=== PATIENT | female | born 1985 | race Caucasian/White ===

== ENCOUNTER 2017-02-18 16:17 | Inpatient (IN) | payer OTHER ==
[~2017-02-18] VITALS: Ht 162.6 cm; Wt 98.2 kg
[~2017-02-18 16:17] MED LIST: /CLON1TA OR; /CLON1TA PO; /LAMO10TA PO; /METO5TA PO; /MOXI40TA OR; /OL10DISTA OR; /OLAN5ZYD OR; /PANT40TA PO; /QUET25TA OR; ABIL2TAB; ABIL5TAB OR; ALBU17IN INH; ALBUTEROL INH; ALLE25CA OR; AMBI10TA OR; AMBI10TA PO; ARIP5TA PO; ASTE137S; ATIV0.5T; BACI50OI EXT; BACIPOW8 TOP; BACL10TA2 OR; BACT800T OR; BENA25TA4 PO; CARB1TAB20 PO; CLIN300C PO; CLON0.5T PO; DOCU10ELUD PO; EPIP0.3I10 IM; ESTR625TA PO; FLON0.05; FLUTISP; HYDR-3363 PO; HYDR-4274 PO; HYDR25T PO; IMIT100T PO; IMIT50TA PO; KLON0.5T PO; KLON1TAB PO; LAMO10TA PO; LAMO200T PO; LAXA5TAB PO; LOTR15CR EXT; LOTRCRE TOP; MINI2CAP PO; MOBI15TA PO; MONI1OIN VA; NEUR100C OR; NORC5TAB PO; NORCOBULK PO; OLAN20TA PO; OMEP20CA3 PO; OMEP40CA2 PO; PAXI10TA2 PO; PAXI20TA3 PO; PERC5TAB6 PO; PERC5TAB8; PERC5TAB8 OR; PRAZ2CAP PO; PRED20TA PO; PRIL20CA9 PO; PROZ20CA; PROZ20CA11 PO; QUET20XRTB OR; SERO200T PO; SERO200T2 PO; SEROQUEL XR PO; SUMA100T2 PO; TRAM50TA2; TRAZ100T2 PO; TRAZ150T OR; TRAZ150T14 PO; TRAZ50TA2 PO; TRIL600T PO; TYLE1TAB5 PO; VENTAER IN; ZANA4CAP OR; ZANT1TAB PO; ZANTTAB9 PO; ZIPR80CAP OR; ZITH250T PO; ZOFR4SOL PO; ZYPR10TA PO; ZYPR20TA PO; haldol PO
[2017-02-18] MEDS ORDERED: clonazePAM 0.5 MG TAB PO ONE (16:45)
[2017-02-18] MEDS ORDERED: IMIP10TA2 PO ×2 (16:48→19:21)
[2017-02-18] MEDS ORDERED: FLUT1LOT EX (16:48)
[2017-02-18] MEDS ORDERED: ZONI25CA2 PO (16:48)
[2017-02-18] MEDS ORDERED: ALBU17IN INH (16:49)
--- NOTE | 2017-02-18 17:14 | REP ---
PA, LATERAL RIGHT HAND: 02/18/2017. Clinical history: Blunt trauma. Findings: There is soft tissue swelling of the dorsal aspect of the MCP joints on the lateral view. There is no visible fracture or focal lesion in the metacarpals or MCP joints. The phalanges, IP joints, carpal bones and their joint spaces were all intact. Distal radius and ulna intact. Impression: 1. Soft tissue swelling of the dorsal aspect of the hand at the MCP joints without visible or displaced fracture, avulsion, subluxation or other acute finding. Signed by Travis Mejia MD 02/19/2017 03:24 P
[2017-02-18 17:42] LABS: MEAN CORPUSCULAR HEMOGLOBIN 29.9 pg (27.0-33.0); MEAN CORPUSCULAR HGB CONC 33.1 g/dl (32.0-36.5); MEAN CORPUSCULAR VOLUME 90.3 fl (80.0-96.0); RED CELL DISTRIBUTION WIDTH 12.8 % (11.5-14.5); WHITE BLOOD COUNT 8.4 K/mm3 (4.0-10.0)
[2017-02-18 17:56] LABS: METHADONE URINE NEGATIVE (NEGATIVE)
[2017-02-18 18:07] LABS: ALBUMIN 3.8 GM/DL (3.2-5.2); ALBUMIN/GLOBULIN RATIO 1.09 (1.00-1.93); ALKALINE PHOSPHATASE 125 U/L (45-117); ALT/SGPT 21 U/L (12-78); ANION GAP 9 MEQ/L (8-16); AST/SGOT 12 U/L (15-37); BILIRUBIN,DIRECT < 0.1 MG/DL (0.0-0.2); BILIRUBIN,TOTAL 0.2 MG/DL (0.2-1.0); BLOOD UREA NITROGEN 11 MG/DL (7-18); CALCIUM LEVEL 9.2 MG/DL (8.5-10.1); CARBON DIOXIDE LEVEL 21 MEQ/L (21-32); CHLORIDE LEVEL 110 MEQ/L (98-107); CREATININE FOR GFR 0.57 MG/DL (0.55-1.02); GLOMERULAR FILTRATION RATE > 60.0 (>60); GLUCOSE, FASTING 95 MG/DL (70-105); POTASSIUM SERUM 3.9 MEQ/L (3.5-5.1); SODIUM LEVEL 140 MEQ/L (136-145); TOTAL PROTEIN 7.3 GM/DL (6.4-8.2)
[2017-02-18] MEDS ORDERED: diphenhydrAMINE 50 MG CAP PO ONE (19:00)
[2017-02-18] MEDS ORDERED: ACETAMINOPHEN TAB 650MG DOSE (2X325MG) PO ONE (19:00)
[2017-02-18] MEDS ORDERED: LORazepam 1 MG TAB PO STA (19:00)
[2017-02-18] MEDS ORDERED: diphenhydrAMINE 25 MG CAP PO PRN (19:15)
[2017-02-18] MEDS ORDERED: ACETAMINOPHEN TAB 650MG DOSE (2X325MG) PO PRN (19:15)
[2017-02-18] MEDS ORDERED: MOM 30ML SUSPENSION UDC PO PRN (19:15)
[2017-02-18] MEDS ORDERED: MAALOX 30 ML SUSP *UDC PO PRN (19:15)
[2017-02-18] MEDS ORDERED: LORazepam 1 MG TAB PO PRN (19:15)
[2017-02-18] MEDS ORDERED: ZONI50CA3 PO (19:21)
[2017-02-18] MEDS ORDERED: IMIT50TA PO (19:21)
[2017-02-18] MEDS ORDERED: EPIP0.3I2 INJ (19:21)
[2017-02-18] MEDS ORDERED: PATIENT COMMENT (19:21)
[2017-02-18] MEDS ORDERED: HALOPERIDOL 5 MG/ML VIAL (J1630) IM STA (19:33)
[2017-02-18] MEDS ORDERED: HALOPERIDOL 1 MG TAB PO ONE (20:00)
[2017-02-18] MEDS: ZONISAMIDE 100 MG CAP (ZONEGRAN) PO SCH (21:00)
[2017-02-18] MEDS: IMIPRAMINE 25 MG TAB PO SCH (21:00)
[2017-02-18] MEDS: traZODone 50 MG TAB PO PRN (21:49)
[2017-02-19 00:43] VITALS: BP 101/63
[2017-02-19 06:35] VITALS: BP 113/57
[2017-02-19] MEDS ORDERED: HALOPERIDOL 5 MG TAB PO PRN (09:15)
[2017-02-19] MEDS ORDERED: diphenhydrAMINE 50 MG CAP PO PRN (09:15)
[2017-02-19] MEDS: clonazePAM 1 MG TAB PO PRN ×2 (09:31→20:28)
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
[2017-02-19] MEDS ORDERED: ALBUTEROL 90 MCG/ACT 8GM HFA INHALER INH PRN (10:15)
[2017-02-19 10:34] LABS: CONTROL LINE HCG INT CTR LINE PRESENT
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
--- NOTE | 2017-02-19 13:03 | REP ---
RIGHT HAND COMPLETE: 02/19/2017. Clinical history: trauma, pain. States pain in fifth metacarpal. Comparison two-view hand 02/18/2017, complete hand 08/06/2016. The four view show some soft tissue swelling over the dorsal aspect of the MCP joints. There is no visible or displaced fracture, avulsion or subluxation. The MCP, IP and carpal joint spaces were unremarkable. Carpal bones and phalanges intact without fracture or avulsion. Distal radius and ulna intact. Impression: 1. Soft tissue swelling dorsal aspect of the MCP joints on the lateral view. No visible or displaced fracture, avulsion, erosion, subluxation or other acute finding. Signed by Travis Mejia MD 02/19/2017 01:48 P
--- NOTE | 2017-02-19 13:17 | REP ---
LUMBAR SPINE COMPLETE: 02/19/2017. Comparison: 08/22/2014. Clinical history: Back pain. Findings: Five views are provided. Pedicles, spinous and transverse prostheses are intact. Elongated transverse processes or short twelfth ribs noted. The other four lumbarized vertebral bodies are without abnormalities. The pedicles, spinous, transverse processes, SI joints, sacral ala and foramina symmetric and normal. There is no spondylolysis or spondylolisthesis. There are right upper quadrant surgical clips from prior cholecystectomy. The disc space and vertebral body heights were intact. Normal lordosis maintained. Impression: 1. There is no compression deformity, disc space narrowing, spondylolysis, facet arthritis or destructive lesion. Negative lumbar spine. Signed by Travis Mejia MD 02/19/2017 03:30 P
[2017-02-19] MEDS: IMIPRAMINE 25 MG TAB PO SCH (20:28)
[2017-02-19] MEDS: ZONISAMIDE 100 MG CAP (ZONEGRAN) PO SCH (20:28)
[2017-02-19] MEDS: traZODone 50 MG TAB PO PRN (20:28)
[2017-02-20 06:29] VITALS: BP 107/56
--- NOTE | 2017-02-20 12:44 | ECGEPIP ---
Stationary ECG Study [facility] Test Date: 2017-02-19 Pat Name: CHERISE DENNIS Department: Room: [place] [address] Gender: F Block Inspector: SHIRA : 1985 Requested By: Sushila Pablo Order Number: [id number] Reading MD: David Myrick Measurements Intervals Grethel Rate: 71 P: 24 NC: 222 QRS: 67 QRSD: 104 T: 41 QT: 371 QTc: 405 Interpretive Statements SINUS RHYTHM WITH FIRST DEGREE AV BLOCK Likely normal for age Not changed from 08/06/16 Electronically Signed On 02-20-2017 12:44:20 EDT by David Myrick
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
== END 2017-02-20 10:45 | disposition home or self-care (01) | DRG 753 ==
LOC: M ED 17:29 → M ED INP 20:25 → M PSY 21:05
PROVIDERS: ADMIT Psychiatry & Neurology Child & Adolescent Psychiatry; ATTEND Psychiatry & Neurology Child & Adolescent Psychiatry
DX: F31.9 Bipolar disorder, unspecified (principal); Z91.19 Patient's noncompliance with other medical treatment and regimen; R45.851 Suicidal ideations; F41.9 Anxiety disorder, unspecified; F60.9 Personality disorder, unspecified; M54.5 Low back pain; F17.210 Nicotine dependence, cigarettes, uncomplicated; M79.641 Pain in right hand; J45.909 Unspecified asthma, uncomplicated; G43.909 Migraine, unspecified, not intractable, without status migrainosus; Z90.710 Acquired absence of both cervix and uterus; Z90.49 Acquired absence of other specified parts of digestive tract; Z90.722 Acquired absence of ovaries, bilateral; Z85.41 Personal history of malignant neoplasm of cervix uteri; Z79.899 Other long term (current) drug therapy; Z88.0 Allergy status to penicillin; Z88.1 Allergy status to other antibiotic agents; Z88.5 Allergy status to narcotic agent; Z88.8 Allergy status to other drugs, medicaments and biological substances; Z91.040 Latex allergy status; Z91.030 Bee allergy status; Z91.048 Other nonmedicinal substance allergy status

== ENCOUNTER 2017-03-01 17:35 | Emergency (ER) | payer OTHER ==
[~2017-03-01] VITALS: Ht 160 cm; Wt 88.5 kg
[2017-03-01 17:35] VITALS: BP 121/77
[~2017-03-01 17:35] MED LIST changes: +EPIP0.3I2 INJ; +FLUT1LOT EX; +IMIP10TA2 PO; +PATIENT COMMENT; +ZONI25CA2 PO; +ZONI50CA3 PO
[2017-03-01] MEDS ORDERED: ACETAMINOPHEN TAB 650MG DOSE (2X325MG) PO ONE (18:15)
[2017-03-01] MEDS ORDERED: BACT800T5 PO (18:36)
== END 2017-03-01 18:46 | disposition home or self-care (01) ==
LOC: M ED 18:05
DX: N30.00 Acute cystitis without hematuria (principal); R10.2 Pelvic and perineal pain; Z88.8 Allergy status to other drugs, medicaments and biological substances; Z91.030 Bee allergy status; Z91.040 Latex allergy status; Z88.0 Allergy status to penicillin; R56.9 Unspecified convulsions; J45.909 Unspecified asthma, uncomplicated; F17.210 Nicotine dependence, cigarettes, uncomplicated; F41.9 Anxiety disorder, unspecified; F32.9 Major depressive disorder, single episode, unspecified; F43.10 Post-traumatic stress disorder, unspecified; Z85.41 Personal history of malignant neoplasm of cervix uteri

== ENCOUNTER 2017-04-14 12:13 | Emergency (ER) | payer OTHER ==
[~2017-04-14] VITALS: Ht 162.6 cm; Wt 84.8 kg
[~2017-04-14 12:13] MED LIST changes: +BACT800T5 PO
[2017-04-14] MEDS ORDERED: EFFE37.527 PO (12:35)
[2017-04-14] MEDS ORDERED: REXU1TAB4 PO (12:35)
[2017-04-14] MEDS ORDERED: BENA25CA4 PO (12:35)
[2017-04-14] MEDS ORDERED: [UNRECOGNIZED DRUG - CODE] PO (12:35)
[2017-04-14] MEDS ORDERED: LORazepam 1 MG TAB PO STA (12:50)
[2017-04-14] MEDS ORDERED: LORazepam 2 MG/ML VIAL (J2060) IM STA (13:13)
[2017-04-14] MEDS ORDERED: HALOPERIDOL 5 MG/ML VIAL (J1630) IM ONE (13:15)
[2017-04-14] MEDS ORDERED: ONDANSETRON 4 MG ORAL DISINTEGRATING TAB (S0181) PO ONE (13:30)
[2017-04-14] MEDS ORDERED: HALOPERIDOL 5 MG/ML VIAL (J1630) IV STA (13:39)
[2017-04-14 14:30] LABS: MEAN CORPUSCULAR HEMOGLOBIN 31.4 pg (27.0-33.0); MEAN CORPUSCULAR HGB CONC 34.6 g/dl (32.0-36.5); MEAN CORPUSCULAR VOLUME 90.8 fl (80.0-96.0); RED CELL DISTRIBUTION WIDTH 12.3 % (11.5-14.5); WHITE BLOOD COUNT 9.8 K/mm3 (4.0-10.0)
[2017-04-14 14:51] LABS: ALBUMIN 4.1 GM/DL (3.2-5.2); ALBUMIN/GLOBULIN RATIO 1.11 (1.00-1.93); ALKALINE PHOSPHATASE 129 U/L (45-117); ALT/SGPT 27 U/L (12-78); ANION GAP 7 MEQ/L (8-16); AST/SGOT 21 U/L (15-37); BILIRUBIN,DIRECT < 0.1 MG/DL (0.0-0.2); BILIRUBIN,TOTAL 0.3 MG/DL (0.2-1.0); BLOOD UREA NITROGEN 12 MG/DL (7-18); CALCIUM LEVEL 9.8 MG/DL (8.5-10.1); CARBON DIOXIDE LEVEL 23 MEQ/L (21-32); CHLORIDE LEVEL 109 MEQ/L (98-107); CREATININE FOR GFR 0.97 MG/DL (0.55-1.02); GLOMERULAR FILTRATION RATE > 60.0 (>60); GLUCOSE, FASTING 104 MG/DL (70-105); POTASSIUM SERUM 4.3 MEQ/L (3.5-5.1); SODIUM LEVEL 139 MEQ/L (136-145); TOTAL PROTEIN 7.8 GM/DL (6.4-8.2)
--- NOTE | 2017-04-14 15:16 | REP ---
Right hand series: Two views. History: Pain in the right fifth digit. Findings: AP and lateral views of the right hand demonstrate some soft tissue swelling dorsally over the metacarpals on the lateral radiograph. Bones, joints and soft tissues are otherwise unremarkable. No fracture or subluxation is seen. No change from comparison study February 19, 2017. Impression: Dorsal soft tissue swelling over the distal metacarpal. No bony abnormality. Signed by Alon March MD 04/14/2017 04:46 P
[2017-04-14 16:18] LABS: METHADONE URINE NEGATIVE (NEGATIVE)
[2017-04-14 17:50] VITALS: BP 112/62
== END 2017-04-14 18:08 | disposition home or self-care (01) ==
LOC: M ED 13:34
DX: F32.9 Major depressive disorder, single episode, unspecified (principal); F19.10 Other psychoactive substance abuse, uncomplicated; M79.89 Other specified soft tissue disorders; Z79.899 Other long term (current) drug therapy; Z88.1 Allergy status to other antibiotic agents; Z91.030 Bee allergy status; Z88.5 Allergy status to narcotic agent; Z91.040 Latex allergy status; Z88.8 Allergy status to other drugs, medicaments and biological substances; Z88.0 Allergy status to penicillin; Z91.89 Other specified personal risk factors, not elsewhere classified

== ENCOUNTER 2017-05-08 16:08 | Emergency (ER) | payer OTHER ==
[~2017-05-08] VITALS: Ht 160 cm; Wt 80.9 kg
[~2017-05-08 16:08] MED LIST changes: +BENA25CA4 PO; +EFFE37.527 PO; -HYDR-4274 PO; +HYDR50TA70 PO; +PERC5TAB12 PO; -PERC5TAB6 PO; +REXU1TAB4 PO; -TRAZ150T14 PO; +TRAZ1TAB14 PO; +[UNRECOGNIZED DRUG - CODE] PO
[2017-05-08 16:09] VITALS: BP 110/70
[2017-05-08] MEDS ORDERED: TOPA1TAB PO (16:18)
[2017-05-08] MEDS ORDERED: ZYPR10TA PO (16:18)
[2017-05-08] MEDS ORDERED: ACETAMINOPHEN 325 MG TAB PO ONE (16:45)
--- NOTE | 2017-05-08 17:24 | REP ---
Clinical: Trauma. Technique: AP, lateral, bilateral oblique views right hand . Findings: The osseous structures and joint spaces are intact and normal. There is no evidence for acute fracture or dislocation. Surrounding soft tissues are unremarkable. No subcutaneous emphysema or radiodense foreign body. Impression: Normal examination. No acute fracture or dislocation. Signed by Mahin Morales MD 05/08/2017 05:16 P
--- NOTE | 2017-05-08 17:25 | REP ---
Clinical: Trauma. Technique: AP, lateral, bilateral oblique views right wrist . Findings: The carpal bones, surrounding osseous structures, soft tissues, and joint spaces are normal. There is no evidence for acute fracture or dislocation. No subcutaneous emphysema or radiodense foreign body. Impression: Normal wrist series. No acute fracture or dislocation Signed by Mahin Morales MD 05/08/2017 05:17 P
== END 2017-05-08 17:51 | disposition home or self-care (01) ==
LOC: M ED 16:08
DX: S60.221A Contusion of right hand, initial encounter (principal); S63.521A Sprain of radiocarpal joint of right wrist, initial encounter; W22.09XA Striking against other stationary object, initial encounter; Y92.019 Unspecified place in single-family (private) house as the place of occurrence of the external cause; Y93.89 Activity, other specified; Y99.8 Other external cause status; R56.9 Unspecified convulsions; J45.909 Unspecified asthma, uncomplicated; K58.9 Irritable bowel syndrome, unspecified; E03.9 Hypothyroidism, unspecified; M51.86 Other intervertebral disc disorders, lumbar region; F31.9 Bipolar disorder, unspecified; F41.9 Anxiety disorder, unspecified; F43.10 Post-traumatic stress disorder, unspecified; F60.3 Borderline personality disorder; Z85.41 Personal history of malignant neoplasm of cervix uteri; Z90.79 Acquired absence of other genital organ(s); Z90.49 Acquired absence of other specified parts of digestive tract; Z79.899 Other long term (current) drug therapy; Z91.040 Latex allergy status; Z91.09 Other allergy status, other than to drugs and biological substances; Z88.5 Allergy status to narcotic agent; Z88.0 Allergy status to penicillin; Z88.8 Allergy status to other drugs, medicaments and biological substances; Z91.030 Bee allergy status

== ENCOUNTER 2017-05-12 11:53 | Inpatient (IN) | payer OTHER ==
[~2017-05-12] VITALS: Ht 162.6 cm; Wt 93.9 kg
[~2017-05-12 11:53] MED LIST changes: +TOPA1TAB PO
[2017-05-12] MEDS ORDERED: TETANUS/DIPHTHERIA TOX ADSORB ADULT 0.5ML SYR/VIAL (90714) IM ONE (13:30)
[2017-05-12 13:44] LABS: MEAN CORPUSCULAR HEMOGLOBIN 31.2 pg (27.0-33.0); MEAN CORPUSCULAR VOLUME 91.6 fl (80.0-96.0); RED CELL DISTRIBUTION WIDTH 12.3 % (11.5-14.5); WHITE BLOOD COUNT 8.9 K/mm3 (4.0-10.0)
[2017-05-12] MEDS ORDERED: LORazepam 2 MG/ML VIAL (J2060) IV STA ×2 (14:03→18:30)
[2017-05-12 14:04] LABS: METHADONE URINE NEGATIVE (NEGATIVE)
[2017-05-12 14:16] LABS: ALBUMIN 3.8 GM/DL (3.2-5.2); ALKALINE PHOSPHATASE 101 U/L (45-117); ALT/SGPT 22 U/L (12-78); ANION GAP 6 MEQ/L (8-16); AST/SGOT 19 U/L (15-37); BILIRUBIN,DIRECT < 0.1 MG/DL (0.0-0.2); BILIRUBIN,TOTAL 0.2 MG/DL (0.2-1.0); BLOOD UREA NITROGEN 7 MG/DL (7-18); CALCIUM LEVEL 9.2 MG/DL (8.5-10.1); CARBON DIOXIDE LEVEL 25 MEQ/L (21-32); CHLORIDE LEVEL 111 MEQ/L (98-107); CREATININE FOR GFR 0.69 MG/DL (0.55-1.02); GLOMERULAR FILTRATION RATE > 60.0 (>60); GLUCOSE, FASTING 98 MG/DL (70-105); POTASSIUM SERUM 4.1 MEQ/L (3.5-5.1); SODIUM LEVEL 142 MEQ/L (136-145); TOTAL PROTEIN 7.6 GM/DL (6.4-8.2)
[2017-05-12] MEDS ORDERED: LORazepam 1 MG TAB PO STA ×3 (14:20→18:30)
[2017-05-12] MEDS ORDERED: LORazepam 1 MG TAB As Ordered ONE (14:25)
--- NOTE | 2017-05-12 14:31 | REP ---
Clinical: Chest pain . Comparison: 08/05/2016 . Findings: The mediastinum and cardiac silhouette are stable and within normal limits for portable technique. The lung sawant are clear without acute consolidation, effusion, or pneumothorax. Skeletal structures are intact. Impression: No acute cardiopulmonary process appreciated. Signed by Mahin Morales MD 05/12/2017 02:23 P
[2017-05-12] MEDS ORDERED: ALBU17IN2 INH (15:56)
[2017-05-12 17:14] VITALS: BP 93/56
[2017-05-12] MEDS ORDERED: diphenhydrAMINE 50 MG CAP PO STA (18:30)
[2017-05-12] MEDS ORDERED: diphenhydrAMINE INJ 50MG/ML VIAL (J1200) IM STA (18:30)
[2017-05-12] MEDS ORDERED: HALOPERIDOL 5 MG TAB PO STA (18:30)
[2017-05-12] MEDS ORDERED: LORazepam 2 MG/ML VIAL (J2060) IM STA (18:44)
[2017-05-12] MEDS ORDERED: HALOPERIDOL 5 MG/ML VIAL (J1630) As Ordered ONE ×2 (18:44→18:46)
[2017-05-12] MEDS ORDERED: HALOPERIDOL DECANOATE 100 MG/ML VIAL (J1631) IM ONE (18:45)
[2017-05-12] MEDS ORDERED: HALOPERIDOL 5 MG/ML VIAL (J1630) IM STA (18:49)
[2017-05-12] MEDS ORDERED: HALOPERIDOL 5 MG/ML VIAL (J1630) IM ONE (19:00)
[2017-05-12] MEDS ORDERED: HALOPERIDOL 5 MG TAB PO PRN (19:30)
[2017-05-12] MEDS ORDERED: MOM 30ML SUSPENSION UDC PO PRN (19:30)
[2017-05-13 06:24] VITALS: BP 106/60
--- NOTE | 2017-05-13 08:06 | HPE ---
DATE OF ADMISSION: 05/12/2017 HISTORY OF THE PRESENT ILLNESS: Please refer to psychiatric history and evaluation for further details on this admission. This examination and history is intended for medical issues history, which may need treatment, followup or consultation of this 31-year-old female. ALLERGIES: 1. BACLOFEN. 2. CODEINE. 3. KETOROLAC. 4. LITHIUM. 5. OLANZAPINE. 6. PENICILLIN. 7. PREGABALIN. 8. SERTRALINE. 9. TRAMADOL. 10. Tape. 11. Bee venom. PRIMARY CARE PROVIDER: Dr. Boyer. PAST MEDICAL HISTORY: Chronic low back pain. Asthma, controlled. Gastroesophageal reflux disease (GERD). Migraines headaches. MRI of the brain 01/24 at [facility]. History of cervical cancer 2010. Status post hysterectomy and oophorectomy. History of bulimia. PAST SURGICAL HISTORY: Tubal ligation. Hysterectomy. Oophorectomy. Cholecystectomy. SOCIAL HISTORY: She is single. She states she has been using heroin, last used Friday. She was screaming that in the lopez. LABORATORY STUDIES: CBC was normal. Sodium 142, potassium 4.1, chloride 111, CO2 25, BUN 7, creatinine 0.69, TSH 0.42. Urine was positive for cannabinoids. Chest x-ray was done and showed no acute cardiopulmonary process. The patient had been complaining about a cough. HOME MEDICATIONS: - albuterol two puffs by mouth every 4 hours as needed for shortness of breath - imipramine 20 mg by mouth at bedtime - Zyprexa 10 mg by mouth daily - Topamax 25 mg by mouth daily - Effexor 37.5 mg by mouth at bedtime - zonisamide 100 mg by mouth at bedtime - EpiPen Unable to complete review of systems or physical exam. The patient was agitated and screaming, punching the marin. The patient's psychiatrist was noted. The patient was medicated. Patient refusing any further at this time.
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
[2017-05-13] MEDS: LORazepam 1 MG TAB PO PRN (17:45)
[2017-05-13 18:00] VITALS: BP 111/65
[2017-05-13] MEDS: IBUPROFEN 400 MG TAB PO PRN (21:30)
[2017-05-13] MEDS ORDERED: HALOPERIDOL 5 MG/ML VIAL (J1630) IM STA (22:23)
[2017-05-13] MEDS ORDERED: LORazepam 2 MG/ML VIAL (J2060) IM STA (22:23)
[2017-05-13] MEDS ORDERED: diphenhydrAMINE INJ 50MG/ML VIAL (J1200) IM STA (22:23)
--- NOTE | 2017-05-14 09:55 | ECGEPIP ---
Stationary ECG Study [facility] Test Date: 2017-05-14 Pat Name: CHERISE DENNIS Department: Room: [place] [address] Gender: F Manager Pricing: RHONDA : 1985 Requested By: Meredith Lancaster Order Number: [id number] Reading MD: Jacinda Temple Measurements Intervals [place] Rate: 91 P: 58 W[place]: 154 QRS: 80 QRSD: 98 T: 67 QT: 357 QTc: 441 Interpretive Statements SINUS RHYTHM eARLY rEPOLAR CHANGES FIRST DEGREE BLOCK RESOLVED C/W 02/19/17 Electronically Signed On 05-14-2017 9:55:27 EDT by Jacinda Temple
[2017-05-14] MEDS: ACETAMINOPHEN TAB 650MG DOSE (2X325MG) PO PRN (12:20)
[2017-05-14] MEDS: diphenhydrAMINE 50 MG CAP PO PRN (14:17)
[2017-05-14] MEDS: HALOPERIDOL 10 MG TAB PO PRN (16:04)
--- NOTE | 2017-05-14 17:05 | MHIPNPDOC ---
[facility] Progress Note Progress Note DATE OF SERVICE: 05/14/17 HISTORY: Patient is a 31-year-old female who was brought into the emergency room by police after she called the crisis line indicating that she was suicidal and had cut her wrist with razor blade. HISTORY: VITAL SIGNS: See below. NEW TEST RESULTS: None CURRENT MEDICATIONS: See below. MENTAL STATUS EXAMINATION: Patient is a 31-year old female, who is alert, dressed in hospital clothes, laying in bed, cooperative, tired looking. Speech: Is coherent. Language skills are fair. Thought processes including: Intact Thought content: About being anxious about not being able to sleep. Abstract reasoning, and computation: Unable to assess, patient is very tired at this time. Description of associations: Good, not loose. Description of abnormal or psychotic thoughts: Denies auditory or visual hallucinations, denies thought delusions and denies homicidal ideation but reports passive suicidal ideation and urges to cut herself. Judgment: Poor. Insight: Poor. Orientation: Oriented X 3. Recent and remote memory: Intact Attention span and concentration: Limited due to patient's sleepiness. Language: Normal. Fund of knowledge: Fair. Mood: "I feel like I want to hurt myself". Affect: Constricted and, congruent to mood DIAGNOSES: 1. Unspecified mood disorder 2. Borderline personality disorder 3. Rule out substance-induced mood disorder ASSESSMENT: Patient reports she has been out of medications for almost 3 months and she says she was on venlafaxine 37.5 mg, she once took Risperdal 1 mg by mouth 3 times a day and felt it helped her at that time. Patient was restarted on venlafaxine 37.5 mg by mouth daily, Risperdal 1 mg by mouth 3 times a day and was left on Haldol when necessary or anxiety and agitation. Patient has a long-standing history of inpatient admissions, for substance abuse, for impulsive behavior and for cutting herself in the past. She'll want to elaborate about her personal problems, but she is willing to comply with medications. MANAGEMENT PLAN: Will encourage her to attend groups, provide her with individual psychotherapy, manage and adjust medications accordingly. TIME SPENT: 15 minutes. Vital Signs Vital Signs Date Time Temp Pulse Resp B/P (MAP) Pulse Ox O2 Delivery O2 Flow Rate FiO2 05/13/17 18:00 97.5 99 16 111/65 (80) 7/3/17 17:14 95 Room Air Current Medications Current Medications Acetaminophen (Tylenol Tab) 650 mg Q6HP PRN PO HEADACHE or DISCOMFORT Last administered on 05/14/17 12:20; Start 05/12/17 at 19:30; Stop 06/11/17 at 19:29 Al Hydrox/Mg Hydrox/Simethicone (Mylanta) 30 ml Q4HP PRN PO HEARTBURN/ INDIGESTION; Start 05/12/17 at 19:30; Stop 06/11/17 at 19:29 Diphenhydramine HCl (Benadryl) 50 mg Q6HP PRN PO INSOMNIA Last administered on 05/14/17 14:17; Start 05/13/17 at 22:30; Stop 06/12/17 at 22:29 Diphenhydramine HCl (Benadryl) 50 mg STAT STAT IM Last administered on 19:03; Start 05/12/17 at 18:30; Stop 05/12/17 at 18:36; Status DC Diphenhydramine HCl (Benadryl) 50 mg STAT STAT IM Last administered on 22:34; Start 05/13/17 at 22:23; Stop 05/13/17 at 22:26; Status DC Diphenhydramine HCl (Benadryl) 50 mg STAT STAT PO ; Start 05/12/17 at 18:30; Stop 05/12/17 at 18:36; Status DC Haloperidol (Haldol) 5 mg Q4HP PRN PO ANXIETY/AGITATION Last administered on 21:30; Start 05/12/17 at 19:30; Stop 05/14/17 at 16:17; Status DC Haloperidol (Haldol) 10 mg Q6HP PRN PO ANXIETY/AGITATION Last administered on 16:04; Start 05/13/17 at 22:30; Stop 06/12/17 at 22:29 Haloperidol (Haldol) 10 mg STAT STAT IM Last administered on 05/12/17 19:04; Start 05/12/17 at 18:49; Stop 05/12/17 at 18:52; Status DC Haloperidol (Haldol) 10 mg STAT STAT IM Last administered on 05/13/17 22:34; Start 05/13/17 at 22:23; Stop 05/13/17 at 22:26; Status DC Haloperidol (Haldol) 10 mg STAT STAT PO ; Start 05/12/17 at 18:30; Stop 05/12/17 at 18:35; Status DC Home Med (Med Rec Complete!) ASDIRECTED XX ; Start 05/12/17 at 16:00; Stop at 16:02; Status DC Ibuprofen (Advil) 400 mg Q6HP PRN PO PAIN Last administered on 05/13/17 21:30; Start 05/12/17 at 19:30; Stop 06/11/17 at 19:29 Lorazepam (Ativan) 1 mg Q4HP PRN PO ANXIETY/AGITATION Last administered on 17:45; Start 05/12/17 at 19:30; Stop 05/19/17 at 19:29 Lorazepam (Ativan) 1 mg STAT STAT IV ; Start 05/12/17 at 14:03; Stop 05/12/17 at 14:25; Status DC Lorazepam (Ativan) 1 mg STAT STAT PO ; Start 05/12/17 at 14:20; Stop 05/12/17 at 14:38; Status DC Lorazepam (Ativan) 1 mg STAT STAT PO Last administered on 05/12/17 14:25; Start 05/12/17 at 14:25; Stop 05/12/17 at 14:29; Status DC Lorazepam (Ativan) 2 mg Q6HP PRN PO ANXIETY/AGITATION; Start 05/13/17 at 22:30; Stop 05/20/17 at 22:29 Lorazepam (Ativan) 2 mg STAT STAT IM Last administered on 05/12/17 19:03; Start 05/12/17 at 18:44; Stop 05/12/17 at 18:45; Status DC Lorazepam (Ativan) 2 mg STAT STAT IM Last administered on 05/13/17 22:34; Start 05/13/17 at 22:23; Stop 05/13/17 at 22:26; Status DC Lorazepam (Ativan) 2 mg STAT STAT IV ; Start 05/12/17 at 18:30; Stop 05/12/17 at 18:31; Status Cancel Lorazepam (Ativan) 2 mg STAT STAT PO ; Start 05/12/17 at 18:30; Stop 05/12/17 at 18:35; Status DC Magnesium Hydroxide (Milk Of Magnesia) 30 ml DAILYPRN PRN PO CONSTIPATION; Start 05/12/17 at 19:30; Stop 06/11/17 at 19:29 Quetiapine Fumarate (SEROquel) 200 mg BID PO ; Start 05/14/17 at 21:00; Stop 06/13 at 20:59 Risperidone (RisperDAL) 1 mg TID PO ; Start 05/14/17 at 21:00; Stop 06/13/17 at 20 :59 Venlafaxine HCl (Effexor) 37.5 mg DAILY PO ; Start 05/15/17 at 09:00; Stop at 08:59 Allergies Coded Allergies: Penicillins (Verified Allergy, Intermediate, HIVES, 02/10/13) Baclofen (Verified Allergy, Unknown, 02/10/13) ADDED per SECURITY CONTROL ASSESSOR's ORDER Bee Venom (Verified Allergy, Unknown, 02/10/13) Codeine (Verified Allergy, Unknown, 02/10/13) Latex (Verified Allergy, Unknown, 02/10/13) Olanzapine (Verified Allergy, Unknown, 02/18/17) Pregabalin (Verified Allergy, Unknown, 02/10/13) Sertraline (Verified Allergy, Unknown, 02/10/13) TAPE (Verified Allergy, Unknown, 03/14/13) Tramadol (Verified Allergy, Unknown, 02/10/13) [place] (Verified Adverse Reaction, Intermediate, THYROID PROBLEM, 02/10/13) Ketorolac (Verified Adverse Reaction, Mild, STOMACH UPSET ; PATIENT TAKES MOTRIN AT HOME, 02/10/13) BELÉN DEE MD May 14, 2017 17:05
[2017-05-14 18:00] VITALS: BP 109/64
[2017-05-14] MEDS: IBUPROFEN 400 MG TAB PO PRN (18:22)
[2017-05-14] MEDS: LORazepam 1 MG TAB PO PRN (20:34)
[2017-05-14] MEDS: QUEtiapine FUMARATE 200 MG TAB PO SCH (20:34)
[2017-05-14] MEDS: risperiDONE 1 MG TAB PO SCH (20:34)
[2017-05-15 06:22] VITALS: BP 109/58
[2017-05-15] MEDS: risperiDONE 1 MG TAB PO SCH ×2 (08:36→20:01)
[2017-05-15] MEDS: VENLAFAXINE 37.5 MG TAB PO SCH (08:36)
[2017-05-15] MEDS: QUEtiapine FUMARATE 200 MG TAB PO SCH (08:36)
[2017-05-15] MEDS: HALOPERIDOL 10 MG TAB PO PRN (15:14)
[2017-05-15] MEDS: MAALOX 30 ML SUSP *UDC PO PRN (17:00)
[2017-05-15 18:09] VITALS: BP 105/64
[2017-05-15] MEDS: QUEtiapine FUMARATE 100 MG TAB PO SCH (20:01)
[2017-05-15] MEDS: LORazepam 2 MG TAB PO PRN (20:01)
[2017-05-15] MEDS: IBUPROFEN 400 MG TAB PO PRN (20:02)
--- NOTE | 2017-05-15 20:12 | MHIPNPDOC ---
[facility] Progress Note Progress Note DATE OF SERVICE: 05/15/17 HISTORY: Patient is a 31-year-old female who was brought into the emergency room by police after she called the crisis line indicating that she was suicidal and had cut her wrist with razor blade. VITAL SIGNS: See below. NEW TEST RESULTS: None CURRENT MEDICATIONS: See below. MENTAL STATUS EXAMINATION: Patient is a 31-year old female, alert, looking older than stated, tired, sleepy , dressed in hospital clothes Speech: normal but sparse, not that fluid. Patient is very sleepy and is hard for her to maintain a conversation. Language skills are fair. Thought processes including: Intact Thought content: Sleep problems ( sleeping too much) Abstract reasoning, and computation: Unable to assess Description of associations: Not loose. Description of abnormal or psychotic thoughts: Denies auditory or visual hallucinations, denies thought delusions and denies homicidal ideation but reports passive suicidal ideation and urges to cut herself. Judgment: Poor. Insight: Poor. Orientation: Oriented X 3. Recent and remote memory: Limited Attention span and concentration: Limited Language: Normal. Fund of knowledge: Fair. Mood: "I feel very tired". Affect: Constricted and, congruent to mood DIAGNOSES: 1. Unspecified mood disorder 2. Borderline personality disorder 3. Rule out substance-induced mood disorder ASSESSMENT: Patient was extremely sleepy, therefore, this chief underwriter reduced Risperdal to 1 mg. PO BID and also reduced Seroquel. Patient has presented agressive at the [facility] but she gets edgy and irritable when she becomes anxious. MANAGEMENT PLAN: Will continue with the same medications. Dosages were adjusted , hoping to reduce her daytime sleepiness and improve her group attendance. TIME SPENT: 15 minutes. Vital Signs Vital Signs Date Time Temp Pulse Resp B/P (MAP) Pulse Ox O2 Delivery O2 Flow Rate FiO2 05/15/17 18:09 97.2 94 16 105/64 (78) 05/12/17 17:14 95 Room Air Current Medications Current Medications Acetaminophen (Tylenol Tab) 650 mg Q6HP PRN PO HEADACHE or DISCOMFORT Last administered on 05/14/17t 12:20; Start 05/12/17 at 19:30; Stop 06/11/17 at 19:29 Al Hydrox/Mg Hydrox/Simethicone (Mylanta) 30 ml Q4HP PRN PO HEARTBURN/ INDIGESTION Last administered on 05/15/17 17:00; Start 05/12/17 at 19:30; Stop at 19:29 Diphenhydramine HCl (Benadryl) 50 mg Q6HP PRN PO INSOMNIA Last administered on 05/14/17 14:17; Start 05/13/17 at 22:30; Stop 06/12/17 at 22:29 Diphenhydramine HCl (Benadryl) 50 mg STAT STAT IM Last administered on 19:03; Start 05/12/17 at 18:30; Stop 05/12/17 at 18:36; Status DC Diphenhydramine HCl (Benadryl) 50 mg STAT STAT IM Last administered on 22:34; Start 05/13/17 at 22:23; Stop 05/13/17 at 22:26; Status DC Diphenhydramine HCl (Benadryl) 50 mg STAT STAT PO ; Start 05/12/17 at 18:30; Stop 05/12/17 at 18:36; Status DC Haloperidol (Haldol) 5 mg Q4HP PRN PO ANXIETY/AGITATION Last administered on 21:30; Start 05/12/17 at 19:30; Stop 05/14/17 at 16:17; Status DC Haloperidol (Haldol) 10 mg Q6HP PRN PO ANXIETY/AGITATION Last administered on 15:14; Start 05/13/17 at 22:30; Stop 06/12/17 at 22:29 Haloperidol (Haldol) 10 mg STAT STAT IM Last administered on 05/12/17 19:04; Start 05/12/17 at 18:49; Stop 05/12/17 at 18:52; Status DC Haloperidol (Haldol) 10 mg STAT STAT IM Last administered on 05/13/17 22:34; Start 05/13/17 at 22:23; Stop 05/13/17 at 22:26; Status DC Haloperidol (Haldol) 10 mg STAT STAT PO ; Start 05/12/17 at 18:30; Stop 05/12/17 at 18:35; Status DC Home Med (Med Rec Complete!) ASDIRECTED XX ; Start 05/12/17 at 16:00; Stop at 16:02; Status DC Ibuprofen (Advil) 400 mg Q6HP PRN PO PAIN Last administered on 05/15/17 20:02; Start 05/12/17 at 19:30; Stop 06/11/17 at 19:29 Lorazepam (Ativan) 1 mg Q4HP PRN PO ANXIETY/AGITATION Last administered on 20:34; Start 05/12/17 at 19:30; Stop 05/14/17 at 20:40; Status DC Lorazepam (Ativan) 1 mg STAT STAT IV ; Start 05/12/17 at 14:03; Stop 05/12/17 at 14:25; Status DC Lorazepam (Ativan) 1 mg STAT STAT PO ; Start 05/12/17 at 14:20; Stop 05/12/17 at 14:38; Status DC Lorazepam (Ativan) 1 mg STAT STAT PO Last administered on 05/12/17 14:25; Start 05/12/17 at 14:25; Stop 05/12/17 at 14:29; Status DC Lorazepam (Ativan) 2 mg Q6HP PRN PO ANXIETY/AGITATION Last administered on 20:01; Start 05/13/17 at 22:30; Stop 05/20/17 at 22:29 Lorazepam (Ativan) 2 mg STAT STAT IM Last administered on 05/12/17 19:03; Start 05/12/17 at 18:44; Stop 05/12/17 at 18:45; Status DC Lorazepam (Ativan) 2 mg STAT STAT IM Last administered on 05/13/17 22:34; Start 05/13/17 at 22:23; Stop 05/13/17 at 22:26; Status DC Lorazepam (Ativan) 2 mg STAT STAT IV ; Start 05/12/17 at 18:30; Stop 05/12/17 at 18:31; Status Cancel Lorazepam (Ativan) 2 mg STAT STAT PO ; Start 05/12/17 at 18:30; Stop 05/12/17 at 18:35; Status DC Magnesium Hydroxide (Milk Of Magnesia) 30 ml DAILYPRN PRN PO CONSTIPATION; Start 05/12/17 at 19:30; Stop 06/11/17 at 19:29 Quetiapine Fumarate (SEROquel) 100 mg BID PO Last administered on 05/15/17 20: 01; Start 05/15/17 at 21:00; Stop 06/14/17 at 20:59 Quetiapine Fumarate (SEROquel) 200 mg BID PO Last administered on 05/15/17 08: 36; Start 05/14/17 at 21:00; Stop 05/15/17 at 11:12; Status DC Risperidone (RisperDAL) 1 mg BID PO Last administered on 05/15/17 20:01; Start 05/15/17 at 21:00; Stop 06/13/17 at 20:59 Risperidone (RisperDAL) 1 mg TID PO Last administered on 05/15/17 08:36; Start 05/14/17 at 21:00; Stop 05/15/17 at 11:17; Status DC Venlafaxine HCl (Effexor) 37.5 mg DAILY PO Last administered on 05/15/17 08:36 ; Start 05/15/17 at 09:00; Stop 06/14/17 at 08:59 Allergies Coded Allergies: Penicillins (Verified Allergy, Intermediate, HIVES, 02/10/13) Baclofen (Verified Allergy, Unknown, 02/10/13) ADDED per [employer]'s ORDER Bee Venom (Verified Allergy, Unknown, 02/10/13) Codeine (Verified Allergy, Unknown, 02/10/13) Latex (Verified Allergy, Unknown, 02/10/13) Olanzapine (Verified Allergy, Unknown, 02/18/17) Pregabalin (Verified Allergy, Unknown, 02/10/13) Sertraline (Verified Allergy, Unknown, 02/10/13) TAPE (Verified Allergy, Unknown, 03/14/13) Tramadol (Verified Allergy, Unknown, 02/10/13) [place] (Verified Adverse Reaction, Intermediate, THYROID PROBLEM, 02/10/13) Ketorolac (Verified Adverse Reaction, Mild, STOMACH UPSET ; PATIENT TAKES MOTRIN AT HOME, 02/10/13) BELÉN DEE MD May 15, 2017 20:12
[2017-05-16 06:19] VITALS: BP 91/54
[2017-05-16] MEDS: IBUPROFEN 400 MG TAB PO PRN ×2 (08:04→17:09)
[2017-05-16] MEDS: VENLAFAXINE 37.5 MG TAB PO SCH (08:04)
[2017-05-16] MEDS: HALOPERIDOL 10 MG TAB PO PRN ×2 (08:04→20:03)
[2017-05-16] MEDS: QUEtiapine FUMARATE 100 MG TAB PO SCH ×2 (08:04→20:03)
[2017-05-16] MEDS: risperiDONE 1 MG TAB PO SCH ×2 (08:04→20:03)
[2017-05-16 18:00] VITALS: BP 103/56
[2017-05-16] MEDS: LORazepam 2 MG TAB PO PRN (19:26)
[2017-05-16] MEDS: ACETAMINOPHEN TAB 650MG DOSE (2X325MG) PO PRN (20:03)
[2017-05-17 06:43] VITALS: BP 92/54
[2017-05-17] MEDS: VENLAFAXINE 37.5 MG TAB PO SCH (08:09)
[2017-05-17] MEDS: QUEtiapine FUMARATE 100 MG TAB PO SCH ×2 (08:09→20:00)
[2017-05-17] MEDS: risperiDONE 1 MG TAB PO SCH ×2 (08:09→20:00)
[2017-05-17] MEDS: HALOPERIDOL 10 MG TAB PO PRN ×2 (08:09→20:00)
--- NOTE | 2017-05-17 08:59 | IPN ---
DATE OF SERVICE: 05/16/2017 Evaluated female patient known for: 1. Bipolar disorder. 2. Borderline personality disorder. SUBJECTIVE: The patient reports feeling much better, feeling rested, less depressed. She reports that her anxiety levels have decreased, and she feels less irritable and angry. She also reports feeling less sleepy than she was. She also reports feeling less sleepy compared to yesterday since her medications were adjusted. At this time, she denies auditory and visual hallucinations, denies thought delusions, and denies homicidal ideation, but admits to fleeting suicidal thoughts. OBJECTIVE: The patient is alert, oriented to place and person, although not completely to date and time. She is cooperative, calm, with fair eye contact, good rapport, and good attitude. Her mood and affect are less irritable, less anxious. She is also less guarded. Her speech is normal, soft-spoken, coherent. Her thought process is intact, and her thought content is coherent. Her memory, recent and remote, are intact; and her attention and concentration span are fair. She is oriented times three. Her judgment and insight are still poor. Her impulse control is fair. The patient denies abnormal of psychotic thoughts, denies homicidal ideation, and denies auditory and visual hallucinations, but admits to fleeting suicidal thoughts. ASSESSMENT: The patient at this time is controlled, she is improving, has had brighter mood and affect, smiles, has her reactive affect, and has not been having explosive outbursts as in previous hospitalizations. Hopefully, with this medication adjustment, the patient will be able to overcome her depression and mood problems. PLAN: Will continue on the same medications and will reevaluate over the weekend and during next week to evaluate possible discharged during next week if she continues to improve. Will followup.
[2017-05-17] MEDS: LORazepam 2 MG TAB PO PRN (16:14)
[2017-05-17 18:00] VITALS: BP 125/72
[2017-05-17] MEDS: AZITHROMYCIN 250 MG TAB PO SCH (19:00)
[2017-05-17] MEDS: guaiFENesin ER 600 MG TAB PO SCH (20:01)
[2017-05-18] MEDS: ACETAMINOPHEN TAB 650MG DOSE (2X325MG) PO PRN (07:09)
[2017-05-18] MEDS: AZITHROMYCIN 250 MG TAB PO SCH (08:14)
[2017-05-18] MEDS: risperiDONE 1 MG TAB PO SCH ×2 (08:14→22:17)
[2017-05-18] MEDS: VENLAFAXINE 37.5 MG TAB PO SCH (08:14)
[2017-05-18] MEDS: QUEtiapine FUMARATE 100 MG TAB PO SCH ×2 (08:14→22:17)
[2017-05-18] MEDS: guaiFENesin ER 600 MG TAB PO SCH ×2 (08:14→22:17)
--- NOTE | 2017-05-18 14:07 | REP ---
Clinical: Constipation. Technique: Single supine view of the abdomen and pelvis. Findings: Bowel gas pattern is nonspecific. Mild fecal stasis cannot be excluded. No evidence for obstruction. Prior cholecystectomy. Skeletal structures intact. No abnormal calcification or foreign body. Impression: Nonspecific examination. Cannot exclude mild fecal stasis. Signed by Mahin Morales MD 05/18/2017 01:59 P
[2017-05-18] MEDS: HALOPERIDOL 10 MG TAB PO PRN (14:10)
[2017-05-18] MEDS ORDERED: LORazepam 2 MG/ML VIAL (J2060) As Ordered ONE (15:37)
[2017-05-18] MEDS ORDERED: diphenhydrAMINE INJ 50MG/ML VIAL (J1200) As Ordered ONE (15:37)
[2017-05-18] MEDS ORDERED: HALOPERIDOL 5 MG/ML VIAL (J1630) As Ordered ONE (15:37)
[2017-05-18] MEDS ORDERED: diphenhydrAMINE INJ 50MG/ML VIAL (J1200) IM STA (15:47)
[2017-05-18] MEDS ORDERED: HALOPERIDOL 5 MG/ML VIAL (J1630) IM STA (15:47)
[2017-05-18 15:55] VITALS: BP 135/90
[2017-05-18] MEDS ORDERED: LORazepam 2 MG/ML VIAL (J2060) IM PRN (16:00)
[2017-05-18 16:05] VITALS: BP 105/57
[2017-05-18] MEDS ORDERED: LORazepam 2 MG/ML VIAL (J2060) IM STA (16:23)
[2017-05-18 16:28] VITALS: BP 97/53
[2017-05-18 17:54] VITALS: BP 112/69
[2017-05-18 18:00] VITALS: BP 119/76
[2017-05-19] MEDS: IBUPROFEN 400 MG TAB PO PRN ×2 (03:21→11:52)
[2017-05-19 06:41] VITALS: BP 100/57
--- NOTE | 2017-05-19 06:45 | IPN ---
DATE OF SERVICE: 05/18/2017 She had been complaining of cough, loose production, slight sore throat. I was asked to see her. She is a 31-year-old female patient on the inpatient mental health unit. Patient complained of cough. She had a raspy, loose cough with scattered rhonchi. Physical exam was done. Patient was alert and oriented times three. Pharynx was slightly reddened. Tongue and gums pink and moist. Tongue is midline. Neck is supple, without lymphadenopathy. No thyromegaly. No goiter. Chest had course breath sounds, few scattered rhonchi. No wheeze or retraction. Heart is regular. Abdomen benign. Bowel sounds positive. Skin warm and dry. Turgor good. IMPRESSION: Upper respiratory infection (URI). Bronchitis. Azithromycin 500 mg one by mouth daily for 5 days. Mucinex 600 mg one by mouth twice daily. Encouraged to drink. Increase clear liquids by mouth. Temperature was 98, pulse 88, blood pressure was 130/70, oxygen saturation was 95% on room air.
[2017-05-19] MEDS: guaiFENesin ER 600 MG TAB PO SCH ×2 (08:11→20:11)
[2017-05-19] MEDS: risperiDONE 1 MG TAB PO SCH ×2 (08:11→20:11)
[2017-05-19] MEDS: VENLAFAXINE 37.5 MG TAB PO SCH (08:11)
[2017-05-19] MEDS: AZITHROMYCIN 250 MG TAB PO SCH (08:11)
[2017-05-19] MEDS: QUEtiapine FUMARATE 100 MG TAB PO SCH ×2 (08:11→20:11)
[2017-05-19] MEDS: ACETAMINOPHEN TAB 650MG DOSE (2X325MG) PO PRN (10:14)
--- NOTE | 2017-05-19 13:27 | REP ---
Right wrist series: Four views. History: Pain after trauma. Findings: Four views of the right wrist demonstrate normal bones, joints, and soft tissues. No fracture or subluxation is seen. Impression: Negative right wrist series. Signed by Alon March MD 05/19/2017 03:50 P
--- NOTE | 2017-05-19 13:30 | REP ---
Right hand series: Four views. History: Pain after trauma. Findings: Four views of the right hand demonstrate overall normal mineralization. No fracture is seen. There is some soft tissue swelling over the distal metacarpals on the lateral radiograph. Impression: Mild soft tissue swelling. No fracture seen. Signed by Alon March MD 05/19/2017 03:50 P
[2017-05-19] MEDS: diphenhydrAMINE 50 MG CAP PO PRN (15:33)
[2017-05-19 18:00] VITALS: BP 121/67
[2017-05-19] MEDS: diphenhydrAMINE CREAM 30GM TOP PRN (20:12)
[2017-05-19] MEDS: HALOPERIDOL 10 MG TAB PO PRN (20:12)
--- NOTE | 2017-05-19 23:02 | IPN ---
DATE: 05/19/2017 Evaluated 31-year-old female patient known for: 1. Bipolar disorder. 2. Borderline personality disorder. SUBJECTIVE: Staff members report patient had a difficult day yesterday, when she became increasingly agitated because she requested her hand x-ray results and nursing staff told her she needed to speak to Attending in order to get those results. This contributed to her frustration and agitation and she started punching the marin. She says that she feels calmer today, she denies anxiety, anger, or rage. She denies the urge to hurt herself or hurt other people. She denies suicidal or homicidal ideation, denies auditory or visual hallucinations and denies thought delusions. OBJECTIVE: The patient is alert, oriented times three, cooperative, pleasant. Her eye contact is good and she has a good demeanor. Her mood and affect are normal, euthymic, she is less anxious than last week. Her speech is normal, spontaneous and fluid. Her thought process is intact and her thought content is coherent. She is goal directed. She is willing to go camping with her family this week. Her memory, recent and remote are intact, orientation and concentration are good. Computation and abstract thinking are fair. She is oriented times three. Her judgment and insight are slowly improving. Her impulse control has been good today. The patient denies abnormal or psychotic thoughts, denies homicidal ideation, denies thought delusions, denies suicidal thoughts. ASSESSMENT: The patient has been able to control herself pretty well for an entire week. She only had an outburst yesterday. At this time, the patient is not a danger to herself or others, she is motivated to get out of the hospital to go camping with her family on Friday. She is goal-directed. She smiles spontaneously when she thinks about having fun with her family in that setting. PLAN: Will continue the same medications and if the patient continues to be stable, will be discharged home so that can enjoy her family gathering and reunite with them. body shop worker will connect her with outpatient psychiatric followup. KESHA
[2017-05-20 06:27] VITALS: BP 112/63
[2017-05-20] MEDS: guaiFENesin ER 600 MG TAB PO SCH ×2 (08:03→21:01)
[2017-05-20] MEDS: QUEtiapine FUMARATE 100 MG TAB PO SCH ×2 (08:03→21:01)
[2017-05-20] MEDS: VENLAFAXINE 37.5 MG TAB PO SCH (08:03)
[2017-05-20] MEDS: AZITHROMYCIN 250 MG TAB PO SCH (08:03)
[2017-05-20] MEDS: risperiDONE 1 MG TAB PO SCH ×2 (08:03→21:02)
[2017-05-20] MEDS: diphenhydrAMINE CREAM 30GM TOP PRN ×2 (16:19→21:02)
[2017-05-20] MEDS: HALOPERIDOL 10 MG TAB PO PRN (17:59)
[2017-05-20 18:00] VITALS: BP 100/58
[2017-05-20] MEDS: IBUPROFEN 400 MG TAB PO PRN (19:26)
[2017-05-20] MEDS: diphenhydrAMINE 50 MG CAP PO PRN (21:03)
[2017-05-21] MEDS: ACETAMINOPHEN TAB 650MG DOSE (2X325MG) PO PRN (06:01)
[2017-05-21 06:20] VITALS: BP 112/66
[2017-05-21] MEDS: VENLAFAXINE 37.5 MG TAB PO SCH (09:04)
[2017-05-21] MEDS: AZITHROMYCIN 250 MG TAB PO SCH (09:04)
[2017-05-21] MEDS: QUEtiapine FUMARATE 100 MG TAB PO SCH (09:04)
[2017-05-21] MEDS: guaiFENesin ER 600 MG TAB PO SCH (09:04)
[2017-05-21] MEDS: risperiDONE 1 MG TAB PO SCH (09:04)
[2017-05-21] MEDS: MAALOX 30 ML SUSP *UDC PO PRN (09:28)
[2017-05-21] MEDS: HALOPERIDOL 10 MG TAB PO PRN (09:51)
--- NOTE | 2017-05-21 09:54 | IPN ---
DATE OF SERVICE: 05/20/2017 Evaluated 31-year-old female patient known for: 1. Bipolar disorder. 2. Borderline personality disorder. SUBJECTIVE: Staff members report that she had an angry outburst yesterday when she requested her clothes. The nurse explained to her that she could not have her clothes because she had had an outburst on Friday. However, she did not punch any marin, and she did not hurt herself. This morning, she reported feeling happy, less anxious, motivated for change and for continued treatment. She says she was excited about going camping with her family. Denies suicidal or homicidal ideation, denies auditory or visual hallucinations, and denies thought delusions. OBJECTIVE: The patient is alert, oriented times three, with good hygiene, good eye contact, and good rapport. Her mood and affect are normal, brighter. Her affect is reactive, appropriate, full range, and mood congruent. Her speech is spontaneous and fluid. Her thought process is intact, and her thought content is coherent. She is goal directed. She continues to look forward to Friday because she wants to go camping with her family. Her attention and concentration are fair. Her memory, recent and remote, are intact. Computation and abstract thinking are fair. She is oriented times three. Her judgment and insight are improving. Her impulse control has been better, despite the last two outbursts that she has had compared to previous hospitalizations. Regarding abnormal or psychotic thoughts, the patient has denied suicidal or homicidal ideation. Denies auditory or visual hallucinations, and denies thought delusions. ASSESSMENT: The patient continues to improve. She is being discharged tomorrow, 05/21/2017, if she continues to control her impulses and has good behavior. She will be discharged on the same medications that she has been using at the inpatient mental health unit. Will monitor closely and will followup.
[2017-05-21] MEDS ORDERED: HALO10TA2 PO (10:19)
[2017-05-21] MEDS ORDERED: LORA2TA PO (10:19)
[2017-05-21] MEDS ORDERED: EFFE37.527 PO (10:19)
[2017-05-21] MEDS ORDERED: QUET1TAB8 PO (10:19)
[2017-05-21] MEDS ORDERED: RISP1TAB42 PO (10:20)
[2017-05-21] MEDS ORDERED: AZIT250T8 PO (10:26)
[2017-05-21] MEDS ORDERED: MUCI600T31 PO (10:26)
[2017-05-21] MEDS ORDERED: diphenhydrAMINE 50 MG CAP PO PRN (21:00)
--- NOTE | 2017-05-22 22:20 | MHDS ---
DATE OF ADMISSION: 05/12/2017 DATE OF DISCHARGE: 05/21/2017 DISCHARGE DIAGNOSES: 1. Borderline personality disorder 2. Bipolar disorder. REASON FOR ADMISSION: The patient reported at the emergency room that she had called an emergency hotline because she was feeling extremely depressed and has suicidal thoughts. She has been out of medications for three weeks and has been using drugs, amphetamines and opioids. Although, initially she stated that she was out of them. She reported that she had become increasingly depressed and that is due to several deaths and stressors in her family and she did not to share what those problems were about. She reported that she has been cutting her wrists with a razor and that this was a serious suicide attempt, not a cry for help. CONSULTANTS INVOLVED: None. TREATMENT AND PROGRESS ON THE UNIT: The patient evolved, however, progression. She responded well to treatment and she did not have angry outbursts except for May 18 when she became frustrated and she had an explosive outburst because the nurses refused to tell her what the results of her hand x-rays were. This is a policy of the inpatient mental health unit and she has to speak to an attending in order to get the results. For that reason she punched the marin, became loud, but she was able to calm down. On she became frustrated again because she could not have her personal clothes due to the fact that she had that explosive outburst Friday so she had a very good response to one of the nurses, and she was able to calm down. According to previous records she did really well this time, she was able to contain herself and to control her impulses. She was seen in the last three days in brighter mood and spirits, the symptoms of depression decreased, her anxiety decreased, and her impulsivity was really low compared to previous hospitalizations. DISCHARGE ASSESSMENT: The patient was stable upon discharge, she was goal-directed, happy because she was going camping with her family, which was very positive for her and for her family too. She was not suicidal, not homicidal and not a danger to self or others. MENTAL STATUS EXAMINATION ON DISCHARGE: The patient is a 31-year-old white female, who is alert, oriented times three. Cooperative with interview with good eye contact and good rapport. Speech is soft spoken, coherent, not circumstantial and not tangential. Language skills are fair. Thought process is intact. Thought contact is coherent. Abstract reasoning and computation are fair. Description of associations. There is no loosening of her associations. Description of abnormal or psychotic thoughts. She denies homicidal or suicidal ideation. Denies thought delusions and denies auditory or visual hallucinations. Judgment and insight have improved and she is beginning to understand that her substance abuse also has played a very negative role in her mental illness. She reports that she will seek help for her eviction problem. She is oriented times three. Her recent and remote memory are intact. Her attention span and concentration are fair. Language is good. Fund of knowledge is adequate. Mood is "I am really happy. I am excited, but I am also anxious because I want to get out of here soon". Affect congruent to mood, full range, reactive, appropriate. MEDICATIONS ON DISCHARGE: - albuterol sulfate 2 puffs by inhaler every 4 hours as needed - azithromycin 500 mg by mouth daily. She has to finish treatment that was started for bronchitis. - guaifenesin or Mucinex 600 mg by mouth twice a day for cough - Haloperidol 10 mg by mouth every 6 hours as needed for agitation - lorazepam 2 mg by mouth every 6 hours as needed for anxiety - quetiapine or Seroquel 100 mg by mouth twice a day for mood stabilization - Risperdal 1 mg by mouth twice a day for impulse [id number] stabilization. - venlafaxine - hydrochloride or Effexor XR 37.5 mg by mouth at bedtime The patient has to [facility]up with [facility] Her appointment has been already arranged. She was discharged to her family, to her mother specifically and at the time of her discharge she was stable, looking for work to have fun with her family and she says that she will comply with her outpatient treatment. She is going to followup at [facility] in [place], [place] at [facility]. The patient was stable upon discharge.
== END 2017-05-21 13:00 | disposition home or self-care (01) | DRG 752 ==
LOC: M ED 11:53 → M ED INP 15:04 → M PSY 17:00
PROVIDERS: ADMIT Psychiatry & Neurology Psychiatry; ATTEND Psychiatry & Neurology Psychiatry
DX: F60.3 Borderline personality disorder (principal); F31.9 Bipolar disorder, unspecified; Z79.899 Other long term (current) drug therapy; Z88.0 Allergy status to penicillin; Z88.8 Allergy status to other drugs, medicaments and biological substances; Z91.038 Other insect allergy status; Z88.5 Allergy status to narcotic agent; M54.5 Low back pain; K21.9 Gastro-esophageal reflux disease without esophagitis; J45.909 Unspecified asthma, uncomplicated; Z85.41 Personal history of malignant neoplasm of cervix uteri; G43.909 Migraine, unspecified, not intractable, without status migrainosus; J20.9 Acute bronchitis, unspecified

== ENCOUNTER 2017-05-27 16:50 | Emergency (ER) | payer OTHER ==
[~2017-05-27] VITALS: Ht 162.6 cm; Wt 75.9 kg
[~2017-05-27 16:50] MED LIST changes: +ALBU17IN2 INH; +AZIT250T8 PO; +HALO10TA2 PO; +LORA2TA PO; +MUCI600T31 PO; +QUET1TAB8 PO; +RISP1TAB42 PO
[2017-05-27 16:52] VITALS: BP 118/76
[2017-05-27] MEDS ORDERED: TYLE325T5 PO (17:19)
== END 2017-05-27 17:30 | disposition home or self-care (01) ==
LOC: M ED 16:50
DX: M79.661 Pain in right lower leg (principal); T63.441A Toxic effect of venom of bees, accidental (unintentional), initial encounter; W19.XXXA Unspecified fall, initial encounter; Y92.9 Unspecified place or not applicable; Y93.9 Activity, unspecified; Y99.9 Unspecified external cause status; F43.10 Post-traumatic stress disorder, unspecified; F31.9 Bipolar disorder, unspecified; F60.3 Borderline personality disorder; N80.9 Endometriosis, unspecified; Z79.899 Other long term (current) drug therapy; Z88.1 Allergy status to other antibiotic agents; Z88.5 Allergy status to narcotic agent; Z91.030 Bee allergy status; Z91.040 Latex allergy status; Z88.8 Allergy status to other drugs, medicaments and biological substances; Z88.0 Allergy status to penicillin; Z91.89 Other specified personal risk factors, not elsewhere classified

== ENCOUNTER → 2017-06-17 | Outpatient (REF) | payer OTHER ==
[~2017-06-17] MED LIST changes: +GABA-279; +PRAZ2CAP; +SUBO8MIS; +TYLE325T5 PO; +VENL37.52; +VENTAER; +ZONI100C2 PO
[2017-06-17 13:26] LABS: BASO % 0.3 % (0.0-1.0); EOS # 0.2 K/mm3 (0.0-0.50); EOS % 1.6 % (0.0-3.0); LARGE UNSTAINED CELL # 0.1 K/mm3 (0.0-0.4); LYMPH # 2.6 K/mm3 (1.5-4.5); LYMPH % 19.4 % (24.0-44.0); MEAN CORPUSCULAR HGB CONC 33.4 g/dl (32.0-36.5); MONO # 0.6 K/mm3 (0.0-0.8); MONO % 4.8 % (0.0-5.0); NEUTROPHILS # 9.4 K/mm3 (1.8-7.7); NEUTROPHILS % 72.9 % (36.0-66.0); PLATELET COUNT, AUTOMATED 369 k/mm3 (150-450); RED CELL DISTRIBUTION WIDTH 13.5 % (11.5-14.5); WHITE BLOOD COUNT 12.8 K/mm3 (4.0-10.0)
[2017-06-17 14:53] LABS: ALBUMIN 3.5 GM/DL (3.2-5.2); ALBUMIN/GLOBULIN RATIO 0.92 (1.00-1.93); ALKALINE PHOSPHATASE 124 U/L (45-117); ALT/SGPT 32 U/L (12-78); ANION GAP 8 MEQ/L (8-16); AST/SGOT 21 U/L (15-37); BILIRUBIN,TOTAL 0.3 MG/DL (0.2-1.0); BLOOD UREA NITROGEN 11 MG/DL (7-18); CALCIUM LEVEL 9.2 MG/DL (8.5-10.1); CARBON DIOXIDE LEVEL 26 MEQ/L (21-32); CHLORIDE LEVEL 108 MEQ/L (98-107); CREATININE FOR GFR 0.77 MG/DL (0.55-1.02); GLOMERULAR FILTRATION RATE > 60.0 (>60); GLUCOSE, FASTING 90 MG/DL (70-105); POTASSIUM SERUM 4.1 MEQ/L (3.5-5.1); SODIUM LEVEL 142 MEQ/L (136-145); TOTAL PROTEIN 7.3 GM/DL (6.4-8.2)
== END ==
LOC: M LAB REF 12:54
PROVIDERS: ATTEND Family Medicine Addiction Medicine
DX: M79.89 Other specified soft tissue disorders (principal)

== ENCOUNTER → 2017-08-12 | Outpatient (REF) | payer OTHER ==
[2017-08-23 14:43] LABS: BENZODIAZEPINES, URINE SCREEN Negative ng/mL (Cutoff=200); METHADONE, URINE SCREEN Negative ng/mL (Cutoff=300); NALOXONE RESULT Positive (.); URINE NORBUPRENORPHINE Positive (.); URINE NORBUPRENORPHINE CONFIRM 646 ng/mL (Cutoff=10); pH, URINE 5.7 (4.5-8.9)
== END ==
LOC: M LAB REF 16:42
PROVIDERS: ATTEND Family Medicine Addiction Medicine
DX: F11.10 Opioid abuse, uncomplicated (principal)

== ENCOUNTER → 2017-08-16 | Outpatient (REF) | payer OTHER ==
[2017-08-25 00:06] LABS: BENZODIAZEPINES, URINE SCREEN Negative ng/mL (Cutoff=200); METHADONE, URINE SCREEN Negative ng/mL (Cutoff=300); NALOXONE RESULT Positive (.); UR BUPRENORPHINE CONFIRM 162 ng/mL (Cutoff=10); UR NORBUPRENORPHINE Positive (.); UR NORBUPRENORPHINE CONFIRM 498 ng/mL (Cutoff=10); URINE BUPRENORPHINE(MS) Positive (.); pH, URINE 5.6 (4.5-8.9)
== END ==
LOC: M LAB REF 15:00
PROVIDERS: ATTEND Family Medicine Addiction Medicine
DX: F11.10 Opioid abuse, uncomplicated (principal)

== ENCOUNTER → 2017-08-22 | Outpatient (REF) | payer OTHER ==
[2017-08-31 00:06] LABS: BENZODIAZEPINES, URINE SCREEN Negative ng/mL (Cutoff=200); METHADONE, URINE SCREEN Negative ng/mL (Cutoff=300); pH, URINE 6.2 (4.5-8.9)
== END ==
LOC: M LAB REF 13:05
PROVIDERS: ATTEND Family Medicine Addiction Medicine
DX: F11.10 Opioid abuse, uncomplicated (principal)

== ENCOUNTER 2017-08-28 12:15 | Emergency (ER) | payer OTHER ==
[~2017-08-28] VITALS: Ht 160 cm; Wt 106.8 kg
[~2017-08-28 12:15] MED LIST changes: -GABA-279; -PRAZ2CAP; -SUBO8MIS; -VENL37.52; -VENTAER; -ZONI100C2 PO
[2017-08-28] MEDS ORDERED: SUBO8MIS (12:32)
[2017-08-28] MEDS ORDERED: PRAZ2CAP (12:32)
[2017-08-28] MEDS ORDERED: VENTAER (12:32)
[2017-08-28] MEDS ORDERED: GABA-279 (12:32)
[2017-08-28] MEDS ORDERED: VENL37.52 (12:32)
[2017-08-28] MEDS ORDERED: ZONI100C2 PO (12:32)
--- NOTE | 2017-08-28 15:11 | REP ---
Chest two views HISTORY: Chest pain Comparison: 05/12/2017 The lungs are clear. The heart is normal in size. The pulmonary vasculature is normal in appearance. The bony structure is intact. IMPRESSION: No acute disease. Signed by Dionisio Trinidad MD 08/28/2017 03:02 P
[2017-08-28 15:27] LABS: BASO % 0.2 % (0.0-1.0); EOS # 0.7 10^3/uL (0.0-0.50); EOS % 7.3 % (0.0-3.0); IMMATURE GRANULOCYTE % 0.2 % (0-0); LYMPH # 3.4 10^3/uL (1.5-4.5); LYMPH % 37.7 % (24.0-44.0); MEAN CORPUSCULAR HEMOGLOBIN 30.1 pg (27.0-33.0); MEAN CORPUSCULAR VOLUME 91.3 fl (80.0-96.0); MONO # 0.7 10^3/uL (0.0-0.8); NEUTROPHILS # 4.2 10^3/uL (1.8-7.7); NEUTROPHILS % 46.6 % (36.0-66.0); PLATELET COUNT, AUTOMATED 316 10^3/uL (150-450); RED CELL DISTRIBUTION WIDTH 13.2 % (11.5-14.5); WHITE BLOOD COUNT 9.1 10^3/uL (4.0-10.0)
[2017-08-28 15:42] LABS: INR 0.97
[2017-08-28 15:58] LABS: ALBUMIN 3.2 GM/DL (3.2-5.2); ALBUMIN/GLOBULIN RATIO 0.84 (1.00-1.93); ALKALINE PHOSPHATASE 103 U/L (45-117); ALT/SGPT 28 U/L (12-78); ANION GAP 5 MEQ/L (8-16); AST/SGOT 23 U/L (15-37); BILIRUBIN,DIRECT < 0.1 MG/DL (0.0-0.2); BILIRUBIN,TOTAL 0.2 MG/DL (0.2-1.0); BLOOD UREA NITROGEN 6 MG/DL (7-18); CALCIUM LEVEL 8.7 MG/DL (8.5-10.1); CARBON DIOXIDE LEVEL 28 MEQ/L (21-32); CHLORIDE LEVEL 104 MEQ/L (98-107); CREATININE FOR GFR 0.65 MG/DL (0.55-1.02); GLOMERULAR FILTRATION RATE > 60.0 (>60); GLUCOSE, FASTING 87 MG/DL (70-105); POTASSIUM SERUM 3.8 MEQ/L (3.5-5.1); SODIUM LEVEL 137 MEQ/L (136-145)
--- NOTE | 2017-08-28 17:34 | REP ---
BILATERAL LOWER EXTREMITY DOPPLER VENOUS ULTRASOUND: Comparison: None. Technique: The deep venous system of the bilateral lower extremities is evaluated with jung scale imaging, compression ultrasound, color imaging and duplex Doppler interrogation. Examination from the groin through the popliteal fossa into the proximal calf. Findings: There is full compressibility from the common femoral vein in the inguinal region through the popliteal vein on both sides. Color imaging confirms patency throughout the course of the deep venous system. There is respiratory variation and augmented flow at all levels. Impression: 1. No Doppler venous ultrasound evidence of DVT in the bilateral lower extremities. Signed by Travis Mejia MD 08/28/2017 05:25 P
[2017-08-28 18:09] VITALS: BP 90/59
--- NOTE | 2017-08-29 06:05 | ECGEPIP ---
Stationary ECG Study [facility] - ED Test Date: 2017-08-28 Pat Name: CHERISE DENNIS Department: Room: - Gender: F Pet Ambassador: alex : 1985 Requested By: ELHAM Robertson PA-C Order Number: [id number] Reading MD: Amado Ludwig Measurements Intervals [place] Rate: 66 P: 15 MA: 196 QRS: 58 QRSD: 89 T: 42 QT: 415 QTc: 438 Interpretive Statements SINUS RHYTHM Electronically Signed On 08-29-2017 6:05:09 EDT by Amado Ludwig
== END 2017-08-28 18:10 | disposition home or self-care (01) ==
LOC: M ED 12:15
DX: R60.0 Localized edema (principal); F17.200 Nicotine dependence, unspecified, uncomplicated; Z79.899 Other long term (current) drug therapy; Z91.030 Bee allergy status; Z91.89 Other specified personal risk factors, not elsewhere classified; Z88.5 Allergy status to narcotic agent; Z88.8 Allergy status to other drugs, medicaments and biological substances; Z88.0 Allergy status to penicillin; Z88.6 Allergy status to analgesic agent

== ENCOUNTER → 2017-08-29 | Outpatient (REF) | payer OTHER ==
[~2017-08-29] MED LIST changes: +GABA-279; +PRAZ2CAP; +SUBO8MIS; +VENL37.52; +VENTAER; +ZONI100C2 PO
[2017-09-17 00:07] LABS: BENZODIAZEPINES, URINE SCREEN Negative ng/mL (Cutoff=200); METHADONE, URINE SCREEN Negative ng/mL (Cutoff=300); NALOXONE RESULT Positive (.); URINE NORBUPRENORPHINE Positive (.); URINE NORBUPRENORPHINE CONFIRM 838 ng/mL (Cutoff=10); pH, URINE 6.2 (4.5-8.9)
== END ==
LOC: M LAB REF 16:08
PROVIDERS: ATTEND Family Medicine Addiction Medicine
DX: F11.10 Opioid abuse, uncomplicated (principal)

== ENCOUNTER → 2017-09-04 | Outpatient (REF) | payer OTHER ==
[2017-09-18 00:06] LABS: BENZODIAZEPINES, URINE SCREEN Negative ng/mL (Cutoff=200); METHADONE, URINE SCREEN Negative ng/mL (Cutoff=300); NALOXONE RESULT Positive (.); URINE NORBUPRENORPHINE Positive (.); URINE NORBUPRENORPHINE CONFIRM 774 ng/mL (Cutoff=10); pH, URINE 5.4 (4.5-8.9)
== END ==
LOC: M LAB REF 17:11
PROVIDERS: ATTEND Family Medicine Addiction Medicine
DX: F11.10 Opioid abuse, uncomplicated (principal)

== ENCOUNTER → 2017-09-19 | Outpatient (REF) | payer OTHER | LOC: M LAB REF 15:55 | PROVIDERS: ATTEND Family Medicine Addiction Medicine | DX: F11.10 Opioid abuse, uncomplicated (principal) ==

== ENCOUNTER → 2017-09-25 | Outpatient (REF) | payer OTHER | LOC: M LAB REF 12:35 | PROVIDERS: ATTEND Family Medicine Addiction Medicine | DX: F11.10 Opioid abuse, uncomplicated (principal) ==

== ENCOUNTER → 2017-10-01 | Outpatient (REF) | payer OTHER, MEDICAID ==
[2017-10-10 00:08] LABS: BENZODIAZEPINES, URINE SCREEN See Final Results ng/mL (Cutoff=200); METHADONE, URINE SCREEN Negative ng/mL (Cutoff=300); NALOXONE RESULT Positive (.); URINE NORBUPRENORPHINE Positive (.); URINE NORBUPRENORPHINE CONFIRM 296 ng/mL (Cutoff=10); pH, URINE 6.1 (4.5-8.9)
== END ==
LOC: M LAB REF 09:24
PROVIDERS: ATTEND Family Medicine Addiction Medicine
DX: F19.14 Other psychoactive substance abuse with psychoactive substance-induced mood disorder (principal)

== ENCOUNTER 2018-01-30 13:29 | Emergency (ER) | payer OTHER, MEDICAID ==
[2018-01-30] MEDS: NS 1,000 ML IV (13:10)
[2018-01-30 13:18] LABS: BASO % 0.4 % (0.0-1.0); EOS # 0.3 10^3/uL (0.0-0.50); EOS % 3.6 % (0.0-3.0); HEMATOCRIT 40.1 % (36.0-47.0); HEMOGLOBIN 13.5 g/dl (12.0-16.0); IMMATURE GRANULOCYTE % 0.3 % (0-3.0); LYMPH # 3.2 10^3/uL (1.5-4.5); LYMPH % 35.6 % (24.0-44.0); MEAN CORPUSCULAR HEMOGLOBIN 30.1 pg (27.0-33.0); MEAN CORPUSCULAR HGB CONC 33.7 g/dl (32.0-36.5); MEAN CORPUSCULAR VOLUME 89.3 fl (80.0-96.0); MONO # 0.6 10^3/uL (0.0-0.8); MONO % 6.9 % (0.0-5.0); NEUTROPHILS # 4.8 10^3/uL (1.8-7.7); NEUTROPHILS % 53.2 % (36.0-66.0); PLATELET COUNT, AUTOMATED 341 10^3/uL (150-450); RED BLOOD COUNT 4.49 10^6/uL (4.00-5.40); RED CELL DISTRIBUTION WIDTH 12.6 % (11.5-14.5); WHITE BLOOD COUNT 8.9 10^3/uL (4.0-10.0)
[2018-01-30 13:29] LABS: INR 0.98; PROTHROMBIN TIME 13.1 SECONDS (12.4-14.5)
[2018-01-30 13:30] LABS: PARTIAL THROMBOPLASTIN TIME 30.4 SECONDS (26.8-37.9)
[2018-01-30] MEDS: MORPHINE 4 MG/ML 1ML VIAL (J2270) IV ×2 (13:31→14:32)
[2018-01-30] MEDS ORDERED: ISOVUE-370 76% 100ML VIAL (Q9967) As Ordered (13:44)
[2018-01-30 13:46] LABS: ALBUMIN 3.5 GM/DL (3.2-5.2); ALBUMIN/GLOBULIN RATIO 0.92 (1.00-1.93); ALKALINE PHOSPHATASE 124 U/L (45-117); ALT/SGPT 25 U/L (12-78); ANION GAP 6 MEQ/L (8-16); AST/SGOT 16 U/L (7-37); BILIRUBIN,DIRECT < 0.1 MG/DL (0.0-0.2); BILIRUBIN,TOTAL 0.2 MG/DL (0.2-1.0); BLOOD UREA NITROGEN 12 MG/DL (7-18); CALCIUM LEVEL 8.8 MG/DL (8.5-10.1); CARBON DIOXIDE LEVEL 27 MEQ/L (21-32); CHLORIDE LEVEL 106 MEQ/L (98-107); CPK CREATINE PHOSPHOKINASE 104 U/L (26-192); CREATININE FOR GFR 0.78 MG/DL (0.55-1.30); GLOMERULAR FILTRATION RATE > 60.0 (>60); GLUCOSE, FASTING 91 MG/DL (70-100); LIPASE 125 U/L (73-393); POTASSIUM SERUM 4.4 MEQ/L (3.5-5.1); SODIUM LEVEL 139 MEQ/L (136-145); TOTAL PROTEIN 7.3 GM/DL (6.4-8.2); TROPONIN I < 0.02 NG/ML (< 0.10)
[2018-01-30 13:52] LABS: CK-MB VALUE MASS < 1.0 NG/ML (<3.6); MB/CK RELATIVE INDEX 0.96 (< OR =4)
== END 2018-01-30 14:49 | disposition home or self-care (01) ==
LOC: M ED 13:29
DX: R07.89 Other chest pain (principal); J45.909 Unspecified asthma, uncomplicated; K21.9 Gastro-esophageal reflux disease without esophagitis; F17.210 Nicotine dependence, cigarettes, uncomplicated; Z79.899 Other long term (current) drug therapy; Z88.5 Allergy status to narcotic agent; Z88.8 Allergy status to other drugs, medicaments and biological substances; Z88.0 Allergy status to penicillin; Z91.048 Other nonmedicinal substance allergy status; Z85.41 Personal history of malignant neoplasm of cervix uteri; Z83.2 Family history of diseases of the blood and blood-forming organs and certain disorders involving the immune mechanism
CPT/HCPCS: J2270

== ENCOUNTER 2018-02-05 10:58 | Inpatient (IN) | payer MEDICAID, OTHER ==
[2018-02-05 12:27] LABS: HEMATOCRIT 40.4 % (36.0-47.0); HEMOGLOBIN 13.6 g/dl (12.0-15.5); MEAN CORPUSCULAR HEMOGLOBIN 30.6 pg (27.0-33.0); MEAN CORPUSCULAR HGB CONC 33.7 g/dl (32.0-36.5); PLATELET COUNT, AUTOMATED 331 10^3/uL (150-450); RED BLOOD COUNT 4.44 10^6/uL (4.00-5.40); RED CELL DISTRIBUTION WIDTH 12.7 % (11.5-14.5); WHITE BLOOD COUNT 9.5 10^3/uL (4.0-10.0)
[2018-02-05] MEDS: ALPRAZolam 0.25 MG TAB PO (12:29)
[2018-02-05 12:31] LABS: CONTROL LINE HCG INT CTR LINE PRESENT; HCG, SERUM QUALITATIVE NEGATIVE (NEGATIVE)
[2018-02-05 12:47] LABS: ALBUMIN 3.7 GM/DL (3.2-5.2); ALKALINE PHOSPHATASE 116 U/L (45-117); ALT/SGPT 29 U/L (12-78); ANION GAP 5 MEQ/L (8-16); AST/SGOT 15 U/L (7-37); BILIRUBIN,DIRECT < 0.1 MG/DL (0.0-0.2); BILIRUBIN,TOTAL 0.2 MG/DL (0.2-1.0); BLOOD UREA NITROGEN 6 MG/DL (7-18); CALCIUM LEVEL 8.6 MG/DL (8.5-10.1); CARBON DIOXIDE LEVEL 29 MEQ/L (21-32); CHLORIDE LEVEL 107 MEQ/L (98-107); CREATININE FOR GFR 0.69 MG/DL (0.55-1.30); GLOMERULAR FILTRATION RATE > 60.0 (>60); GLUCOSE, FASTING 99 MG/DL (70-100); POTASSIUM SERUM 3.7 MEQ/L (3.5-5.1); SALICYLATE LEVEL 4.4 MG/DL (5.0-30.0); SODIUM LEVEL 141 MEQ/L (136-145); TOTAL PROTEIN 7.4 GM/DL (6.4-8.2)
[2018-02-05 12:48] LABS: ACETAMINOPHEN LEVEL < 2.0 UG/ML (10.0-30.0); AMPHETAMINES LEVEL URINE NEGATIVE (NEGATIVE); BARBITURATES URINE NEGATIVE (NEGATIVE); BENZODIAZEPINES URINE NEGATIVE (NEGATIVE); CANNABINOIDS URINE POSITIVE (NEGATIVE); COCAINE METABOLITE URINE NEGATIVE (NEGATIVE); ETHYL ALCOHOL (ETHANOL) < 0.003 % (0.000-0.010); METHADONE URINE NEGATIVE (NEGATIVE); OPIATES URINE NEGATIVE (NEGATIVE); PHENCYCLIDINE URINE NEGATIVE (NEGATIVE)
[2018-02-05] MEDS ORDERED: ALBUTEROL 90 MCG/ACT 8GM HFA INHALER INH (16:45)
[2018-02-05] MEDS: clonazePAM 0.5 MG TAB PO ×2 (17:01→19:37)
[2018-02-05] MEDS ORDERED: MAALOX 30 ML SUSP *UDC PO (19:15)
[2018-02-05] MEDS ORDERED: MOM 30ML SUSPENSION UDC PO (19:15)
[2018-02-05] MEDS: traZODone 50 MG TAB PO (19:36)
[2018-02-05] MEDS: ACETAMINOPHEN TAB 650MG DOSE (2X325MG) PO (19:36)
[2018-02-05] MEDS: LORazepam 2 MG TAB PO (19:37)
[2018-02-05] MEDS: HALOPERIDOL 5 MG TAB PO (19:37)
[2018-02-05] MEDS: PRAZOSIN 1 MG CAP PO (19:37)
[2018-02-05] MEDS: risperiDONE 1 MG TAB PO (19:37)
[2018-02-05] MEDS: QUEtiapine FUMARATE 50 MG TAB PO (19:37)
[2018-02-05] MEDS: diphenhydrAMINE 50 MG CAP PO (19:37)
[2018-02-06] MEDS: diphenhydrAMINE 50 MG CAP PO (07:40)
[2018-02-06] MEDS: HALOPERIDOL 5 MG TAB PO (07:40)
[2018-02-06] MEDS: clonazePAM 0.5 MG TAB PO (08:02)
[2018-02-06] MEDS: risperiDONE 1 MG TAB PO ×2 (08:02→20:09)
[2018-02-06] MEDS: VENLAFAXINE **XR** 75MG CAPSULE PO (08:02)
[2018-02-06] MEDS: NICOTINE 14 MG/24 HR TRANSDERMAL TD (08:03)
[2018-02-06] MEDS: LORazepam 2 MG TAB PO ×2 (15:48→20:09)
[2018-02-06] MEDS: QUEtiapine FUMARATE 50 MG TAB PO (20:09)
[2018-02-06] MEDS: traZODone 50 MG TAB PO (20:09)
[2018-02-06] MEDS: PRAZOSIN 1 MG CAP PO (20:11)
[2018-02-07] MEDS: risperiDONE 1 MG TAB PO ×2 (08:03→19:59)
[2018-02-07] MEDS: VENLAFAXINE **XR** 75MG CAPSULE PO (08:03)
[2018-02-07] MEDS: LORazepam 2 MG TAB PO (08:03)
[2018-02-07] MEDS: NICOTINE 14 MG/24 HR TRANSDERMAL TD (08:14)
[2018-02-07] MEDS: clonazePAM 0.5 MG TAB PO ×2 (10:17→18:08)
[2018-02-07] MEDS: ACETAMINOPHEN TAB 650MG DOSE (2X325MG) PO (10:17)
[2018-02-07] MEDS ORDERED: PILL CUTTER/CRUSHER XX (11:00)
[2018-02-07 12:56] LABS: FREE THYROXINE INDEX 3.3 % (1.3-4.8); T UPTAKE 29 % (30-39); THYROXINE (T4) 11.5 UG/DL (4.5-12.0)
[2018-02-07] MEDS: IBUPROFEN 600 MG TAB PO (13:18)
[2018-02-07] MEDS: PRAZOSIN 1 MG CAP PO (19:59)
[2018-02-07] MEDS: traZODone 50 MG TAB PO (19:59)
[2018-02-07] MEDS: QUEtiapine FUMARATE 50 MG TAB PO (19:59)
[2018-02-08] MEDS: VENLAFAXINE **XR** 75MG CAPSULE PO (08:16)
[2018-02-08] MEDS: ACETAMINOPHEN TAB 650MG DOSE (2X325MG) PO (08:16)
[2018-02-08] MEDS: risperiDONE 1 MG TAB PO ×2 (08:16→20:04)
[2018-02-08] MEDS: NICOTINE 14 MG/24 HR TRANSDERMAL TD (08:18)
[2018-02-08] MEDS: clonazePAM 0.5 MG TAB PO (11:41)
[2018-02-08] MEDS: traZODone 50 MG TAB PO (20:04)
[2018-02-08] MEDS: PRAZOSIN 1 MG CAP PO (20:04)
[2018-02-08] MEDS: QUEtiapine FUMARATE 50 MG TAB PO (20:05)
[2018-02-09] MEDS: VENLAFAXINE **XR** 75MG CAPSULE PO (08:11)
[2018-02-09] MEDS: risperiDONE 1 MG TAB PO (08:11)
[2018-02-09] MEDS: NICOTINE 14 MG/24 HR TRANSDERMAL TD (08:11)
== END 2018-02-09 11:30 | disposition home or self-care (01) | DRG 885 ==
LOC: M ED 10:58 → M ED INP 13:40 → M PSY 14:30
DX: F31.9 Bipolar disorder, unspecified (principal); F60.3 Borderline personality disorder; Z85.41 Personal history of malignant neoplasm of cervix uteri; Z79.899 Other long term (current) drug therapy; Z88.0 Allergy status to penicillin; Z88.5 Allergy status to narcotic agent; Z91.040 Latex allergy status; Z88.8 Allergy status to other drugs, medicaments and biological substances; Z91.038 Other insect allergy status

== ENCOUNTER 2018-02-22 18:34 | Emergency (ER) | payer OTHER, MEDICAID ==
[2018-02-22 19:20] LABS: KETONE, URINE AUTO RFX NEGATIVE (NEGATIVE); LEUKOCYTE ESTERASE UR AUTO RFX NEGATIVE (NEGATIVE); MUCUS, URINE RFX SMALL (NEGATIVE); NITRITE, URINE AUTO RFX NEGATIVE (NEGATIVE); RBC, URINE AUTO RFX 1 /HPF (0-3); SPECIFIC GRAVITY UR AUTO RFX 1.018 (1.002-1.035); SQUAM EPITHELIAL CELL UR AURFX 1 /HPF (0-6); WBC, URINE AUTO RFX 2 /HPF (0-3)
[2018-02-22] MEDS: PERCOCET 5MG/325MG TAB PO (20:00)
[2018-02-22 20:04] LABS: BASO # 0.1 10^3/uL (0.0-0.2); BASO % 0.5 % (0.0-1.0); EOS # 0.3 10^3/uL (0.0-0.50); EOS % 2.6 % (0.0-3.0); HEMATOCRIT 41.5 % (36.0-47.0); HEMOGLOBIN 13.7 g/dl (12.0-15.5); IMMATURE GRANULOCYTE % 0.2 % (0-3.0); LYMPH # 3.6 10^3/uL (1.5-4.5); LYMPH % 32.4 % (24.0-44.0); MEAN CORPUSCULAR HEMOGLOBIN 30.1 pg (27.0-33.0); MEAN CORPUSCULAR VOLUME 91.2 fl (80.0-96.0); MONO # 0.6 10^3/uL (0.0-0.8); MONO % 5.6 % (0.0-5.0); NEUTROPHILS # 6.4 10^3/uL (1.8-7.7); NEUTROPHILS % 58.7 % (36.0-66.0); PLATELET COUNT, AUTOMATED 386 10^3/uL (150-450); RED BLOOD COUNT 4.55 10^6/uL (4.00-5.40); RED CELL DISTRIBUTION WIDTH 13.4 % (11.5-14.5)
[2018-02-22 20:31] LABS: ALBUMIN 3.8 GM/DL (3.2-5.2); ALBUMIN/GLOBULIN RATIO 0.83 (1.00-1.93); ALKALINE PHOSPHATASE 122 U/L (45-117); ALT/SGPT 25 U/L (12-78); ANION GAP 3 MEQ/L (8-16); AST/SGOT 23 U/L (7-37); BILIRUBIN,DIRECT < 0.1 MG/DL (0.0-0.2); BILIRUBIN,TOTAL 0.2 MG/DL (0.2-1.0); BLOOD UREA NITROGEN 8 MG/DL (7-18); CALCIUM LEVEL 8.9 MG/DL (8.5-10.1); CARBON DIOXIDE LEVEL 29 MEQ/L (21-32); CHLORIDE LEVEL 109 MEQ/L (98-107); CREATININE FOR GFR 0.72 MG/DL (0.55-1.30); GLOMERULAR FILTRATION RATE > 60.0 (>60); GLUCOSE, FASTING 93 MG/DL (70-100); POTASSIUM SERUM 3.9 MEQ/L (3.5-5.1); SODIUM LEVEL 141 MEQ/L (136-145); TOTAL PROTEIN 8.4 GM/DL (6.4-8.2)
[2018-02-22] MEDS: OXYCODONE/APAP 5MG/325MG(BULK FOR ED) 1 TABLET PO (21:30)
== END 2018-02-22 21:58 | disposition home or self-care (01) ==
LOC: M ED 18:34
DX: R10.9 Unspecified abdominal pain (principal); R19.7 Diarrhea, unspecified; F17.200 Nicotine dependence, unspecified, uncomplicated; Z88.1 Allergy status to other antibiotic agents; Z88.5 Allergy status to narcotic agent; Z88.8 Allergy status to other drugs, medicaments and biological substances; Z88.0 Allergy status to penicillin; Z91.040 Latex allergy status; Z91.89 Other specified personal risk factors, not elsewhere classified; Z91.030 Bee allergy status
CPT/HCPCS: 76775

== ENCOUNTER 2018-02-25 11:09 | Emergency (ER) | payer OTHER ==
[2018-02-25 12:05] LABS: KETONE, URINE AUTO RFX NEGATIVE (NEGATIVE); LEUKOCYTE ESTERASE UR AUTO RFX NEGATIVE (NEGATIVE); NITRITE, URINE AUTO RFX NEGATIVE (NEGATIVE); RBC, URINE AUTO RFX 1 /HPF (0-3); SPECIFIC GRAVITY UR AUTO RFX 1.008 (1.002-1.035); SQUAM EPITHELIAL CELL UR AURFX 0 /HPF (0-6); WBC, URINE AUTO RFX 0 /HPF (0-3)
[2018-02-25] MEDS: DICYCLOMINE INJ 20MG/2ML (J0500) IM (13:18)
[2018-02-25 13:36] LABS: BASO % 0.3 % (0.0-1.0); EOS # 0.2 10^3/uL (0.0-0.50); EOS % 1.3 % (0.0-3.0); HEMATOCRIT 42.7 % (36.0-47.0); HEMOGLOBIN 14.5 g/dl (12.0-15.5); IMMATURE GRANULOCYTE % 0.3 % (0-3.0); LYMPH # 2.9 10^3/uL (1.5-4.5); MEAN CORPUSCULAR HEMOGLOBIN 30.5 pg (27.0-33.0); MEAN CORPUSCULAR VOLUME 89.7 fl (80.0-96.0); MONO # 0.7 10^3/uL (0.0-0.8); MONO % 5.9 % (0.0-5.0); NEUTROPHILS # 7.9 10^3/uL (1.8-7.7); NEUTROPHILS % 67.2 % (36.0-66.0); PLATELET COUNT, AUTOMATED 373 10^3/uL (150-450); RED BLOOD COUNT 4.76 10^6/uL (4.00-5.40); WHITE BLOOD COUNT 11.8 10^3/uL (4.0-10.0)
[2018-02-25 13:43] LABS: INR 0.95; PARTIAL THROMBOPLASTIN TIME 31.2 SECONDS (26.8-37.9); PROTHROMBIN TIME 12.8 SECONDS (12.4-14.5)
[2018-02-25 14:08] LABS: ALBUMIN/GLOBULIN RATIO 0.98 (1.00-1.93); ALKALINE PHOSPHATASE 112 U/L (45-117); ALT/SGPT 22 U/L (12-78); ANION GAP 8 MEQ/L (8-16); AST/SGOT 17 U/L (7-37); BILIRUBIN,DIRECT < 0.1 MG/DL (0.0-0.2); BILIRUBIN,TOTAL 0.2 MG/DL (0.2-1.0); BLOOD UREA NITROGEN 9 MG/DL (7-18); CARBON DIOXIDE LEVEL 24 MEQ/L (21-32); CHLORIDE LEVEL 107 MEQ/L (98-107); CREATININE FOR GFR 0.76 MG/DL (0.55-1.30); GLOMERULAR FILTRATION RATE > 60.0 (>60); GLUCOSE, FASTING 112 MG/DL (70-100); POTASSIUM SERUM 4.3 MEQ/L (3.5-5.1); SODIUM LEVEL 139 MEQ/L (136-145); TOTAL PROTEIN 8.1 GM/DL (6.4-8.2)
== END 2018-02-25 14:50 | disposition home or self-care (01) ==
LOC: M ED 11:09
DX: R10.9 Unspecified abdominal pain (principal); F17.200 Nicotine dependence, unspecified, uncomplicated; Z79.899 Other long term (current) drug therapy; Z88.8 Allergy status to other drugs, medicaments and biological substances; Z88.5 Allergy status to narcotic agent; Z91.030 Bee allergy status; Z91.040 Latex allergy status; Z88.0 Allergy status to penicillin; Z91.048 Other nonmedicinal substance allergy status
CPT/HCPCS: J0500

== ENCOUNTER 2018-03-29 17:22 | Emergency (ER) | payer OTHER | END 2018-03-29 18:58 | disposition home or self-care (01) | LOC: M ED 17:22 | DX: S69.91XA Unspecified injury of right wrist, hand and finger(s), initial encounter (principal); W22.09XA Striking against other stationary object, initial encounter; Y92.009 Unspecified place in unspecified non-institutional (private) residence as the place of occurrence of the external cause; F17.210 Nicotine dependence, cigarettes, uncomplicated; Z79.899 Other long term (current) drug therapy; Z88.8 Allergy status to other drugs, medicaments and biological substances; Z88.5 Allergy status to narcotic agent; Z91.030 Bee allergy status; Z91.040 Latex allergy status; Z88.0 Allergy status to penicillin; Z91.048 Other nonmedicinal substance allergy status | CPT/HCPCS: 73130 ==

== ENCOUNTER 2018-04-16 17:03 | Emergency (ER) | payer OTHER | END 2018-04-16 19:03 | disposition left against medical advice (07) | LOC: M ED 17:03 | DX: Z53.21 Procedure and treatment not carried out due to patient leaving prior to being seen by health care provider (principal) ==

== ENCOUNTER 2018-04-26 21:49 | Emergency (ER) | payer OTHER ==
[2018-04-26 22:25] LABS: KETONE, URINE AUTO RFX NEGATIVE (NEGATIVE); LEUKOCYTE ESTERASE UR AUTO RFX NEGATIVE (NEGATIVE); MUCUS, URINE RFX SMALL (NEGATIVE); NITRITE, URINE AUTO RFX NEGATIVE (NEGATIVE); RBC, URINE AUTO RFX 1 /HPF (0-3); SQUAM EPITHELIAL CELL UR AURFX 1 /HPF (0-6); WBC, URINE AUTO RFX 2 /HPF (0-3)
[2018-04-26] MEDS: METOCLOPRAMIDE 10 MG TAB PO (23:35)
[2018-04-26] MEDS: NORCO, ANEXSIA 5/325MG TABLET (HYDROcodone/ACETAMINOPHEN) PO (23:36)
[2018-04-27 00:14] LABS: HEMATOCRIT 37.4 % (36.0-47.0); HEMOGLOBIN 12.9 g/dl (12.0-15.5); MEAN CORPUSCULAR HEMOGLOBIN 30.6 pg (27.0-33.0); MEAN CORPUSCULAR HGB CONC 34.5 g/dl (32.0-36.5); MEAN CORPUSCULAR VOLUME 88.6 fl (80.0-96.0); PLATELET COUNT, AUTOMATED 354 10^3/uL (150-450); RED BLOOD COUNT 4.22 10^6/uL (4.00-5.40); RED CELL DISTRIBUTION WIDTH 13.4 % (11.5-14.5); WHITE BLOOD COUNT 10.5 10^3/uL (4.0-10.0)
[2018-04-27 00:21] LABS: ADD MANUAL DIFFER YES; DIFF SLIDE NUMBER 179; POSITIVE MORPH POS FLAG
[2018-04-27 00:34] LABS: ALBUMIN 3.2 GM/DL (3.2-5.2); ALBUMIN/GLOBULIN RATIO 0.76 (1.00-1.93); ALKALINE PHOSPHATASE 124 U/L (45-117); ALT/SGPT 25 U/L (12-78); ANION GAP 5 MEQ/L (8-16); AST/SGOT 13 U/L (7-37); BILIRUBIN,TOTAL 0.1 MG/DL (0.2-1.0); BLOOD UREA NITROGEN 10 MG/DL (7-18); CALCIUM LEVEL 8.5 MG/DL (8.5-10.1); CARBON DIOXIDE LEVEL 27 MEQ/L (21-32); CHLORIDE LEVEL 107 MEQ/L (98-107); CREATININE FOR GFR 0.78 MG/DL (0.55-1.30); GLOMERULAR FILTRATION RATE > 60.0 (>60); GLUCOSE, FASTING 93 MG/DL (70-100); LIPASE 226 U/L (73-393); POTASSIUM SERUM 3.7 MEQ/L (3.5-5.1); SODIUM LEVEL 139 MEQ/L (136-145); TOTAL PROTEIN 7.4 GM/DL (6.4-8.2)
[2018-04-27 00:58] LABS: ATYPICAL LYMPH 2 % (0-5); EOSINOPHILS 2 % (0-5); LYMPHOCYTES 46 % (16-52); MONOCYTES 7 % (0-8); NEUTROPHILS 43 % (35-75)
[2018-04-27 00:59] LABS: PLATELET ESTIMATE NORMAL (NORMAL)
[2018-04-27] MEDS: PROMETHAZINE 25 MG TAB PO (01:12)
== END 2018-04-27 01:30 | disposition home or self-care (01) ==
LOC: M ED 04-27 01:30
DX: R10.9 Unspecified abdominal pain (principal); J45.909 Unspecified asthma, uncomplicated; K50.90 Crohn's disease, unspecified, without complications; F99 Mental disorder, not otherwise specified; F17.210 Nicotine dependence, cigarettes, uncomplicated; Z87.442 Personal history of urinary calculi; Z87.440 Personal history of urinary (tract) infections; Z85.41 Personal history of malignant neoplasm of cervix uteri; Z98.890 Other specified postprocedural states; Z88.8 Allergy status to other drugs, medicaments and biological substances; Z88.5 Allergy status to narcotic agent; Z91.030 Bee allergy status; Z88.0 Allergy status to penicillin; Z91.048 Other nonmedicinal substance allergy status; Z79.899 Other long term (current) drug therapy
CPT/HCPCS: 83690

== ENCOUNTER 2018-06-02 19:16 | Emergency (ER) | payer OTHER ==
[2018-06-02] MEDS: ONDANSETRON 4MG/2ML VIAL (J2405) IV (20:25)
[2018-06-02] MEDS: NS 1,000 ML IV (20:25)
[2018-06-02] MEDS: MORPHINE 4 MG/ML 1ML VIAL/SYRINGE (J2270) IV ×2 (20:26→21:34)
[2018-06-02 20:32] LABS: BASO # 0.1 10^3/uL (0.0-0.2); BASO % 0.4 % (0.0-1.0); EOS # 0.2 10^3/uL (0.0-0.50); HEMATOCRIT 42.9 % (36.0-47.0); HEMOGLOBIN 14.3 g/dl (12.0-15.5); IMMATURE GRANULOCYTE % 0.3 % (0-3.0); LYMPH # 3.5 10^3/uL (1.5-4.5); MEAN CORPUSCULAR HEMOGLOBIN 30.5 pg (27.0-33.0); MEAN CORPUSCULAR HGB CONC 33.3 g/dl (32.0-36.5); MEAN CORPUSCULAR VOLUME 91.5 fl (80.0-96.0); MONO # 0.8 10^3/uL (0.0-0.8); MONO % 6.6 % (0.0-5.0); NEUTROPHILS # 7.5 10^3/uL (1.8-7.7); NEUTROPHILS % 61.7 % (36.0-66.0); PLATELET COUNT, AUTOMATED 356 10^3/uL (150-450); RED BLOOD COUNT 4.69 10^6/uL (4.00-5.40); RED CELL DISTRIBUTION WIDTH 13.4 % (11.5-14.5); WHITE BLOOD COUNT 12.2 10^3/uL (4.0-10.0)
[2018-06-02] MEDS: GASTROGRAFIN SOLUTION 30ML (Q9963) PO ×5 (20:32→23:17)
[2018-06-02 20:49] LABS: ALBUMIN 3.5 GM/DL (3.2-5.2); ALBUMIN/GLOBULIN RATIO 0.74 (1.00-1.93); ALKALINE PHOSPHATASE 94 U/L (45-117); ALT/SGPT 26 U/L (12-78); AMYLASE 43 U/L (25-115); ANION GAP 7 MEQ/L (8-16); AST/SGOT 19 U/L (7-37); BILIRUBIN,DIRECT < 0.1 MG/DL (0.0-0.2); BILIRUBIN,TOTAL 0.2 MG/DL (0.2-1.0); BLOOD UREA NITROGEN 9 MG/DL (7-18); CALCIUM LEVEL 8.7 MG/DL (8.5-10.1); CARBON DIOXIDE LEVEL 28 MEQ/L (21-32); CHLORIDE LEVEL 105 MEQ/L (98-107); CREATININE FOR GFR 0.99 MG/DL (0.55-1.30); GLOMERULAR FILTRATION RATE > 60.0 (>60); GLUCOSE, FASTING 84 MG/DL (70-100); LIPASE 131 U/L (73-393); POTASSIUM SERUM 3.8 MEQ/L (3.5-5.1); SODIUM LEVEL 140 MEQ/L (136-145); TOTAL PROTEIN 8.2 GM/DL (6.4-8.2)
[2018-06-02 21:27] LABS: KETONE, URINE AUTO RFX NEGATIVE (NEGATIVE); LEUKOCYTE ESTERASE UR AUTO RFX NEGATIVE (NEGATIVE); MUCUS, URINE RFX SMALL (NEGATIVE); NITRITE, URINE AUTO RFX NEGATIVE (NEGATIVE); RBC, URINE AUTO RFX 0 /HPF (0-3); SPECIFIC GRAVITY UR AUTO RFX 1.008 (1.002-1.035); SQUAM EPITHELIAL CELL UR AURFX 0 /HPF (0-6); WBC, URINE AUTO RFX 3 /HPF (0-3)
[2018-06-02] MEDS ORDERED: ISOVUE-370 76% 100ML VIAL (Q9967) As Ordered (21:47)
[2018-06-02] MEDS: NORCO 5/325MG TABLET (BULK FOR ED) PO (23:16)
== END 2018-06-02 23:19 | disposition home or self-care (01) ==
LOC: M ED 19:16
DX: K52.9 Noninfective gastroenteritis and colitis, unspecified (principal); K21.9 Gastro-esophageal reflux disease without esophagitis; K50.90 Crohn's disease, unspecified, without complications; J45.909 Unspecified asthma, uncomplicated; F43.10 Post-traumatic stress disorder, unspecified; M54.9 Dorsalgia, unspecified; G43.909 Migraine, unspecified, not intractable, without status migrainosus; F41.9 Anxiety disorder, unspecified; F60.3 Borderline personality disorder; F32.9 Major depressive disorder, single episode, unspecified; Z85.41 Personal history of malignant neoplasm of cervix uteri; F17.200 Nicotine dependence, unspecified, uncomplicated; Z88.8 Allergy status to other drugs, medicaments and biological substances; Z88.5 Allergy status to narcotic agent; Z91.030 Bee allergy status; Z91.040 Latex allergy status; Z88.0 Allergy status to penicillin; Z91.048 Other nonmedicinal substance allergy status; Z79.899 Other long term (current) drug therapy
CPT/HCPCS: J2270

== ENCOUNTER 2018-07-28 10:27 | Day surgery (SDC) | payer OTHER ==
[~2018-07-28 10:27] MED LIST changes: -/CLON1TA OR; -/CLON1TA PO; -/LAMO10TA PO; -/METO5TA PO; -/MOXI40TA OR; -/OL10DISTA OR; -/OLAN5ZYD OR; -/PANT40TA PO; -/QUET25TA OR; -ABIL2TAB; -ABIL5TAB OR; -ALBU17IN INH; -ALBU17IN2 INH; -ALBUTEROL INH; -ALLE25CA OR; -AMBI10TA OR; -AMBI10TA PO; -ARIP5TA PO; -ASTE137S; -ATIV0.5T; -AZIT250T8 PO; -BACI50OI EXT; -BACIPOW8 TOP; -BACL10TA2 OR; -BACT800T OR; -BACT800T5 PO; -BENA25CA4 PO; -BENA25TA4 PO; -CARB1TAB20 PO; -CLIN300C PO; -CLON0.5T PO; -DOCU10ELUD PO; -EFFE37.527 PO; -EPIP0.3I10 IM; -EPIP0.3I2 INJ; -ESTR625TA PO; -FLON0.05; -FLUT1LOT EX; -FLUTISP; -GABA-279; -HALO10TA2 PO; -HYDR-3363 PO; -HYDR25T PO; -HYDR50TA70 PO; -IMIP10TA2 PO; -IMIT100T PO; -IMIT50TA PO; -KLON0.5T PO; -KLON1TAB PO; -LAMO10TA PO; -LAMO200T PO; -LAXA5TAB PO; +LIDOCAINE 2% INJ 100 MG/5 ML SDV (FOR ANES.) As Ordered; -LORA2TA PO; -LOTR15CR EXT; -LOTRCRE TOP; -MINI2CAP PO; -MOBI15TA PO; -MONI1OIN VA; -MUCI600T31 PO; -NEUR100C OR; -NORC5TAB PO; -NORCOBULK PO; -OLAN20TA PO; -OMEP20CA3 PO; -OMEP40CA2 PO; -PATIENT COMMENT; -PAXI10TA2 PO; -PAXI20TA3 PO; -PERC5TAB12 PO; -PERC5TAB8; -PERC5TAB8 OR; -PRAZ2CAP; -PRAZ2CAP PO; -PRED20TA PO; -PRIL20CA9 PO; +PROPOFOL 200 MG/20 ML VIAL As Ordered; -PROZ20CA; -PROZ20CA11 PO; -QUET1TAB8 PO; -QUET20XRTB OR; -REXU1TAB4 PO; -RISP1TAB42 PO; -SERO200T PO; -SERO200T2 PO; -SEROQUEL XR PO; -SUBO8MIS; -SUMA100T2 PO; -TOPA1TAB PO; -TRAM50TA2; -TRAZ100T2 PO; -TRAZ150T OR; -TRAZ1TAB14 PO; -TRAZ50TA2 PO; -TRIL600T PO; -TYLE1TAB5 PO; -TYLE325T5 PO; -VENL37.52; -VENTAER; -VENTAER IN; -ZANA4CAP OR; -ZANT1TAB PO; -ZANTTAB9 PO; -ZIPR80CAP OR; -ZITH250T PO; -ZOFR4SOL PO; -ZONI100C2 PO; -ZONI25CA2 PO; -ZONI50CA3 PO; -ZYPR10TA PO; -ZYPR20TA PO; -[UNRECOGNIZED DRUG - CODE] PO; +fentaNYL 100 MCG/2 ML INJECTION (J3010) As Ordered; -haldol PO
[2018-07-28] MEDS: NS 1,000 ML IV (10:30)
[2018-07-28] MEDS ORDERED: PROPOFOL 200 MG/20 ML VIAL As Ordered (11:37)
== END 2018-07-28 12:30 | disposition home or self-care (01) ==
LOC: M OPP 10:27
DX: R93.3 Abnormal findings on diagnostic imaging of other parts of digestive tract (principal); K92.1 Melena; K64.8 Other hemorrhoids; K22.8 Other specified diseases of esophagus; K21.0 Gastro-esophageal reflux disease with esophagitis; K29.70 Gastritis, unspecified, without bleeding; K52.9 Noninfective gastroenteritis and colitis, unspecified; Z87.19 Personal history of other diseases of the digestive system; K44.9 Diaphragmatic hernia without obstruction or gangrene; K58.9 Irritable bowel syndrome, unspecified; R12 Heartburn; D64.9 Anemia, unspecified; M54.89 Other dorsalgia; F31.9 Bipolar disorder, unspecified; Z85.41 Personal history of malignant neoplasm of cervix uteri; F41.9 Anxiety disorder, unspecified; G43.909 Migraine, unspecified, not intractable, without status migrainosus; R56.9 Unspecified convulsions; J45.909 Unspecified asthma, uncomplicated; F17.210 Nicotine dependence, cigarettes, uncomplicated; Z88.8 Allergy status to other drugs, medicaments and biological substances; Z91.030 Bee allergy status; Z88.5 Allergy status to narcotic agent; Z91.040 Latex allergy status; Z91.048 Other nonmedicinal substance allergy status; Z88.0 Allergy status to penicillin; Z79.899 Other long term (current) drug therapy; Z80.0 Family history of malignant neoplasm of digestive organs
CPT/HCPCS: 45380

== ENCOUNTER 2018-08-04 19:33 | Emergency (ER) | payer OTHER ==
[2018-08-04 20:00] LABS: BASO # 0.1 10^3/uL (0.0-0.2); BASO % 0.5 % (0.0-1.0); EOS # 0.1 10^3/uL (0.0-0.50); HEMATOCRIT 42.4 % (36.0-47.0); HEMOGLOBIN 14.5 g/dl (12.0-15.5); IMMATURE GRANULOCYTE % 0.2 % (0-3.0); LYMPH # 3.7 10^3/uL (1.5-4.5); LYMPH % 30.3 % (24.0-44.0); MEAN CORPUSCULAR HEMOGLOBIN 30.5 pg (27.0-33.0); MEAN CORPUSCULAR HGB CONC 34.2 g/dl (32.0-36.5); MEAN CORPUSCULAR VOLUME 89.3 fl (80.0-96.0); MONO # 0.8 10^3/uL (0.0-0.8); MONO % 6.2 % (0.0-5.0); NEUTROPHILS # 7.5 10^3/uL (1.8-7.7); NEUTROPHILS % 61.8 % (36.0-66.0); PLATELET COUNT, AUTOMATED 368 10^3/uL (150-450); RED BLOOD COUNT 4.75 10^6/uL (4.00-5.40); RED CELL DISTRIBUTION WIDTH 13.1 % (11.5-14.5); WHITE BLOOD COUNT 12.2 10^3/uL (4.0-10.0)
[2018-08-04] MEDS: NS 1,000 ML IV (20:23)
[2018-08-04] MEDS: HALOPERIDOL 5 MG/ML VIAL (J1630) IV (20:23)
[2018-08-04] MEDS: diphenhydrAMINE INJ 50MG/ML VIAL (J1200) IV (20:23)
[2018-08-04 20:35] LABS: ALBUMIN/GLOBULIN RATIO 1.05 (1.00-1.93); ALKALINE PHOSPHATASE 102 U/L (45-117); ALT/SGPT 26 U/L (12-78); ANION GAP 11 MEQ/L (8-16); AST/SGOT 16 U/L (7-37); BILIRUBIN,DIRECT 0.1 MG/DL (0.0-0.2); BILIRUBIN,TOTAL 0.3 MG/DL (0.2-1.0); BLOOD UREA NITROGEN 11 MG/DL (7-18); CALCIUM LEVEL 9.4 MG/DL (8.5-10.1); CARBON DIOXIDE LEVEL 23 MEQ/L (21-32); CHLORIDE LEVEL 108 MEQ/L (98-107); CREATININE FOR GFR 0.95 MG/DL (0.55-1.30); GLOMERULAR FILTRATION RATE > 60.0 (>60); GLUCOSE, FASTING 130 MG/DL (70-100); LIPASE 142 U/L (73-393); POTASSIUM SERUM 3.8 MEQ/L (3.5-5.1); SODIUM LEVEL 142 MEQ/L (136-145); TOTAL PROTEIN 7.8 GM/DL (6.4-8.2)
[2018-08-04] MEDS: GASTROGRAFIN SOLUTION 30ML PO ×2 (20:45→21:11)
[2018-08-04 21:07] LABS: APPEARANCE, URINE CLOUDY (CLEAR); BACTERIA, URINE AUTO NEGATIVE (NEGATIVE); BILIRUBIN, URINE AUTO NEGATIVE (NEGATIVE); BLOOD, URINE BLOOD NEGATIVE (NEGATIVE); CALCIUM OXALATE CRYSTALS MODERATE; COLOR, URINE AMBER (YELLOW); GLUCOSE, URINE (UA) AUTO NEGATIVE (NEGATIVE); KETONE, URINE AUTO TRACE mg/dL (NEGATIVE); LEUKOCYTE ESTERASE, URINE AUTO TRACE (NEGATIVE); MUCUS, URINE LARGE (NEGATIVE); NITRITE, URINE AUTO NEGATIVE (NEGATIVE); PROTEIN, URINE AUTO 1+ mg/dL (NEGATIVE); RBC, URINE AUTO 6 /HPF (0-3); SPECIFIC GRAVITY URINE AUTO 1.027 (1.002-1.035); SQUAMOUS EPITHELIAL CELL UR AU 9 /HPF (0-6); WBC, URINE AUTO 5 /HPF (0-3)
[2018-08-04] MEDS ORDERED: ISOVUE-370 76% 100ML VIAL (Q9967) As Ordered (22:40)
== END 2018-08-04 23:53 | disposition home or self-care (01) ==
LOC: M ED 19:33
DX: K52.9 Noninfective gastroenteritis and colitis, unspecified (principal); G89.29 Other chronic pain; F31.9 Bipolar disorder, unspecified; N80.9 Endometriosis, unspecified; M54.9 Dorsalgia, unspecified; G43.909 Migraine, unspecified, not intractable, without status migrainosus; Z79.899 Other long term (current) drug therapy; Z88.1 Allergy status to other antibiotic agents; Z88.0 Allergy status to penicillin; Z88.8 Allergy status to other drugs, medicaments and biological substances; Z88.5 Allergy status to narcotic agent; Z91.89 Other specified personal risk factors, not elsewhere classified; Z91.030 Bee allergy status; Z91.040 Latex allergy status
CPT/HCPCS: Q9963

== ENCOUNTER → 2018-08-04 | Outpatient (CLI) | payer OTHER ==
[2018-08-04 14:27] LABS: BASO % 0.2 % (0.0-1.0); EOS # 0.2 10^3/uL (0.0-0.50); EOS % 1.8 % (0.0-3.0); HEMATOCRIT 42.6 % (36.0-47.0); HEMOGLOBIN 14.6 g/dl (12.0-15.5); IMMATURE GRANULOCYTE % 0.1 % (0-3.0); LYMPH # 2.8 10^3/uL (1.5-4.5); LYMPH % 32.2 % (24.0-44.0); MEAN CORPUSCULAR HEMOGLOBIN 30.7 pg (27.0-33.0); MEAN CORPUSCULAR HGB CONC 34.3 g/dl (32.0-36.5); MEAN CORPUSCULAR VOLUME 89.7 fl (80.0-96.0); MONO # 0.5 10^3/uL (0.0-0.8); MONO % 5.3 % (0.0-5.0); NEUTROPHILS # 5.3 10^3/uL (1.8-7.7); NEUTROPHILS % 60.4 % (36.0-66.0); PLATELET COUNT, AUTOMATED 340 10^3/uL (150-450); RED BLOOD COUNT 4.75 10^6/uL (4.00-5.40); RED CELL DISTRIBUTION WIDTH 13.2 % (11.5-14.5); WHITE BLOOD COUNT 8.8 10^3/uL (4.0-10.0)
[2018-08-04 15:02] LABS: ANION GAP 10 MEQ/L (8-16); BLOOD UREA NITROGEN 10 MG/DL (7-18); CALCIUM LEVEL 9.4 MG/DL (8.5-10.1); CARBON DIOXIDE LEVEL 21 MEQ/L (21-32); CHLORIDE LEVEL 109 MEQ/L (98-107); CREATININE FOR GFR 0.83 MG/DL (0.55-1.30); GLOMERULAR FILTRATION RATE > 60.0 (>60); GLUCOSE, FASTING 124 MG/DL (70-100); POTASSIUM SERUM 3.9 MEQ/L (3.5-5.1); SODIUM LEVEL 140 MEQ/L (136-145)
[2018-08-06 10:15] LABS: O+P EXAM Final report (.)
== END ==
LOC: M LAB 13:48
DX: R10.84 Generalized abdominal pain (principal); R11.2 Nausea with vomiting, unspecified; R19.7 Diarrhea, unspecified; Z90.49 Acquired absence of other specified parts of digestive tract
CPT/HCPCS: 74018

== ENCOUNTER → 2018-09-01 | Outpatient (CLI) | payer OTHER | LOC: M PAIN 10:00 | DX: M51.26 Other intervertebral disc displacement, lumbar region (principal); G89.29 Other chronic pain; J45.909 Unspecified asthma, uncomplicated; F31.9 Bipolar disorder, unspecified; E03.9 Hypothyroidism, unspecified; Z72.0 Tobacco use; E66.01 Morbid (severe) obesity due to excess calories; Z68.43 Body mass index [BMI] 50.0-59.9, adult; Z79.899 Other long term (current) drug therapy; Z88.0 Allergy status to penicillin; Z88.5 Allergy status to narcotic agent; Z88.8 Allergy status to other drugs, medicaments and biological substances; Z91.040 Latex allergy status; Z91.030 Bee allergy status; Z91.5 Personal history of self-harm; Z91.81 History of falling; Z87.820 Personal history of traumatic brain injury | CPT/HCPCS: G0463 ==

== ENCOUNTER 2018-11-01 19:45 | Emergency (ER) | payer OTHER ==
[~2018-11-01] VITALS: Ht 162.6 cm; Wt 104.5 kg
[~2018-11-01 19:45] MED LIST changes: +/CLON1TA OR; +/CLON1TA PO; +/LAMO10TA PO; +/METO5TA PO; +/MOXI40TA OR; +/OL10DISTA OR; +/OLAN5ZYD OR; +/PANT40TA PO; +/QUET25TA OR; +ABIL2TAB; +ABIL5TAB OR; +ALBU17IN INH; +ALBU17IN2 INH; +ALBUTEROL INH; +ALLE25CA OR; +AMBI10TA OR; +AMBI10TA PO; +ARIP5TA PO; +ASTE137S; +ATIV0.5T; +AZIT-10 PO; +BACI50OI EXT; +BACIPOW8 TOP; +BACL10TA2 OR; +BACT800T OR; +BACT800T5 PO; +BENA25CA4 PO; +BENA25TA4 PO; +BENT10CA PO; +CARB1TAB20 PO; +CLIN300C PO; +CLON0.5T PO; +CLON0.5T8 PO; +DOCU10ELUD PO; +EFFE37.5 PO; +EPIP0.3I10 IM; +EPIP0.3I2 INJ; +ESTR625TA PO; +FLON0.05; +FLUT1LOT EX; +FLUTISP; +GABA-1171 PO; +HALO10TA2 PO; +HYDR-3363 PO; +HYDR25T PO; +HYDR50TA70 PO; +IMIP10TA2 PO; +IMIT100T PO; +IMIT50TA PO; +KLON0.5T; +KLON0.5T PO; +KLON1TAB PO; +LAMO10TA PO; +LAMO200T2 PO; +LAXA5TAB PO; -LIDOCAINE 2% INJ 100 MG/5 ML SDV (FOR ANES.) As Ordered; +LORA2TA PO; +LOTR15CR EXT; +LOTRCRE TOP; +MINI2CAP PO; +MOBI15TA PO; +MONI1OIN VA; +MUCI600T31 PO; +NEUR100C OR; +NORC5TAB PO; +NORCOBULK PO; +OLAN20TA PO; +OMEP20CA3 PO; +OMEP40CA2 PO; +PATIENT COMMENT; +PAXI10TA2 PO; +PAXI20TA3 PO; +PEPT262T2 PO; +PERC5TAB12 PO; +PERC5TAB8; +PERC5TAB8 OR; +PRAZ2CAP PO; +PRED20TA PO; +PRIL20CA9 PO; -PROPOFOL 200 MG/20 ML VIAL As Ordered; +PROZ20CA; +PROZ20CA11 PO; +QUET1TAB8 PO; +QUET20XRTB OR; +QUET5TAB PO; +REGL10TA6 PO; +REXU1TAB4 PO; +RISP1SOL PO; +RISP1TAB3 PO; +RISP1TAB42 PO; +RISP2TAB3; +SERO200T PO; +SERO200T2 PO; +SERO50TA PO; +SEROQUEL XR PO; +SUBO8MIS; +SUMA100T2 PO; +TOPA1TAB PO; +TRAM50TA2; +TRAZ100T2 PO; +TRAZ150T OR; +TRAZ1TAB14 PO; +TRAZ50TA2 PO; +TRAZO50TA PO; +TRIL600T PO; +TYLE1TAB5 PO; +TYLE325T5 PO; +VENL37.52; +VENL75CA47 PO; +VENTAER IN; +VENTAER INH; +ZANA4CAP OR; +ZANT150T15 PO; +ZANTTAB9 PO; +ZIPR80CAP OR; +ZITH250T PO; +ZOFR4SOL PO; +ZONI100C2 PO; +ZONI25CA2 PO; +ZONI50CA3 PO; +ZYPR10TA PO; +ZYPR20TA PO; +[UNRECOGNIZED DRUG - CODE] PO; -fentaNYL 100 MCG/2 ML INJECTION (J3010) As Ordered; +haldol PO
[2018-11-01 19:46] VITALS: BP 135/79
--- NOTE | 2018-11-01 20:23 | REP ---
Clinical: Trauma. Technique: AP, lateral, bilateral oblique views of the right second through fifth toes. Findings: There is an oblique nondisplaced fracture of the midshaft as well as nondisplaced corner fracture at the base of the fourth toe proximal phalanx. Remainder examination appears normal. Impression: Oblique nondisplaced fracture through the midshaft and subtle nondisplaced fracture at the base of the fourth toe proximal phalanx. Electronically Signed by Mahin Morales MD 11/01/2018 08:15 P
[2018-11-01] MEDS ORDERED: NORCOTAB PO (20:43)
[2018-11-01] MEDS ORDERED: NORCO 5/325MG TABLET (BULK FOR ED) PO ONE (20:45)
== END 2018-11-01 21:00 | disposition home or self-care (01) ==
LOC: M ED 19:45
DX: S92.514A Nondisplaced fracture of proximal phalanx of right lesser toe(s), initial encounter for closed fracture (principal); W22.8XXA Striking against or struck by other objects, initial encounter; Y92.89 Other specified places as the place of occurrence of the external cause; K21.9 Gastro-esophageal reflux disease without esophagitis; R56.9 Unspecified convulsions; Z79.899 Other long term (current) drug therapy; Z88.0 Allergy status to penicillin; Z88.5 Allergy status to narcotic agent; Z88.8 Allergy status to other drugs, medicaments and biological substances; Z91.030 Bee allergy status; Z91.048 Other nonmedicinal substance allergy status; F17.210 Nicotine dependence, cigarettes, uncomplicated

== ENCOUNTER 2018-11-24 18:30 | Emergency (ER) | payer OTHER ==
[~2018-11-24] VITALS: Ht 160 cm; Wt 104.5 kg
[~2018-11-24 18:30] MED LIST changes: +NORCOTAB PO
--- NOTE | 2018-11-24 19:19 | REPVR ---
EXAM: CT Head Without Contrast EXAM DATE/TIME: 11/24/2018 7:02 PM CLINICAL HISTORY: 33 years old, female; Injury or trauma; Fall; Initial encounter; Concussion / head injury; Consciousness not specified; Additional info: Tr TECHNIQUE: Axial computed tomography images of the head/brain without contrast. All CT scans at this facility use at least one of these dose optimization techniques: automated exposure control; mA and/or kV adjustment per patient size (includes targeted exams where dose is matched to clinical indication); or iterative reconstruction. COMPARISON: CT Head without contrast 07/19/2013 2:11 PM FINDINGS: Brain: There is no evidence of intracranial bleed. The jung-white differentiation appears preserved. The cerebral sulci appear symmetric. Ventricles: Normal appearing ventricles. Bones/joints: There is no evidence of fracture. Sinuses: Clear paranasal sinuses. Mastoid air cells: Clear mastoid air cells. Soft tissues: Normal. IMPRESSION: 1. No evidence of fracture. 2. No evidence of bleed. Electronically signed by: Sunday Cortez On 11/24/2018 19:19:38 PM
--- NOTE | 2018-11-24 19:27 | REPVR ---
EXAM: CT Cervical Spine Without Contrast EXAM DATE/TIME: 11/24/2018 7:02 PM CLINICAL HISTORY: 33 years old, female; Injury or trauma; Fall; Initial encounter; Concussion /head injury; Additional info: Tr TECHNIQUE: Axial computed tomography images of the cervical spine without intravenous contrast. All CT scans at this facility use at least one of these dose optimization techniques: automated exposure control; mA and/or kV adjustment per patient size (includes targeted exams where dose is matched to clinical indication); or iterative reconstruction. Coronal and sagittal reformatted images were created and reviewed. COMPARISON: No relevant prior studies available. FINDINGS: Vertebrae: There is no evidence of fracture. The cervical vertebra appear in alignment. The dens appears intact and the lateral masses of C1 appear symmetric. There are small lymph nodes right and left side of the neck. Discs/Spinal canal/Neural foramina: No spinal stenosis. No neural foraminal narrowing. Soft tissues: There is no evidence of soft tissue swelling. Lungs: Lung apices are normal. IMPRESSION: No evidence of fracture. Electronically signed by: Sunday Cortez On 11/24/2018 19:27:51 PM
[2018-11-24] MEDS ORDERED: ACETAMINOPHEN 325 MG TAB PO ONE (19:30)
[2018-11-24] MEDS ORDERED: ONDANSETRON 4 MG TAB (S0181) As Ordered ONE (19:46)
[2018-11-24 20:10] VITALS: BP 112/76
== END 2018-11-24 20:10 | disposition home or self-care (01) ==
LOC: M ED 18:30
DX: S00.93XA Contusion of unspecified part of head, initial encounter (principal); W01.0XXA Fall on same level from slipping, tripping and stumbling without subsequent striking against object, initial encounter; Y92.091 Bathroom in other non-institutional residence as the place of occurrence of the external cause; R11.10 Vomiting, unspecified; R19.7 Diarrhea, unspecified; F32.9 Major depressive disorder, single episode, unspecified; F19.10 Other psychoactive substance abuse, uncomplicated; Z88.8 Allergy status to other drugs, medicaments and biological substances; Z88.5 Allergy status to narcotic agent; Z88.0 Allergy status to penicillin; Z91.030 Bee allergy status; Z91.048 Other nonmedicinal substance allergy status; Z91.040 Latex allergy status; Z79.899 Other long term (current) drug therapy

== ENCOUNTER 2018-11-25 18:18 | Emergency (ER) | payer OTHER ==
[~2018-11-25] VITALS: Ht 160 cm; Wt 104.5 kg
[2018-11-25 18:19] VITALS: BP 119/73
[2018-11-25] MEDS ORDERED: diphenhydrAMINE INJ 50MG/ML VIAL (J1200) IM STA (18:46)
[2018-11-25] MEDS ORDERED: METOCLOPRAMIDE INJ 10MG/2ML VIAL (J2765) IM ONE (19:00)
[2018-11-25] MEDS ORDERED: KETOROLAC 60 MG/2 ML VIAL (J1885) IM ONE (19:00)
[2018-11-25 19:52] LABS: BLOOD UREA NITROGEN 10 MG/DL (7-18); CALCIUM LEVEL 8.8 MG/DL (8.5-10.1); CARBON DIOXIDE LEVEL 23 MEQ/L (21-32); CHLORIDE LEVEL 109 MEQ/L (98-107); CREATININE FOR GFR 0.68 MG/DL (0.55-1.30); GLOMERULAR FILTRATION RATE > 60.0 (>60); GLUCOSE, FASTING 96 MG/DL (70-100); POTASSIUM SERUM 3.9 MEQ/L (3.5-5.1); SODIUM LEVEL 139 MEQ/L (136-145)
== END 2018-11-25 19:57 | disposition left against medical advice (07) ==
LOC: M ED 18:18
DX: F07.81 Postconcussional syndrome (principal); F17.210 Nicotine dependence, cigarettes, uncomplicated
CPT/HCPCS: 80048; 83735; 96372; 99282; J1200; J1885; J2765

== ENCOUNTER 2018-12-20 20:20 | Emergency (ER) | payer OTHER ==
[~2018-12-20] VITALS: Ht 162.6 cm; Wt 100.0 kg
[2018-12-20 22:08] VITALS: BP 102/58
--- NOTE | 2018-12-21 08:12 | REP ---
Right wrist four views : There is no fracture or dislocation. Mineralization and joint spaces are normal. There are no calcifications or foreign bodies. Impression: Negative right wrist . Electronically Signed by Maicol Hernandez MD 12/21/2018 08:03 A
--- NOTE | 2018-12-21 17:04 | REP ---
Right hand four views : There is no fracture or dislocation. Mineralization and joint spaces are normal. There are no calcifications or foreign bodies. Impression: Negative right hand . Electronically Signed by Maicol Hernandez MD 12/21/2018 04:56 P
== END 2018-12-20 22:14 | disposition home or self-care (01) ==
LOC: M ED 20:20
DX: S63.91XA Sprain of unspecified part of right wrist and hand, initial encounter (principal); W23.0XXA Caught, crushed, jammed, or pinched between moving objects, initial encounter; Y92.89 Other specified places as the place of occurrence of the external cause; F33.9 Major depressive disorder, recurrent, unspecified; F41.9 Anxiety disorder, unspecified; F17.200 Nicotine dependence, unspecified, uncomplicated; Z88.1 Allergy status to other antibiotic agents; Z91.030 Bee allergy status; Z88.5 Allergy status to narcotic agent; Z91.040 Latex allergy status; Z88.0 Allergy status to penicillin; Z91.048 Other nonmedicinal substance allergy status; Z79.899 Other long term (current) drug therapy

== ENCOUNTER 2019-01-20 13:17 | Emergency (ER) | payer OTHER ==
[~2019-01-20] VITALS: Ht 160 cm; Wt 98.2 kg
[2019-01-20 14:47] LABS: INFLUENZA A AMPLIFICATION POSITIVE (NEGATIVE); INFLUENZA B AMPLIFICATION NEGATIVE (NEGATIVE)
[2019-01-20] MEDS ORDERED: KETOROLAC 60 MG/2 ML VIAL (J1885) IM ONE (15:45)
[2019-01-20] MEDS ORDERED: ONDANSETRON 4 MG ORAL DISINTEGRATING TAB (Q0162 PER 1MG) PO ONE (15:45)
[2019-01-20] MEDS ORDERED: BENZ200C70 PO (16:26)
[2019-01-20] MEDS ORDERED: ONDA4TAB6 PO (16:26)
[2019-01-20] MEDS ORDERED: ACET-683 PO (16:26)
[2019-01-20 16:30] VITALS: BP 115/58
== END 2019-01-20 16:36 | disposition home or self-care (01) ==
LOC: M ED 13:17
DX: J09.X2 Influenza due to identified novel influenza A virus with other respiratory manifestations (principal); F17.210 Nicotine dependence, cigarettes, uncomplicated; Z88.0 Allergy status to penicillin; Z88.8 Allergy status to other drugs, medicaments and biological substances; Z91.040 Latex allergy status; Z91.030 Bee allergy status
CPT/HCPCS: 87502; 96374; 99283; J1885; Q0162

== ENCOUNTER 2019-01-22 17:12 | Emergency (ER) | payer OTHER ==
[~2019-01-22] VITALS: Ht 160 cm; Wt 123.8 kg
[~2019-01-22 17:12] MED LIST changes: +ACET-683 PO; +BENZ200C70 PO; +ONDA4TAB6 PO
[2019-01-22] MEDS ORDERED: NS 1,000 ML IV ONE (18:30)
[2019-01-22] MEDS ORDERED: ALBUTEROL SULFATE 2.5 MG/0.5 ML INH NEB SOLN NEB ONE (18:30)
[2019-01-22] MEDS ORDERED: ONDANSETRON 4MG/2ML VIAL (J2405) IV ONE (18:30)
[2019-01-22] MEDS: ACETAMINOPHEN 325 MG TAB PO ONE ×2 (18:36→18:40)
--- NOTE | 2019-01-22 18:45 | REP ---
Chest two views HISTORY: Cough Comparison: 08/28/2017 The lungs are clear. The heart is normal in size. The pulmonary vasculature is normal in appearance. The bony structure is intact. IMPRESSION: No acute disease. Electronically Signed by Dionisio Trinidad MD 01/22/2019 06:37 P
[2019-01-22 18:50] LABS: BASO % 0.2 % (0.0-1.0); EOS # 0.1 10^3/uL (0.0-0.50); EOS % 1.6 % (0.0-3.0); HEMATOCRIT 44.6 % (36.0-47.0); HEMOGLOBIN 14.7 g/dl (12.0-15.5); LYMPH # 3.4 10^3/uL (1.5-4.5); LYMPH % 40.3 % (24.0-44.0); MEAN CORPUSCULAR HEMOGLOBIN 29.8 pg (27.0-33.0); MEAN CORPUSCULAR VOLUME 90.5 fl (80.0-96.0); MONO # 0.6 10^3/uL (0.0-0.8); MONO % 7.3 % (0.0-5.0); NEUTROPHILS # 4.2 10^3/uL (1.8-7.7); NEUTROPHILS % 50.4 % (36.0-66.0); PLATELET COUNT, AUTOMATED 376 10^3/uL (150-450); RED BLOOD COUNT 4.93 10^6/uL (4.00-5.40); WHITE BLOOD COUNT 8.4 10^3/uL (4.0-10.0)
[2019-01-22 19:30] LABS: ALBUMIN 3.9 GM/DL (3.2-5.2); ALT/SGPT 31 U/L (12-78); BILIRUBIN,DIRECT < 0.1 MG/DL (0.0-0.2); BILIRUBIN,TOTAL 0.2 MG/DL (0.2-1.0); BLOOD UREA NITROGEN 13 MG/DL (7-18); CALCIUM LEVEL 8.6 MG/DL (8.5-10.1); CARBON DIOXIDE LEVEL 24 MEQ/L (21-32); CHLORIDE LEVEL 111 MEQ/L (98-107); CREATININE FOR GFR 0.78 MG/DL (0.55-1.30); GLOMERULAR FILTRATION RATE > 60.0 (>60); GLUCOSE, FASTING 97 MG/DL (70-100); LIPASE 126 U/L (73-393); POTASSIUM SERUM 4.4 MEQ/L (3.5-5.1); SODIUM LEVEL 142 MEQ/L (136-145); TOTAL PROTEIN 7.9 GM/DL (6.4-8.2)
[2019-01-22] MEDS ORDERED: DICY20TA11 PO (19:40)
[2019-01-22] MEDS ORDERED: VENTAER INH (19:40)
[2019-01-22] MEDS ORDERED: ZOFR4TAB16 PO (19:41)
[2019-01-22 20:12] VITALS: BP 120/69
== END 2019-01-22 19:50 | disposition home or self-care (01) ==
LOC: M ED 17:12
DX: J11.1 Influenza due to unidentified influenza virus with other respiratory manifestations (principal); J45.909 Unspecified asthma, uncomplicated; E86.0 Dehydration
CPT/HCPCS: 71046; 80048; 80076; 81001; 83690; 85025; 94640; 96361; 96374; 99284; J2405

== ENCOUNTER 2019-02-07 23:03 | Emergency (ER) | payer OTHER ==
[~2019-02-07] VITALS: Ht 160 cm; Wt 104.5 kg
[~2019-02-07 23:03] MED LIST changes: -/CLON1TA OR; -/CLON1TA PO; -/LAMO10TA PO; -/METO5TA PO; -/MOXI40TA OR; -/OL10DISTA OR; -/OLAN5ZYD OR; -/PANT40TA PO; -/QUET25TA OR; +ARIP1TAB6 PO; -ARIP5TA PO; +AVEL1TAB2 OR; +BACI500O74 EXT; -BACI50OI EXT; +CLON-412 OR; +CLON-412 PO; +CLOT1CRE71 EXT; +DICY20TA11 PO; -DOCU10ELUD PO; +DOCU5LIQ PO; +FLUT1SPR2; -FLUTISP; +HYDR-3715 PO; +LAMI1TAB7 PO; +LAMO100T80 PO; -LAMO10TA PO; -LOTR15CR EXT; +METO1TAB88 PO; -NORCOTAB PO; +PROT1TAB2 PO; -QUET20XRTB OR; +SERO1TAB3 OR; +SERO200T43 OR; +ZOFR4TAB16 PO; +ZYPR1TAB3 OR; +ZYPR1TAB4 OR
[2019-02-08] MEDS ORDERED: IBUPROFEN 800 MG TAB PO ONE (00:15)
[2019-02-08] MEDS ORDERED: CYCLOBENZAPRINE 10 MG TAB PO ONE (00:15)
--- NOTE | 2019-02-08 01:26 | REPVR ---
EXAM: US Duplex Left Lower Extremity Veins, Limited EXAM DATE/TIME: 02/08/2019 1:01 AM CLINICAL HISTORY: 33 years old, female; Pain; Leg, upper; Left TECHNIQUE: Imaging protocol: Real-time Duplex ultrasound of the Left Lower Extremity with 2-D jung scale, color Doppler flow and spectral waveform analysis. Limited exam focused on the left lower extremity veins. COMPARISON: US Duplex, Ext LOWER veins, bilat 08/28/2017 5:03 PM FINDINGS: Left deep veins: Unremarkable. The common femoral, femoral and popliteal veins are patent without thrombus. Normal compressibility, augmentation response and Doppler waveforms. Left superficial veins: Unremarkable. Saphenofemoral junction is patent without thrombus. Soft tissues: Unremarkable. IMPRESSION: No sonographic evidence of deep vein thrombosis. Electronically signed by: Sharif Valentin On 02/08/2019 01:25:45 AM
[2019-02-08 02:39] VITALS: BP 101/55
[2019-02-08] MEDS ORDERED: ACETAMINOPHEN 500 MG TAB PO ONE (03:00)
== END 2019-02-08 03:08 | disposition home or self-care (01) ==
LOC: M ED 23:03
DX: M79.605 Pain in left leg (principal); K50.90 Crohn's disease, unspecified, without complications; F43.10 Post-traumatic stress disorder, unspecified; F31.9 Bipolar disorder, unspecified; F60.3 Borderline personality disorder; F17.210 Nicotine dependence, cigarettes, uncomplicated; Z79.899 Other long term (current) drug therapy; Z88.0 Allergy status to penicillin; Z91.030 Bee allergy status; Z88.5 Allergy status to narcotic agent; Z88.8 Allergy status to other drugs, medicaments and biological substances; Z91.040 Latex allergy status; Z91.048 Other nonmedicinal substance allergy status

== ENCOUNTER 2019-05-02 15:46 | Emergency (ER) | payer OTHER ==
[~2019-05-02] VITALS: Ht 160 cm; Wt 90.9 kg
[~2019-05-02 15:46] MED LIST changes: +TRAZ1TAB10 PO; -TRAZO50TA PO
[2019-05-02] MEDS ORDERED: MELO7.5T35 (15:55)
[2019-05-02] MEDS ORDERED: TIZA2TA (15:55)
[2019-05-02] MEDS ORDERED: PANT40TA3 (15:55)
[2019-05-02] MEDS ORDERED: TRAZ-252 (15:55)
[2019-05-02 17:45] VITALS: BP 123/59
[2019-05-02] MEDS ORDERED: methylPREDNISolone INJ 125 MG/2 ML VIAL (J2930) IM ONE (17:45)
[2019-05-02] MEDS ORDERED: PRED10TA2 PO (17:56)
== END 2019-05-02 18:19 | disposition home or self-care (01) ==
LOC: M ED 15:46
DX: M54.5 Low back pain (principal); F17.210 Nicotine dependence, cigarettes, uncomplicated; Z79.51 Long term (current) use of inhaled steroids; Z79.899 Other long term (current) drug therapy; Z88.0 Allergy status to penicillin; Z88.8 Allergy status to other drugs, medicaments and biological substances; Z90.710 Acquired absence of both cervix and uterus; Z91.030 Bee allergy status; Z91.040 Latex allergy status; Z91.048 Other nonmedicinal substance allergy status
CPT/HCPCS: 96372; 99283; J2930

== ENCOUNTER 2019-05-24 09:24 | Observation (INO) | payer OTHER ==
[~2019-05-24] VITALS: Ht 160 cm; Wt 116.4 kg
[~2019-05-24 09:24] MED LIST changes: +MELO7.5T35; -OMEP20CA3 PO; +OMEP20CA4 PO; +PANT40TA3; +PRED10TA2 PO; +TIZA2TA; +TRAZ-252
[2019-05-24] MEDS ORDERED: CHARCOAL ACTIVATED LIQUID 25 GM/120 ML BTL PO ONE (09:45)
[2019-05-24] MEDS ORDERED: NS 1,000 ML IV ONE (09:45)
[2019-05-24] MEDS ORDERED: VENL75CA47 PO (09:50)
[2019-05-24] MEDS ORDERED: PANT40TA3 PO (09:50)
[2019-05-24] MEDS ORDERED: ZONI100C2 PO (09:50)
[2019-05-24] MEDS ORDERED: SERO1TAB PO (09:50)
[2019-05-24 10:09] LABS: BASO % 0.3 % (0.0-1.0); EOS # 0.1 10^3/uL (0.0-0.50); EOS % 1.6 % (0.0-3.0); HEMATOCRIT 41.5 % (36.0-47.0); HEMOGLOBIN 13.9 g/dl (12.0-15.5); LYMPH # 2.9 10^3/uL (1.5-4.5); LYMPH % 33.6 % (24.0-44.0); MEAN CORPUSCULAR HEMOGLOBIN 30.5 pg (27.0-33.0); MEAN CORPUSCULAR HGB CONC 33.5 g/dl (32.0-36.5); MONO # 0.4 10^3/uL (0.0-0.8); MONO % 4.9 % (0.0-5.0); NEUTROPHILS # 5.1 10^3/uL (1.8-7.7); NEUTROPHILS % 59.5 % (36.0-66.0); PLATELET COUNT, AUTOMATED 364 10^3/uL (150-450); RED BLOOD COUNT 4.56 10^6/uL (4.00-5.40); WHITE BLOOD COUNT 8.6 10^3/uL (4.0-10.0)
[2019-05-24 10:35] VITALS: BP 113/71
[2019-05-24 10:39] LABS: HCG, SERUM QUALITATIVE NEGATIVE (NEGATIVE)
[2019-05-24 10:46] LABS: AMPHETAMINES LEVEL URINE NEGATIVE (NEGATIVE); BARBITURATES URINE NEGATIVE (NEGATIVE); BENZODIAZEPINES URINE NEGATIVE (NEGATIVE); CANNABINOIDS URINE POSITIVE (NEGATIVE); COCAINE METABOLITE URINE NEGATIVE (NEGATIVE); METHADONE URINE NEGATIVE (NEGATIVE); OPIATES URINE NEGATIVE (NEGATIVE); PHENCYCLIDINE URINE NEGATIVE (NEGATIVE)
[2019-05-24 10:47] LABS: ALBUMIN 3.8 GM/DL (3.2-5.2); ALT/SGPT 18 U/L (12-78); BILIRUBIN,DIRECT < 0.1 MG/DL (0.0-0.2); BILIRUBIN,TOTAL 0.3 MG/DL (0.2-1.0); BLOOD UREA NITROGEN 9 MG/DL (7-18); CALCIUM LEVEL 8.8 MG/DL (8.5-10.1); CARBON DIOXIDE LEVEL 24 MEQ/L (21-32); CHLORIDE LEVEL 111 MEQ/L (98-107); CPK CREATINE PHOSPHOKINASE 111 U/L (26-192); ETHYL ALCOHOL (ETHANOL) < 0.003 % (0.000-0.010); GLOMERULAR FILTRATION RATE > 60.0 (>60); GLUCOSE, FASTING 117 MG/DL (70-100); POTASSIUM SERUM 3.9 MEQ/L (3.5-5.1); SALICYLATE LEVEL 4.7 MG/DL (5.0-30.0); SODIUM LEVEL 141 MEQ/L (136-145); TOTAL PROTEIN 7.6 GM/DL (6.4-8.2)
[2019-05-24 10:48] LABS: ACETAMINOPHEN LEVEL < 2.0 UG/ML (10.0-30.0)
[2019-05-24] MEDS ORDERED: LORazepam 2 MG/ML VIAL (J2060) IV STA ×2 (11:04→19:52)
[2019-05-24] MEDS ORDERED: ALBUTEROL 90 MCG/ACT 8GM HFA INHALER INH PRN (11:30)
[2019-05-24] MEDS ORDERED: VENTAER INH (11:44)
[2019-05-24] MEDS ORDERED: DICY20TA PO (11:44)
[2019-05-24] MEDS ORDERED: ZIPR20CA13 PO (11:44)
[2019-05-24] MEDS ORDERED: PRAZ2CAP PO (11:44)
[2019-05-24] MEDS ORDERED: TIZA4TAB4 PO (11:44)
--- NOTE | 2019-05-24 11:50 | HPE ---
DATE OF ADMISSION: 05/24/2019 CHIEF COMPLAINT: Intentional overdose with psychiatric medications. HISTORY: Stephenie Collado is a 33-year-old patient of Lavinia Kilgore at the [facility] who took an intentional overdose of some of her psychiatric medicines including trazodone. She says her psychiatric medicines have recently been changed by her psychiatric provider who is at the [facility] and she has been more depressed since then. PAST MEDICAL HISTORY: Shows: Bipolar disorder. Degenerative disc disease in back. Asthma. SURGICAL HISTORY: Cholecystectomy. Colonoscopy 2008. Hysterectomy with BSO, lysis of adhesions in 2009. Normal colonoscopy 2012. FAMILY HISTORY: Father has chronic obstructive pulmonary disease (COPD), depression, attention deficit hyperactivity disorder (ADHD). Mother with brain aneurysm, breast cancer and stroke. Daughter required tracheostomy for what sounds like tracheomalacia. MEDICATIONS: Have apparently recently been changed and I do not think that our current list reflects that. They have not been reconciled yet, but what I have listed is: - Tylenol - albuterol inhaler - Klonopin 0.5 mg twice a day - Protonix 40 mg twice a day - prazosin 6 mg at bedtime - prednisone 10 mg daily - Seroquel 50 mg three tablets before bedtime - trazodone 50 mg dosing frequency unknown - zonisamide 100 mg twice a day - venlafaxine 150 mg daily - meloxicam 7.5 mg twice a day - tizanidine 2 mg three times a day ALLERGIES: 1. LATEX causes hives. 2. LYRICA causes seizures. 3. PENICILLIN causes hives. 4. ACETAMINOPHEN WITH CODEINE led to seizure. 5. BACLOFEN caused seizure. 6. LITHIUM, TRAMADOL and ZOLOFT are also listed without reactions. REVIEW OF SYSTEMS: No nausea, vomiting, chest pain, shortness of breath. PHYSICAL EXAMINATION: Vital signs stable. General appearance: She is crying in the exam room, but alert and conversant. Pupils equal, round, reactive to light. Tympanic membranes and oropharynx benign. Neck no masses. Lungs clear. Heart regular rhythm without murmur. Abdomen soft, nontender, no masses. Neuro exam nonfocal. LABS: CBC, BNP unremarkable. IMPRESSION: Intentional overdose of trazodone. PLAN: Telemetry for 24 hours. IV fluids orders. I have held the trazodone. I have restarted her Protonix, prazosin, zonisamide and apparently she is on daily prednisone (again med list has not yet been clarified). I refilled her inhaler. If she remains stable on telemetry over 24 hours she can be transferred to the mental health unit tomorrow.
[2019-05-24] MEDS: KCL 20MEQ IN 0.45NS 1000ML 1,000 ML IV SCH ×2 (12:05→23:15)
[2019-05-24] MEDS ORDERED: NORT10CA2 PO (12:36)
[2019-05-24] MEDS: predniSONE 10 MG TAB PO SCH (13:11)
[2019-05-24] MEDS: PANTOPRAZOLE 40MG TAB (PROTONIX) PO SCH (13:11)
--- NOTE | 2019-05-24 15:44 | MHCRPDOC ---
[facility] Consultation Consultation DATE OF CONSULTATION: 05/24/19 CONSULTATION REQUESTED BY: REASON FOR CONSULTATION: s/p OD RELEVANT HISTORY: Per Medical admit note: Stephenie Collado is a 33-year-old patient of Lavinia Kilgore at the [facility] who took an intentional overdose of some of her psychiatric medicines including trazodone. She says her psychiatric medicines have recently been changed by her psychiatric provider who is at the [facility] and she has been more depressed since then. Pt seen in ED and states that she took an OD of her trazodone that she now regrets b/c her [facility] outpatient provider decreased her effexor xr to 75mg daily and stopped her trazodone and restarted her on geodon but had been unable to fill her medications as her family weren't taking her to the pharmacy to fill them up. States that she was experiencing extreme anxiety and internal anxiety due to effexor withdrawal that is affecting her mood negatively. States she has an psychiatric advocate and reached out to her but continued with OD due to anxiety and depression. She is agreeable to restart effexor xr 75mg daily to ease effexor withdrawal. Currently denies SI/HI, hallucinations, delusions. Agreeable to sitter for safety. She is tearful and anxious in the ED. PAST PSYCHIATRIC HISTORY: Bipolar D/O, borderline personality D/O Admission to [facility] 02/09/19 ago for depression and OD as SA Per records, over 20 prior psychiatric hospitalizations, 15 prior SA by cutting or OD PAST MEDICAL HISTORY: Degenerative disc disease in back. Asthma. SURGICAL HISTORY: Cholecystectomy. Colonoscopy 2008. Hysterectomy with BSO, lysis of adhesions in 2009. Normal colonoscopy 2012. FAMILY HISTORY: Mom and dad have depression Father has chronic obstructive pulmonary disease (COPD), depression, attention deficit hyperactivity disorder (ADHD). Mother with brain aneurysm, breast cancer and stroke. Daughter required tracheostomy for tracheomalacia. PERSONAL AND SOCIAL HISTORY: The patient was born and raised in [place]. 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 MENTAL STATUS EXAMINATION: Patient is a 33-year old female, who is disheveled in hospital gown in hospital bed Speech is reg rate, rhythm, volume Language skills are fair, is upset Thought processes including: linear, logical Thought content: currently denies SI/HI, hallucinations, delusions Abstract reasoning, and computation: intct Description of associations: appropriate Description of abnormal or psychotic thoughts: denies hallucinations, delusions Judgment: poor Insight: poor Orientation to x3 Recent and remote memory: intact Attention span and concentration: fair Language: appropriate Fund of knowledge: average Mood: depressed, very anxious, distraught Affect: depressed, very anxious, congruent DIAGNOSIS: 1. Bipolar d/o MSE depressed w/o psychosis PLAN: 1. 1:1 sitter for safety 2. restart effexor xr 75mg daily to ease effexor withdrawal. 3. zyprexa zydis 5mg q6hr prn anxiety/agitation and ativan 1mg q6hr prn anxiety/agitation 4. transfer to [facility] when medically stable over 24hrs s/p OD Vital Signs Vital Signs Date Time Temp Pulse Resp B/P (MAP) Pulse Ox O2 Delivery O2 Flow Rate FiO2 05/24/19 14:45 77 123/67 (85) 05/24/19 14:15 94 Room Air 05/24/19 10:54 16 05/24/19 09:24 96.8 Laboratory Data 24H Labs Laboratory Tests 2 05/24/19 09:33: Immature Granulocyte % (Auto) 0.1, White Blood Count 8.6, Red Blood Count 4.56, Hemoglobin 13.9, Hematocrit 41.5, Mean Corpuscular Volume 91.0, Mean Corpuscular Hemoglobin 30.5, Mean Corpuscular Hemoglobin Concent 33.5, Red Cell Distribution Width 13.5, Platelet Count 364, Neutrophils (%) (Auto) 59.5, Lymphocytes (%) (Auto) 33.6, Monocytes (%) (Auto) 4.9, Eosinophils (%) (Auto) 1.6, Basophils (%) (Auto) 0.3, Neutrophils # (Auto) 5.1, Lymphocytes # (Auto) 2.9, Monocytes # (Auto) 0.4, Eosinophils # (Auto) 0.1, Basophils # (Auto) 0.0, Nucleated Red B lood Cells % (auto) 0.0, Anion Gap 6L, Glomerular Filtration Rate > 60.0, Calcium Level 8.8, Aspartate Amino Transf (AST/SGOT) 13, Alanine Aminotransferase (ALT/SGPT) 18, Alkaline Phosphatase 100, Total Bilirubin 0.3, Direct Bilirubin < 0.1, Total Creatine Kinase 111, Total Protein 7.6, Albumin 3.8, Albumin/Globulin Ratio 1.00, Thyroid Stimulating Hormone (TSH) 3.110, Human Chorionic Gonadotropin, Qual NEGATIVE, Salicylates Level 4.7L, Acetaminophen Level < 2.0L, Ethyl Alcohol Level < 0.003 05/24/19 10:03: Urine Amphetamines Screen NEGATIVE, Urine Benzodiazepines Screen NEGATIVE, Urine Opiates Screen NEGATIVE, Urine Methadone Screen NEGATIVE, Urine Barbiturates Screen NEGATIVE, Urine Phencyclidine Screen NEGATIVE, Urine Cocaine Metabolite Screen NEGATIVE, Urine Cannabinoids Screen POSITIVEH 05/24/19 10:16: Bedside Glucose (Misc Panel) 114H 05/24/19 10:23: POC Beta HCG, Quantitative < 5.0 Home Medications Current Medications Current Medications Albuterol Sulfate (Proventil, Ventolin Hfa) 2 puff Q4HP PRN INH SHORTNESS OF BREATH; Start 05/24/19 at 11:30 Home Med (Med Rec Complete!) ASDIRECTED XX ; Start 05/24/19 at 11:45; Stop 05/24/19 at 11:52; Status DC Lorazepam (Ativan) 1 mg Q4HP PRN IV ANXIETY/AGITATION; Start 05/24/19 at 13:00 Lorazepam (Ativan) 1 mg STAT STAT IV Last administered on 05/24/19at 11:13; Start 05/24/19 at 11:04; Stop 05/24/19 at 11:05; Status DC Pantoprazole Sodium (Protonix) 40 mg DAILY PO ; Start 05/24/19 at 09:00 Potassium Chloride/Sodium Chloride 1,000 ml @ 100 mls/hr Q10H IV Last administered on 05/24/19at 12:05; Start 05/24/19 at 11:30 Prazosin HCl (Minipress) 6 mg QHS PO ; Start 05/24/19 at 21:00 Prednisone (Deltasone) 10 mg DAILY PO ; Start 05/24/19 at 09:00 Zonisamide (Zonegran) 100 mg BID PO ; Start 05/24/19 at 21:00 Scheduled Clonazepam (Clonazepam) 0.5 Mg Tab, 0.5 MG PO BID, (Reported) Dicyclomine HCl (Dicyclomine HCl) 20 Mg Tablet, 20 MG PO TID, (Reported) Pantoprazole Sodium (Pantoprazole Sodium) 40 Mg Tablet.dr, 40 MG PO BID, (Reported) Prazosin Hcl (Prazosin HCl) 2 Mg Capsule, 6 MG PO QHS, (Reported) Quetiapine Fumarate (Seroquel) 100 Mg Tablet, 100 MG PO QHS, (Reported) Tizanidine HCl (Tizanidine HCl) 4 Mg Tablet, 4 MG PO TID, (Reported) Venlafaxine HCl (Venlafaxine HCl ER) 75 Mg Cap.er.24h, 75 MG PO DAILY, (Reported) Ziprasidone HCl (Ziprasidone HCl) 20 Mg Capsule, 20 MG PO BID, (Reported) Zonisamide (Zonisamide) 100 Mg Capsule, 100 MG PO BID, (Reported) Scheduled PRN Albuterol Sulfate (Ventolin Hfa) 18 Gm Hfa.aer.ad, 2 PUFF INH Q4H PRN for SHORTNESS OF BREATH, (Reported) Epinephrine (Epipen 2-Ayo) 0.3 Mg/0.3 Ml Inj, 0.3 MG INJ PRN PRN for ALLERGIC REACTION, (Reported) Nortriptyline HCl (Nortriptyline HCl) 10 Mg Capsule, 10 MG PO TID PRN for BACK PAIN, (Reported) Allergies Coded Allergies: Penicillins (Unverified Allergy, Intermediate, HIVES, 02/08/19) codeine (Unverified Allergy, Intermediate, HIVES, 02/08/19) latex (Unverified Allergy, Intermediate, HIVES, 02/08/19) sertraline (Unverified Allergy, Intermediate, HIVES, 05/24/19) TAPE (Verified Allergy, Unknown, 03/14/13) bee venom protein (honey bee) (Unverified Allergy, Unknown, 02/08/19) olanzapine (Unverified Allergy, Unknown, UNSURE, 02/08/19) pregabalin (Unverified Allergy, Unknown, 02/08/19) tramadol (Unverified Allergy, Unknown, 02/08/19) baclofen (Unverified Adverse Reaction, Intermediate, SEIZURE or tramadol toradol lyrica unsure which, 05/24/19) lithium (Unverified Adverse Reaction, Intermediate, THYROID PROBLEM, 02/08/19) ketorolac (Verified Adverse Reaction, Mild, UPSET STOMACHE CAN TAKE MOTRIN, 02/08/19) SONIA PORTILLO DO May 24, 2019 3:37 pm
[2019-05-24] MEDS ORDERED: VENLAFAXINE **XR** 75MG CAPSULE PO ONE (15:45)
--- NOTE | 2019-05-24 16:22 | REP ---
RIGHT WRIST, FOUR VIEWS: There is no evidence of an acute fracture, dislocation or intrinsic bone disease. IMPRESSION: No fracture or dislocation. Electronically Signed by Maicol Liang MD 05/24/2019 04:37 P
[2019-05-24] MEDS: LORazepam 2 MG/ML VIAL (J2060) IV PRN ×2 (17:47→23:08)
--- NOTE | 2019-05-24 20:48 | ECGEPIP ---
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
[2019-05-24] MEDS ORDERED: PRAZOSIN 1 MG CAP PO SCH (21:00)
[2019-05-24] MEDS: OLANZapine ORAL DISINTEGRATING TAB 5MG PO PRN (23:08)
[2019-05-24 23:18] VITALS: BP 113/72
[2019-05-24] MEDS: ZONISAMIDE 50 MG CAP (ZONEGRAN) PO SCH (23:22)
[2019-05-24 23:59] VITALS: BP 114/68
[2019-05-25] MEDS: LORazepam 2 MG/ML VIAL (J2060) IV PRN (03:55)
[2019-05-25 04:00] VITALS: BP 104/56
[2019-05-25 08:26] VITALS: BP 122/74
[2019-05-25] MEDS ORDERED: VENLAFAXINE **XR** 75MG CAPSULE PO SCH (09:00)
[2019-05-25] MEDS: predniSONE 10 MG TAB PO SCH (09:30)
[2019-05-25] MEDS: KCL 20MEQ IN 0.45NS 1000ML 1,000 ML IV SCH (09:30)
[2019-05-25] MEDS: PANTOPRAZOLE 40MG TAB (PROTONIX) PO SCH (09:30)
--- NOTE | 2019-05-25 09:31 | DSES ---
DATE OF ADMISSION: 05/24/2019 DATE OF DISCHARGE: PRINCIPAL DIAGNOSIS: Intentional overdose with trazodone. SECONDARY DIAGNOSES: Musculoskeletal chest pain. Violent behavior towards health care provider. Morbid obesity. History of personality disorder. HISTORY: Stephenie Collado was admitted with an intentional overdose of trazodone. She states she took this in retaliation towards her psychiatrist changing her medications. HOSPITAL COURSE: The patient was admitted to a monitored bed. She was violent in the emergency room, punching a wall and having required both chemical and physical restraint. She was seen by Dr. Bowden of psychiatry, who made recommendation concerning her medications. The patient had some musculoskeletal chest pain during her hospitalization. Responded to a heating pad. She had an x-ray of her right wrist, which showed no fracture. On day of discharge, I went to round on the patient, informed her she was medically stable for transfer to the mental health unit. She accused me of lying to her and that I told her that she would not have to go to mental health unit (she was told on admission that she would be on telemetry for 24 hours and then admitted to mental health). She then became violent. She threw objects at me and threatened me. Code 25 was called. She was informed and expressed understanding (with profanity) that she was immediately discharged from her [facility]. There will be no further appointments, no medical care provided. DISPOSITION: The patient is discharged to mental health unit under the care of the psychiatrist. Any future hospitalization should be through the hospitalist service. The patient is no longer allowed to be cared for through [facility].
[2019-05-25] MEDS: OLANZapine ORAL DISINTEGRATING TAB 5MG PO PRN (09:32)
[2019-05-25] MEDS: ZONISAMIDE 50 MG CAP (ZONEGRAN) PO SCH (09:32)
[2019-05-25] MEDS ORDERED: OLANZapine ORAL DISINTEGRATING TAB 5MG PO ONE (11:30)
[2019-05-25] MEDS ORDERED: LORazepam 2 MG TAB PO ONE (11:30)
== END 2019-05-25 11:53 ==
LOC: M ED 09:24 → M ED INP 11:16 → M PCU 22:28
PROVIDERS: ADMIT Family Medicine; ATTEND Family Medicine
DX: T43.212A Poisoning by selective serotonin and norepinephrine reuptake inhibitors, intentional self-harm, initial encounter (principal); X58.XXXA Exposure to other specified factors, initial encounter; Y92.89 Other specified places as the place of occurrence of the external cause; R07.89 Other chest pain; R45.6 Violent behavior; E66.01 Morbid (severe) obesity due to excess calories; Z68.42 Body mass index [BMI] 45.0-49.9, adult; F31.30 Bipolar disorder, current episode depressed, mild or moderate severity, unspecified; F60.3 Borderline personality disorder; M51.9 Unspecified thoracic, thoracolumbar and lumbosacral intervertebral disc disorder; J45.909 Unspecified asthma, uncomplicated; Z81.8 Family history of other mental and behavioral disorders; F17.210 Nicotine dependence, cigarettes, uncomplicated; F12.10 Cannabis abuse, uncomplicated; F11.11 Opioid abuse, in remission; F15.11 Other stimulant abuse, in remission; Z91.5 Personal history of self-harm; Z79.899 Other long term (current) drug therapy; Z79.52 Long term (current) use of systemic steroids; Z88.8 Allergy status to other drugs, medicaments and biological substances; Z88.0 Allergy status to penicillin; Z88.5 Allergy status to narcotic agent; Z91.040 Latex allergy status; Z91.048 Other nonmedicinal substance allergy status; Z91.030 Bee allergy status
CPT/HCPCS: 36415; 73110; 80048; 80076; 80307; 82550; 84443; 84702; 84703; 85025; 93005; 93041; 94760; 96374; 96376; 99285; G0480; J2060

== ENCOUNTER 2019-05-25 11:09 | Inpatient (IN) | payer MEDICAID, OTHER ==
[~2019-05-25] VITALS: Ht 160 cm; Wt 116.4 kg
[2019-05-25] MEDS: NICOTINE 21MG/24HR 1 EA TRANSDERMAL TD SCH (09:00)
[~2019-05-25 11:09] MED LIST changes: +DICY20TA PO; +NORT10CA2 PO; +PANT40TA3 PO; +SERO1TAB PO; +TIZA4TAB4 PO; +ZIPR20CA13 PO
[2019-05-25] MEDS ORDERED: MAALOX 30 ML SUSP *UDC PO PRN (11:45)
[2019-05-25] MEDS ORDERED: ACETAMINOPHEN TAB 650MG DOSE (2X325MG) PO PRN (11:45)
[2019-05-25] MEDS ORDERED: OLANZapine ORAL DISINTEGRATING TAB 5MG PO PRN (11:45)
[2019-05-25] MEDS ORDERED: MOM 30ML SUSPENSION UDC PO PRN (11:45)
[2019-05-25] MEDS ORDERED: LORazepam 2 MG TAB PO PRN (11:45)
[2019-05-25] MEDS ORDERED: ALBUTEROL 90 MCG/ACT 8GM HFA INHALER INH PRN (11:45)
[2019-05-25] MEDS ORDERED: diphenhydrAMINE INJ 50MG/ML VIAL (J1200) IM STA (12:23)
[2019-05-25] MEDS ORDERED: HALOPERIDOL 5 MG/ML VIAL (J1630) IM STA (12:23)
[2019-05-25] MEDS ORDERED: LORazepam 2 MG/ML VIAL (J2060) IM STA (12:23)
[2019-05-25 12:35] VITALS: BP 132/69
--- NOTE | 2019-05-25 12:41 | MHIR ---
General Date: May 25, 2019 Restraint Documentation Order/Evaluation FACE TO FACE: yes. PHYSICIAN ASSESSMENT: yelling, cursing, threatening to harm staff and fellow pt's, disrupting pt care, refusing redirection/staff support/prn medication, banging marin REASON FOR RESTRAINT: Patient poses imminent danger of harming self or others: harm to others as described about DE-ESCALATION INTERVENTIONS ATTEMPTED BEFORE USE OF RESTRAINTS: redirection/staff support/prn medication [MECHANICAL AND/OR CHEMICAL] RESTRAINTS USED: mechanical and chemical (haldol 10mg, ativan 2mg, benadryl 50mg IM) LENGTH OF TIME ORDERED IN RESTRAINTS: untill pt no longer a danger to self or others WHEN TO DISCONTINUE RESTRAINTS: When the patient is no longer a threat to themselves or others. Post evaluation of restraint due in 24 hours. SONIA PORTILLO DO May 25, 2019 12:41 pm
[2019-05-25 12:50] VITALS: BP 116/70
[2019-05-25 13:05] VITALS: BP 117/71
[2019-05-25 13:20] VITALS: BP 109/68
[2019-05-25 13:35] VITALS: BP 115/69
[2019-05-25 13:50] VITALS: BP 120/76
[2019-05-25] MEDS: ZONISAMIDE 100 MG CAP (ZONEGRAN) PO SCH (23:37)
[2019-05-25] MEDS: traZODone 50 MG TAB PO PRN (23:38)
[2019-05-25] MEDS: PRAZOSIN 1 MG CAP PO SCH (23:38)
[2019-05-26 06:24] VITALS: BP 124/59
[2019-05-26] MEDS: PANTOPRAZOLE 40MG TAB (PROTONIX) PO SCH (08:20)
[2019-05-26] MEDS: ZONISAMIDE 100 MG CAP (ZONEGRAN) PO SCH ×2 (08:20→20:02)
[2019-05-26] MEDS: VENLAFAXINE **XR** 75MG CAPSULE PO SCH (08:21)
[2019-05-26] MEDS: NICOTINE 21MG/24HR 1 EA TRANSDERMAL TD SCH (08:22)
[2019-05-26] MEDS: predniSONE 10 MG TAB PO SCH (08:23)
--- NOTE | 2019-05-26 09:35 | MHPR ---
General Date: May 26, 2019 Post-Restraint Evaluation THE OUTCOME OF THE RESTRAINT: good EFFECTIVENESS OF THE RESTRAINT: Mechanical and/or chemical: both Positive. ANY EVIDENCE THAT THE PATIENT WAS AFFECTED EMOTIONALLY: no ANY NEED FOR COUNSELING/ASSISTANCE: no CHANGES IN TREATMENT PLAN: no RECOMMENDATIONS FOR FUTURE INCIDENTS: continue current plan SONIA PORTILLO DO May 26, 2019 9:35 am
--- NOTE | 2019-05-26 10:05 | MHHPEPDOC ---
General Date Of Admission: May 25, 2019 Legal Status: 9.37 Chief Complaint "I wasn't able to get my meds" History of Present Illness HISTORY OF THE PRESENT ILLNESS: Patient is a 33 -year-old , female, with a history of bipolar d/o and borderline personality d/o who was seen on medical consult s/p OD by myself. Per consult note: "Per Medical admit note: Stephenie Collado is a 33-year-old patient of Lavinia Kilgore at the [facility] who took an intentional overdose of some of her psychiatric medicines including trazodone. She says her psychiatric medicines have recently been changed by her psychiatric provider who is at the [facility] and she has been more depressed since then. Pt seen in ED and states that she took an OD of her trazodone that she now regrets b/c her [facility] outpatient provider decreased her effexor xr to 75mg daily and stopped her trazodone and restarted her on geodon but had been unable to fill her medications as her family weren't taking her to the pharmacy to fill them up. States that she was experiencing extreme anxiety and internal anxiety due to effexor withdrawal that is affecting her mood negatively. States she has an psychiatric advocate and reached out to her but continued with OD due to anxiety and depression. She is agreeable to restart effexor xr 75mg daily to ease effexor withdrawal. Currently denies SI/HI, hallucinations, delusions. Agreeable to sitter for safety. She is tearful and anxious in the ED." Psychiatric Review of Systems Depression (2 or more weeks): depressed mood, feelings of excess/guilt (excess), difficulty concentrating, suicidal thoughts [place] (4 or more days of): denies Psychosis: denies PTSD: history of trauma, mood fluctuations Anxiety: situational anxiety, stressor related anxiety Anxiety/ 6 months or more of: restlessness, keyed up, difficulty concentrating, irritability, personality cluster A,BC (borderline) Past Psychiatric History Bipolar D/O, borderline personality D/O Admission to [facility] 02/09/19 ago for depression and OD as SA Per records, over 20 prior psychiatric hospitalizations, 15 prior SA by cutting or OD Past Medical History Medical Problems PAST MEDICAL HISTORY: Degenerative disc disease in back. Asthma. SURGICAL HISTORY: Cholecystectomy. Colonoscopy 2008. Hysterectomy with BSO, lysis of adhesions in 2009. Normal colonoscopy 2012. Head Injury: No Seizures: No Hospitalizations: Yes Surgeries: Yes Family Medical/Psychiatric HX Medical Problems Father has chronic obstructive pulmonary disease (COPD), depression, attention deficit hyperactivity disorder (ADHD). Mother with brain aneurysm, breast cancer and stroke. Daughter required tracheostomy for tracheomalacia. 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 Resides in: [place] with mother Marital Status: Single Children: has three biological children two of which were adopted and one is with it's grandparents Employment: unemployed, receives SSDI Childhood:Parents , two siblings Educations: high school grad Legal: denies. Mental Status Examination General Appearance: unkempt, appears stated age, hospital scubs/clothing Build: overweight Demeanor: average, other (very immature and child-like) Eye Contact: fair Activity: average Behavior: cooperative Speech: clear, spontaneous, reg/rate,rhythm,volume Mood: euthymic Mood good Affect: full, congruent, other (child-like, immature) Thought Process: logical/linear, concrete, other (reactive) Thought Content (Delusions): none reported, denies SI, HI, AVH Thought Content (Other): none reported Thought Content (Aggressive): none reported Perception (Hallucinations): none reported Perception (Other): none reported Cognition (Impairment of): none reported Cognition(Intelligence Est.): borderline Oriented: Awake, Alert, Oriented times three Insight: fair Judgment: Fair Psychosis: Denies Diagnoses 1. Bipolar d/o MSE depressed w/o psychosis 2. Cannabis Use D/O A-FIB/CHADSVASC A-FIB History Current/History of A-Fib/PAF?: No Current PO Anticoag Therapy: No Treatment Treatment ordered: NONE Reason Anticoagulant not given: Not indicated/[id number] Assessment Pt arrived to unit yesterday yelling and screaming in milieu, agitated, hitting marin, walking up and down unit in threatening manor, cursing, and not listening to redirection, staff support, refusing prn medication. Screamed at me when I tried to calm her down and yelled "eat a fucking alethea you bitch." Pt coded with chemical and physical restraints (fought staff aggressively while restraints applied) and ultimate agitation/aggression/yelling subsided quickly after meds given and pt feel asleep with 1:1 sitter present during restraint time. Pt seen today and much more cooperative stating she doing well, finding her medications beneficial, denies depression and SI/HI, and is hopeful to go home t omorrow as she has a nerve conduction test with her Neurologist tomorrow regarding back pain and doesn't want to miss it. She comes across as child-like and immature today, similar to how she was in the ED and is baseline for pt. States she's looking forward to following up with José Burciaga her [facility] provider outpatient after d/c. Denies hallucinations, delusions. Initial Treatment Plan 1. Patient was admitted on a 9.37 status. 2. Complete history was obtained. 3. With patients permission, family will be contacted and database will be expanded. 4. Patients medication regimen will be reviewed and changed accordingly. 5. Patient will be provided with protected environment. 6. Patient will be treated with individual, group, and milieu therapies. 7. Patient will receive supportive psych-education. 8. Discharge planning will commence immediately. 9. Outpatient follow-up treatment will be strongly recommended. 10. The initial treatment plan will focus initially on: * Depression. * Risk for suicide. * Substance abuse. 11. restart effexor xr 75mg daily. ESTIMATED LENGTH OF STAY: 3-5 DAYS. TIME SPENT COUNSELING AND COORDINATING INITIAL CARE: 60 minutes. Vital Signs Vital Signs Date Time Temp Pulse Resp B/P (MAP) Pulse Ox O2 Delivery O2 Flow Rate FiO2 05/26/19 06:24 99.3 101 18 124/59 (80) Medications Scheduled Pantoprazole Sodium (Pantoprazole Sodium) 40 Mg Tablet.dr, 40 MG PO BID, (Reported) Prazosin Hcl (Prazosin HCl) 2 Mg Capsule, 6 MG PO QHS, (Reported) Venlafaxine HCl (Venlafaxine HCl ER) 75 Mg Cap.er.24h, 75 MG PO DAILY, (Reported) Zonisamide (Zonisamide) 100 Mg Capsule, 100 MG PO BID, (Reported) Scheduled PRN Albuterol Sulfate (Ventolin Hfa) 18 Gm Hfa.aer.ad, 2 PUFF INH Q4H PRN for SHORTNESS OF BREATH, (Reported) Epinephrine (Epipen 2-Ayo) 0.3 Mg/0.3 Ml Inj, 0.3 MG INJ PRN PRN for ALLERGIC REACTION, (Reported) Allergies Coded Allergies: Penicillins (Unverified Allergy, Intermediate, HIVES, 02/08/19) codeine (Unverified Allergy, Intermediate, HIVES, 02/08/19) latex (Unverified Allergy, Intermediate, HIVES, 02/08/19) sertraline (Unverified Allergy, Intermediate, HIVES, 05/24/19) TAPE (Verified Allergy, Unknown, 03/14/13) bee venom protein (honey bee) (Unverified Allergy, Unknown, 02/08/19) olanzapine (Unverified Allergy, Unknown, UNSURE, 02/08/19) pregabalin (Unverified Allergy, Unknown, 02/08/19) tramadol (Unverified Allergy, Unknown, 02/08/19) baclofen (Unverified Adverse Reaction, Intermediate, SEIZURE or tramadol toradol lyrica unsure which, 05/24/19) lithium (Unverified Adverse Reaction, Intermediate, THYROID PROBLEM, 02/08/19) ketorolac (Verified Adverse Reaction, Mild, UPSET STOMACHE CAN TAKE MOTRIN, 02/08/19) SONIA PORTILLO DO May 26, 2019 10:04 am
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
[2019-05-26 18:26] VITALS: BP 121/71
[2019-05-26 20:02] VITALS: BP 110/66
[2019-05-26] MEDS: PRAZOSIN 1 MG CAP PO SCH (20:02)
[2019-05-26] MEDS: traZODone 50 MG TAB PO PRN (20:02)
[2019-05-27 06:27] VITALS: BP 127/84
[2019-05-27] MEDS: PANTOPRAZOLE 40MG TAB (PROTONIX) PO SCH (08:04)
[2019-05-27] MEDS: VENLAFAXINE **XR** 75MG CAPSULE PO SCH (08:04)
[2019-05-27] MEDS: ZONISAMIDE 100 MG CAP (ZONEGRAN) PO SCH (08:04)
[2019-05-27] MEDS: NICOTINE 21MG/24HR 1 EA TRANSDERMAL TD SCH (08:06)
[2019-05-27] MEDS: predniSONE 10 MG TAB PO SCH (08:06)
[2019-05-27] MEDS ORDERED: PRAZ2CAP PO (08:43)
[2019-05-27] MEDS ORDERED: VENL75CA47 PO (08:43)
[2019-05-27] MEDS ORDERED: TRAZ-252 PO (08:43)
--- NOTE | 2019-05-27 08:44 | MHDSPDOC ---
[facility] Discharge Summary Discharge Summary DATE OF ADMISSION: May 25, 2019 at 12:03 pm DATE OF DISCHARGE: May DISCHARGE DIAGNOSES: 1. Bipolar d/o MSE depressed w/o psychosis 2. Cannabis Use D/O REASON FOR ADMISSION: Patient is a 33 -year-old , female, with a history of bipolar d/o and borderline personality d/o who was seen on medical consult s/p OD by myself. Per consult note: "Per Medical admit note: Stephenie Collado is a 33-year-old patient of Lavinia Kilgore at the [facility] who took an intentional overdose of some of her psychiatric medicines including trazodone. She says her psychiatric medicines have recently been changed by her psychiatric [facility] and she has been more depressed since then. Pt seen in ED and states that she took an OD of her trazodone that she now regrets b/c her [facility] outpatient provider decreased her effexor xr to 75mg daily and stopped her trazodone and restarted her on geodon but had been unable to fill her medications as her family weren't taking her to the pharmacy to fill them up. States that she was experiencing extreme anxiety and internal anxiety due to effexor withdrawal that is affecting her mood negatively. States she has an psychiatric advocate and reached out to her but continued with OD due to anxiety and depression. She is agreeable to restart effexor xr 75mg daily to ease effexor withdrawal. Currently denies SI/HI, hallucinations, delusions. Ag reeable to sitter for safety. She is tearful and anxious in the ED." CONSULTANTS INVOLVED: none TREATMENT AND PROGRESS ON THE UNIT : Pt was admitted to [facility] from medical floor after medically stabilized s/p OD, seen for psychiatric assessment and had to be coded with mechanical and physical restraints due to agitation and aggression toward staff and fellow pt's on the unit which she tolerated well and fell asleep. Behavior improved after and pt did not need to be coded again during hospitalization. She was restarted on her outpatient effexor xr 75mg daily for mood and anxiety and prazosin 6mg qhs for nightmares. Her outpatient geodon was discontinued due to risk of prolonged Qt on ECG with use s/p OD on trazodone. She was provided zyprexa zydis 10mg q6hr prn anxiety/agitation and trazodone 50mg qhs prn insomnia. Pt found her medications beneficial and tolerated them well. She attended groups daily during her stay. Her symptoms improved with treatment. On day of discharge she denied depression, anxiety, insomnia, SI/HI, hallucinations, delusions. She was discharged home after family meeting with her mother with follow-up at [facility]. She felt safe for discharge. DISCHARGE ASSESSMENT: Pt seen today and is cooperative stating she doing well, finding her medications beneficial, denies depression and SI/HI, and is hopeful to go home today as she has a nerve conduction test with her Neurologist later this afternoon regarding back pain and doesn't want to miss it. She comes [facility] as child-like and immature today, similar to how she was in the ED and is baseline for pt. States she's looking forward to following up with José Burciaga her [facility] provider outpatient after d/c. Denies depression, anxiety, insomnia, SI/HI, hallucinations, delusions. MENTAL STATUS EXAMINATION ON DISCHARGE: General Appearance: unkempt, appears stated age, hospital scrubs/clothing Build: overweight Demeanor: average, other (very immature and child-like) Eye Contact: fair Activity: average Behavior: cooperative Speech: clear, spontaneous, reg/rate,rhythm,volume Mood: euthymic Mood good Affect: full, congruent, other (child-like, immature) Thought Process: logical/linear, concrete, other (reactive) Thought Content (Delusions): none reported, denies SI, HI, AVH Thought Content (Other): none reported Thought Content (Aggressive): none reported Perception (Hallucinations): none reported Perception (Other): none reported Cognition (Impairment of): none reported Cognition(Intelligence Est.): borderline Oriented: Awake, Alert, Oriented times three Insight: fair-good Judgment: Fair-good Psychosis: Denies MEDICATIONS ON DISCHARGE: effexor xr 75mg daily. prazosin 6mg qhs PLAN/FOLLOWUP ARRANGEMENTS: D/c home with F/U at [facility]. The amount of time spent in the coordination of care for this patient was approximately minutes. Vital Signs/I&Os Vital Signs Date Time Temp Pulse Resp B/P (MAP) Pulse Ox O2 Delivery O2 Flow Rate FiO2 05/27/19 06:27 97.3 100 20 127/84 (98) Medications Scheduled Pantoprazole Sodium (Pantoprazole Sodium) 40 Mg Tablet.dr, 40 MG PO BID, (Reported) Prazosin Hcl (Prazosin HCl) 2 Mg Capsule, 6 MG PO QHS, (Reported) Venlafaxine HCl (Venlafaxine HCl ER) 75 Mg Cap.er.24h, 75 MG PO DAILY, (Reported) Zonisamide (Zonisamide) 100 Mg Capsule, 100 MG PO BID, (Reported) Scheduled PRN Albuterol Sulfate (Ventolin Hfa) 18 Gm Hfa.aer.ad, 2 PUFF INH Q4H PRN for SHORTNESS OF BREATH, (Reported) Epinephrine (Epipen 2-Ayo) 0.3 Mg/0.3 Ml Inj, 0.3 MG INJ PRN PRN for ALLERGIC REACTION, (Reported) Allergies Coded Allergies: Penicillins (Unverified Allergy, Intermediate, HIVES, 02/08/19) codeine (Unverified Allergy, Intermediate, HIVES, 02/08/19) latex (Unverified Allergy, Intermediate, HIVES, 02/08/19) sertraline (Unverified Allergy, Intermediate, HIVES, 05/24/19) TAPE (Verified Allergy, Unknown, 03/14/13) bee venom protein (honey bee) (Unverified Allergy, Unknown, 02/08/19) olanzapine (Unverified Allergy, Unknown, UNSURE, 02/08/19) pregabalin (Unverified Allergy, Unknown, 02/08/19) tramadol (Unverified Allergy, Unknown, 02/08/19) baclofen (Unverified Adverse Reaction, Intermediate, SEIZURE or tramadol toradol lyrica unsure which, 05/24/19) lithium (Unverified Adverse Reaction, Intermediate, THYROID PROBLEM, 02/08/19) ketorolac (Verified Adverse Reaction, Mild, UPSET STOMACHE CAN TAKE MO BRIANNA, 02/08/19) SONIA PORTILLO DO May 27, 2019 8:44 am
== END 2019-05-27 11:04 | disposition home or self-care (01) | DRG 753 ==
LOC: M PSY 12:03
PROVIDERS: ADMIT Psychiatry & Neurology Psychiatry; ATTEND Psychiatry & Neurology Psychiatry
DX: F31.30 Bipolar disorder, current episode depressed, mild or moderate severity, unspecified (principal); F12.10 Cannabis abuse, uncomplicated; F17.200 Nicotine dependence, unspecified, uncomplicated; T43.216A Underdosing of selective serotonin and norepinephrine reuptake inhibitors, initial encounter; K21.9 Gastro-esophageal reflux disease without esophagitis; J45.909 Unspecified asthma, uncomplicated; Z81.8 Family history of other mental and behavioral disorders; Z91.138 Patient's unintentional underdosing of medication regimen for other reason; Z91.5 Personal history of self-harm; Z79.899 Other long term (current) drug therapy; Z88.0 Allergy status to penicillin; Z88.5 Allergy status to narcotic agent; Z88.8 Allergy status to other drugs, medicaments and biological substances; Z91.030 Bee allergy status; Z91.048 Other nonmedicinal substance allergy status

== ENCOUNTER 2019-06-05 18:25 | Emergency (ER) | payer MEDICAID, OTHER ==
[~2019-06-05] VITALS: Ht 162.6 cm; Wt 104.5 kg
[~2019-06-05 18:25] MED LIST changes: +CLON0.5T2 PO; -CLON0.5T8 PO; -LAMO200T2 PO; +LAMO200T3 PO; +OMEP1CAP73 PO; -OMEP20CA4 PO; -OMEP40CA2 PO; +OMEP40CA97 PO; +TRAZ-252 PO; +ZONI100C17 PO; -ZONI100C2 PO; +ZONI25CA13 PO; -ZONI25CA2 PO; +ZONI50CA11 PO; -ZONI50CA3 PO
[2019-06-05] MEDS ORDERED: CLON0.5T2 PO (18:35)
[2019-06-05 21:03] VITALS: BP 139/94
--- NOTE | 2019-06-07 07:51 | REP ---
Right hand four views : There is no fracture or dislocation. Mineralization and joint spaces are normal. There are no calcifications or foreign bodies. Impression: Negative right hand . Electronically Signed by Maicol Hernandez MD 06/06/2019 08:06 A
== END 2019-06-05 21:09 | disposition home or self-care (01) ==
LOC: M ED 18:25
DX: S60.221A Contusion of right hand, initial encounter (principal); W22.8XXA Striking against or struck by other objects, initial encounter; Y92.410 Unspecified street and highway as the place of occurrence of the external cause; Z88.0 Allergy status to penicillin; Z88.5 Allergy status to narcotic agent; Z88.8 Allergy status to other drugs, medicaments and biological substances; Z91.030 Bee allergy status

== ENCOUNTER 2019-08-04 11:16 | Emergency (ER) | payer OTHER ==
[~2019-08-04] VITALS: Ht 160 cm; Wt 107.7 kg
[2019-08-04 11:16] VITALS: BP 122/79
[2019-08-04] MEDS ORDERED: ACE65ERTAB PO (11:22)
--- NOTE | 2019-08-04 12:21 | REP ---
RIGHT HAND: Four views. There is no evidence of an acute fracture, dislocation or intrinsic bone disease. IMPRESSION: No fracture or dislocation. Electronically Signed by Maicol Liang MD 08/04/2019 03:20 P
== END 2019-08-04 12:32 | disposition home or self-care (01) ==
LOC: M ED 11:16
DX: S60.221A Contusion of right hand, initial encounter (principal); W23.0XXA Caught, crushed, jammed, or pinched between moving objects, initial encounter; Y92.018 Other place in single-family (private) house as the place of occurrence of the external cause; Z88.0 Allergy status to penicillin; J45.909 Unspecified asthma, uncomplicated; K21.9 Gastro-esophageal reflux disease without esophagitis; G43.909 Migraine, unspecified, not intractable, without status migrainosus; F33.9 Major depressive disorder, recurrent, unspecified; F41.9 Anxiety disorder, unspecified; F43.10 Post-traumatic stress disorder, unspecified; E05.90 Thyrotoxicosis, unspecified without thyrotoxic crisis or storm; K50.90 Crohn's disease, unspecified, without complications; Z88.1 Allergy status to other antibiotic agents; Z88.5 Allergy status to narcotic agent; Z88.8 Allergy status to other drugs, medicaments and biological substances; Z91.030 Bee allergy status; Z91.040 Latex allergy status; Z91.048 Other nonmedicinal substance allergy status; Z79.899 Other long term (current) drug therapy; F17.210 Nicotine dependence, cigarettes, uncomplicated

== ENCOUNTER 2019-08-20 15:59 | Emergency (ER) | payer OTHER ==
[~2019-08-20] VITALS: Ht 160 cm; Wt 108.3 kg
[~2019-08-20 15:59] MED LIST changes: +ACE65ERTAB PO; -CLON0.5T2 PO; +CLON0.5T8 PO; +LAMO200T2 PO; -LAMO200T3 PO; -OMEP1CAP73 PO; +OMEP20CA4 PO; -ZONI100C17 PO; +ZONI100C2 PO; -ZONI25CA13 PO; +ZONI25CA2 PO; -ZONI50CA11 PO; +ZONI50CA3 PO
[2019-08-20] MEDS ORDERED: [UNRECOGNIZED DRUG - CODE] PO (16:10)
[2019-08-20] MEDS ORDERED: methylPREDNISolone INJ 125 MG/2 ML VIAL (J2930) IV ONE (16:30)
[2019-08-20] MEDS ORDERED: FAMOTIDINE INJ 20MG/2ML VIAL (S0028) IVP ONE (16:30)
[2019-08-20] MEDS ORDERED: NS 1,000 ML IV ONE (16:30)
[2019-08-20] MEDS ORDERED: PRED20TA PO (18:27)
[2019-08-20] MEDS ORDERED: BENA25CA4 PO (18:27)
[2019-08-20 18:30] VITALS: BP 112/70
== END 2019-08-20 18:38 | disposition home or self-care (01) ==
LOC: EDBD 15:59 → M ED 15:59
DX: T63.411A Toxic effect of venom of centipedes and venomous millipedes, accidental (unintentional), initial encounter (principal); G43.909 Migraine, unspecified, not intractable, without status migrainosus; J45.909 Unspecified asthma, uncomplicated; F17.210 Nicotine dependence, cigarettes, uncomplicated; Z88.0 Allergy status to penicillin; Z91.030 Bee allergy status; Z91.040 Latex allergy status; Z88.8 Allergy status to other drugs, medicaments and biological substances; Z79.899 Other long term (current) drug therapy
CPT/HCPCS: 93041; 94760; 96361; 96374; 96375; 99285; J2930

== ENCOUNTER 2019-08-25 13:52 | Inpatient (IN) | payer MEDICAID, OTHER ==
[~2019-08-25] VITALS: Ht 162.6 cm; Wt 107.7 kg
[~2019-08-25 13:52] MED LIST changes: +[UNRECOGNIZED DRUG - CODE] PO
[2019-08-25 16:12] LABS: HEMATOCRIT 37.6 % (36.0-47.0); HEMOGLOBIN 12.8 g/dl (12.0-15.5); MEAN CORPUSCULAR VOLUME 88.3 fl (80.0-96.0); PLATELET COUNT, AUTOMATED 374 10^3/uL (150-450); RED BLOOD COUNT 4.26 10^6/uL (4.00-5.40); WHITE BLOOD COUNT 11.7 10^3/uL (4.0-10.0)
[2019-08-25 16:30] LABS: AMPHETAMINES LEVEL URINE NEGATIVE (NEGATIVE); BARBITURATES URINE NEGATIVE (NEGATIVE); BENZODIAZEPINES URINE NEGATIVE (NEGATIVE); CANNABINOIDS URINE POSITIVE (NEGATIVE); COCAINE METABOLITE URINE NEGATIVE (NEGATIVE); HCG, SERUM QUALITATIVE NEGATIVE (NEGATIVE); METHADONE URINE NEGATIVE (NEGATIVE); OPIATES URINE NEGATIVE (NEGATIVE); PHENCYCLIDINE URINE NEGATIVE (NEGATIVE)
[2019-08-25 16:38] LABS: ACETAMINOPHEN LEVEL < 2.0 UG/ML (10.0-30.0); ALBUMIN 3.6 GM/DL (3.2-5.2); ALT/SGPT 19 U/L (12-78); BILIRUBIN,DIRECT < 0.1 MG/DL (0.0-0.2); BILIRUBIN,TOTAL 0.3 MG/DL (0.2-1.0); BLOOD UREA NITROGEN 12 MG/DL (7-18); CALCIUM LEVEL 8.6 MG/DL (8.5-10.1); CARBON DIOXIDE LEVEL 24 MEQ/L (21-32); CHLORIDE LEVEL 108 MEQ/L (98-107); CREATININE FOR GFR 0.64 MG/DL (0.55-1.30); ETHYL ALCOHOL (ETHANOL) < 0.003 % (0.000-0.010); GLOMERULAR FILTRATION RATE > 60.0 (>60); GLUCOSE, FASTING 104 MG/DL (70-100); SALICYLATE LEVEL 6.3 MG/DL (5.0-30.0); SODIUM LEVEL 138 MEQ/L (136-145)
[2019-08-25] MEDS ORDERED: LORazepam 2 MG TAB PO ONE (17:15)
[2019-08-25] MEDS ORDERED: PRAZ2CAP PO (17:54)
[2019-08-25] MEDS ORDERED: BENA25CA4 PO (17:54)
[2019-08-25] MEDS ORDERED: ACET1TAB55 PO (17:54)
[2019-08-25] MEDS ORDERED: GEOD80CA PO (17:54)
[2019-08-25] MEDS ORDERED: PRED20TA PO (17:58)
[2019-08-25] MEDS ORDERED: VENL37TA PO (17:59)
[2019-08-25] MEDS ORDERED: MOM 30ML SUSPENSION UDC PO PRN (19:15)
[2019-08-25] MEDS ORDERED: MAALOX 30 ML SUSP *UDC PO PRN (19:15)
[2019-08-25 21:00] VITALS: BP 132/69
[2019-08-25] MEDS: traZODone 50 MG TAB PO PRN (21:15)
[2019-08-25] MEDS: LORazepam 2 MG TAB PO PRN (21:15)
[2019-08-25] MEDS: diphenhydrAMINE 25 MG CAP PO PRN (21:15)
[2019-08-25] MEDS: PRAZOSIN 1 MG CAP PO SCH (21:15)
[2019-08-25] MEDS: ZIPRASIDONE 80 MG CAP (GEODON) PO SCH (21:15)
[2019-08-25] MEDS ORDERED: ALBUTEROL 90 MCG/ACT 8GM HFA INHALER INH PRN (21:15)
[2019-08-26 06:24] VITALS: BP 127/67
[2019-08-26] MEDS: LORazepam 2 MG TAB PO PRN ×2 (08:25→19:10)
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
[2019-08-26] MEDS: OLANZapine ORAL DISINTEGRATING TAB 5MG PO PRN ×2 (10:27→17:33)
[2019-08-26] MEDS ORDERED: LORazepam 2 MG TAB PO ONE ×2 (12:00→20:00)
[2019-08-26] MEDS ORDERED: chlorproMAZINE 25 MG TAB (Q0161) PO ONE (12:00)
[2019-08-26 17:41] VITALS: BP 113/53
[2019-08-26] MEDS: ACETAMINOPHEN TAB 650MG DOSE (2X325MG) PO PRN (19:11)
--- NOTE | 2019-08-26 19:55 | HPE ---
DATE OF ADMISSION: 08/25/2019 HISTORY OF PRESENT ILLNESS: This is a 33-year-old female admitted to inpatient mental health unit for bipolar disorder, personality disorder, post-traumatic stress disorder (PTSD), has a history of asthma, reflux and chronic back pain, improved with previous suicidal ideation. Hospitalist service was called for medical management. Patient complains of chronic headache which she sees Roseanna Shipman for. She also complains of her right forearm pain rating this at 7 out of 10, both the headache and the right arm pain. She denies any blurry vision, changes in vision, nausea, vomiting, neck rigidity, fever or chills, shortness of breath, nausea, vomiting, epigastric discomfort. No medications have been given for both the headache and the right arm pain today. Patient has had decrease in appetite without any weight loss, weight gain, unable to sleep well. No other issues. PAST MEDICAL HISTORY: Traumatic brain injury. Three slipped discs. Chronic headaches. Depression. Follows with [facility]. Hyperthyroidism. Bipolar disorder. Suicide ideation. Suicide attempts in the past. Cervical cancer. Status post hysterectomy, oophorectomy. PAST SURGICAL HISTORY: Hysterectomy, oophorectomy due to cervical cancer. Three slipped discs. Cholecystectomy. ALLERGIES: BACLOFEN, TRAMADOL, PREGABALIN, TORADOL, PENICILLIN causing hives. NICOTINE PATCH causing hives. HOME MEDICATIONS: - Tylenol 650 every 4 hours as needed for pain - clonazepam 0.5 twice a day - prednisone 40 as needed - venlafaxine 37.5 daily - EpiPen as needed - albuterol as needed - diphenhydramine 25 every 6 as needed - prazosin 2 mg capsule, 6 mg at bedtime - Geodon 80 mg at bedtime SOCIAL HISTORY: Lives in [place], had a boyfriend, never worked outside the home. Is on Disability. Has three children, two of which were adopted. One currently with a grandparent. History of daily marijuana use, heroin, meth in the past. Still smokes a half a pack a day. Refuses nicotine patch. FAMILY HISTORY: Mother with depression, father unknown. REVIEW OF SYSTEMS: Per HPI, 12 point system otherwise negative. PHYSICAL EXAMINATION: Temperature 98.5, pulse 81, respiratory rate 18, blood pressure 127/67, 97% on room air. General: Patient appears irritable. Refused to sit down initially and was standing during the interview. No respiratory distress. No tripod positioning. No pursed lips. Neck is supple. No cervical lymphadenopathy or thyromegaly. Tongue is midline. No tonsillar exudate. Lungs are diminished, but clear to auscultation without wheezing. Heart: S1, S2, sinus. Abdomen is obese, soft, nontender, nondistended. Extremities: No edema. Right forearm is in a cast. LABORATORY DATA: 08/25/2019, CBC, metabolic panel, liver function test, TSH and urine, and hCG serum negative. Urine drug screen positive for cannabinoids. X-ray 08/04/2019. No fracture or dislocation. Wrist x-ray. No evidence of acute fracture or dislocation. IMPRESSION: 1. Right hand injury. Follows with orthopedic surgery as outpatient. Continue with current recommendations. 2. Headache with history of traumatic brain injury (TBI). Follows with Roseanna Shipman at [facility]. As needed Tylenol for headache and pain. 3. Obesity. Body mass index (BMI) 40.4. Patient weight loss. 4. Depression with suicidal thoughts. Resume home psychiatric medications, managed by psychiatrist, primary team. 5. History of asthma. As needed albuterol. MTDD
[2019-08-26] MEDS ORDERED: HALOPERIDOL 10 MG TAB PO ONE (20:00)
[2019-08-26] MEDS ORDERED: diphenhydrAMINE 50 MG CAP PO ONE (20:00)
[2019-08-26] MEDS: ZIPRASIDONE 80 MG CAP (GEODON) PO SCH (20:10)
[2019-08-26] MEDS: traZODone 50 MG TAB PO PRN (20:11)
[2019-08-26] MEDS: PRAZOSIN 1 MG CAP PO SCH (20:11)
--- NOTE | 2019-08-27 03:11 | REP ---
Clinical: Trauma. Technique: AP, lateral, bilateral oblique views left hand . Findings: The osseous structures and joint spaces are intact and normal. There is no evidence for acute fracture or dislocation. Surrounding soft tissues are unremarkable. No subcutaneous emphysema or radiodense foreign body. Impression: No acute fracture or dislocation. Electronically Signed by Mahin Morales MD 08/27/2019 03:02 A
[2019-08-27 06:34] VITALS: BP 104/59
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
[2019-08-27] MEDS ORDERED: VENLAFAXINE **XR** 75MG CAPSULE PO ONE (10:30)
[2019-08-27] MEDS ORDERED: QUEtiapine FUMARATE 100 MG TAB PO ONE (10:30)
[2019-08-27] MEDS: OLANZapine ORAL DISINTEGRATING TAB 5MG PO PRN (10:32)
[2019-08-27] MEDS: LORazepam 2 MG TAB PO PRN (13:12)
[2019-08-27 16:40] VITALS: BP 134/74
[2019-08-27] MEDS: PRAZOSIN 1 MG CAP PO SCH (20:01)
[2019-08-27] MEDS: traZODone 50 MG TAB PO PRN (20:01)
[2019-08-27] MEDS: QUEtiapine FUMARATE 100 MG TAB PO SCH (20:01)
[2019-08-27] MEDS: chlorproMAZINE 25 MG TAB (Q0161) PO PRN (20:02)
[2019-08-28] VITALS (7 sets, daily range): BP systolic 102–140; BP diastolic 75–95
[2019-08-28] MEDS: chlorproMAZINE 25 MG TAB (Q0161) PO PRN ×2 (03:00→15:51)
[2019-08-28] MEDS: ACETAMINOPHEN TAB 650MG DOSE (2X325MG) PO PRN (06:34)
[2019-08-28] MEDS: LORazepam 2 MG TAB PO PRN ×3 (07:27→18:47)
[2019-08-28] MEDS: VENLAFAXINE **XR** 75MG CAPSULE PO SCH (08:09)
--- NOTE | 2019-08-28 16:47 | REP ---
Right hand series: Four views. History: Check position. X-rays in cast. Comparison right hand radiographs are from August 04, 2019. Findings: Four views of the right wrist taken through overlying cast material show normal bone joints and soft tissues. Impression: No abnormality noted. Electronically Signed by Alon March MD 08/28/2019 04:38 P
[2019-08-28] MEDS: OLANZapine ORAL DISINTEGRATING TAB 5MG PO PRN (16:50)
[2019-08-28] MEDS ORDERED: IBUPROFEN 400 MG TAB PO PRN (17:45)
[2019-08-28] MEDS ORDERED: chlorproMAZINE INJ 50MG/2ML AMP (J3230) IM STA (20:16)
[2019-08-28] MEDS ORDERED: LORazepam 2 MG/ML VIAL (J2060) IM STA (20:16)
[2019-08-28] MEDS: PRAZOSIN 1 MG CAP PO SCH (20:50)
[2019-08-28] MEDS: QUEtiapine FUMARATE 100 MG TAB PO SCH (20:50)
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
[2019-08-29] MEDS: OLANZapine ORAL DISINTEGRATING TAB 5MG PO PRN (06:45)
[2019-08-29 06:46] VITALS: BP 139/65
--- NOTE | 2019-08-29 06:48 | REP ---
Right forearm: Two views. History: X-ray in cast material. Increased pain. Tingling. Findings: Two views of the right forearm taken through cast material demonstrate no evidence of fracture or other bony abnormality. Impression: No bony abnormality noted. X-rays through cast material. Electronically Signed by Alon March MD 08/29/2019 08:34 A
[2019-08-29] MEDS: VENLAFAXINE **XR** 75MG CAPSULE PO SCH (08:16)
--- NOTE | 2019-08-29 09:15 | MHIPN ---
DATE: 08/28/2019 CHIEF COMPLAINT: Feels stressed. SUBJECTIVE: Is seen for followup, in the presence of staff. Says has not had a good night, and she did not sleep much, says has been anxious. MENTAL STATUS EXAMINATION: Neat, cooperative, somewhat irritable. No agitation, no psychomotor retardation. Is coherent. Vague on suicidal thoughts. No homicidal ideas or intents. No evidence of any psychosis at present. Judgment and insight remain compromised. ASSESSMENT: Major depressive disorder. Cannabis use disorder. Borderline personality disorder. PLAN: Continue current care and medications, including anti-agitation medications. I have offered her Motrin for pain regarding the right arm. Encouraged participation in activities in the unit. Upon leaving, was sarcastic, says felt had wasted her time. I was informed later that she was trying to remove her cast on the right arm, somewhat superficially so, but was attended to, and directed. Further recommendations will be made depending on the clinical picture.
--- NOTE | 2019-08-29 09:43 | CR ---
DATE OF CONSULTATION: 08/29/2019 CHIEF COMPLAINT: Right wrist pain. HISTORY OF PRESENT ILLNESS: This is a 33-year-old female who has been admitted to the inpatient mental health unit for bipolar disorder, personality disorder, post-traumatic stress disorder. I was called by Dr. Lira to assess this patient's right upper extremity, as there is a below elbow cast. According to the patient she has had many falls over the years all the way back to high school. She has been seeing Luis Armando Rose, one of the physician assistants at the [facility] here in [place]. She states that she had another fall a few weeks ago and has been in a cast ever since. She still complains about wrist pain going up towards the elbow. She feels like the fingers are a little bit swollen. She is right-hand dominant. PAST MEDICAL HISTORY: Includes traumatic brain injury, chronic headaches, depression, hyperthyroidism, bipolar, suicide ideation, cervical cancer, post hysterectomy and oophorectomy, PTSD, personality disorder. HOME MEDICATIONS: - Tylenol - clonazepam - prednisone - venlafaxine - EpiPen - albuterol - diphenhydramine - prazosin ALLERGIES: BACLOFEN, TRAMADOL, PREGABALIN, TORADOL, PENICILLIN, NICOTINE PATCH. PAST SURGICAL HISTORY: Hysterectomy and oophorectomy for cervical cancer. Cholecystectomy. SOCIAL HISTORY: Lives in [place]. Had a boyfriend. Never worked outside the home, on disability. PHYSICAL EXAMINATION: VITAL SIGNS: 97.0. 139/65. Pulse rate 87. Respiratory rate 14, room air. She has a circumferential below-elbow purple fiberglass cast with the wrist in slight extension and the fingers and slight flexion. Thumb is free. No skin breakdown. Appears to be able to flex and extend her elbow, as well as wiggle her fingers and flex all the digits, as well as the thumb. Normal sensation throughout the hand and the radial and ulnar nerves. Good motor function of the same. Fingers warm and well perfused. Capillary refill under 3 seconds. Radiographs were reviewed from 12/20/2018 of her wrist, complete series, no fracture or abnormalities. Radiographs reviewed from 12/20/2018, complete hand series, no fracture or abnormalities. Radiographs were reviewed from 06/05/2019 of her wrist, complete x-ray series were obtained. No fracture or abnormalities. Radiographs reviewed from 06/05/2019 of her hand. No acute fracture or abnormalities. Radiographs reviewed from 08/04/2019 of her hand, complete series obtained. No fracture or abnormalities. Radiographs were also obtained 08/26/2019, complete series of her left hand on the contralateral side, again no acute fracture or dislocation. Radiographs were taken on 08/28/2019 of the right forearm, no acute fracture or abnormalities. Radiographs taken on 08/28/2019 of the hand, AP and lateral and two obliques in the cast, again no fracture or abnormalities noted. ASSESSMENT/PLAN: This female with a cast to her right upper extremity. No obvious abnormalities on any of the x-rays yesterday or in the past. She already has followup with Luis Armando Rose, the PA at [facility]. Looking back on her x-rays I see no obvious fracture or other abnormalities so I would advise to keep the follow-up with her PA at [facility] as this patient became quite frustrated when I explained to her the radiographic findings. We advised rest, range of motion of the fingers, thumb and elbow, as well as elevation as needed. Activity as tolerated. No need to follow this patient while in hospital.
[2019-08-29] MEDS: chlorproMAZINE 25 MG TAB (Q0161) PO PRN ×2 (09:53→19:32)
--- NOTE | 2019-08-29 15:32 | MHIPN ---
DATE: 08/29/2019 VITAL SIGNS: Blood pressure 139/65, pulse 87, temperature 97. CHIEF COMPLAINT: She feels better. SUBJECTIVE: She is seen for followup in the presence of staff. She says feels better, was in restraints for a relatively short time and has done well after that, though has been placed on one-on-one watch. We spoke of her current improvement and the indications for the restraints, as well as her change in terms of affect, she appears calmer. Says wishes to work on coping skills. MENTAL STATUS EXAMINATION: She is neat. She is cooperative. There is no agitation. No psychomotor retardation. Affect is reactive, considerably less labile. At present, she denies any suicidal thoughts or intents. No homicidal ideas or intents. No evidence of psychosis at present. Cognition is grossly intact. Judgment is improved, though still questionable. Insight is fair, at best. ASSESSMENT: 1. Major depressive disorder. 2. Cannabis use disorder. 3. Borderline personality disorder. She is less agitated than yesterday, appears calmer, and emotionally in a more stable spot. We discussed the restraints, as well as her current state. PLAN: Continue with her current medication regimen, and I do not see a need at present for one-on-one observation and she is more comfortable with that as well. She has been seen by orthopedics, Dr. Zhang, whose input is appreciated. She is to followup with assigned psychiatrist, Dr. Bowden, tomorrow, and the rest of the treatment team and further recommendations will be made.
[2019-08-29] MEDS: LORazepam 2 MG TAB PO PRN (15:41)
[2019-08-29 16:37] VITALS: BP 124/75
[2019-08-29 21:01] VITALS: BP 110/74
[2019-08-29] MEDS: QUEtiapine FUMARATE 100 MG TAB PO SCH (21:01)
[2019-08-29] MEDS: diphenhydrAMINE 25 MG CAP PO PRN (21:01)
[2019-08-29] MEDS: PRAZOSIN 1 MG CAP PO SCH (21:01)
[2019-08-29] MEDS: traZODone 50 MG TAB PO PRN (21:01)
[2019-08-30] MEDS: OLANZapine ORAL DISINTEGRATING TAB 5MG PO PRN (01:09)
[2019-08-30] MEDS: LORazepam 2 MG TAB PO PRN (06:27)
[2019-08-30 06:59] VITALS: BP 122/74
[2019-08-30] MEDS: VENLAFAXINE **XR** 75MG CAPSULE PO SCH (08:30)
[2019-08-30] MEDS ORDERED: TRAZ-252 PO (09:27)
[2019-08-30] MEDS ORDERED: CHLOR25TA PO (09:27)
[2019-08-30] MEDS ORDERED: PRAZ2CAP PO (09:27)
[2019-08-30] MEDS ORDERED: VENL75CA47 PO (09:27)
[2019-08-30] MEDS ORDERED: QUET1TAB8 PO (09:27)
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
== END 2019-08-30 12:30 | disposition home or self-care (01) | DRG 754 ==
LOC: M ED 13:52 → M ED INP 19:02 → M PSY 20:14
PROVIDERS: ADMIT Psychiatry & Neurology Psychiatry; ATTEND Psychiatry & Neurology Psychiatry
DX: F32.9 Major depressive disorder, single episode, unspecified (principal); Z68.41 Body mass index [BMI] 40.0-44.9, adult; R45.851 Suicidal ideations; F12.90 Cannabis use, unspecified, uncomplicated; F60.3 Borderline personality disorder; Z79.899 Other long term (current) drug therapy; Z88.0 Allergy status to penicillin; Z88.5 Allergy status to narcotic agent; Z91.040 Latex allergy status; Z91.030 Bee allergy status; E03.9 Hypothyroidism, unspecified; R51 Headache; Z85.41 Personal history of malignant neoplasm of cervix uteri; F17.200 Nicotine dependence, unspecified, uncomplicated; E66.9 Obesity, unspecified; J45.909 Unspecified asthma, uncomplicated

== ENCOUNTER 2019-09-05 20:19 | Emergency (ER) | payer MEDICAID, OTHER ==
[~2019-09-05] VITALS: Ht 162.6 cm; Wt 104.5 kg
[~2019-09-05 20:19] MED LIST changes: +ACET1TAB55 PO; +CHLOR25TA PO; +GEOD80CA PO; +VENL37TA PO
[2019-09-05] MEDS ORDERED: KLON0.5T PO (20:25)
[2019-09-05 21:02] LABS: HEMATOCRIT 36.2 % (36.0-47.0); HEMOGLOBIN 12.1 g/dl (12.0-15.5); MEAN CORPUSCULAR HEMOGLOBIN 30.7 pg (27.0-33.0); MEAN CORPUSCULAR HGB CONC 33.4 g/dl (32.0-36.5); MEAN CORPUSCULAR VOLUME 91.9 fl (80.0-96.0); PLATELET COUNT, AUTOMATED 332 10^3/uL (150-450); RED BLOOD COUNT 3.94 10^6/uL (4.00-5.40); WHITE BLOOD COUNT 11.4 10^3/uL (4.0-10.0)
[2019-09-05 21:21] LABS: ATYPICAL LYMPH 1 % (0-5); EOSINOPHILS 3 % (0-3); LYMPHOCYTES 31 % (16-44); MONOCYTES 7 % (0-5); NEUTROPHILS 58 % (28-66); PLATELET CLUMPS SMALL AMT; PLATELET ESTIMATE NORMAL (NORMAL); SMUDGE CELLS 1+
[2019-09-05 21:34] LABS: ALBUMIN 3.1 GM/DL (3.2-5.2); ALT/SGPT 28 U/L (12-78); BILIRUBIN,DIRECT < 0.1 MG/DL (0.0-0.2); BILIRUBIN,TOTAL 0.2 MG/DL (0.2-1.0); LIPASE 156 U/L (73-393); TOTAL PROTEIN 6.2 GM/DL (6.4-8.2)
[2019-09-05] MEDS ORDERED: NS 1,000 ML IV ONE (22:00)
[2019-09-05] MEDS ORDERED: MORPHINE 2 MG/ML 1ML VIAL (J2270) IV ONE ×2 (22:00→23:15)
[2019-09-05] MEDS: GASTROGRAFIN SOLUTION 30ML PO SCH ×2 (22:24→23:00)
[2019-09-05] MEDS ORDERED: ISOVUE-370 76% 100ML VIAL (Q9967) As Ordered ONE (23:31)
--- NOTE | 2019-09-06 00:26 | REPVR ---
PROCEDURE INFORMATION: Exam: CT Abdomen And Pelvis With Contrast Exam date and time: 09/05/2019 11:37 PM Clinical history: 33 years old, female; Abdominal pain; Additional info: Abd and right flank pain, bloody stools. HX crohns' eval F TECHNIQUE: Imaging protocol: Computed tomography of the abdomen and pelvis with intravenous contrast. Axial, coronal and sagittal reformatted images were created and reviewed. Radiation optimization: All CT scans at this facility use at least one of these dose optimization techniques: automated exposure control; mA and/or kV adjustment per patient size (includes targeted exams where dose is matched to clinical indication); or iterative reconstruction. Contrast material: ISO 370; Contrast volume: 100 ml; Contrast route: IV; COMPARISON: CT ABD/PEL W/IV ORAL CONTRAS 08/04/2018 10:45 PM FINDINGS: Liver: Unremarkable. Gallbladder and bile ducts: Status post cholecystectomy. No biliary ductal dilatation. Pancreas: Unremarkable. Spleen: Unremarkable. Adrenals: Unremarkable. Kidneys and ureters: No mass. No radiodense calculi. No hydronephrosis. Stomach and bowel: Moderate amount of retained stool in the colon. No obstruction. No bowel wall thickening. No pneumatosis. Appendix: Normal. Intraperitoneal space: No free fluid. No organized fluid collection. No free air. Vasculature: Unremarkable. No aneurysm. Lymph nodes: No pathologically enlarged lymph nodes. Bladder: Unremarkable. Reproductive: Status post hysterectomy. Bones/joints: No acute osseous abnormality. Soft tissues: Unremarkable. IMPRESSION: 1. No CT evidence of acute intra-abdominal or pelvic pathology. 2. Additional findings, as above. Electronically signed by: Sharif Valentin On 09/06/2019 00:25:52 AM
[2019-09-06 00:53] VITALS: BP 108/71
[2019-09-06] MEDS ORDERED: LACT10SO29 PO (01:05)
[2019-09-06] MEDS ORDERED: DICYCLOMINE 10 MG CAP PO ONE (01:15)
[2019-09-06] MEDS ORDERED: LACTULOSE 20 GM/30 ML SYRUP UD PO ONE (01:15)
== END 2019-09-06 01:29 | disposition home or self-care (01) ==
LOC: M ED 20:19
DX: M54.5 Low back pain (principal); K59.00 Constipation, unspecified; F31.9 Bipolar disorder, unspecified; F43.10 Post-traumatic stress disorder, unspecified; F17.218 Nicotine dependence, cigarettes, with other nicotine-induced disorders; Z88.0 Allergy status to penicillin; Z88.5 Allergy status to narcotic agent; Z91.030 Bee allergy status; Z88.8 Allergy status to other drugs, medicaments and biological substances
CPT/HCPCS: 74177; 80047; 80076; 81001; 83605; 83690; 84702; 85025; 87086; 96374; 96375; 96376; 99284; J2270; Q9963; Q9967

== ENCOUNTER 2019-09-07 22:56 | Emergency (ER) | payer OTHER ==
[~2019-09-07] VITALS: Ht 160 cm; Wt 104.5 kg
[~2019-09-07 22:56] MED LIST changes: +LACT10SO29 PO
[2019-09-08 00:41] LABS: ALBUMIN 3.2 GM/DL (3.2-5.2); ALT/SGPT 32 U/L (12-78); BILIRUBIN,DIRECT < 0.1 MG/DL (0.0-0.2); BILIRUBIN,TOTAL 0.1 MG/DL (0.2-1.0); BLOOD UREA NITROGEN 8 MG/DL (7-18); CALCIUM LEVEL 8.4 MG/DL (8.5-10.1); CARBON DIOXIDE LEVEL 28 MEQ/L (21-32); CHLORIDE LEVEL 107 MEQ/L (98-107); CREATININE FOR GFR 0.79 MG/DL (0.55-1.30); GLOMERULAR FILTRATION RATE > 60.0 (>60); GLUCOSE, FASTING 99 MG/DL (70-100); LIPASE 136 U/L (73-393); POTASSIUM SERUM 4.1 MEQ/L (3.5-5.1); SODIUM LEVEL 140 MEQ/L (136-145); TOTAL PROTEIN 6.4 GM/DL (6.4-8.2)
[2019-09-08 00:48] LABS: BASO % 0.3 % (0.0-1.0); EOS # 0.3 10^3/uL (0.0-0.5); EOS % 2.5 % (0.0-3.0); HEMATOCRIT 36.8 % (36.0-47.0); HEMOGLOBIN 12.1 g/dl (12.0-15.5); LYMPH # 4.1 10^3/uL (1.5-5.0); LYMPH % 41.6 % (24.0-44.0); MEAN CORPUSCULAR HEMOGLOBIN 30.6 pg (27.0-33.0); MEAN CORPUSCULAR HGB CONC 32.9 g/dl (32.0-36.5); MEAN CORPUSCULAR VOLUME 92.9 fl (80.0-96.0); MONO # 0.6 10^3/uL (0.0-0.8); MONO % 5.7 % (0.0-5.0); NEUTROPHILS # 4.9 10^3/uL (1.5-8.5); NEUTROPHILS % 49.4 % (36.0-66.0); PLATELET COUNT, AUTOMATED 361 10^3/uL (150-450); RED BLOOD COUNT 3.96 10^6/uL (4.00-5.40); WHITE BLOOD COUNT 9.8 10^3/uL (4.0-10.0)
[2019-09-08 02:15] LABS: HCG, SERUM QUALITATIVE NEGATIVE (NEGATIVE)
[2019-09-08 02:32] VITALS: BP 105/59
[2019-09-08] MEDS ORDERED: FLEET ENEMA PR ONE (04:00)
[2019-09-08] MEDS ORDERED: ACETAMINOPHEN TAB 650MG DOSE (2X325MG) PO ONE (04:15)
[2019-09-08] MEDS ORDERED: MAGNESIUM CITRATE 300 ML BTL PO ONE (06:45)
--- NOTE | 2019-09-08 08:05 | REP ---
Clinical: Constipation and abdominal pain. Technique: Upright view of the chest with supine and upright views of the abdomen and pelvis. Findings: Frontal upright view of the chest demonstrates no acute cardiopulmonary process or free air below the diaphragm to suspect pneumoperitoneum. Supine and upright views of the abdomen and pelvis demonstrate nonspecific bowel gas pattern without obstruction or perforation. Oral contrast within the colon. No organomegaly. Prior cholecystectomy. No abnormal calcifications. Skeletal structures normal for age. Impression: Nonspecific bowel gas pattern. Electronically Signed by Mahin Morales MD 09/08/2019 07:58 A
== END 2019-09-08 07:01 | disposition home or self-care (01) ==
LOC: M ED 22:56
DX: K59.00 Constipation, unspecified (principal); F31.9 Bipolar disorder, unspecified; F60.3 Borderline personality disorder; Z79.899 Other long term (current) drug therapy; F17.210 Nicotine dependence, cigarettes, uncomplicated

== ENCOUNTER 2019-11-19 18:59 | Emergency (ER) | payer OTHER ==
[~2019-11-19 18:59] MED LIST changes: +CLON0.5T2 PO; -CLON0.5T8 PO; -LAMO200T2 PO; +LAMO200T3 PO; +OMEP1CAP73 PO; -OMEP20CA4 PO; +ZONI100C17 PO; -ZONI100C2 PO; +ZONI25CA13 PO; -ZONI25CA2 PO; +ZONI50CA11 PO; -ZONI50CA3 PO
--- NOTE | 2019-11-19 20:37 | REP ---
RIGHT ANKLE, FOUR VIEWS: There is no evidence of an acute fracture, dislocation or intrinsic bone disease. IMPRESSION: No fracture or dislocation. Electronically Signed by Maicol Liang MD 11/20/2019 03:37 P
[2019-11-19 20:43] VITALS: BP 115/67
== END 2019-11-19 20:52 | disposition home or self-care (01) ==
LOC: M ED 18:59
DX: S93.401A Sprain of unspecified ligament of right ankle, initial encounter (principal); W10.8XXA Fall (on) (from) other stairs and steps, initial encounter; Y92.019 Unspecified place in single-family (private) house as the place of occurrence of the external cause; K50.90 Crohn's disease, unspecified, without complications; F31.9 Bipolar disorder, unspecified; F43.10 Post-traumatic stress disorder, unspecified; Z85.41 Personal history of malignant neoplasm of cervix uteri; Z86.69 Personal history of other diseases of the nervous system and sense organs; Z88.0 Allergy status to penicillin; Z91.048 Other nonmedicinal substance allergy status; Z91.030 Bee allergy status; Z91.040 Latex allergy status; Z88.2 Allergy status to sulfonamides; Z88.5 Allergy status to narcotic agent; Z88.6 Allergy status to analgesic agent

== ENCOUNTER 2020-01-18 18:35 | Inpatient (IN) | payer MEDICAID, OTHER ==
[~2020-01-18] VITALS: Ht 160 cm; Wt 105.0 kg
[~2020-01-18 18:35] MED LIST changes: +QUET100T2 PO; -QUET1TAB8 PO
[2020-01-18] MEDS ORDERED: MINI2CAP PO (18:48)
[2020-01-18] MEDS ORDERED: TRAZ1TAB10 PO (18:48)
[2020-01-18] MEDS ORDERED: thorazine PO (18:48)
[2020-01-18] MEDS ORDERED: SERO1TAB PO ×2 (18:48→23:34)
[2020-01-18 19:26] LABS: HEMATOCRIT 42.5 % (36.0-47.0); HEMOGLOBIN 14.2 g/dl (12.0-15.5); MEAN CORPUSCULAR HEMOGLOBIN 29.8 pg (27.0-33.0); MEAN CORPUSCULAR HGB CONC 33.4 g/dl (32.0-36.5); MEAN CORPUSCULAR VOLUME 89.1 fl (80.0-96.0); PLATELET COUNT, AUTOMATED 403 10^3/uL (150-450); RED BLOOD COUNT 4.77 10^6/uL (4.00-5.40); WHITE BLOOD COUNT 11.8 10^3/uL (4.0-10.0)
[2020-01-18 19:55] LABS: AMPHETAMINES LEVEL URINE NEGATIVE (NEGATIVE); BARBITURATES URINE NEGATIVE (NEGATIVE); BENZODIAZEPINES URINE NEGATIVE (NEGATIVE); CANNABINOIDS URINE POSITIVE (NEGATIVE); COCAINE METABOLITE URINE NEGATIVE (NEGATIVE); METHADONE URINE NEGATIVE (NEGATIVE); OPIATES URINE NEGATIVE (NEGATIVE); PHENCYCLIDINE URINE NEGATIVE (NEGATIVE)
[2020-01-18 20:32] LABS: ACETAMINOPHEN LEVEL < 2.0 UG/ML (10.0-30.0); ALBUMIN 3.7 GM/DL (3.2-5.2); ALT/SGPT 49 U/L (12-78); BILIRUBIN,DIRECT < 0.1 MG/DL (0.0-0.2); BILIRUBIN,TOTAL 0.3 MG/DL (0.2-1.0); BLOOD UREA NITROGEN 6 MG/DL (7-18); CALCIUM LEVEL 9.4 MG/DL (8.5-10.1); CARBON DIOXIDE LEVEL 25 MEQ/L (21-32); CHLORIDE LEVEL 105 MEQ/L (98-107); CREATININE FOR GFR 0.83 MG/DL (0.55-1.30); ETHYL ALCOHOL (ETHANOL) < 0.003 % (0.000-0.010); GLOMERULAR FILTRATION RATE > 60.0 (>60); GLUCOSE, FASTING 112 MG/DL (70-100); SALICYLATE LEVEL 3.3 MG/DL (5.0-30.0); SODIUM LEVEL 139 MEQ/L (136-145); TOTAL PROTEIN 7.9 GM/DL (6.4-8.2)
[2020-01-18] MEDS ORDERED: traZODone 50 MG TAB PO ONE (20:45)
[2020-01-18] MEDS ORDERED: QUEtiapine FUMARATE 100 MG TAB PO ONE (20:45)
[2020-01-18] MEDS ORDERED: clonazePAM 0.5 MG TAB PO ONE (20:45)
[2020-01-18] MEDS ORDERED: PRAZOSIN 1 MG CAP PO SCH (20:45)
[2020-01-18] MEDS ORDERED: PRAZOSIN 1 MG CAP PO ONE (20:45)
[2020-01-18] MEDS ORDERED: HALOPERIDOL 5 MG/ML VIAL (J1630) IM ONE (21:00)
[2020-01-18] MEDS ORDERED: diphenhydrAMINE INJ 50MG/ML VIAL (J1200) IM ONE (21:00)
[2020-01-18] MEDS ORDERED: PRAZ2CAP PO (23:34)
[2020-01-18] MEDS ORDERED: TRAZ-252 PO (23:34)
[2020-01-18] MEDS ORDERED: CHLOR25TA PO (23:34)
[2020-01-18] MEDS ORDERED: EPIP0.3I2 IM (23:34)
[2020-01-19] MEDS ORDERED: traZODone 50 MG TAB PO PRN (01:30)
[2020-01-19] MEDS ORDERED: ACETAMINOPHEN TAB 650MG DOSE (2X325MG) PO PRN (01:30)
[2020-01-19] MEDS ORDERED: MAALOX 30 ML SUSP *UDC PO PRN (01:30)
[2020-01-19] MEDS ORDERED: OLANZapine ORAL DISINTEGRATING TAB 5MG PO PRN (01:30)
[2020-01-19] MEDS ORDERED: MOM 30ML SUSPENSION UDC PO PRN (01:30)
[2020-01-19 01:59] VITALS: BP 103/65
--- NOTE | 2020-01-19 03:27 | REP ---
Clinical: Trauma. Technique: AP, lateral views left hand . Findings: The osseous structures and joint spaces are intact and normal. There is no evidence for acute fracture or dislocation. Surrounding soft tissues are unremarkable. No subcutaneous emphysema or radiodense foreign body. Impression: Normal left hand series. No acute fracture or dislocation. Electronically Signed by Mahin Morales MD 01/19/2020 03:18 A
[2020-01-19] MEDS ORDERED: VENLAFAXINE **XR** 75MG CAPSULE PO SCH (09:00)
[2020-01-19] MEDS ORDERED: chlorproMAZINE 25 MG TAB (Q0161) PO SCH (09:00)
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
[2020-01-19] MEDS ORDERED: PRAZ2CAP PO (11:56)
[2020-01-19] MEDS ORDERED: CHLOR25TA PO (11:56)
[2020-01-19] MEDS ORDERED: TRAZ-252 PO (11:56)
[2020-01-19] MEDS ORDERED: SERO1TAB PO (11:56)
--- NOTE | 2020-01-19 11:57 | MHDSPDOC ---
[facility] Discharge Summary Discharge Summary DATE OF ADMISSION: Jan 19, 2020 at 01:19 DATE OF DISCHARGE: 01/19/20 please h/p for same day discharge Vital Signs/I&Os Vital Signs Date Time Temp Pulse Resp B/P (MAP) Pulse Ox O2 Delivery O2 Flow Rate FiO2 01/19/20 01:59 97.1 89 14 103/65 (78) 01/19/20 00:52 95 Room Air Laboratory Data Labs 24H Laboratory Tests 2 01/18/20 19:17: Nucleated Red Blood Cells % (auto) 0.0, Anion Gap 9, Glomerular Filtration Rate > 60.0, Calcium Level 9.4, Total Bilirubin 0.3, Direct Bilirubin < 0.1, Aspartate Amino Transf (AST/SGOT) 31, Alanine Aminotransferase (ALT/SGPT) 49, Alkaline Phosphatase 125H, Total Protein 7.9, Albumin 3.7, Albumin/Globulin Ratio 0.88L, Thyroid Stimulating Hormone (TSH) 6.010H, Salicylates Level 3.3L, Acetaminophen Level < 2.0L, Ethyl Alcohol Level < 0.003 01/18/20 19:19: Urine Opiates Screen NEGATIVE, Urine Methadone Screen NEGATIVE, Urine Barbiturates Screen NEGATIVE, Urine Phencyclidine Screen NEGATIVE, Urine Amphetamines Screen NEGATIVE, Urine Benzodiazepines Screen NEGATIVE, Urine Cocaine Metabolite Screen NEGATIVE, Urine Cannabinoids Screen POSITIVEH CBC/BMP Laboratory Tests 01/18/20 19:17 Medications Scheduled Chlorpromazine HCl (Chlorpromazine HCl) 25 Mg Tablet, 50 MG PO BID for thoughts for 7 Days, #14 Prazosin Hcl (Prazosin HCl) 2 Mg Capsule, 6 MG PO QHS for nightmares for 7 Days, #21 Quetiapine Fumarate (Seroquel) 100 Mg Tablet, 100 MG PO QHS for thoughts for 7 Days, #7 Trazodone HCl (Trazodone HCl) 50 Mg Tablet, 50 MG PO QHS for sleep for 7 Days, #7 Venlafaxine HCl (Effexor Xr) 75 Mg Cap.er.24h, 1 CAP PO DAILY for mood for 7 Days, #7 Scheduled PRN Epinephrine (Epipen 2-Ayo) 0.3 Mg/0.3 Ml Auto.injct, 0.3 MG IM ASDIRECTED PRN for ANAPHYLAXIS, (Reported) Allergies Coded Allergies: Penicillins (Unverified Allergy, Intermediate, HIVES, 4/1/19) codeine (Unverified Allergy, Intermediate, HIVES, 02/08/19) latex (Unverified Allergy, Intermediate, HIVES, 02/08/19) sertraline (Unverified Allergy, Intermediate, HIVES, 05/24/19) TAPE (Verified Allergy, Unknown, 03/14/13) bee venom protein (honey bee) (Unverified Allergy, Unknown, 02/08/19) pregabalin (Unverified Allergy, Unknown, 02/08/19) tramadol (Unverified Allergy, Unknown, 02/08/19) baclofen (Unverified Adverse Reaction, Intermediate, SEIZURE or tramadol toradol lyrica unsure which, 05/24/19) lithium (Unverified Adverse Reaction, Intermediate, THYROID PROBLEM, 02/08/19) ketorolac (Verified Adverse Reaction, Mild, UPSET STOMACHE CAN TAKE MOTRIN, 02/08/19) LEILA MANCIA DO Jan 19, 2020 11:57
[2020-01-19] MEDS ORDERED: EFFE75CA2 PO (12:34)
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
[2020-01-19] MEDS ORDERED: traZODone 50 MG TAB PO SCH (21:00)
[2020-01-19] MEDS ORDERED: PRAZOSIN 1 MG CAP PO SCH (21:00)
[2020-01-19] MEDS ORDERED: QUEtiapine FUMARATE 100 MG TAB PO SCH (21:00)
== END 2020-01-19 13:50 | disposition home or self-care (01) | DRG 752 ==
LOC: M ED 18:35 → M ED INP 01-19 01:19 → M PSY 01-19 01:54
PROVIDERS: ADMIT Psychiatry & Neurology Psychiatry; ATTEND Psychiatry & Neurology Addiction Medicine
DX: F60.3 Borderline personality disorder (principal); F12.90 Cannabis use, unspecified, uncomplicated; Z76.5 Malingerer [conscious simulation]; Z79.899 Other long term (current) drug therapy; Z88.0 Allergy status to penicillin; Z88.5 Allergy status to narcotic agent; Z91.040 Latex allergy status; Z91.030 Bee allergy status

== ENCOUNTER → 2020-05-08 | Outpatient (CLI) | payer MEDICAID ==
[~2020-05-08] MED LIST changes: +EFFE75CA2 PO; +EPIP0.3I2 IM; -LACT10SO29 PO; +LACT20EL PO; +thorazine PO
--- NOTE | 2020-05-08 14:43 | REP ---
Right ankle pain. Technique: AP, lateral, bilateral oblique views of the right ankle. Findings: Mild swelling suggested. No acute fracture or dislocation. Joint spaces and ankle mortise are intact. Impression: Mild swelling. No acute fracture. Electronically Signed by Mahin Morales MD 05/08/2020 02:35 P
--- NOTE | 2020-05-08 14:44 | REP ---
Clinical: Right foot and ankle pain Technique: AP, lateral, bilateral oblique views right foot . Findings: The osseous structures and joint spaces are intact and normal. There is no evidence for acute fracture or dislocation. Surrounding soft tissues are unremarkable. No subcutaneous emphysema or radiodense foreign body. Impression: Normal right foot series . No acute fracture or dislocation. Electronically Signed by Mahin Morales MD 05/08/2020 02:36 P
== END ==
LOC: M RAD 13:20
PROVIDERS: ATTEND Physician Assistant
DX: M25.571 Pain in right ankle and joints of right foot (principal)

== ENCOUNTER 2020-05-22 23:07 | Emergency (ER) | payer MEDICAID, OTHER ==
[~2020-05-22 23:07] MED LIST changes: +PANT40TA29; +PANT40TA29 PO; -PANT40TA3; -PANT40TA3 PO
[2020-05-23] MEDS ORDERED: NS 1,000 ML IV ONE
[2020-05-23] MEDS ORDERED: PROMETHAZINE INJ 25 MG/ML VIAL (J2550) IV ONE
[2020-05-23] MEDS: GASTROGRAFIN SOLUTION 30ML PO SCH ×2 (00:20→00:58)
[2020-05-23 00:22] LABS: ALBUMIN 3.9 GM/DL (3.2-5.2); ALT/SGPT 25 U/L (12-78); BILIRUBIN,DIRECT < 0.1 MG/DL (0.0-0.2); LIPASE 144 U/L (73-393); TOTAL PROTEIN 7.6 GM/DL (6.4-8.2)
[2020-05-23 00:46] LABS: HEMATOCRIT 41.5 % (36.0-47.0); HEMOGLOBIN 13.9 g/dl (12.0-15.5); MEAN CORPUSCULAR HEMOGLOBIN 29.8 pg (27.0-33.0); MEAN CORPUSCULAR HGB CONC 33.5 g/dl (32.0-36.5); MEAN CORPUSCULAR VOLUME 89.1 fl (80.0-96.0); PLATELET COUNT, AUTOMATED 433 10^3/uL (150-450); RED BLOOD COUNT 4.66 10^6/uL (4.00-5.40); WHITE BLOOD COUNT 12.2 10^3/uL (4.0-10.0)
[2020-05-23 01:17] LABS: EOSINOPHILS 4 % (0-3); LYMPHOCYTES 40 % (16-44); MONOCYTES 6 % (0-5); NEUTROPHILS 50 % (28-66)
[2020-05-23] MEDS ORDERED: ISOVUE-370 76% 100ML VIAL As Ordered ONE (01:17)
[2020-05-23 01:18] LABS: PLATELET ESTIMATE NORMAL (NORMAL)
[2020-05-23 01:30] VITALS: BP 110/65
[2020-05-23 03:57] LABS: BILIRUBIN,TOTAL 0.2 MG/DL (0.2-1.0)
== END 2020-05-23 01:53 | disposition home or self-care (01) ==
LOC: M ED 23:07
DX: R10.9 Unspecified abdominal pain (principal); F31.9 Bipolar disorder, unspecified; F11.11 Opioid abuse, in remission; F17.200 Nicotine dependence, unspecified, uncomplicated; Z79.899 Other long term (current) drug therapy; Z80.0 Family history of malignant neoplasm of digestive organs; Z91.048 Other nonmedicinal substance allergy status; Z88.8 Allergy status to other drugs, medicaments and biological substances; Z91.030 Bee allergy status; Z88.5 Allergy status to narcotic agent; Z91.040 Latex allergy status
CPT/HCPCS: 80047; 80076; 83690; 85025; 93041; 96374; 99284; Q9963

== ENCOUNTER → 2020-07-05 | Outpatient (CLI) | payer OTHER ==
[~2020-07-05] MED LIST changes: +ALBU83IN INH; +OMEP-218
--- NOTE | 2020-07-05 11:17 | REPVR ---
PROCEDURE INFORMATION: Exam: US Duplex Left Lower Extremity Veins, Limited Exam date and time: 07/05/2020 10:56 AM Age: 34 years old Clinical indication: Pain; Leg, lower; Left; Additional info: Pain in left leg TECHNIQUE: Imaging protocol: Real-time Duplex ultrasound of the Left Lower Extremity with 2-D jung scale, color Doppler flow and spectral waveform analysis with image documentation. Limited exam focused on the left lower extremity veins. COMPARISON: US Duplex, Ext,LOWER veins,unilat 02/08/2019 12:44 AM FINDINGS: Left deep veins: Unremarkable. The common femoral, femoral, proximal profunda femoral and popliteal veins are patent without thrombus. Normal Doppler waveforms. Normal compressibility and/or augmentation response. Left superficial veins: Not visualized. Soft tissues: Unremarkable. IMPRESSION: No sonographic evidence of deep vein thrombosis. Electronically signed by: Sigrid José On 07/05/2020 11:18:22 AM
== END ==
LOC: M RAD 10:38
PROVIDERS: ATTEND Physician Assistant
DX: M79.605 Pain in left leg (principal)

== ENCOUNTER 2020-09-13 23:50 | Emergency (ER) | payer OTHER ==
[~2020-09-13] VITALS: Ht 160 cm; Wt 111.9 kg
[~2020-09-13 23:50] MED LIST changes: -ALBU83IN INH; -OMEP-218
[2020-09-14] MEDS ORDERED: OMEP-218 (00:02)
[2020-09-14] MEDS ORDERED: ALBU83IN INH (00:02)
--- NOTE | 2020-09-14 00:52 | REPVR ---
PROCEDURE INFORMATION: Exam: XR Right Foot Complete Exam date and time: 09/14/2020 12:11 AM Age: 34 years old Clinical indication: Other: Pain; Additional info: Foot pain TECHNIQUE: Imaging protocol: XR Right foot. Views: 3 or more views. COMPARISON: CR Foot, complete RIGHT 05/08/2020 2:05 PM FINDINGS: Bones/joints: No fracture. No dislocation. Joint spaces are preserved. Soft tissues: Normal. IMPRESSION: No acute fracture. Electronically signed by: Mac Guerrero On 09/14/2020 00:51:59 AM
--- NOTE | 2020-09-14 00:53 | REPVR ---
PROCEDURE INFORMATION: Exam: XR Right Ankle Exam date and time: 09/14/2020 12:04 AM Age: 34 years old Clinical indication: Other: Trauma; Additional info: Pain/trauma TECHNIQUE: Imaging protocol: XR Right ankle. Views: 3 or more views. COMPARISON: CR Ankle, complete RIGHT 05/08/2020 2:05 PM FINDINGS: Bones/joints: No fracture. No dislocation. Joint spaces are preserved. Soft tissues: Normal. IMPRESSION: No acute fracture. Electronically signed by: Mac Guerrero On 09/14/2020 00:52:46 AM
[2020-09-14] MEDS ORDERED: ACETAMINOPHEN 500 MG TAB PO ONE (01:30)
[2020-09-14 01:35] VITALS: BP 115/73
== END 2020-09-14 01:41 | disposition home or self-care (01) ==
LOC: M ED 23:50
DX: M79.671 Pain in right foot (principal); F17.200 Nicotine dependence, unspecified, uncomplicated; F12.10 Cannabis abuse, uncomplicated; J45.909 Unspecified asthma, uncomplicated; K21.9 Gastro-esophageal reflux disease without esophagitis; F41.9 Anxiety disorder, unspecified; F32.9 Major depressive disorder, single episode, unspecified; Z88.0 Allergy status to penicillin; Z88.6 Allergy status to analgesic agent; Z88.8 Allergy status to other drugs, medicaments and biological substances; Z91.030 Bee allergy status; Z91.040 Latex allergy status

== ENCOUNTER → 2020-11-23 | Outpatient (REF) | payer OTHER ==
[~2020-11-23] MED LIST changes: +ALBU83IN INH; -DICY20TA PO; +DICY20TA3 PO; +OMEP-218; +RISP-8 PO; +RISP-9; -RISP1TAB3 PO; -RISP2TAB3
== END ==
LOC: M LAB REF 17:16
PROVIDERS: ATTEND Podiatrist Foot & Ankle Surgery
DX: M67.471 Ganglion, right ankle and foot (principal)

== ENCOUNTER 2021-01-23 23:30 | Emergency (ER) | payer OTHER ==
[~2021-01-23] VITALS: Ht 162.6 cm; Wt 118.3 kg
[~2021-01-23 23:30] MED LIST changes: +QUET50TA3 PO; -QUET5TAB PO
[2021-01-23 23:31] VITALS: BP 132/78
[2021-01-23] MEDS ORDERED: CLONI1TA PO (23:43)
[2021-01-23] MEDS ORDERED: ABIL1TAB11 PO (23:43)
[2021-01-23] MEDS ORDERED: DOXE25CA PO (23:43)
== END 2021-01-24 01:49 | disposition left against medical advice (07) ==
LOC: M ED 23:30
DX: Z76.5 Malingerer [conscious simulation] (principal); F12.10 Cannabis abuse, uncomplicated; F19.10 Other psychoactive substance abuse, uncomplicated; Z79.51 Long term (current) use of inhaled steroids; Z79.899 Other long term (current) drug therapy; Z88.0 Allergy status to penicillin; Z88.6 Allergy status to analgesic agent; Z88.8 Allergy status to other drugs, medicaments and biological substances; Z91.040 Latex allergy status; Z91.030 Bee allergy status; Z91.048 Other nonmedicinal substance allergy status

== ENCOUNTER → 2021-06-29 | Outpatient (CLI) | payer OTHER ==
[~2021-06-29] MED LIST changes: +ABIL1TAB11 PO; +CLONI1TA PO; +DOXE25CA PO; +OMEP40CA4 PO; -OMEP40CA97 PO; +PROHANCE 279.3MG/ML 15ML VIAL ONE; -QUET50TA3 PO; +QUET50TA4 PO
--- NOTE | 2021-07-01 16:33 | REPVR ---
PROCEDURE INFORMATION: Exam: MR Lumbar Spine Without and With Contrast Exam date and time: 06/29/2021 11:29 AM Age: 35 years old Clinical indication: Low back pain; Additional info: Lbp ? mets vs abcess. HX cervical CA TECHNIQUE: Imaging protocol: Multiplanar magnetic resonance images of the lumbar spine without and with intravenous contrast. Contrast material: PROHANCE; Contrast volume: 25 ml; Contrast route: INTRAVENOUS (IV); COMPARISON: CR Spine. Lumbosacral, complete 02/19/2017 10:43 AM FINDINGS: Vertebrae: There are small hemangiomata L2 and L4. There is a 1.2 cm region of enhancement involving posterior aspect of the L4 vertebral body (8/801) which does not demonstrate increased T1 signal and could be secondary to metastatic disease. Disc spaces: There is preservation of disc space height throughout. Spinal cord: Normal signal. No cord compression. No abnormal enhancement. Conus extends to L1-L2. L1-L2: No significant disc disease. No significant spinal canal stenosis. No neural foraminal stenosis. L2-L3: No significant disc disease. There are mild facet joint degenerative changes. No significant spinal canal stenosis. No neural foraminal stenosis. L3-L4: No significant disc disease. There are mild facet joint degenerative changes and ligament flavum hypertrophy. No significant spinal canal stenosis. No neural foraminal stenosis. L4-L5: No significant disc disease. There are mild facet joint degenerative changes and ligament flavum hypertrophy. No significant spinal canal stenosis. No neural foraminal stenosis. L5-S1: A small bulge without mass effect. There are mild facet joint degenerative changes. No significant spinal canal stenosis. No neural foraminal stenosis. Soft tissues: Unremarkable. IMPRESSION: 1. There is a 12 mm enhancing region the L4 vertebral body which could be secondary to metastatic disease. A follow-up bone scan with SPECT imaging may be diagnostic. The distal not demonstrate increased bony turnover continued follow-up or a PET-CT should be performed. 2. There is no evidence of leptomeningeal disease. 3. There is no disc herniation or central stenosis. Electronically signed by: Adebayo Brunson On 07/01/2021 16:32:44 PM
== END ==
LOC: M PLAIMG 10:06
PROVIDERS: ATTEND Physical Medicine & Rehabilitation
DX: M54.5 Low back pain (principal)

== ENCOUNTER → 2021-08-07 | Outpatient (CLI) | payer OTHER ==
[~2021-08-07] MED LIST changes: -PROHANCE 279.3MG/ML 15ML VIAL ONE
--- NOTE | 2021-08-07 13:31 | REP ---
INDICATION: DISC DEGENERATION. COMPARISON: None. TECHNIQUE/RADIOTRACER AND DOSE: After the intravenous administration of 21.5 mCi of technetium 99 M MDP a total body bone scan was obtained with SPECT imaging of the lumbar spine FINDINGS: There is no abnormal increased or decreased activity present. IMPRESSION: No abnormal osseous uptake. The L4 vertebral body lesions seen on the MRI examination of 06/29/2021 is not identified on today's exam. As per recommendation from that MRI report follow-up with PET-CT should be considered. <Electronically signed by Chris Root > 08/07/21 0815
== END ==
LOC: M RAD 10:12
PROVIDERS: ATTEND Physician Assistant Surgical
DX: M51.36 Other intervertebral disc degeneration, lumbar region (principal)
CPT/HCPCS: 78306; 78803; A9503

== ENCOUNTER 2021-08-30 18:54 | Emergency (ER) | payer OTHER ==
[~2021-08-30] VITALS: Ht 162.6 cm; Wt 131.5 kg
[2021-08-30 18:55] VITALS: BP 121/79
--- OUTSIDE RECORDS SUMMARY | 2021-08-30 19:04 | CCD ---
Author Author [facility] Organization [facility] Address Unknown Phone Unavailable Care Team Providers Care Occupational Therapy Department Chair Name Role Phone Oma Noland Unavailable PROBLEMS Type Condition ICD9-CM Code HLL66-NP Code Onset Dates Condition S tatus W/U Status Risk SNOMED Code Notes Problem Bipolar 1 disorder F31.9 Active confirmed 3 [id number] By history Problem Vitamin D deficiency E55.9 Active confirmed 61922663 Problem Chronic post-traumatic stress disorder (PTSD) F43. 12 Active confirmed 764339037 Problem Insomnia, unspecified type G47.00 Active confirmed 453344615 Problem Personality disorder F60.9 Active confirmed 81136062 Problem Personal history of other endocrine, nut ritional and metabolic disease Z86.39 Active confirmed 388882921 Problem Morbid (severe) obesity due to excess calories E66 .01 Active confirmed 08356589901058 Problem Urinary incontinence in female R32 Active confir med 264855700 Problem Body mass index [BMI] 50.0-59.9, adult Z68.43 A ctive confirmed 356671879 Problem Anxiety F41.9 Active confirmed 28818399 Problem Allergy to bee sting Z91.030 Active confirmed 749298352 Problem Status post hysterectomy Z90.710 Active confirmed 779611623 Problem Asthma, unspecified asthma s everity, unspecified whether complicated, unspecified whether persistent J45.909 Active confirmed 930837013 Problem GERD without esophagitis K21.9 Active confirmed 149414871 Problem Smoking F17.200 Active confirmed 39147230 Problem Body mass index [BMI] 45.0-49.9, adult Z68.42 A ctive confirmed 612112243 ALLERGIES Allergen (clinical drug ingredient) Drug/Non Drug Allergy do cumented on EMR Reaction Allergy Type Onset Date Status Baclofen Unknown Drug Allergy Active Clonazepam clonazepam OD Non Drug Allergy Active Bees Unknown Non Drug Allergy Active Penicillin G Benzathine Unknown Drug Allergy Active Latex latex Unknown Non Drug Allergy Active Trazodone trazodone ineffective with dose as high as 300mg Non Drug Allergy Active depakote sever weight gain Non Drug Allergy A ctive seroquel s/i Non Drug Allergy Active amitriptylin insomnia Non Drug Allergy Active ENCOUNTERS from 1986 to 2021-07-06 Encounter Location Date Provider [place] [address] Jun, Oma Noland IMMUNIZATIONS No Information SOCIAL HISTORY Tobacco Use: Social History Observation Description Date Details (start date - stop date) Current Smoker Sex Assigned At : Social History Observation Description Sex Assigned At Unknown Alcohol Screen Question Answer Notes Did you have a drink containing alcohol in the past year? No Points 0 Interpretation Negative Tobacco Use/Smoking Question Answer Notes Are you a current smoker Are you interested in quitting? Thinking about quitting How many cigarettes a day do you smoke? 11-20 How soon after you wake up do you smoke your first cigarette ? within 5 minutes How often do you smoke cigarettes? every day REASON FOR REFERRAL No Information VITAL SIGNS No information MEDICATIONS Medication SIG (Take, Route, Frequency, Duration) Notes Start Da te End Date Status Propranolol HCl 20 MG 1 tablet Orally q8h prn anxiety for 30 day s Jan, Active Bactrim DS 800-160 MG 1 tablet Orally Twice a day for 7 days Jun, Active EpiPen 0.3 MG/0.3ML as directed Injection once for 30 days Active Gabapentin 600 MG 1 capsule Orally tid for 30 days Feb, Active Albuterol Sulfate HFA 108 (90 Base) MCG/ACT 2 puffs as needed Inhalation every 4 hrs Active Omeprazole 20 MG 1 capsule 30 minutes before morning meal Orally Once a day for 30 day(s) Active Abilify 20 MG 1 tablet Orally Once a day for 30 days 2020 Active Nebulizer - as directed PRN Not-Taking tiZANidine HCl 4 MG 1 tablet as needed Orally Three times a day Active PROCEDURES No Information RESULTS No Results REASON FOR VISIT MRI-LS Spine MEDICAL (GENERAL) HISTORY Type Description Date Medical History PTSD Medical History Bipolar 1 Disorder Medical History Hypothyroidism Medical History Vitamin D deficiency Medical History Personality disorder Medical History Insomnia Medical History GERD Surgical History complete hysterectomy second yolanda to cervical cancer & endometriosis 2010 Surgical History cholecystectomy 2007 Hospitalization History Mental Health Inpatient [facility] No Information Health Concerns No Information MEDICAL EQUIPMENT No Information MENTAL STATUS No Information FUNCTIONAL STATUS No Information ASSESSMENTS No Information PLAN OF TREATMENT Medication Medication Name Sig Start Date Stop Date EpiPen 0.3 MG/0.3ML as directed Injection once for 30 days Gabapentin 600 MG 1 capsule Orally tid for 30 days Feb, Bactrim DS 800-160 MG 1 tablet Orally Twice a day for 7 days Jun, Next Appt Details Provider Name:Grace Mcghee, 2021-07-12 10:45:00 AM, [address] [place] [address], [phone], Provider Name:Grace Mcghee, 2021-07-19 11:00:00 AM, [address] [place] [address], [phone], Provider Name:Eileen Pozo, 07-20 11:00:00 AM, [address] [place] [address], [phone], Provider Name:Grace Mcghee, 2021-08-02 11:00:00 AM, [address] [place] [address], [phone], Provider Name:Oma Noland, 2021-07-12 8 10:00:00 AM, [address] [place] [address], [phone], Provider Name:Grace Mcghee, 2021-08-09 11:00:00 AM, [address] [place] [address], [phone], Provider Name:Grace Mcghee, 2021-08-16 11:00:00 AM, [address] [place] [address], [phone], Insurance Providers Payer Name Payer Address Payer Phone Insured Name Patient Relati onship to Insured Coverage Start Date Coverage End Date [employer] [facility] - [employer] MEDICAID [address] [address] Stephenie Collado
--- OUTSIDE RECORDS SUMMARY | 2021-08-30 19:04 | CCD | Continuity of Care Document ---
Author Author Stephenie VALENZUELA PA-C Organization Unknown Address [address] [place] [address] Phone [phone] Care Team Providers Care Shirt Sorter Name Role Phone Oma Noland PHARMACY INTAKE COORDINATOR [employer] [phone] Problems Active Problems Provider Date Sprain of ankle Onset: 08/01/2017 Opioid abuse Onset: 08/01/2017 Passive smoker Onset: 07/15/2017 Polysubstance abuse Onset: 07/09/2017 Tobacco user Onset: 07/09/2017 Swollen legs Onset: 06/17/2017 Acute cervical sprain Onset: 05/27/2017 Low back pain Onset: 03/28/2017 Adult health examination Onset: 03/05/20 17 Abdominal pain Onset: 08/02/2014 Irritable bowel syndrome Onset: 05/26/20 14 Family history of breast cancer Onset: 0 FH: Congenital anomaly Onset: Family history of asthma Onset: Mental disorder Onset: FH: Anemia Onset: Family history of alcoholism Onset: Malignant tumor of cervix Onset: 000 Abnormal cytology findings Onset: Depressive disorder Onset: Crohn's disease Onset: Anxiety disorder Onset: Asthma Onset: Family history of cancer of colon Onset: FH: Depression Onset: Family history of endocrine disorders On set: FH: Respiratory disease Onset: 0 Family history with explicit context Ons et: Family history of seizure disorder Onset : Family history of stroke Onset: Social History Type Date Description Comments Sex Unknown ETOH Use Rarely consumes alcohol Tobacco Use Start: Unknown Patient is a current smoker, smo kes every day Allergies, Adverse Reactions, Alerts Active Allergies Criticality Reaction | Severity Comments Date Acetaminophen Unable to assess criticality 11/23/2020 Lyrica Unable to assess criticality seizures | Severe 08/02/2014 Baclofen Unable to assess criticality 11/23/2020 Latex Unable to assess criticality Hives | Moderate 08/04/2017 Bee Sting Unable to assess criticality 11/23/2020 Ketorolac Tromethamine Unable to assess criticality 11/23/2020 Tramadol Unable to assess criticality 11/23/2020 Medications Active Medications SIG Qnty Indications Ordering Provide r Date Acetaminophen-Codeine #3 300-30mg Tablets take 1 tablet every 8 hours as needed for pain. May cause drowsiness. Do not drive or operate heavy [employer] while taking. 20tabs Ailyn Weller MD 07/09/2021 Tizanidine HCL 4mg Tablets 1 by mouth three times a day 90tabs Ailyn Weller MD 05/31 Omeprazole 20mg Capsules Oma Rosales, FIELD MACHINIST Propranolol HCL 20mg Tablets Unknown Gabapentin 400mg Capsules Unknown Abilify 20mg Tablets Unknown History Medications Lidoderm 5% Patches use as directed on 12 hours off 12 hours up to 3 patches a day 90units Felix Warner MD 05/31/2021 - 06/01/2021 Immunizations Description No Information Available Vital Signs Date Vital Result Comment 05/31/2021 10:50am Body Temperature 97.2 F Height 66 inches 5'6" Weight 281.00 lb BMI (Body Mass Index) 45.3 kg/m2 09/15/2020 2:11pm Body Temperature 96.9 F Height 64 inches 5'4" Weight 190.00 lb BMI (Body Mass Index) 32.6 kg/m2 Procedures Date Code Description Status 07/09/2021 13543 Office/Outpatient Established Lo w MDM 20-29 Min Completed 05/31/2021 15002 Office/Outpatient New Moderate M DM 45-59 Minutes Completed Medical Devices Description No Information Available Encounters Description No Information Available Assessments Date Code Description Provider 07/09/2021 M51.27 Other intervertebral disc displa cement, lumbosacral region Sol Valenzuela PA-C 07/09/2021 M51.37 Other intervertebral disc degene ration, lumbosacral region Sol Valenzuela PA-C 07/09/2021 M47.897 Other spondylosis, lumbosacral r egion Sol Valenzuela PA-C 05/31/2021 M51.36 Other intervertebral disc degene ration, lumbar region Felix Warner MD 05/31/2021 M47.896 Other spondylosis, lumbar region Felix Warner MD 05/31/2021 M51.27 Other intervertebral disc displa cement, lumbosacral region Felix Warner MD 05/31/2021 M51.37 Other intervertebral disc degene ration, lumbosacral region Felix Warner MD 05/31/2021 M47.897 Other spondylosis, lumbosacral r egion Felix Warner MD Plan of Treatment Future Appointment(s):* 08/13/2021 11:30 am - Sol Valenzuela PA-C at [place] 07/09/2021 - Sol Valenzuela PA-C* M51.27 Other intervertebral disc displacement, lumbosacral region* Follow up:* after Bone scan with ISABEL. * M51.37 Other intervertebral disc degeneration, lumbosacral region * M47.897 Other spondylosis, lumbosacral region * All * New Medication:* Acetaminophen-Codeine #3 300-30 mg - take 1 tablet every 8 hours as needed for pain. May cause drowsiness. Do not drive or operate heavy [email or web address] while taking. Functional Status Description No Information Available Mental Status Description No Information Available Referrals Refer to Dr Reason for Referral Status Appt Date Sol Valenzuela PA-C BONE SCAN (84827) APPROVED PER [facility] WEB T O TRIAGE. MITCH Created [facility] [facility] [address] [place] [address] [phone] Felix Warner MD MRI APPROVED PER [facility] [employer] FOR MRI OF LUMBAR SPINE W & W/O (29922) TO LIZY S. DG Created [address] [facility] [address], [address] [place] [address] [phone] Felix Warner MD M54.5 LOW BACK PAIN Created 000 [address] [facility], [facility] [address] [place] [address] [phone]
--- OUTSIDE RECORDS SUMMARY | 2021-08-30 19:04 | CCD ---
Author Author [facility] Organization [facility] Address Unknown Phone Unavailable Care Team Providers Care Suede Cleaner Name Role Phone Oma Noland Unavailable PROBLEMS Type Condition ICD9-CM Code VSU37-MG Code Onset Dates Condition S tatus W/U Status Risk SNOMED Code Notes Problem Bipolar 1 disorder F31.9 Active confirmed 3 83167452 By history Problem Vitamin D deficiency E55.9 Active confirmed 77817330 Problem Chronic post-traumatic stress disorder (PTSD) F43. 12 Active confirmed 206059367 Problem Insomnia, unspecified type G47.00 Active confirmed 533800993 Problem Personality disorder F60.9 Active confirmed 44480684 Problem Anxiety F41.9 Active confirmed 07870600 Problem Status post hysterectomy Z90.710 Active confirmed 981119791 Problem Morbid (severe) obesity due to excess calories E66 .01 Active confirmed 30959014939772 Problem Smoking F17.200 Active confirmed 55072113 Problem Urinary incontinence in female R32 Active confir med 070870032 Problem Mental health disorder F99 Active confirmed 75388074 Problem GERD without esophagitis K21.9 Active confirmed 259504702 Problem Adjustment disorder with mixed anxiety and depressed mood F43.23 Active confirmed 831716578 r/t new diagnosi s Problem Personal history of other endocrine, nut ritional and metabolic disease Z86.39 Active confirmed 527665660 Problem Asthma, unspecified asthma s everity, unspecified whether complicated, unspecified whether persistent J45.909 Active confirmed 004716449 Problem Body mass index [BMI] 45.0-49.9, adult Z68.42 A ctive confirmed 597333693 Problem Body mass index [BMI] 50.0-59.9, adult Z68.43 A ctive confirmed 598643970 Problem Allergy to bee sting Z91.030 Active confirmed 148087698 ALLERGIES Allergen (clinical drug ingredient) Drug/Non Drug [...] Drug Allergy Active ENCOUNTERS from 1986 to 2021-08-27 Encounter Location Date Provider Diagnosis [address] [address] 15 Aug, 2021 Oma Ludin IMMUNIZATIONS No Information SOCIAL HISTORY Tobacco Use: [...] Notes Start Da te End Date Status Albuterol Sulfate HFA 108 (90 Base) MCG/ACT 2 puffs as needed Inhalation every 4 hrs Active EpiPen 0.3 MG/0.3ML as directed Injection once for 30 days Active clonazePAM 1 MG 1 tablet Orally q12 h prn for 5 days 29 Se 2020 Active Gabapentin 600 MG 1 capsule Orally tid Feb, Active Acetaminophen-Codeine #3 300-30 MG Oral for 15 Active Abilify 20 MG 1 tablet Orally Once a day Jan, Active Cipro 500 MG 1 tablet Orally every 12 hrs for 7 days 05 Oc 2020 Active Omeprazole 20 MG 1 capsule 30 minutes before morning meal Orally Once a day for 30 day(s) Active Propranolol HCl 20 MG 1 tablet Orally q8h prn anxiety 23 M 2020 Active KlonoPIN 1 MG 1 tablet Orally q12h prn mdd 2 for 5 days 13 Aug, 2021 Active PROCEDURES No Information RESULTS No Results REASON FOR VISIT Referrals MEDICAL (GENERAL) HISTORY Type Description Date Medical History PTSD Medical History Bipolar 1 Disorder Medical History Hypothyroidism Medical History Vitamin D deficiency Medical History Personality disorder Medical History Insomnia Medical History GERD Medical History [place] Medical History Asthma Medical History TBI Surgical History complete hysterectomy second yolanda to cervical cancer & endometriosis 2010 Surgical History cholecystectomy 2007 Surgical History Colonoscopy 2017 Hospitalization History Mental Health Inpatient [facility] Goals Section No Information Health Concerns No Information MEDICAL EQUIPMENT No Information MENTAL STATUS No Information FUNCTIONAL STATUS No Information ASSESSMENTS No Information PLAN OF TREATMENT Medication Medication Name Sig Start Date Stop Date KlonoPIN 1 MG 1 tablet Orally q12h prn mdd 2 for 5 days Aug Next Appt Details Provider Name:Grace Mcghee, 2021-08-30 11:00:00 AM, [address] [place] [address], [phone], Provider Name:Eileen Pozo, 09-05 09:00:00 AM, [address] [place] [address], [phone], Provider Name:Grace Mcghee, 2021-09-06 11:00:00 AM, [address] [place] [address], [phone], Provider Name:Grace Mcghee, 2021-09-13 11:00:00 AM, [address] [place] [address], [phone], Provider Name:Oma Noland, 5 08:30:00 AM, [address] [place] [address], [phone], Provider Name:Grace Mcghee 2021-09-20 11:00:00 AM, [address] [place] [address], [phone], Provider Name:Grace Mcghee 2021-09-27 11:00:00 AM, [address] [place] [address], [phone], Insurance Providers Payer Name Payer Address Payer Phone Insured Name Patient Relati onship to Insured Coverage Start Date Coverage End Date [facility] [employer] MEDICAID [address] [facility] [id number] Stephenie Collado self
--- OUTSIDE RECORDS SUMMARY | 2021-08-30 19:04 | CCD ---
Author Author [facility] Organization [facility] Address Unknown Phone Unavailable Care Team Providers Care Metal Sprayer Name Role Phone Oma Noland Unavailable PROBLEMS Type Condition ICD9-CM Code [id number] Code Onset Dates Condition S tatus W/U Status Risk SNOMED Code Notes Problem Bipolar 1 disorder F31.9 Active confirmed 3 [id number] By history Problem Vitamin D deficiency E55.9 Active confirmed 81942522 Problem Chronic post-traumatic stress disorder (PTSD) F43. 12 Active confirmed 851022419 Problem Insomnia, unspecified type G47.00 Active confirmed 346930961 Problem Personality disorder F60.9 Active confirmed 87073698 Problem Anxiety F41.9 Active confirmed 52640572 Problem Status post hysterectomy Z90.710 Active confirmed 479662834 Problem Morbid (severe) obesity due to excess calories E66 .01 Active confirmed 50493921678408 Problem Smoking F17.200 Active confirmed 08037246 Problem Urinary incontinence in female R32 Active confir med 865213861 Problem Mental health disorder F99 Active confirmed 92496406 Problem GERD without esophagitis K21.9 Active confirmed 317674073 Problem Adjustment disorder with mixed anxiety and depressed mood F43.23 Active confirmed 681409139 r/t new diagnosi s Problem Personal history of other endocrine, nut ritional and metabolic disease Z86.39 Active confirmed 793822257 Problem Asthma, unspecified asthma s everity, unspecified whether complicated, unspecified whether persistent J45.909 Active confirmed 667931542 Problem Body mass index [BMI] 45.0-49.9, adult Z68.42 A ctive confirmed 735056668 Problem Body mass index [BMI] 50.0-59.9, adult Z68.43 A ctive confirmed 657328520 Problem Allergy to bee sting Z91.030 Active confirmed 682303570 ALLERGIES Allergen (clinical drug ingredient) Drug/Non Drug [...] Drug Allergy Active ENCOUNTERS from 1986 to 2021-08-19 Encounter Location Date Provider Diagnosis [address] [address] Aug, Oma Noland UTI symptoms R39.9 ; Cystiti s N30.90 ; Low back pain, unspecified back pain laterality, unspecified chronicity, unspecified whether sciatica present M54.50 ; Morbid (severe) obesity due to excess calories E66.01 ; Body mass index [BMI] 50.0-59.9, adult Z68.43 ; Screening for hyperlipidemia Z13.220 and Anxiety F41.9 IMMUNIZATIONS No Information SOCIAL HISTORY Tobacco Use: [...] REASON FOR REFERRAL No Information VITAL SIGNS Height 63 in Aug, Weight 290.8 lbs Aug, BMI 51.51 kg/m2 Aug, Temperature 97.8 degrees Fahrenheit Aug, Heart Rate 93 /min Aug, Respiratory Rate 18 /min Aug, Oximetry 97 % Aug, Blood pressure systolic 112 mmHg Aug, Blood pressure diastolic 70 mmHg Aug, MEDICATIONS Medication SIG (Take, Route, Frequency, Duration) Notes Start Da te End Date Status Gabapentin 600 MG 1 capsule Orally tid Feb, Active Albuterol Sulfate HFA 108 (90 Base) MCG/ACT 2 puffs as needed Inhalation every 4 hrs Active Acetaminophen-Codeine #3 300-30 MG Oral for 15 Active Omeprazole 20 MG 1 capsule 30 minutes before morning meal Orally Once a day for 30 day(s) Active clonazePAM 1 MG 1 tablet Orally q12 h prn for 5 days 29 Se p, 2020 Active KlonoPIN 1 MG 1 tablet Orally Once a day Active Abilify 20 MG 1 tablet Orally Once a day Jan, Active Propranolol HCl 20 MG 1 tablet Orally q8h prn anxiety 23 M ar, 2020 Active Cipro 500 MG 1 tablet Orally every 12 hrs for 7 days 05 Oc t, 2020 Active EpiPen 0.3 MG/0.3ML as directed Injection once for 30 days Active PROCEDURES No Information RESULTS Component Value Reference Range Urinalysis, Routine Reviewed date:08/14/2021 10:38:24 Interpretation: Performing Lab: Microscopic Examination Urine-Color stewart Appearance cloudy Specific [place] 1.025 pH 5 Glucose NEG Protein NEG Occult Blood TRACE Bilirubin NEG Urobilinogen,Semi-Qn NEG Nitrite, Urine POS Ketones NEG WBC Esterase TRACE Urinalysis Gross Exam REASON FOR VISIT FOLLOW UP MEDICAL (GENERAL) HISTORY Type Description Date Medical [...] No Information FUNCTIONAL STATUS No Information ASSESSMENTS Encounter Date Diagnosis Assessment Notes Treatment Notes Treatm ent Clinical Notes Aug, UTI symptoms (ICD-10 - R39.9) 1. Increase fluids. 2. Tylenol/Motrin as needed for pain/fevers. 3. Prevention of UTIs: Do not hold urine (go to bathroom when need to), urinate immediately after sex, wear cotton underwear, change out of wet/sweaty clothes CHLOÉ. 4. Finish entire course of ABX, even if well. 5. Take ABX with food and supplement diet with yogurt/probiotic to prevent diarrhea/yeast infections. 6. Follow up with CC or PCP if symptoms do not improve in 3-5 days or develop s/s yeast infection (itching, vaginal discharge).7. Follow up with ED for worsening symptoms, fevers that are uncontrolled with tylenol/motrin, development of back/flank pain The patient continues to have UTI symptoms. Ordered routine urinalysis to assess status. Will switch her from Bactrim to Cipro today. Advised to follow up if symptoms worsen or persist. Precautions given and patient verbalized understanding. Follow up as needed. Aug, Cystitis (ICD-10 - N30.90) As above If symptoms do not resolve after this course of antibiotics will refer to Urology Aug, Low back pain, unspecified b ack pain laterality, unspecified chronicity, unspecified whether sciatica present (ICD-10 - M54.50) Keep follow ups with ortho. Complete PET scan as ordered Aug, Morbid (severe) obesity due to excess calories ( ICD-10 - E66.01) Recommend increasing low impact activity (walking, swimming, yoga), weight loss and diet including portion control, avoidance of high glycemic index foods like white bread, white pasta, white rice, white sugar and avoidance of fatty foods like butter, fried foods, steak/ground beef, full fat dairy products. Avoid sugary beverages like fruit juice, soda and alcohol. Consume lean protein including fish, chicken and healthy fats like avocado, nuts and olive oil. Check food labels and avoid foods high in salt especially prepackaged meals. Try to eat structured meals throughout the day, ensuring obtaining macronutrients at each meal (proteins, fats, carbohydrates). [place] [employer] recommends at least 120 minutes of aerobic activity per week. This can include any heart raising activity and does not need to be done all at once Provided order for previous ordered labs and lipid panel, so that patient has these completed prior to next visit Aug, Body mass index [BMI] 50.0-59.9, adult (ICD-10 - Z68.43) As above Aug, Screening for hyperlipidemia (ICD-10 - Z13.220) Screening labs ordered Aug, Anxiety (ICD-10 - F41.9) Continue with current management. Keep appointments with [facility]. Aug, Other All questions an d concerns addressed, patient understanding and agreeable to plan. Patient encouraged to follow up at the clinic for any additional or new questions or concerns. Time spent includes face to face time with patient and review of any pertinent laboratory results, consult documentation/hospital notes and diagnostic imaging. Time spent: 20 mins Cristy Whyte, scribing the following service on behalf of Oma Noland NP on 08/14/2021. PLAN OF TREATMENT Medication Medication Name Sig Start Date Stop Date Cipro 500 MG 1 tablet Orally every 12 hrs for 7 days Aug, Treatment Notes Assessment Notes Clinical Notes UTI symptoms 1. Increase fluids. 2. Tylen ol/Motrin as needed for pain/fevers. 3. Prevention of UTIs: Do not hold urine (go to bathroom when need to), urinate immediately after sex, wear cotton underwear, change out of wet/sweaty clothes CHLOÉ. 4. Finish entire course of ABX, even if well. 5. Take ABX with food and supplement diet with yogurt/probiotic to prevent diarrhea/yeast infections. 6. Follow up with CC or PCP if symptoms do not improve in 3-5 days or develop s/s yeast infection (itching, vaginal discharge).7. Follow up with ED for worsening symptoms, fevers that are uncontrolled with tylenol/motrin, development of back/flank pain The patient continues to have UTI sympto ms. Ordered routine urinalysis to assess status. Will switch her from Bactrim to Cipro today. Advised to follow up if symptoms worsen or persist. Precautions given and patient verbalized understanding. Follow up as needed. Cystitis As above If symptoms do not r esolve after this course of antibiotics will refer to Urology Low back pain, unspecified back pain lat erality, unspecified chronicity, unspecified whether sciatica present Keep follow ups with ortho.Complete PET scan as ordered Morbid (severe) obesity due to excess calories Recomme nd increasing low impact activity (walking, swimming, yoga), weight loss and diet including portion control, avoidance of high glycemic index foods like white bread, white pasta, white rice, white sugar and avoidance of fatty foods like butter, fried foods, steak/ground beef, full fat dairy products. Avoid sugary beverages like fruit juice, soda and alcohol. Consume lean protein including fish, chicken and healthy fats like avocado, nuts and olive oil. Check food labels and avoid foods high in salt especially prepackaged meals. Try to eat structured meals throughout the day, ensuring obtaining macronutrients at each meal (proteins, fats, carbohydrates). [place] [employer] recommends at least 120 minutes of aerobic activity per week. This can include any heart raising activity and does not need to be done all at once Provided order for previous ordered labs and lipid panel, so that patient has these completed prior to next visit Body mass index [BMI] 50.0-59.9, adult As above Screening for hyperlipidemia Screening l abs ordered Anxiety Continue with current management. Keep a ppointments with [facility]. Treatment Notes Test Name Order Date LIPID PROFILE 2021-08-14 URINE CULTURE, ROUTINE 2021-08-14 Next Appt Details 4 Weeks, prn Reason:Lab review/update on medication Provider Name:Eileen Pozo, 08-22 09:00:00 AM, [address] [place] [address], [phone], Provider Name:Grace Mcghee, 2021-08-23 11:00:00 AM, [address] [place] [address], [phone], Provider Name:Grace Mcghee, 2021-08-30 11:00:00 AM, [address] [place] [address], [phone], Provider Name:Grace Mcghee, 2021-09-06 11:00:00 AM, [address] [place] [address], [phone], Provider Name:Grace Mcghee, 2021-09-13 11:00:00 AM, [address] [place] [address], [phone], Provider Name:Oma Noland, 5 08:30:00 AM, [address] [place] [address], [phone], Follow Up:4 Weeks, prnLab review/update on medication Insurance Providers Payer Name Payer Address Payer Phone Insured Name Patient Relati onship to Insured Coverage Start Date Coverage End Date [facility] - [employer] MEDICAID [address] [facility] [id number] Stephenie Collado
--- OUTSIDE RECORDS SUMMARY | 2021-08-30 19:04 | CCD | Continuity of Care Document ---
Author Author Stephenie PINEDA MD Organization Unknown Address [address] [facility] [place] [address] Phone [phone] Care Team Providers Care Hand Counter Name Role Phone Oma Noland WEB PROJECT MANAGER AUTM [phone] Problems Active Problems Provider Date Sprain of [...] anomaly Onset: Family history of asthma Onset: 00 Mental disorder Onset: FH: Anemia Onset: Family [...] Onset : Family history of stroke Onset: 00 Social History Type Date Description Comments Sex Unknown ETOH Use Rarely consumes alcohol Tobacco Use Start: Unknown Patient is a current smoker, smo kes every day Allergies, Adverse Reactions, Alerts Active Allergies Reaction Severity Comments Date Acetaminophen 11/23/2020 Lyrica seizures Severe 08/02/2014 Baclofen 11/23/2020 Latex Hives Moderate 08/04/2017 Bee Sting 11/23/2020 Ketorolac Tromethamine 11/23 Tramadol 11/23/2020 Medications Active Medications SIG Qnty Indications Ordering Provide r Date Tizanidine HCL 4mg Tablets 1 by mouth three times a day 90tabs Ailyn Weller MD 05/[address] Moreland, Oma Acuna, JAYASHREE Propranolol HCL 20mg Tablets Unknown Gabapentin 400mg Capsules Unknown Abilify 20mg Tablets Unknown History Medications Lidoderm 5% Patches use as directed on 12 hours off 12 hours up to 3 patches a day 90units Felix Pineda MD 05/31/2021 - 06/01/2021 Immunizations Description No Information Available Vital Signs Date Vital Result Comment 05/31/2021 10:50am Body Temperature 97.2 F Height 66 inches 5'6" Weight 281.00 lb BMI (Body Mass Index) 45.3 kg/m2 09/15/2020 2:11pm Body Temperature 96.9 F Height 64 inches 5'4" Weight 190.00 lb BMI (Body Mass Index) 32.6 kg/m2 Procedures Date Code Description Status 05/31/2021 24349 Office/Outpatient New Moderate M DM 45-59 Minutes Completed Medical Devices Description No Information Available Encounters Description No Information Available Assessments Date Code Description Provider 05/31/2021 M51.36 Other intervertebral disc degene ration, lumbar region Felix Pineda MD 05/31/2021 M47.896 Other spondylosis, lumbar region Felix Pineda MD 05/31/2021 M51.27 Other intervertebral disc displa cement, lumbosacral region Felix Pineda MD 05/31/2021 M51.37 Other intervertebral disc degene ration, lumbosacral region Felix Pineda MD 05/31/2021 M47.897 Other spondylosis, lumbosacral r egion Felix Pineda MD Plan of Treatment 05/31/2021 - Felix Pineda MD* M51.36 Other intervertebral disc degeneration, lumbar region * M47.896 Other spondylosis, lumbar region * M51.27 Other intervertebral disc displacement, lumbosacral region * M51.37 Other intervertebral disc degeneration, lumbosacral region * M47.897 Other spondylosis, lumbosacral region* Follow up:* after Lumbar MRI results with any PA. * All * New Medication:* Tizanidine HCL 4 mg - 1 by mouth three times a day * Lidoderm 5 % - use as directed on 12 hours off 12 hours up to 3 patches a day Functional Status Description No Information Available Mental Status Description No Information Available Referrals Refer to Reason for Referral Status Appt Date Felix Pineda MD MRI APPROVED PER [facility] FOR MRI OF LUMBAR SPINE W & W/O (15869) TO LIZY Butler DG Created [address] [place] [phone] Felix Pineda MD M54.5 LOW BACK PAIN Created [address] [place] [phone]
--- OUTSIDE RECORDS SUMMARY | 2021-08-30 19:04 | CCD ---
Author Author [facility] Organization [facility] Address Unknown Phone Unavailable Care Team Providers Care Software Quality Test Engineer Name Role Phone Oma Noland Unavailable PROBLEMS Type Condition ICD9-CM Code [id number] Code Onset Dates Condition S tatus W/U Status Risk SNOMED Code Notes Problem Chronic post-traumatic stress disorder (PTSD) F43. 12 Active confirmed 964772871 Problem Bipolar 1 disorder F31.9 Active confirmed 3 89128664 By history Problem Personality disorder F60.9 Active confirmed 38132218 Problem Vitamin D deficiency E55.9 Active confirmed 68696070 Problem Status post hysterectomy Z90.710 Active confirmed 319113937 Problem Insomnia, unspecified type G47.00 Active confirmed 722838375 Problem Morbid (severe) obesity due to excess calories E66 .01 Active confirmed 70404043055140 Problem Smoking F17.200 Active confirmed 05960682 Problem Urinary incontinence in female R32 Active confir med 466067143 Problem Allergy to bee sting Z91.030 Active confirmed 586431221 Problem Personal history of other endocrine, nut ritional and metabolic disease Z86.39 Active confirmed 499069325 Problem Mental health disorder F99 Active confirmed 19034258 Problem Anxiety F41.9 Active confirmed 91026774 Problem Asthma, unspecified asthma s everity, unspecified whether complicated, unspecified whether persistent J45.909 Active confirmed 379798511 Problem Body mass index [BMI] 45.0-49.9, adult Z68.42 A ctive confirmed 686147507 Problem GERD without esophagitis K21.9 Active confirmed 949429374 Problem Body mass index [BMI] 50.0-59.9, adult Z68.43 A ctive confirmed 096227878 ALLERGIES Allergen (clinical drug ingredient) Drug/Non Drug [...] Drug Allergy Active ENCOUNTERS from 1986 to 2021-07-18 Encounter Location Date Provider Diagnosis [address] [address] Jun, Oma Noland Urinary tract infection with out hematuria, site unspecified N39.0 ; UTI symptoms R39.9 ; Low back pain, unspecified back pain laterality, unspecified chronicity, unspecified whether sciatica present M54.5 ; Mental health disorder F99 ; Weight gain R63.5 ; Morbid (severe) obesity due to excess calories E66.01 ; Body mass index [BMI] 50.0-59.9, adult Z68.43 and Medication refill Z76.0 IMMUNIZATIONS No Information SOCIAL HISTORY Tobacco Use: [...] No Information VITAL SIGNS Height 63 in Jun, Weight 290.2 lbs Jun, BMI 51.40 kg/m2 Jun, Temperature 98.0 degrees Fahrenheit Jun, Heart Rate 81 /min Jun, Respiratory Rate 18 /min Jun, Oximetry 98 % Jun, Blood pressure systolic 108 mmHg Jun, Blood pressure diastolic 66 mmHg Jun, MEDICATIONS Medication SIG (Take, Route, Frequency, Duration) [...] a day Active PROCEDURES No Information RESULTS Component Value Reference Range Urinalysis, Routine Reviewed date:07/05/2021 11:41:07 Interpretation: Performing Lab: Microscopic Examination Urine-Color yellow Appearance cloudy Specific [place] 1.015 pH 6 Glucose Neg Protein NEG Occult Blood NEG Bilirubin NEG Urobilinogen,Semi-Qn NEG Nitrite, Urine POS Ketones NEG WBC Esterase NEG Urinalysis Gross Exam REASON FOR VISIT 6 week med follow up MEDICAL (GENERAL) HISTORY Type Description Date Medical History PTSD Medical History Bipolar 1 Disorder Medical History Hypothyroidism Medical History Vitamin D deficiency Medical History Personality disorder Medical History Insomnia Medical History GERD Medical History Chrons Medical History Asthma Medical History TBI Surgical History complete hysterectomy second yolanda to cervical cancer & endometriosis 2009 Surgical History cholecystectomy 2007 Surgical History Colonoscopy 2017 Hospitalization History Mental Health Inpatient Multiple [facility] Goals Section No Information Health Concerns No Information MEDICAL EQUIPMENT No Information MENTAL STATUS No Information FUNCTIONAL STATUS No Information ASSESSMENTS Encounter Date Diagnosis Assessment Notes Treatment Notes Treatm ent Clinical Notes Jun, Urinary tract infection with out hematuria, site unspecified (ICD-10 - N39.0) 1. Increase fluids. 2. Tylenol/Motrin as needed [...] worsening symptoms, fevers that are uncontrolled with tylenol/Motrin, development of back/flank pain As above Jun, UTI symptoms (ICD-10 - R39.9) Urinalysis is nitrate positive. Reviewed record and she has previously done well on Bactrim. Previously culture is sensitive to this. Will start Bactrim and await urine culture results Jun, Low back pain, unspecified b ack pain laterality, unspecified chronicity, unspecified whether sciatica present (ICD-10 - M54.5) Keep appointments with Ortho. Will have Mery Cantu RN assist with coordinating your follow up care Increased the dosage of gabapentin today she has already been on this from Mental Health. Precautions given and patient verbalized understanding. Jun, Mental health disorder (ICD-10 - F99) Keep appointments with [facility] Jun, Weight gain (ICD-10 - R63.5) The patient had gained around 18.6 pounds of the body weight since the previous visit and currently weighs around 290.2 pounds with a BMI of 51.40 Index. Jun, Morbid (severe) obesity due to excess calories [...] macronutrients at each meal (proteins, fats, carbohydrates). [place] [employer] recommends at least 120 minutes of aerobic activity per week. This can include any heart raising activity and does not need to be done all at once Jun, Body mass index [BMI] 50.0-59.9, adult (ICD-10 - Z68.43) As above Jun, Medication refill (ICD-10 - Z76.0) Refill of epi-pen provided due to Bee allergy. She reports current epi-pens are Jun, Other All questions an d concerns addressed, patient understanding and agreeable to plan. Patient encouraged to follow up at the clinic for any additional or new questions or concerns. Encouraged to have labs drawn before next visit Time spent includes face to face time with patient and review of any pertinent laboratory results, consult documentation/hospital notes and diagnostic imaging. Time spent: 30mins Cristy Whyte, scribing the following service on behalf of Oma Noland NP on 07/04/2021. PLAN OF TREATMENT Medication Medication Name Sig Start Date Stop Date EpiPen 0.3 MG/0.3ML as directed Injection once for 30 days Gabapentin 600 MG 1 capsule Orally tid for 30 days Feb, Bactrim DS 800-160 MG 1 tablet Orally Twice a day for 7 days Jun, Treatment Notes Assessment Notes Clinical Notes Urinary tract infection without hematuria, site unspec ified 1. Increase fluids. 2. Tylenol/Motrin as needed [...] worsening symptoms, fevers that are uncontrolled with tylenol/Motrin, development of back/flank pain As above UTI symptoms Urinalysis is nitrat e positive. Reviewed record and she has previously done well on Bactrim. Previously culture is sensitive to this. Will start Bactrim and await urine culture results Low back pain, unspecified back pain lat erality, unspecified chronicity, unspecified whether sciatica present Keep appointments with Ortho. Will have Mery Cantu RN assist with coordinating your follow up care Increased the dosage of gabapentin today she has already been on this from Mental Health. Precautions given and patient verbalized understanding. Mental health disorder [facility] Weight gain The patient had gained aroun d 18.6 pounds of the body weight since the previous visit and currently weighs around 290.2 pounds with a BMI of 51.40 Index. Morbid (severe) obesity due to excess calories [...] macronutrients at each meal (proteins, fats, carbohydrates). [place] [employer] recommends at least 120 minutes of aerobic activity per week. This can include any heart raising activity and does not need to be done all at once Body mass index [BMI] 50.0-59.9, adult As above Medication refill Refill of epi-pen provided d ue to Bee allergy. She reports current epi-pens are Treatment Notes Test Name Order Date URINE CULTURE 2021-07-05 Next Appt Details 4 Weeks Reason:lab results Provider Name:Grace Mcghee, 2021-07-19 10:45:00 AM, [address] [place] [address], [phone], Provider Name:Eileen Pozo, 07-20 11:00:00 AM, [address] [place] [address], [phone], Provider Name:Grace Mcghee, 2021-08-02 11:00:00 AM, [address] [place] [address], [phone], Provider Name:Oma Noland, 2021-07-12 8 10:00:00 AM, [address] [place] [address], [phone], Provider Name:Grace Mcghee, 2021-08-09 11:00:00 AM, [address] [place] [address], [phone], Provider Name:Grace Borjasley, 2021-08-16 11:00:00 AM, [address] [place] [address], [phone], Provider Name:Grace Litzy, 2021-08-23 11:00:00 AM, [address] [place] [address], [phone], Provider Name:Grace Mcghee, 2021-08-30 11:00:00 AM, [address] [place] [address], [phone], Provider Name:Grace Litzy, 2021-09-06 11:00:00 AM, [address] [place] [address], [phone], Follow Up:4 Weekslab results Insurance Providers Payer Name Payer Address Payer Phone Insured Name Patient Relati onship to Insured Coverage Start Date Coverage End Date [facility] - [employer] MEDICAID [address] [facility] [id number] Stephenie Collado
--- OUTSIDE RECORDS SUMMARY | 2021-08-30 19:04 | CCD | Continuity of Care Document ---
Author Author Stephenie VALENZUELA PA-C Organization Unknown Address [address] [place] [address] Phone [phone] Care Team Providers Care Academic Dean Name Role Phone Oma Noland NP AUTM [phone] Problems Active Problems Provider Date Sprain of ankle Onset: 08/01/2017 Opioid abuse Onset: 08/01/2017 Passive smoker Onset: 07/15/2017 Polysubstance abuse Onset: 07/09/2017 Tobacco user Onset: 07/09/2017 Swollen legs Onset: 06/17/2017 Acute cervical sprain Onset: 05/27/2017 Low back pain Onset: 03/28/2017 Adult health examination Onset: 03/05/20 17 Abdominal pain Onset: 08/02/2014 Irritable bowel syndrome Onset: 05/26/20 14 Family history of breast cancer Onset: 0 Family history of congenital disease Ons et: Family history of asthma Onset: 00 Mental [...] a current smoker, smo kes every day Allergies and adverse reactions Active Allergies Criticality Reaction | Severity Comments [...] Acetaminophen-Codeine #3 300-30mg Tablets take 1 tablet by mouth qhs no refills 30tabs Tony barnhart MD 07/09/2021 Tizanidine HCL 4mg Tablets 1 by mouth three times a day 90tabs Ailyn Weller MD 05/[address] Moreland, Oma Acuna, LETTER STAMPING MACHINE OPERATOR Propranolol HCL 20mg Tablets Unknown Gabapentin 400mg [...] 32.6 kg/m2 Procedures Date Code Description Status 08/13/2021 75756 Office/Outpatient Established Mo d MDM 30-39 Min Completed 07/09/2021 23026 Office/Outpatient Established Lo w MDM 20-29 Min Completed 05/31/2021 75510 Office/Outpatient New Moderate M DM 45-59 Minutes Completed Medical Devices Description No Information Available Encounters Type Date Location Provider Dx Diagnosis Office Visit 08/13/2021 11:30a [place] Sol Pelayo GERARDO ValenzuelaC M51.27 Other intervertebral disc displacement, lumbosacral region M51.37 Other intervertebral disc de generation, lumbosacral region M47.897 Other spondylosis, lumbosacr al region R26.89 Other abnormalities of gait and mobility Assessments Date Code Description Provider 08/13/2021 M51.27 Other intervertebral disc displa cement, lumbosacral region Sol Pelayo GERARDO ValenzuelaC 08/13/2021 M51.37 Other intervertebral disc degene ration, lumbosacral region Sol Pelayo Elia PA-C 08/13/2021 M47.897 Other spondylosis, lumbosacral r egion Sol Pelayo GERARDO ValenzuelaC 08/13/2021 R26.89 Other abnormalities of gait and mobility Sol Pelayo Elia PA-C 07/09/2021 M51.27 Other intervertebral disc displa cement, lumbosacral region Sol Pelayo GERARDO ValenzuelaC 07/09/2021 M51.37 Other intervertebral disc degene ration, lumbosacral region Sol Pelayo Elia PA-C 07/09/2021 M47.897 Other spondylosis, lumbosacral r egion Sol Pelayo GERARDO ValenzuelaC 05/31/2021 M51.36 Other intervertebral disc degene ration, lumbar region Felix Warner MD 05/31/2021 M47.896 Other spondylosis, lumbar region Felix Warner MD 05/31/2021 M51.27 Other intervertebral disc displa cement, lumbosacral region Felix Warner MD 05/31/2021 M51.37 Other intervertebral disc degene ration, lumbosacral region Felix Warner MD 05/31/2021 M47.897 Other spondylosis, lumbosacral r egion Felix Warner MD Plan of Treatment Future Appointment(s):* 08/28/2021 2:30 pm - Saleem Garcia, PT, DPT at Physical Therapy 08/13/2021 - Sol AmarjitConcha Valenzuela PA-C* M51.27 Other intervertebral disc displacement, lumbosacral region* New Xrays:* PET CT Scan, Ordered: 08/13/21 * New Orders:* Referral, Ordered: 08/13/21 * Referral, Ordered: 08/13/21 * Follow up:* after Pet CT Scan results with [facility]. * M51.37 Other intervertebral disc degeneration, lumbosacral region * M47.897 Other spondylosis, lumbosacral region * R26.89 Other abnormalities of gait and mobility Functional Status Description No Information Available Mental Status Description No Information Available Referrals Refer to Dr Reason for Referral Status Appt Date Authorization for PT eval fo r Lspine. 30741, 36855, 53761. Patient going to [facility]. Passed to PT department. LS Created Authorization for 56976, Lspine, 64- 15 min visi ts. LS Created Sol Valenzuela PA-C BONE SCAN ([id number]) APPROVED PER [facility] WEB T O TRIAGE. DG Created [address] [place], [place] [id number] [place] [address] [phone] Felix Warner MD MRI APPROVED PER [facility] [employer] FOR MRI OF LUMBAR SPINE W & W/O (07836) TO LIZY GonzalezConcha DG Created [address] [place] [address], [address] [place] [address] [phone] Felix Warner MD M54.5 LOW BACK PAIN Created [address] [place] [address], [address] [address] [phone]
--- OUTSIDE RECORDS SUMMARY | 2021-08-30 19:04 | CCD ---
Author Author [facility] Organization [facility] Address Unknown Phone Unavailable Care Team Providers Care Laboratory Mechanical Technician Name Role Phone Oma Noland Unavailable PROBLEMS Type Condition ICD9-CM Code FAL76-ZM Code Onset Dates Condition S tatus W/U Status Risk SNOMED Code Notes Problem Bipolar 1 disorder F31.9 Active confirmed 3 86143414 By history Problem Vitamin D deficiency E55.9 Active confirmed 89243132 Problem Chronic post-traumatic stress disorder (PTSD) F43. 12 Active confirmed 661539308 Problem Insomnia, unspecified type G47.00 Active confirmed 533831625 Problem Personality disorder F60.9 Active confirmed 87567242 Problem Anxiety F41.9 Active confirmed 79712030 Problem Status post hysterectomy Z90.710 Active confirmed 038007611 Problem Morbid (severe) obesity due to excess calories E66 .01 Active confirmed 78428899028706 Problem Smoking F17.200 Active confirmed 98508115 Problem Urinary incontinence in female R32 Active confir med 668740356 Problem Mental health disorder F99 Active confirmed 42387091 Problem GERD without esophagitis K21.9 Active confirmed 673701374 Problem Adjustment disorder with mixed anxiety and depressed mood F43.23 Active confirmed 149409835 r/t new diagnosi s Problem Personal history of other endocrine, nut ritional and metabolic disease Z86.39 Active confirmed 376349309 Problem Asthma, unspecified asthma s everity, unspecified whether complicated, unspecified whether persistent J45.909 Active confirmed 015636180 Problem Body mass index [BMI] 45.0-49.9, adult Z68.42 A ctive confirmed 889925053 Problem Body mass index [BMI] 50.0-59.9, adult Z68.43 A ctive confirmed 879724659 Problem Allergy to bee sting Z91.030 Active confirmed 436843063 ALLERGIES Allergen (clinical drug ingredient) Drug/Non Drug [...] Drug Allergy Active ENCOUNTERS from 1986 to 2021-07-27 Encounter Location Date Provider Diagnosis [address] [address] Jul, Oma Ludin IMMUNIZATIONS No Information SOCIAL HISTORY [...] Notes Start Da te End Date Status Bactrim DS 800-160 MG 1 tablet Orally Twice a day for 7 days Jun, Active Nebulizer - as directed PRN Not-Taking tiZANidine HCl 4 MG 1 tablet as needed Orally Three times a day Active Gabapentin 600 MG 1 capsule Orally tid Feb, Active Abilify 20 MG 1 tablet Orally Once a day Jan, Active Albuterol Sulfate HFA 108 (90 Base) MCG/ACT 2 puffs as needed Inhalation every 4 hrs Active clonazePAM 1 MG 1 tablet Orally Once a day mdd 1 for 5 days Jul, Active EpiPen 0.3 MG/0.3ML as directed Injection once for 30 days Active Propranolol HCl 20 MG 1 tablet Orally q8h prn anxiety 23 M 2020 Active Omeprazole 20 MG 1 capsule 30 minutes before morning meal Orally Once a day for 30 day(s) Active PROCEDURES No Information RESULTS No Results REASON FOR VISIT Follow up paperwork MEDICAL (GENERAL) HISTORY Type Description Date Medical [...] Medication Name Sig Start Date Stop Date Propranolol HCl 20 MG 1 tablet Orally q8h prn anxiety Jan, clonazePAM 1 MG 1 tablet Orally Once a day mdd 1 for 5 days 16 S , 2020 Gabapentin 600 MG 1 capsule Orally tid Feb, Abilify 20 MG 1 tablet Orally Once a day Jan, Next Appt Details Provider Name:Grace Mcghee, 2021-08-02 11:00:00 AM, [address] [place] [address], [phone], Provider Name:Eileen Pozo, 08-08 08:20:00 AM, [address] [place] [address], [phone], Provider Name:Grace Mcghee, 2021-08-09 11:00:00 AM, [address] [place] [address], [phone], Provider Name:Oma Noland, 5 07:40:00 AM, [address] [place] [address], [phone], Provider Name:Grace Mcghee 2021-08-16 11:00:00 AM, [address] [place] [address], [phone], Provider Name:Grace Mcghee 2021-08-23 11:00:00 AM, [address] [place] [address], [phone], Provider Name:Grace Mcghee 2021-08-30 11:00:00 AM, [address] [place] [address], [phone], Provider Name:Grace Mcghee, 2021-09-06 11:00:00 AM, [address] [place], [address], Insurance Providers Payer Name Payer Address Payer Phone Insured Name Patient Relati onship to Insured Coverage Start Date Coverage End Date [employer] - [employer] [address] [facility] [id number] Stephenie Collado self
--- OUTSIDE RECORDS SUMMARY | 2021-08-30 19:04 | CCD | Continuity of Care Document ---
Author Author Stephenie VALENZUELA PA-C Organization Unknown Address [address] [place] [address] Phone [phone] Care Team Providers Care Biodiesel Product Manager Name Role Phone Oma Noland TEACHER HOME THERAPY AUTM [phone] Problems Active Problems Provider Date Sprain of [...] 300-30mg Tablets take 1 tablet by mouth twice daily, no refills 10tabs Liudmila Lin MD 07/09/2021 Tizanidine HCL 4mg Tablets 1 by mouth three times a day 90tabs Ailyn Weller MD 05/[address] Moreland, Oma Acuna, ROU[employer] Propranolol HCL 20mg Tablets Unknown Gabapentin 400mg [...] kg/m2 Procedures Date Code Description Status 07/09/2021 32204 Office/Outpatient Established Lo w MDM 20-29 Min Completed 05/31/2021 79589 Office/Outpatient New Moderate M DM 45-59 Minutes Completed Medical Devices Description No Information Available Encounters Description No Information Available Assessments Date Code Description Provider 08/13/2021 M51.27 Other intervertebral disc displa cement, lumbosacral region Sol Pelayo GERARDO ValenzuelaC 08/13/2021 M51.37 Other intervertebral disc degene ration, lumbosacral region Sol Pelayo GERARDO ValenzuelaC 08/13/2021 M47.897 Other spondylosis, lumbosacral r egion Sol Pelayo CHRIS Valenzuela-C 08/13/2021 R26.89 Other abnormalities of gait and mobility Sol L. GERARDO ValenzuelaC 07/09/2021 M51.27 Other intervertebral disc displa cement, lumbosacral region Sol L. CHRIS Valenzuela-C 07/09/2021 M51.37 Other intervertebral disc degene ration, lumbosacral region Sol L. GERARDO ValenzuelaC 07/09/2021 M47.897 Other spondylosis, lumbosacral r egion Sol L. GERARDO ValenzuelaC 05/31/2021 M51.36 Other intervertebral disc degene ration, lumbar region Felix Warner MD 05/31/2021 M47.896 Other spondylosis, lumbar region Felix Warner MD 05/31/2021 M51.27 Other intervertebral disc displa cement, lumbosacral region Felix Warner MD 05/31/2021 M51.37 Other intervertebral disc degene ration, lumbosacral region Felix Warner MD 05/31/2021 M47.897 Other spondylosis, lumbosacral r egion Felix Warner MD Plan of Treatment 08/13/2021 - Sol AmarjitConcha Valenzuela PA-C* M51.27 [...] Appt Date Sol Valenzuela PA-C BONE SCAN (47783) APPROVED PER [facility] WEB T O TRIAGE. DG Created [address] [place], [place] [id number] [place] [address] [phone] Felix Warner MD MRI APPROVED PER [facility] FOR MRI OF LUMBAR SPINE W & W/O (41854) TO LIZY Butler DG Created [address] [place] [address], [address] [address] [phone] Felix Warner MD M54.5 LOW BACK PAIN Created [address] [place] [address], [address] [address] [phone]
--- OUTSIDE RECORDS SUMMARY | 2021-08-30 19:05 | CCD ---
Author Author [facility] Organization [facility] Address Unknown Phone Unavailable Care Team Providers Care Medical Housekeeper Name Role Phone Ludin, L Oma BREAD SUPERVISOR Unavailable Unavailable [place], L Oma BREAD SUPERVISOR Unavailable Unavailable [place], L Oma BREAD SUPERVISOR Unavailable Unavailable [place], L Oma BREAD SUPERVISOR Unavailable Unavailable [place], L Oma BREAD SUPERVISOR Unavailable Unavailable Ludin, L Oma BREAD SUPERVISOR Unavailable Unavailable Ludin, L Oma BREAD SUPERVISOR Unavailable Unavailable Ludin, L Oma BREAD SUPERVISOR Unavailable Unavailable Ludin, L Oma BREAD SUPERVISOR Unavailable Unavailable [place], L Oma BREAD SUPERVISOR Unavailable Unavailable [place], L Oma BREAD SUPERVISOR Unavailable Unavailable [place], L Oma BREAD SUPERVISOR Unavailable Unavailable [place], L Oma BREAD SUPERVISOR Unavailable Unavailable [place], L Oma BREAD SUPERVISOR Unavailable Unavailable [place], L Oma BREAD SUPERVISOR Unavailable Unavailable [place], L Oma BREAD SUPERVISOR Unavailable Unavailable Ludin, L Oma BREAD SUPERVISOR Unavailable Unavailable Ludin, L Oma BREAD SUPERVISOR Unavailable Unavailable Ludin, L Oma BREAD SUPERVISOR Unavailable Unavailable Ludin, L Oma BREAD SUPERVISOR Unavailable Unavailable [place], L Oma BREAD SUPERVISOR Unavailable Unavailable [place], L Oma BREAD SUPERVISOR Unavailable Unavailable Ludin, L Oma BREAD SUPERVISOR Unavailable Unavailable [place], L Oma BREAD SUPERVISOR Unavailable Unavailable Ludin, L Oma BREAD SUPERVISOR Unavailable Unavailable [place], L Oma BREAD SUPERVISOR Unavailable Unavailable [place], L Oma BREAD SUPERVISOR Unavailable Unavailable [place], L Oma BREAD SUPERVISOR Unavailable Unavailable [place], L Oma BREAD SUPERVISOR Unavailable Unavailable Ludin, L Oma BREAD SUPERVISOR Unavailable Unavailable [place], L Oma BREAD SUPERVISOR Unavailable Unavailable [place], L Oma BREAD SUPERVISOR Unavailable Unavailable Ludin, L Oma BREAD SUPERVISOR Unavailable Unavailable Ludin, L Oma BREAD SUPERVISOR Unavailable Unavailable [place], L Oma BREAD SUPERVISOR Unavailable Unavailable Ludin, L Oma BREAD SUPERVISOR Unavailable Unavailable [place], L Oma BREAD SUPERVISOR Unavailable Unavailable [place], L Oma BREAD SUPERVISOR Unavailable Unavailable Ludin, L Oma BREAD SUPERVISOR Unavailable [facility]available [facility] Unavailable Unavailable [facility], [facility], PA-C Unavailable Unavailabl e Fish, [facility], PA-C Unavailable Unavailabl e Fish, [facility], PA-C Unavailable Unavailabl e [facility], [facility], PA-C Unavailable Unavailabl e Fish, [facility], PA-C Unavailable Unavailabl e Fish, [facility], PA-C Unavailable Unavailabl e Fish, [facility], PA-C Unavailable Unavailabl e [facility], [facility], PA-C Unavailable Unavailabl e [facility], [facility], PA-C Unavailable Unavailabl e [facility], [facility], PA-C Unavailable Unavailabl e Fish, [facility], PA-C Unavailable Unavailabl e Fish, [facility], PA-C Unavailable Unavailabl e [facility], [facility], PA-C Unavailable Unavailabl e Fish, [facility], PA-C Unavailable Unavailabl e Fish, [facility], PA-C Unavailable Unavailabl e Fish, [facility], PA-C Unavailable Unavailabl e Fish, [facility], PA-C Unavailable Unavailabl e Fish, [facility], PA-C Unavailable Unavailabl e Fish, [facility], PA-C Unavailable Unavailabl e Fish, [facility], PA-C Unavailable Unavailabl e Fish, [facility], PA-C Unavailable Unavailabl e Fish, [facility], PA-C Unavailable Unavailabl e Fish, [facility], PA-C Unavailable Unavailabl e Fish, [facility], PA-C Unavailable Unavailabl e Fish, [facility], PA-C Unavailable Unavailabl e Fish, [facility], PA-C Unavailable Unavailabl e Fish, [facility], PA-C Unavailable Unavailabl e Fish, [facility], PA-C Unavailable Unavailabl e Fish, [facility], PA-C Unavailable Unavailabl e Fish, [facility], PA-C Unavailable Unavailabl e Fish, [facility], PA-C Unavailable Unavailabl e Fish, [facility], PA-C Unavailable Unavailabl e Fish, [facility], PA-C Unavailable Unavailabl e Fish, [facility], PA-C Unavailable Unavailabl e Fish, [facility], PA-C Unavailable Unavailabl e PHYSICIAN, OTHER Unavailable Unavailable LAROCK, J ASA WATSON Unavailable Unavailable LAROCK, J ASA WATSON Unavailable Unavailable LAROCK, J ASA WATSON Unavailable Unavailable LAROCK, J ASA WATSON Unavailable Unavailable LAROCK, J ASA WATSON Unavailable Unavailable LAROCK, Kimberly BRAY NP Unavailable Unavailable LAROCK, Kimberly BRAY NP Unavailable Unavailable LAROCK, J ASA CAUSTIC ROOM ATTENDANT Unavailable Unavailable LAROCK, J ASA CAUSTIC ROOM ATTENDANT Unavailable Unavailable LAROCK, J ASA CAUSTIC ROOM ATTENDANT Unavailable Unavailable LAROCK, J ASA CAUSTIC ROOM ATTENDANT Unavailable Unavailable LAROCK, J ASA CAUSTIC ROOM ATTENDANT Unavailable Unavailable LAROCK, J ASA CAUSTIC ROOM ATTENDANT Unavailable Unavailable LAROCK, J ASA CAUSTIC ROOM ATTENDANT Unavailable Unavailable LAROCK, J ASA CAUSTIC ROOM ATTENDANT Unavailable Unavailable LAROCK, J ASA CAUSTIC ROOM ATTENDANT Unavailable Unavailable LAROCK, J ASA CAUSTIC ROOM ATTENDANT Unavailable Unavailable LAROCK, J ASA CAUSTIC ROOM ATTENDANT Unavailable Unavailable LAROCK, Kimberly ASA CAUSTIC ROOM ATTENDANT Unavailable Unavailable LAROCK, Kimberly BRAY CAUSTIC ROOM ATTENDANT Unavailable Unavailable LAROCK, Kimberly BRAY CAUSTIC ROOM ATTENDANT Unavailable Unavailable LAROCK, Kimberly ASA CAUSTIC ROOM ATTENDANT Unavailable Unavailable Mccormick, M Alisha PA-C Unavailable Unavailable Mccormick, M Alisha PA-C Unavailable Unavailable Mccormick, M Alisha PA-C Unavailable Unavailable Mccormick, M Alisha PA-C Unavailable Unavailable Mccormick, M Alisha PA-C Unavailable Unavailable Mccormick, M Alisha PA-C Unavailable Unavailable Mccormick, M Alisha PA-C Unavailable Unavailable Mccormick, M Alisha PA-C Unavailable Unavailable Mccormick, M Alisha PA-C Unavailable Unavailable Mccormick, M Alisha PA-C Unavailable Unavailable Mccormick, M Alisha PA-C Unavailable Unavailable Mccormick, M Alisha PA-C Unavailable Unavailable Mccormick, M Alisha PA-C Unavailable Unavailable Mccormick, M Alisha PA-C Unavailable Unavailable Mccormick, M Alisha PA-C Unavailable Unavailable Mccormick, M Alisha PA-C Unavailable Unavailable Mccormick, M Alisha PA-C Unavailable Unavailable Mccormick, M Alisha PA-C Unavailable Unavailable Mccormick, M Alisha PA-C Unavailable Unavailable Mccormick, M Alisha PA-C Unavailable Unavailable Mccormick, M Alisha PA-C Unavailable Unavailable Mccormick, M Alisha PA-C Unavailable Unavailable Mccormick, M Alisha PA-C Unavailable Unavailable Mccormick, M Alisha PA-C Unavailable Unavailable Mccormick, M Alisha PA-C Unavailable Unavailable Mccormick, M Alisha PA-C Unavailable Unavailable Mccormick, M Alisha PA-C Unavailable Unavailable Mccormick, M Alisha PA-C Unavailable Unavailable Mccormick, M Alisha PA-C Unavailable Unavailable Mccormick, M Alisha PA-C Unavailable Unavailable Mccormick, M Alisha PA-C Unavailable Unavailable Mccormick, M Alisha PA-C Unavailable Unavailable Mccormick, M Alisha PA-C Unavailable Unavailable Mccormick, M Alisha PA-C Unavailable Unavailable Mccormick, M Alisha PA-C Unavailable Unavailable Mccormick, M Alisha PA-C Unavailable Unavailable Mccormick, M Alisha PA-C Unavailable Unavailable Mccormick, M Alisha PA-C Unavailable Unavailable MAJAK, R GUILLE DPM Unavailable Unavailable MAJAK, R GUILLE DPM Unavailable Unavailable MAJAK, R GUILLE DPM Unavailable Unavailable MAJAK, R GUILLE DPM Unavailable Unavailable MAJAK, R GUILLE DPM Unavailable Unavailable MAJAK, R GUILLE DPM Unavailable Unavailable MAJAK, R GUILLE DPM Unavailable Unavailable MAJAK, R GUILLE DPM Unavailable Unavailable MAJAK, R GUILLE DPM Unavailable Unavailable MAJAK, R GUILLE DPM Unavailable Unavailable MAJAK, R GUILLE DPM Unavailable Unavailable MAJAK, R GUILLE DPM Unavailable Unavailable MAJAK, R GUILLE DPM Unavailable Unavailable MAJAK, R GUILLE DPM Unavailable Unavailable MAJAK, R GUILLE DPM Unavailable Unavailable MAJAK, R GUILLE DPM Unavailable Unavailable MAJAK, R GUILLE DPM Unavailable Unavailable MAJAK, R GUILLE DPM Unavailable Unavailable MAJAK, R GUILLE DPM Unavailable Unavailable MAJAK, R GUILLE DPM Unavailable Unavailable MAJAK, R GUILLE DPM Unavailable Unavailable MAJAK, R GUILLE DPM Unavailable Unavailable MAJAK, R GUILLE DPM Unavailable Unavailable MAJAK, R GUILLE DPM Unavailable Unavailable MAJAK, R GUILLE DPM Unavailable Unavailable MAJAK, R GUILLE DPM Unavailable Unavailable MAJAK, R GUILLE DPM Unavailable Unavailable MAJAK, R GUILLE DPM Unavailable Unavailable MAJAK, R GUILLE DPM Unavailable Unavailable MAJAK, R GUILLE DPM Unavailable Unavailable MAJAK, R GUILLE DPM Unavailable Unavailable Root, Mario Alberto Milian MD Unavailable Unavailable Root, Mario Alberto Milian MD Unavailable Unavailable Root, Mario Alberto Milian MD Unavailable Unavailable Root, Mario Alberto Milian MD Unavailable Unavailable Root, Mario Alberto Milian MD Unavailable Unavailable Root, Mario Alberto Milian MD Unavailable Unavailable Root, Mario Alberto Milian MD Unavailable Unavailable Root, Mario Alberto Milian MD Unavailable Unavailable Root, Mario Alberto Milian MD Unavailable Unavailable Root, Mario Alberto Milian MD Unavailable Unavailable Root, Mario Alberto Milian MD Unavailable Unavailable Root, Mario Alberto Milian MD Unavailable Unavailable Root, Mario Alberto Milain MD Unavailable Unavailable Root, Mario Alberto Milian MD Unavailable Unavailable Root, Mario Alberto Milian MD Unavailable Unavailable Root, Mario Alberto Milian MD Unavailable Unavailable Root, Mario Alberto Milian MD Unavailable Unavailable Root, Mario Alberto Milian MD Unavailable Unavailable Root, Mario Alberto Milian MD Unavailable Unavailable Root, Mario Alberto Milian MD Unavailable Unavailable Root, Mario Alberto Milian MD Unavailable Unavailable Root, Mario Alberto Milian MD Unavailable Unavailable Root, Mario Alberto Milian MD Unavailable Unavailable Root, Mario Alberto Milian MD Unavailable Unavailable Root, Mario Alberto Milian MD Unavailable Unavailable Root, Mario Alberto Milian MD Unavailable Unavailable Root, Mario Alberto Milian MD Unavailable Unavailable Root, Mario Alberto Milian MD Unavailable Unavailable Root, Mario Alberto Milian MD Unavailable Unavailable Root, Mario Alberto Milian MD Unavailable Unavailable Root, Mario Alberto Milian MD Unavailable Unavailable Root, Mario Alberto Milian MD Unavailable Unavailable Root, Mario Alberto Milian MD Unavailable Unavailable Root, Mario Alberto Milian MD Unavailable Unavailable Root, Mario Alberto Milian MD Unavailable Unavailable Root, Mario Alberto Milian MD Unavailable Unavailable Root, Mario Alberto Milian MD Unavailable Unavailable Root, Mario Alberto Milian MD Unavailable Unavailable Root, Mario Alberto Milian MD Unavailable Unavailable Root, Mario Alberto Milian MD Unavailable Unavailable Root, Mario Alberto Milian MD Unavailable Unavailable Root, Mario Alberto Milian MD Unavailable Unavailable Root, Mario Alberto Milian MD Unavailable Unavailable Root, Mario Alberto Milian MD Unavailable Unavailable Root, Mario Alberto Milian MD Unavailable Unavailable Root, Mario Alberto Milian MD Unavailable Unavailable Root, Mario Alberto Milian MD Unavailable Unavailable Root, Mario Alberto Milian MD Unavailable Unavailable Root, Mario Alberto Milian MD Unavailable Unavailable Root, Mario Alberto Milian MD Unavailable Unavailable Root, Mario Alberto Milian MD Unavailable Unavailable Root, Mario Alberto Milian MD Unavailable Unavailable Root, Mario Alberto Milian MD Unavailable Unavailable Root, Mario Alberto Milian MD Unavailable Unavailable Root, Mario Alberto Milian MD Unavailable Unavailable Root, Mario Alberto Milian MD Unavailable Unavailable Root, Mario Alberto Milian MD Unavailable Unavailable Root, Mario Alberto Milian MD Unavailable Unavailable Root, Mario Alberto Milian MD Unavailable Unavailable Root, Mario Alberto Milian MD Unavailable Unavailable Root, Mario Alberto Milian MD Unavailable Unavailable Root, Mario Alberto Milian MD Unavailable Unavailable Root, Mario Alberto Milian MD Unavailable Unavailable Root, Mario Alberto Milian MD Unavailable Unavailable Root, Mario Alberto Milian MD Unavailable Unavailable Root, Mario Alberto Milian MD Unavailable Unavailable Root, Mario Alberto Milian MD Unavailable Unavailable Root, Mario Alberto Milian MD Unavailable Unavailable Root, Mario Alberto Milian MD Unavailable Unavailable Root, Mario Alberto Milian MD Unavailable Unavailable Richard, M Barratt PA Unavailable Unavailable Richard, M Barratt PA Unavailable Unavailable Richard, M Barratt PA Unavailable Unavailable Richard, M Barratt PA Unavailable Unavailable Richard, M Barratt PA Unavailable Unavailable Richard, M Barratt PA Unavailable Unavailable Richard, M Barratt PA Unavailable Unavailable Richard, M Barratt PA Unavailable Unavailable Richard, M Barratt PA Unavailable Unavailable Richard, M Barratt PA Unavailable Unavailable Richard, M Barratt PA Unavailable Unavailable Richard, M Barratt PA Unavailable Unavailable Richard, M Barratt PA Unavailable Unavailable Richard, M Barratt PA Unavailable Unavailable Richard, M Barratt PA Unavailable Unavailable Richard, M Barratt PA Unavailable Unavailable Richard, M Barratt PA Unavailable Unavailable Richard, M Barratt PA Unavailable Unavailable Richard, M Barratt PA Unavailable Unavailable Richard, M Barratt PA Unavailable Unavailable Richard, M Barratt PA Unavailable Unavailable Richard, M Barratt PA Unavailable Unavailable Richard, M Barratt PA Unavailable Unavailable Richard, M Barratt PA Unavailable Unavailable Richard, M Barratt PA Unavailable Unavailable Richard, M Barratt PA Unavailable Unavailable Richard, M Barratt PA Unavailable Unavailable Richard, M Barratt PA Unavailable Unavailable Richard, M Barratt PA Unavailable Unavailable Litzy, Grace Unavailable Unavailable Litzy, Grace Unavailable Unavailable Litzy, Grace Unavailable Unavailable Mccormick, M Alisha PA-C Unavailable Unavailable Mccormick, M Alisha PA-C Unavailable Unavailable Mccormick, M Alisha PA-C Unavailable Unavailable Mccormick, M Alisha PA-C Unavailable Unavailable Mccormick, M Alisha PA-C Unavailable Unavailable Mccormick, M Alisha PA-C Unavailable Unavailable Mccormick, M Alisha PA-C Unavailable Unavailable Mccormick, M Alisha PA-C Unavailable Unavailable Mccormick, M Alisha PA-C Unavailable Unavailable Mccormick, M Alisha PA-C Unavailable Unavailable Mccormick, M Alisha PA-C Unavailable Unavailable Mccormick, M Alihsa PA-C Unavailable Unavailable Mccormick, M Alisha PA-C Unavailable Unavailable Mccormick, M Alisha PA-C Unavailable Unavailable Mccormick, M Alisha PA-C Unavailable Unavailable Mccormick, M Alisha PA-C Unavailable Unavailable Mccormick, M Alisha PA-C Unavailable Unavailable Mccormick, M Alisha PA-C Unavailable Unavailable Mccormick, M Alisha PA-C Unavailable Unavailable Mccormick, M Alisha PA-C Unavailable Unavailable Mccormick, M Alisha PA-C Unavailable Unavailable Mccormick, M Alisha PA-C Unavailable Unavailable Mccormick, M Alisha PA-C Unavailable Unavailable Mccormick, M Alisha PA-C Unavailable Unavailable Mccormick, M Alisha PA-C Unavailable Unavailable Mccormick, M Alisha PA-C Unavailable Unavailable Mccormick, M Alisha PA-C Unavailable Unavailable Mccormick, M Alisha PA-C Unavailable Unavailable Mccormick, M Alisha PA-C Unavailable Unavailable Mccormick, M Alisha PA-C Unavailable Unavailable Mccormick, M Alisha PA-C Unavailable Unavailable Mccormick, M Alisha PA-C Unavailable Unavailable Mccormick, M Alisha PA-C Unavailable Unavailable Mccormick, M Alisha PA-C Unavailable Unavailable Mccormick, M Alisha PA-C Unavailable Unavailable Mccormick, M Alisha PA-C Unavailable Unavailable Mccormick, M Alisha PA-C Unavailable Unavailable Mccormick, M Alisha PA-C Unavailable Unavailable DESJARLAIS, CRUZ CAUSTIC ROOM ATTENDANT Unavailable Unavailable DESJARLAIS, CRUZ CAUSTIC ROOM ATTENDANT Unavailable Unavailable DESJARLAIS, CRUZ CAUSTIC ROOM ATTENDANT Unavailable Unavailable DESJARLAIS, CRUZ CAUSTIC ROOM ATTENDANT Unavailable Unavailable DESJARLAIS, CRUZ CAUSTIC ROOM ATTENDANT Unavailable Unavailable DESJARLAIS, CRUZ CAUSTIC ROOM ATTENDANT Unavailable Unavailable DESJARLAIS, CRUZ CAUSTIC ROOM ATTENDANT Unavailable Unavailable DESJARLAIS, CRUZ CAUSTIC ROOM ATTENDANT Unavailable Unavailable DESJARLAIS, CRUZ CAUSTIC ROOM ATTENDANT Unavailable Unavailable HICKEY, DARIANA Unavailable Unavailable Hickey, Dariana Unavailable Hickey, Dariana Unavailable [place], L Oma BREAD SUPERVISOR Unavailable Unavailable Ludin, L Oma BREAD SUPERVISOR Unavailable Unavailable Ludin, L Oma BREAD SUPERVISOR Unavailable Unavailable [place], L Oma BREAD SUPERVISOR Unavailable Unavailable Ludin, L Oma BREAD SUPERVISOR Unavailable Unavailable [place], L Oma BREAD SUPERVISOR Unavailable Unavailable [place], L Oma BREAD SUPERVISOR Unavailable Unavailable [place], L Oma BREAD SUPERVISOR Unavailable Unavailable Ludin, L Oma BREAD SUPERVISOR Unavailable Unavailable [place], L Oma BREAD SUPERVISOR Unavailable Unavailable [place], L Oma BREAD SUPERVISOR Unavailable Unavailable [place], L Oma BREAD SUPERVISOR Unavailable Unavailable Ludin, L Oma BREAD SUPERVISOR Unavailable Unavailable [place], L Oma BREAD SUPERVISOR Unavailable Unavailable Ludin, L Oma BREAD SUPERVISOR Unavailable Unavailable [place], L Oma BREAD SUPERVISOR Unavailable Unavailable Ludin, L Oma BREAD SUPERVISOR Unavailable Unavailable [place], L Oma BREAD SUPERVISOR Unavailable Unavailable Ludin, L Oma BREAD SUPERVISOR Unavailable Unavailable [place], L Oma BREAD SUPERVISOR Unavailable Unavailable Ludin, L Oma BREAD SUPERVISOR Unavailable Unavailable Ludin, L Oma BREAD SUPERVISOR Unavailable Unavailable [place], L Oma BREAD SUPERVISOR Unavailable Unavailable Ludin, L Oma BREAD SUPERVISOR Unavailable Unavailable Ludin, L Oma BREAD SUPERVISOR Unavailable Unavailable [place], L Oma BREAD SUPERVISOR Unavailable Unavailable Ludin, L Oma BREAD SUPERVISOR Unavailable Unavailable Ludin, L Oma BREAD SUPERVISOR Unavailable Unavailable Ludin, L Oma BREAD SUPERVISOR Unavailable Unavailable [place], L Oma BREAD SUPERVISOR Unavailable Unavailable Ludin, L Oma BREAD SUPERVISOR Unavailable Unavailable [place], L Oma BREAD SUPERVISOR Unavailable Unavailable [place], L Oma BREAD SUPERVISOR Unavailable Unavailable Ludin, L Oma BREAD SUPERVISOR Unavailable Unavailable [place], L Oma BREAD SUPERVISOR Unavailable Unavailable Ludin, L Oma BREAD SUPERVISOR Unavailable Unavailable [place], L Oma BREAD SUPERVISOR Unavailable Unavailable [place], L Oma BREAD SUPERVISOR Unavailable Unavailable Ludin, L Oma BREAD SUPERVISOR Unavailable Unavailable Corbine, Mery Unavailable Corbine, Mery Unavailable Corbine, Mery Unavailable CORBINE, S MERY Unavailable Unavailable CORBINE, S MERY Unavailable Unavailable BUNKER, R THOMPSON PA Unavailable Unavailable BUNKER, R THOMPSON PA Unavailable Unavailable BUNKER, R THOMPSON PA Unavailable Unavailable BUNKER, R THOMPSON PA Unavailable Unavailable BUNKER, R THOMPSON PA Unavailable Unavailable BUNKER, R THOMPSON PA Unavailable Unavailable BUNKER, R THOMPSON PA Unavailable Unavailable BUNKER, R THOMPSON PA Unavailable Unavailable BUNKER, R THOMPSON PA Unavailable Unavailable BUNKER, R THOMPSON PA Unavailable Unavailable BUNKER, R THOMPSON PA Unavailable Unavailable BUNKER, R THOMPSON PA Unavailable Unavailable BUNKER, R THOMPSON PA Unavailable Unavailable BUNKER, R THOMPSON PA Unavailable Unavailable BUNKER, R THOMPSON PA Unavailable Unavailable BUNKER, R THOMPSON PA Unavailable Unavailable BUNKER, R THOMPSON PA Unavailable Unavailable BUNKER, R THOMPSON PA Unavailable Unavailable BUNKER, R THOMPSON PA Unavailable Unavailable BUNKER, R THOMPSON PA Unavailable Unavailable BUNKER, R THOMPSON PA Unavailable Unavailable BUNKER, R THOMPSON PA Unavailable Unavailable BUNKER, R THOMPSON PA Unavailable Unavailable BUNKER, R THOMPSON PA Unavailable Unavailable BUNKER, R THOMPSON PA Unavailable Unavailable BUNKER, R THOMPSON PA Unavailable Unavailable BUNKER, R THOMPSON PA Unavailable Unavailable BUNKER, R THOMPSON PA Unavailable Unavailable BUNKER, R THOMPSON PA Unavailable Unavailable BUNKER, R THOMPSON PA Unavailable Unavailable BUNKER, R THOMPSON PA Unavailable Unavailable BUNKER, R THOMPSON PA Unavailable Unavailable BUNKER, R THOMPSON PA Unavailable Unavailable BUNKER, R THOMPSON PA Unavailable Unavailable BUNKER, R THOMPSON PA Unavailable Unavailable BUNKER, R THOMPSON PA Unavailable Unavailable BUNKER, R THOMPSON PA Unavailable Unavailable BUNKER, R THOMPSON PA Unavailable Unavailable BUNKER, R THOMPSON PA Unavailable Unavailable BUNKER, R THOMPSON PA Unavailable Unavailable BUNKER, R THOMPSON PA Unavailable Unavailable BUNKER, R THOMPSON PA Unavailable Unavailable BUNKER, R THOMPSON PA Unavailable Unavailable BUNKER, R THOMPSON PA Unavailable Unavailable BUNKER, R THOMPSON PA Unavailable Unavailable BUNKER, R THOMPSON PA Unavailable Unavailable BUNKER, R THOMPSON PA Unavailable Unavailable BUNKER, R THOMPSON PA Unavailable Unavailable BUNKER, R THOMPSON PA Unavailable Unavailable BUNKER, R THOMPSON PA Unavailable Unavailable BUNKER, R THOMPSON PA Unavailable Unavailable BUNKER, R THOMPSON PA Unavailable Unavailable BUNKER, R THOMPSON PA Unavailable Unavailable BUNKER, R THOMPSON PA Unavailable Unavailable BUNKER, R THOMPSON PA Unavailable Unavailable BUNKER, R THOMPSON PA Unavailable Unavailable Cosme Morgan MD Unavailable Unavailable Cosme Morgan MD Unavailable Unavailable Cosme Morgan MD Unavailable Unavailable Cosme Morgan MD Unavailable Unavailable Cosme Morgan MD Unavailable Unavailable Cosme Morgan MD Unavailable Unavailable Cosme Morgan MD Unavailable Unavailable Cosme Morgan MD Unavailable Unavailable Cosme Morgan MD Unavailable Unavailable Cosme Morgan MD Unavailable Unavailable Cosme Morgan MD Unavailable Unavailable Cosme Morgan MD Unavailable Unavailable Cosme Morgan MD Unavailable Unavailable Cosme Morgan MD Unavailable Unavailable Cosme Morgan MD Unavailable Unavailable Cosme Morgan MD Unavailable Unavailable Cosme Morgan MD Unavailable Unavailable Cosme Morgan MD Unavailable Unavailable Cosme Morgan MD Unavailable Unavailable Cosme Morgan MD Unavailable Unavailable Cosme Morgan MD Unavailable Unavailable Cosme Morgan MD Unavailable Unavailable Cosme Morgan MD Unavailable Unavailable Cosme Morgan MD Unavailable Unavailable Cosme Morgan MD Unavailable Unavailable Re-disclosure Warning The records that you are about to access may contain information from federally-assisted alcohol or drug abuse programs. If such information is present, then the following federally mandated warning applies: This information has been disclosed to you from records protected by federal confidentiality rules (42 CFR part 2). The federal rules prohibit you from making any further disclosure of this information unless further disclosure is expressly permitted by the written consent of the person to whom it pertains or as otherwise permitted by 42 CFR part 2. A general authorization for the release of medical or other information is NOT sufficient for this purpose. The Federal rules restrict any use of the information to criminally investigate or prosecute any alcohol or drug abuse patient.The records that you are about to access may contain highly sensitive health information, the redisclosure of which is protected by Article 27-F of the [facility] Public Health law. If you continue you may have access to information: Regarding HIV / AIDS; Provided by facilities licensed or operated by the [facility] Office of Mental Health; or Provided by the [facility] Office for People With Developmental Disabilities. If such information is present, then the following [facility] mandated warning applies: This information has been disclosed to you from confidential records which are protected by state law. State law prohibits you from making any further disclosure of this information without the specific written consent of the person to whom it pertains, or as otherwise permitted by law. Any unauthorized further disclosure in violation of state law may result in a fine or penitentiary sentence or both. A general authorization for the release of medical or other information is NOT sufficient authorization for further disc losure. Allergies and Adverse Reactions Type Description Substance Reaction Status Data Source(s ) Propensity to adverse reactions ZOLOFT ZOLOFT UNKNOWN [facility] Propensity to adverse reactions TYLENOL W/CODEINE #3 TYLENOL W/C ODEINE #3 VOMITING [facility] Propensity to adverse reactions TORADOL TORADOL STOMACH HURT [facility] Propensity to adverse reactions LYRICA LYRICA UNKNOWN [facility] Drug allergy BEE VENOM BEE VENOM HIVES [facility] Propensity to adverse reactions LATEX LATEX HIVES [facility] Drug allergy TRAMADOL TRAMADOL ULCERS [facility] Drug allergy LITHIUM LITHIUM THYROID PROBLEMS [facility] Drug allergy BACLOFEN BACLOFEN UNKNOWN [facility] Propensity to adverse reactions PENICILLINS (CLASS) PENICILLINS (CL ASS) [facility] Family History Family Member Name Family Member Gender Family Member Status Date o f Status Description Data Source(s) Unknown Unknown Problem MEDENT ([facility]) Encounters Encounter Providers Location Date Indications Data Source(s ) Outpatient Attender: Grace Mcghee 08/30/2021 10:35:00 AM EDT [facility] 08/24/2021 12:00:00 AM EDT eCW1 ([facility]) Outpatient Attender: CRUZ TRIPLETT NP 08/22/2021 09: 13:00 AM [facility] Outpatient Attender: Grace Borjasley 08/16/2021 10:02:00 AM [facility] Outpatient Attender: Oma Noland RNPConsultant: [facility] [id number] 08/14/2021 07:45:00 AM [facility] Outpatient Attender: Oma WU 08/14/2021 07:25:00 AM [facility] Outpatient [facility] 08/14/2021 12:00:00 AM EDT eCW1 ([facility]) Outpatient Attender: Sol KYLE PA-C Physical Therapy 08/13/2021 11:30:00 AM [facility] Outpatient Attender: Grace Litzy 08/09/2021 10:51:00 AM [facility] Outpatient Attender: CRUZ TRIPLETT NP 08/08/2021 08: 38:00 AM [facility] Outpatient Attender: Grace Borjasley 08/02/2021 10:39:00 AM [facility] Outpatient [facility] 07/27/2021 12:00:00 AM EDT eCW1 ([facility]) Outpatient Attender: CRUZ TRIPLETT NP 07/25/2021 08: 25:00 AM [facility] Outpatient Attender: CRUZ TRIPLETT NP 07/20/2021 11: 00:00 AM [facility] Outpatient Attender: Grace Borjasley 07/19/2021 10:47:00 AM [facility] Outpatient Attender: Grace Borjasley 07/12/2021 10:45:00 AM [facility] Outpatient [facility] 07/06/2021 12:00:00 AM EDT eCW1 ([facility]) Outpatient Attender: Oma Noland RNPAttender: Gracemarilee smith 07/05/2021 11:00:00 AM [facility] Outpatient Attender: OTHER PHYSICIANRef errer: THOMPSON ANDINO PAConsultant: [facility] [id number] 07/05/2021 11:00:00 AM EDT [facility] Outpatient [facility]: [facility] WU 07/05/2021 10:38:00 AM [facility] Outpatient [facility] 07/05/2021 12:00:00 AM EDT eCW1 ([facility]) [facility] 11:00:00 AM [facility] Outpatient Attender: CRUZ TRIPLETT CAUSTIC ROOM ATTENDANT 06/22/2021 10: 40:00 AM [facility]/21[facility]21 11:00:00 AM [facility] Outpatient Attender: [facility] 06/14/2021 11:00:00 AM [facility] Outpatient Attender: [facility] 06/07/2021 11:40:00 AM [facility] Outpatient [facility] 05/25/2021 12:00:00 AM EDT eCW1 ([facility]) Outpatient Attender: Grace [facility] 05/24/2021 11:00:00 AM [facility] Outpatient Attender: CRUZ TRIPLETT NP 05/23/2021 09: 50:00 AM [facility] Outpatient [facility] 05/23/2021 12:00:00 AM T eCW ([facility]) [facility] 05/17/2021 11:00:00 AM [facility] Outpatient Attender: Grace Litzy 05/10/2021 11:00:00 AM [facility] 05/03/2021 11:00:00 AM [facility] Outpatient Attender: CRUZ TRIPLETT NP 04/27/2021 10: 40:00 AM [facility] Outpatient Attender: [facility] 04/23/2021 11:00:00 AM [facility] Outpatient [facility] 04/19/2021 12:00:00 AM EDT eCW1 ([facility]) Outpatient Attender: Oma Noland RNPConsultant[facility] 04/16/2021 10:40:00 AM [facility] Outpatient Attender: Oma WU 04/16/2021 10:00:00 AM [facility] Outpatient [facility] 04/16/2021 12:00:00 AM T eCW1 ([facility]) Outpatient Attender: Grace Mcghee 04/12/2021 11:00:00 AM [facility] Outpatient Attender: CRUZ TRIPLETT NP 03/27/2021 04: 40:00 PM [facility] Outpatient Attender: Mery Bonds 03/26/2021 11:00:00 AM [facility] Outpatient Attender: ASA KIM NP 03/10 12:30:20 PM EDT - 03/21/2021 01:43:38 [facility] Outpatient Attender: CRUZ TRIPLETT NP 02/27/2021 04: 20:00 PM [facility] Outpatient Attender: Mery Leone: MERY BONDS 02/27/2021 11:00:00 AM [facility] Outpatient Attender: Mery Leone: MERY BONDS 02/20/2021 11:00:00 AM [facility] Outpatient Attender: Mery Leone: MERY BONDS 02/16/2021 08:00:00 AM [facility] Outpatient Attender: CRUZ TRIPLETT NP 02/13/2021 11: 40:00 AM [facility] Outpatient Attender: Geri Earl 02/01/2021 04:46:32 PM EDT - 02/01/2021 05:46:25 PM EDT [facility] ([facility]) Outpatient Attender: Mery Leone: MERY BONDS 02/01/2021 10:00:00 AM [facility] Outpatient Attender: CRUZ TRIPLETT NP 01/30/2021 09: 14:00 AM [facility] Outpatient Attender: Mery Leone: MERY BONDS 01/26/2021 09:30:00 AM [facility] Outpatient Attender: Mery Leone: MERY BONDS 01/18/2021 10:00:00 AM [facility] Outpatient Attender: CRUZ TRIPLETT NP 01/16/2021 09: 31:00 AM [facility] Outpatient Attender: Mery Kumarender: MERY BONDS 01/11/2021 08:03:00 AM [facility] Outpatient Attender: CRUZ TRIPLETT NP 01/09/2021 09: 10:00 AM [facility] Outpatient Attender: Mery Kumarender: MERY BONDS 01/05/2021 09:00:00 AM [facility] Outpatient Attender: Dariana VermaAttender: DARIANA VERMA 12/26/2020 10:36:00 AM [facility] Outpatient Attender: GUILLE SINGH [facility] 11/10 12:30:00 PM EST MEDENT ([facility] Outpatient Attender: Tg PEREZ Physical Therapy 12:45:00 PM EST MEDENT ([facility] ) Outpatient Attender: Alisha LEIVAonsultant: Maicol Quintero ot, MD 10/16/2020 10:58:00 AM EST - 10/16/2020 10:58:00 AM EST [facility] Outpatient Attender: Alisha LEIVAonsultant: Maicol Quintero ot, MD 07/31/2020 02:46:00 PM EDT - 07/31/2020 02:46:00 PM EDT [facility] Outpatient Attender: Alisha Mccormick PA-C Family Practice 07/11 01:00:00 PM EDT MED[facility] ([facility]) Outpatient Attender: Alisha LEIVAonsultant: Maicol Quintero ot, MD 07/25/2020 12:50:00 PM EDT - 07/25/2020 12:50:00 PM EDT [facility] Outpatient Attender: Alisha LEIVAonsultant: Maicol Quintero ot, MD 07/04/2020 12:41:00 PM EDT - 07/04/2020 12:41:00 PM EDT [facility] Outpatient Attender: Alisha LEIVAonsultant: Maicol Quintero ot, MD 05/22/2020 04:19:00 PM EDT - 05/22/2020 04:19:00 PM EDT [facility] Medications Medication Brand Name Start Date Product Form Dose Route Admi nistrative Instructions Pharmacy Instructions Status Indications Reaction Description Data Source(s) Clonazepam 1 MG Oral Tablet [Klonopin] KlonoPIN 1 MG KlonoPI N 1 MG 08/22/2021 12:00:00 AM EDT 1.0 {tablet} active Kl onoPIN 1 MG eCW1 ([facility]) 1 mg 08/22/2021 12:00:00 AM EDT tablet 10 TAKE ONE TABLET BY MOUTH EVERY 12 HOURS NEEDED MAXIMUM DAILY DOSE = TWO TABLETS FOR 5 DAYS TAKE ONE TABLET BY MOUTH EVERY 12 HOURS NEEDED MAXIMUM DAILY DOSE = TWO TABLETS FOR 5 DAYS SOLD: 08/22/2021 [facility] 500 mg 08/14/2021 12:00:00 AM EDT tablet 14 TAKE ONE TABLET BY MOUTH EVERY 12 HOURS FOR 7 DAYS TAKE ONE TABLET BY MOUTH EVERY 12 HOURS FOR 7 DAYS ALY [facility] Ciprofloxacin 500 MG Oral Tablet [Cipro] Cipro 500 MG Cipro 500 MG 08/14/2021 12:00:00 AM EDT 1.0 {tablet} active Ci pro 500 MG eCW1 ([facility]) Ciprofloxacin 500 MG Oral Tablet [Cipro] Cipro 500 MG Cipro 500 MG 08/14/2021 12:00:00 AM EDT 1.0 {tablet} active Ci pro 500 MG eCW1 ([facility]) Acetaminophen 300 MG / Codeine Phosphate 30 MG Oral Ta blet 300-30 mg ACETAMINOPHEN WITH CODEINE 08/13/2021 12:00:00 AM EDT tablet 30 TAKE ONE TABLET BY MOUTH AT BEDTIME , MAXIMUM DAILY DOSE = 1 TABLET TAKE ONE TABLET BY MOUTH AT BEDTIME , MAXIMUM DAILY DOSE = 1 TABLET SOLD: 08/13/2021 [facility] Acetaminophen 300 MG / Codeine Phosphate 30 MG Oral Ta blet 300-30 mg ACETAMINOPHEN WITH CODEINE 08/09/2021 12:00:00 AM EDT tablet 10 TAKE ONE TABLET BY MOUTH TWICE A DAY , MAXIMUM DAILY DOSE = 2 TABLETS TAKE ONE TABLET BY MOUTH TWICE A DAY , MAXIMUM DAILY DOSE = 2 TABLETS SOLD: 08/09/2021 [facility] 1 mg 08/08/2021 12:00:00 AM EDT tablet 10 TAKE ONE TABLET BY MOUTH EVERY 12 HOURS NEEDED FOR 5 DAYS , MAXIMUM DAILY DOSE = 2 TABLETS TAKE ONE TABLET BY MOUTH EVERY 12 HOURS NEEDED FOR 5 DAYS , MAXIMUM DAILY DOSE = 2 TABLETS SOLD: 08/08/2021 [facility] Clonazepam 1 MG Oral Tablet clonazePAM 1 MG clonazePAM 1 MG 08/08/2021 12:00:00 AM EDT 1.0 {tablet} active clonazePAM 1 MG eCW1 ([facility]) Clonazepam 1 MG Oral Tablet clonazePAM 1 MG clonazePAM 1 MG 08/08/2021 12:00:00 AM EDT 1.0 {tablet} active clonazePAM 1 MG eCW1 ([facility]) Clonazepam 1 MG Oral Tablet clonazePAM 1 MG clonazePAM 1 MG 07/26/2021 12:00:00 AM EDT 1.0 {tablet} active clonazePAM 1 MG eCW1 ([facility]) 1 mg 07/26/2021 12:00:00 AM EDT tablet 5 TAKE ONE TABLET BY MOUTH EVERY DAY MAXIMUM DAILY DOSE = ONE TABLET TAKE ONE TABLET BY MOUTH EVERY DAY MAXIM UM DAILY DOSE = ONE TABLET SOLD: 07/26/2021 [facility] 20 mg 07/20/2021 12:00:00 AM EDT tablet 90 TAKE ONE TABLET BY MOUTH EVERY 8 HOURS NEEDED FOR ANXIETY TAKE ONE TABLET BY MOUTH EVERY 8 HOURS A S NEEDED FOR ANXIETY SOLD: 07/20/2021 [facility] Acetaminophen 300 MG / Codeine Phosphate 30 MG Oral Ta blet 300-30 mg ACETAMINOPHEN WITH CODEINE 07/20/2021 12:00:00 AM EDT tablet 30 TAKE ONE TABLET BY MOUTH TWO TIMES A DAY MAXIMUM DAILY DOSE = 2 TAKE ONE TABLET BY MOUTH TWO TIMES A DAY MAXIMUM DAILY DOSE = 2 SOLD: 07/20/2021 [facility] 20 mg 07/20/2021 12:00:00 AM EDT tablet 30 TAKE ONE TABLET BY MOUTH EVERY DAY TAKE ONE TABLET BY MOUTH EVERY DAY SOLD: 08/22/2021 [facility] 20 mg 07/20/2021 12:00:00 AM EDT tablet 30 TAKE ONE TABLET BY MOUTH EVERY DAY TAKE ONE TABLET BY MOUTH EVERY DAY SOLD: 07/20/2021 [facility] 1 mg 07/20/2021 12:00:00 AM EDT tablet 5 TAKE ONE TABLET BY MOUTH EVERY DAY MAXIMUM DAILY DOSE = ONE TABLET TAKE ONE TABLET BY MOUTH EVERY DAY MAXIM UM DAILY DOSE = ONE TABLET SOLD: 07/20/2021 [facility] 20 mg 07/20/2021 12:00:00 AM EDT tablet 90 TAKE ONE TABLET BY MOUTH EVERY 8 HOURS NEEDED FOR ANXIETY TAKE ONE TABLET BY MOUTH EVERY 8 HOURS A S NEEDED FOR ANXIETY SOLD: 08/22/2021 [facility] Acetaminophen 300 MG / Codeine Phosphate 30 MG Oral Ta blet 300-30 mg ACETAMINOPHEN WITH CODEINE 07/09/2021 12:00:00 AM EDT tablet 20 TAKE ONE TABLET BY MOUTH EVERY 8 HOURS NEEDED FOR PAIN. MAY CAUSE DROWINESS, DO NOT DRIVE OR OPERATE MACHINERY WHILE TAKING MAXIMUM DAILY DOSE = 3 TABLETS TAKE ONE TABLET BY MOUTH EVERY 8 HOURS NEEDED FOR PAIN. MAY CAUSE DROWINESS, DO NOT DRIVE OR OPERATE MACHINERY WHILE TAKING MAXIMUM DAILY DOSE = 3 TABLETS SOLD: 07/09/2021 [facility] Acetaminophen 300 MG / Codeine Phosphate 30 MG Oral Ta blet Acetaminophen-Codeine #3 07/09/2021 12:00:00 AM EDT ORAL active MEDENT ([facility]) 0.3 mg/0.3 mL 07/05/2021 12:00:00 AM EDT auto-injector 2 INJECT ONCE DIRECTED FOR ALLERGIC REACTION INJECT ONCE DIRECTED FOR ALLERGIC REACTION SOLD: 07/06/2021 [facility] Sulfamethoxazole 800 MG / Trimethoprim 1 60 MG Oral Tablet [Bactrim] Bactrim DS 800-160 MG Bactrim DS 800-160 MG 07/05/2021 12:00:00 AM EDT 1.0 {table t} active Bactrim DS 800-160 MG eCW1 ( [facility]) 600 mg 07/05/2021 12:00:00 AM EDT tablet 90 TAKE ONE TABLET BY MOUTH THREE TIMES A DAY TAKE ONE TABLET BY MOUTH THREE TIMES A DAY SOLD: 08/27/2021 [facility] 600 mg 07/05/2021 12:00:00 AM EDT tablet 90 TAKE ONE TABLET BY MOUTH THREE TIMES A DAY TAKE ONE TABLET BY MOUTH THREE TIMES A DAY SOLD: 07/05/2021 [facility] Sulfamethoxazole 800 MG / Trimethoprim 1 60 MG Oral Tablet [Bactrim] Bactrim DS 800-160 MG Bactrim DS 800-160 MG 07/05/2021 12:00:00 AM EDT 1.0 {table t} active Bactrim DS 800-160 MG eCW1 ( [facility]) Sulfamethoxazole 800 MG / Trimethoprim 1 60 MG Oral Tablet [Bactrim] Bactrim DS 800-160 MG Bactrim DS 800-160 MG 07/05/2021 12:00:00 AM EDT 1.0 {table t} active Bactrim DS 800-160 MG eCW1 ( [facility]) 800-160 mg 07/05/2021 12:00:00 AM EDT tablet 14 TAKE ONE TABLET BY MOUTH TWICE A DAY FOR 7 DAYS TAKE ONE TABLET BY MOUTH TWICE A DAY FOR 7 DAYS SOLD: 07/05/2021 [facility] 600 mg 07/05/2021 12:00:00 AM EDT tablet 90 TAKE ONE TABLET BY MOUTH THREE TIMES A DAY TAKE ONE TABLET BY MOUTH THREE TIMES A DAY SOLD: 07/31/2021 [facility] 20 mg 06/22/2021 12:00:00 AM EDT tablet 30 TAKE ONE TABLET BY MOUTH EVERY DAY TAKE ONE TABLET BY MOUTH EVERY DAY SOLD: 06/22/2021 [facility] 20 mg 06/22/2021 12:00:00 AM EDT tablet 90 TAKE ONE TABLET BY MOUTH EVERY 8 HOURS NEEDED FOR ANXIETY TAKE ONE TABLET BY MOUTH EVERY 8 HOURS A S NEEDED FOR ANXIETY SOLD: 06/22/2021 [facility] 400 mg 06/22/2021 12:00:00 AM EDT capsule 90 TAKE ONE CAPSULE BY MOUTH THREE TIMES A DAY TAKE ONE CAPSULE BY MOUTH THREE TIMES A DAY SOLD: 06/22/2021 [facility] tizanidine 4 MG Oral Tablet TIZANIDINE HCL 06/05/2021 12:00:00 AM EDT tablet 90 TAKE ONE TABLET BY MOUTH THREE TIMES A DAY TAKE ONE TA BLET BY MOUTH THREE TIMES A DAY SOLD: 06/07/2021 [facility] Lidocaine Hydrochloride 0.05 MG/MG Transdermal Patch [Lidode rm] Lidoderm 05/31/2021 12:00:00 AM EDT [facility] tizanidine 4 MG Oral Tablet Tizanidine HCL 05/31/2021 12:00:00 AM EDT ORAL active MEDENT ([facility]) 20 mg 05/23/2021 12:00:00 AM EDT tablet 90 TAKE ONE TABLET BY MOUTH EVERY 8 HOURS NEEDED ANXIETY TAKE ONE TABLET BY MOUTH EVERY 8 HOURS A S NEEDED ANXIETY SOLD: 05/23/2021 [facility] 20 mg 05/23/2021 12:00:00 AM EDT tablet 30 TAKE ONE TABLET BY MOUTH ONCE A DAY TAKE ONE TABLET BY MOUTH ONCE A DAY SOLD: 05/23/2021 [facility] 400 mg 05/23/2021 12:00:00 AM EDT capsule 90 TAKE ONE CAPSULE BY MOUTH THREE TIMES A DAY TAKE ONE CAPSULE BY MOUTH THREE TIMES A DAY SOLD: 05/23/2021 [facility] 400 mg 04/27/2021 12:00:00 AM EDT capsule 60 TAKE ONE CAPSULE BY MOUTH TWICE A DAY TAKE ONE CAPSULE BY MOUTH TWICE A DAY SOLD: 04/27/2021 [facility] 20 mg 04/27/2021 12:00:00 AM EDT tablet 90 TAKE ONE TABLET BY MOUTH EVERY 8 HOURS NEEDED FOR ANXIETY TAKE ONE TABLET BY MOUTH EVERY 8 HOURS A S NEEDED FOR ANXIETY SOLD: 04/27/2021 [facility] 20 mg 04/27/2021 12:00:00 AM EDT tablet 30 TAKE ONE TABLET BY MOUTH EVERY DAY TAKE ONE TABLET BY MOUTH EVERY DAY SOLD: 05/02/2021 [facility] 0.3 mg/0.3 mL 04/17/2021 12:00:00 AM EDT auto-injector 2 INJECT DIRECTED INJECT DIRECTED SOLD: 04/21/2021 [facility] NITROFURANTOIN, MACROCRYSTALS 25 MG / Ni trofurantoin, Monohydrate 75 MG Oral Capsule [Macrobid] Macrobid 100 MG Macrobid 100 MG 04/16/2021 12:00:00 AM EDT active Macrobid 100 MG eCW1 ([facility]) NITROFURANTOIN, MACROCRYSTALS 25 MG / Ni trofurantoin, Monohydrate 75 MG Oral Capsule [Macrobid] Macrobid 100 MG Macrobid 100 MG 04/16/2021 12:00:00 AM EDT active Macrobid 100 MG eCW1 ([facility]) NITROFURANTOIN, MACROCRYSTALS 25 MG / Ni trofurantoin, Monohydrate 75 MG Oral Capsule [Macrobid] Macrobid 100 MG Macrobid 100 MG 04/16/2021 12:00:00 AM EDT active Macrobid 100 MG eCW1 ([facility]) 20 mg 04/16/2021 12:00:00 AM EDT capsule,delayed release (DR/EC) 30 TAKE ONE CAPSULE BY MOUTH EVERY MORNING 30 MINUTES BEFORE MORNING MEAL TAKE ONE CAPSULE BY MOUTH EVERY MORNING 30 MINUTES BEFORE MORNING MEAL SOLD: 08/07/2021 [facility] NITROFURANTOIN, MACROCRYSTALS 25 MG / Ni trofurantoin, Monohydrate 75 MG Oral Capsule 100 mg NITROFURANTOIN MONOHYD/M-CRYST 04/16/2021 12:00:00 AM EDT ca psule 14 TAKE ONE CAPSULE BY MOUTH TWICE A DAY WITH FOOD TAKE ONE CAPSULE BY MOUTH TWICE A DAY WITH FOOD SOLD: 04/16/2021 [facility] NITROFURANTOIN, MACROCRYSTALS 25 MG / Ni trofurantoin, Monohydrate 75 MG Oral Capsule [Macrobid] Macrobid 100 MG Macrobid 100 MG 04/16/2021 12:00:00 AM EDT active Macrobid 100 MG eCW1 ([facility]) 20 mg 04/16/2021 12:00:00 AM EDT capsule,delayed release (DR/EC) 30 TAKE ONE CAPSULE BY MOUTH EVERY MORNING 30 MINUTES BEFORE MORNING MEAL TAKE ONE CAPSULE BY MOUTH EVERY MORNING 30 MINUTES BEFORE MORNING MEAL SOLD: 05/30/2021 [facility] 20 mg 04/16/2021 12:00:00 AM EDT capsule,delayed release (DR/EC) 30 TAKE ONE CAPSULE BY MOUTH EVERY MORNING 30 MINUTES BEFORE MORNING MEAL TAKE ONE CAPSULE BY MOUTH EVERY MORNING 30 MINUTES BEFORE MORNING MEAL SOLD: 04/16/2021 [facility] 400 mg 03/29/2021 12:00:00 AM EDT capsule 30 TAKE ONE CAPSULE BY MOUTH EVERY DAY TAKE ONE CAPSULE BY MOUTH EVERY DAY SOLD: 03/30/2021 [facility] 15 mg 03/28/2021 12:00:00 AM EDT tablet 30 TAKE ONE TABLET BY MOUTH EVERY DAY TAKE ONE TABLET BY MOUTH EVERY DAY SOLD: 03/30/2021 [facility] 20 mg 03/28/2021 12:00:00 AM EDT tablet 90 TAKE ONE TABLET BY MOUTH EVERY 8 HOURS NEEDED FOR ANXIETY TAKE ONE TABLET BY MOUTH EVERY 8 HOURS A S NEEDED FOR ANXIETY SOLD: 03/30/2021 [facility] 400 mg 03/01/2021 12:00:00 AM EDT capsule 30 TAKE ONE CAPSULE BY MOUTH EVERY NIGHT TAKE ONE CAPSULE BY MOUTH EVERY NIGHT SOLD: 03/01/2021 [facility] 15 mg 03/01/2021 12:00:00 AM EDT tablet 27 TAKE ONE TABLET BY MOUTH ONCE A DAY TAKE ONE TABLET BY MOUTH ONCE A DAY SOLD: 03/04/2021 [facility] 20 mg 03/01/2021 12:00:00 AM EDT tablet 90 TAKE ONE TABLET BY MOUTH EVERY 8 HOURS NEEDED FOR ANXIETY TAKE ONE TABLET BY MOUTH EVERY 8 HOURS A S NEEDED FOR ANXIETY SOLD: 03/01/2021 [facility] gabapentin 600 MG Oral Tablet Gabapentin 600 MG Gabapentin 6 00 MG 02/27/2021 12:00:00 AM EDT 1.0 {capsule} active G abapentin 600 MG eCW1 ([facility]) gabapentin 600 MG Oral Tablet Gabapentin 600 MG Gabapentin 6 00 MG 02/27/2021 12:00:00 AM EDT 1.0 {capsule} active G abapentin 600 MG eCW1 ([facility]) gabapentin 400 MG Oral Capsule Gabapentin 400 MG Gabapentin 400 MG 02/27/2021 12:00:00 AM EDT 1.0 {capsule} active G abapentin 400 MG eCW1 ([facility]) gabapentin 600 MG Oral Tablet Gabapentin 600 MG Gabapentin 6 00 MG 02/27/2021 12:00:00 AM EDT 1.0 {capsule} active G abapentin 600 MG eCW1 ([facility]) gabapentin 600 MG Oral Tablet Gabapentin 600 MG Gabapentin 6 00 MG 02/27/2021 12:00:00 AM EDT 1.0 {capsule} active G abapentin 600 MG eCW1 ([facility]) gabapentin 600 MG Oral Tablet Gabapentin 600 MG Gabapentin 6 00 MG 02/27/2021 12:00:00 AM EDT 1.0 {capsule} active G abapentin 600 MG eCW1 ([facility]) gabapentin 400 MG Oral Capsule Gabapentin 400 MG Gabapentin 400 MG 02/27/2021 12:00:00 AM EDT 1.0 {capsule} active G abapentin 400 MG eCW1 ([facility]) gabapentin 400 MG Oral Capsule Gabapentin 400 MG Gabapentin 400 MG 02/27/2021 12:00:00 AM EDT 1.0 {capsule} active G abapentin 400 MG eCW1 ([facility]) gabapentin 400 MG Oral Capsule Gabapentin 400 MG Gabapentin 400 MG 02/27/2021 12:00:00 AM EDT 1.0 {capsule} active G abapentin 400 MG eCW1 ([facility]) 3 mg 02/20/2021 12:00:00 AM EDT tablet extended release 24hr 15 TAKE ONE TABLET BY MOUTH EVERY DAY TAKE ONE TABLET BY MOUTH EVERY DAY SOLD: 02/21/2021 [facility] 10 mg 02/20/2021 12:00:00 AM EDT tablet 45 TAKE 1 TABLET BY MOUTH EVERY 8 HOURS NEEDED FOR ANXIETY TAKE 1 TABLET BY MOUTH EVERY 8 HOURS NEEDED FOR ANXIETY SOLD: 02/21/2021 [facility] 500 mg 02/01/2021 12:00:00 AM EDT tablet 80 TAKE 2 TABLETS BY MOUTH FOUR TIMES A DAY NEEDED FOR PAIN FOR 10 DAYS TAKE 2 TABLETS BY MOUTH FOUR TIMES A DAY NEEDED FOR PAIN FOR 10 DAYS SOLD: 02/01/2021 [facility] 500 mg 02/01/2021 12:00:00 AM EDT tablet 20 TAKE ONE TABLET BY MOUTH EVERY 12 HOURS FOR 10 DAYS TAKE ONE TABLET BY MOUTH EVERY 12 HOURS FOR 10 DAYS SO LD: 02/01/2021 [facility] aripiprazole 20 MG Oral Tablet [Abilify] Abilify 20 MG Abili fy 20 MG 01/30/2021 12:00:00 AM EDT 1.0 {tablet} active Ab ilify 20 MG eCW1 ([facility] [facility] aripiprazole 20 MG Oral Tablet [Abilify] Abilify 20 MG Abili fy 20 MG 01/30/2021 12:00:00 AM EDT 1.0 {tablet} active Ab ilify 20 MG eCW1 ([facility]) Propranolol Hydrochloride 20 MG Oral Tablet Propranolo l HCl 20 MG Propranolol HCl 20 MG 01/30/2021 12:00:00 AM EDT 1.0 {tablet} ac tive Propranolol HCl 20 MG eCW1 ([facility]) 10 mg 01/30/2021 12:00:00 AM EDT tablet 30 TAKE ONE TABLET BY MOUTH ONCE DAILY TAKE ONE TABLET BY MOUTH ONCE DAILY SOLD: 01/31/2021 [facility] aripiprazole 20 MG Oral Tablet [Abilify] Abilify 20 MG Abili fy 20 MG 01/30/2021 12:00:00 AM EDT 1.0 {tablet} active Ab ilify 20 MG eCW1 ([facility]) aripiprazole 20 MG Oral Tablet [Abilify] Abilify 20 MG Abili fy 20 MG 01/30/2021 12:00:00 AM EDT 1.0 {tablet} active Ab ilify 20 MG eCW1 ([facility]) aripiprazole 20 MG Oral Tablet [Abilify] Abilify 20 MG Abili fy 20 MG 01/30/2021 12:00:00 AM EDT 1.0 {tablet} active Ab ilify 20 MG eCW1 ([facility]) Propranolol Hydrochloride 20 MG Oral Tablet Propranolo l HCl 20 MG Propranolol HCl 20 MG 01/30/2021 12:00:00 AM EDT 1.0 {tablet} ac tive Propranolol HCl 20 MG eCW1 ([facility]) Propranolol Hydrochloride 20 MG Oral Tablet Propranolo l HCl 20 MG Propranolol HCl 20 MG 01/30/2021 12:00:00 AM EDT 1.0 {tablet} ac tive Propranolol HCl 20 MG eCW1 ([facility]) Propranolol Hydrochloride 20 MG Oral Tablet Propranolo l HCl 20 MG Propranolol HCl 20 MG 01/30/2021 12:00:00 AM EDT 1.0 {tablet} ac tive Propranolol HCl 20 MG eCW1 ([facility]) Propranolol Hydrochloride 20 MG Oral Tablet Propranolo l HCl 20 MG Propranolol HCl 20 MG 01/30/2021 12:00:00 AM EDT 1.0 {tablet} ac tive Propranolol HCl 20 MG eCW1 ([facility]) aripiprazole 20 MG Oral Tablet [Abilify] Abilify 20 MG Abili fy 20 MG 01/30/2021 12:00:00 AM EDT 1.0 {tablet} active Ab ilify 20 MG eCW1 ([facility]) aripiprazole 20 MG Oral Tablet [Abilify] Abilify 20 MG Abili fy 20 MG 01/30/2021 12:00:00 AM EDT 1.0 {tablet} active Ab ilify 20 MG eCW1 ([facility]) Propranolol Hydrochloride 20 MG Oral Tablet Propranolo l HCl 20 MG Propranolol HCl 20 MG 01/30/2021 12:00:00 AM EDT 1.0 {tablet} ac tive Propranolol HCl 20 MG eCW1 ([facility]) aripiprazole 15 MG Oral Tablet [Abilify] Abilify 15 MG Abili fy 15 MG 01/30/2021 12:00:00 AM EDT 1.0 {tablet} active Ab ilify 15 MG eCW1 ([facility]) Propranolol Hydrochloride 20 MG Oral Tablet Propranolo l HCl 20 MG Propranolol HCl 20 MG 01/30/2021 12:00:00 AM EDT 1.0 {tablet} ac tive Propranolol HCl 20 MG eCW1 ([facility]) 10 mg 01/30/2021 12:00:00 AM EDT tablet 45 TAKE ONE TABLET BY MOUTH EVERY 8 HOURS NEEDED FOR ANXIETY TAKE ONE TABLET BY MOUTH EVERY 8 HOURS A S NEEDED FOR ANXIETY SOLD: 01/31/2021 [facility] aripiprazole 15 MG Oral Tablet [Abilify] Abilify 15 MG Abili fy 15 MG 01/30/2021 12:00:00 AM EDT 1.0 {tablet} active Ab ilify 15 MG eCW1 ([facility]) Propranolol Hydrochloride 20 MG Oral Tablet Propranolo l HCl 20 MG Propranolol HCl 20 MG 01/30/2021 12:00:00 AM EDT 1.0 {tablet} ac tive Propranolol HCl 20 MG eCW1 ([facility]) Propranolol Hydrochloride 20 MG Oral Tablet Propranolo l HCl 20 MG Propranolol HCl 20 MG 01/30/2021 12:00:00 AM EDT 1.0 {tablet} ac tive Propranolol HCl 20 MG eCW1 ([facility]) Amitriptyline Hydrochloride 25 MG Oral Tablet AMITRIPTYLINE HCL 01/30/2021 12:00:00 AM EDT tablet 15 TAKE ONE TABLET BY MOUTH AT BEDTIME TAKE ONE TABLET BY MOUTH AT BEDTIME SOLD: 01/31/2021 [facility] 25 mg 01/16/2021 12:00:00 AM EST capsule 30 TAKE ONE CAPSULE BY MOUTH EVERY DAY AT BEDTIME TAKE ONE CAPSULE BY MOUTH EVERY DAY AT BEDTIME SOLD: [facility] 5 mg 01/16/2021 12:00:00 AM EST tablet 30 TAKE ONE TABLET BY MOUTH EVERY DAY TAKE ONE TABLET BY MOUTH EVERY DAY SOLD: 01/17/2021 [facility] Clonidine Hydrochloride 0.2 MG Oral Tablet CLONIDINE HCL 01/16/2021 12:00:00 AM EST tablet 90 TAKE ONE TABLET BY MOUTH THREE TIMES A DAY NEEDED FOR ANXIETY TAKE ONE TABLET BY MOUTH THREE TIMES A DAY NEEDED F OR ANXIETY SOLD: 01/17/2021 [facility] Clonidine Hydrochloride 0.1 MG Oral Tablet CLONIDINE HCL 01/09/2021 12:00:00 AM EST tablet 14 TAKE ONE TABLET BY MOUTH TWI CE A DAY NEEDED FOR ANXIETY TAKE ONE TABLET BY MOUTH TWICE A DAY NEEDED FOR ANXIETY SOLD: 01/10/2021 [facility] 5 mg 01/09/2021 12:00:00 AM EST tablet 7 TAKE ONE TABLET BY MOUTH EVERY DAY TAKE ONE TABLET BY MOUTH EVERY DAY SOLD: 01/10/2021 [facility] 90 mcg/actuation 01/02/2021 12:00:00 AM EST HFA aerosol inha ler 36 INHALE TWO PUFFS BY MOUTH EVERY 4 TO 6 HOURS NEEDED FOR COUGH, WHEEZING, OR FOR SHORTNESS OF BREATH INHALE TWO PUFFS BY MOUTH EVERY 4 TO 6 H OURS NEEDED FOR COUGH, WHEEZING, OR FOR SHORTNESS OF BREATH SOLD: 01/05/2021 [facility] 25 mg 10/17/2020 12:00:00 AM EST tablet 180 TAKE ONE TABLET BY MOUTH TWICE A DAY FOR 1 DAY, THEN TAKE TWO TABLETS BY MOUTH TWICE A DAY FOR 1 DAY, THEN TAKE THREE TABLETS BY MOUTH TWICE A DAY TAKE ONE TABLET BY MOUTH TWICE A DAY FOR 1 DAY, THEN TAKE TWO TABLETS BY MOUTH TWICE A DAY FOR 1 DAY, THEN TAKE THREE TABLETS BY MOUTH TWICE A DAY SOLD: 10/19/2020 [facility] 50 mg 10/16/2020 12:00:00 AM EST tablet 30 TAKE ONE TABLET BY MOUTH EVERY DAY AT BEDTIME TAKE ONE TABLET BY MOUTH EVERY DAY AT BEDTIME SOLD: 10/19/2020 [facility] quetiapine 25 MG Oral Tablet [Seroquel] Seroquel 10/16/2020 12:00:0 0 AM EST ORAL active MEDENT ([facility]) Trazodone Hydrochloride 50 MG Oral Tablet Trazodone HCL 10/16/2020 12:00:00 AM EST ORAL active MED[facility] ([facility]) 24 HR venlafaxine 75 MG Extended Release Oral Capsule [Effex or] Effexor XR 10/16/2020 12:00:00 AM EST ORAL active MEDENT ([facility]) 75 mg 10/16/2020 12:00:00 AM EST capsule,extended releas e 24hr 30 TAKE ONE CAPSULE BY MOUTH EVERY DAY TAKE ONE CAPSULE BY MOUTH EVERY DAY SOLD: 10/19/2020 [facility] 20 mg 08/01/2020 12:00:00 AM EDT capsule,delayed release (DR/EC) 30 TAKE ONE CAPSULE BY MOUTH EVERY DAY TAKE ONE CAPSULE BY MOUTH EVERY DAY SOLD: 08/02/2020 [facility] 20 mg 08/01/2020 12:00:00 AM EDT capsule,delayed release (DR/EC) 30 TAKE ONE CAPSULE BY MOUTH EVERY DAY TAKE ONE CAPSULE BY MOUTH EVERY DAY SOLD: 01/05/2021 [facility] 20 mg 08/01/2020 12:00:00 AM EDT capsule,delayed release (DR/EC) 30 TAKE ONE CAPSULE BY MOUTH EVERY DAY TAKE ONE CAPSULE BY MOUTH EVERY DAY SOLD: 12/01/2020 [facility] Omeprazole 20 MG Delayed Release Oral Capsule Omeprazole 07/31/2020 12:00:00 AM EDT ORAL active MEDENT ([facility]) 50 mg 07/10/2020 12:00:00 AM EDT tablet 60 TAKE ONE TABLET BY MOUTH TWICE A DAY TAKE ONE TABLET BY MOUTH TWICE A DAY SOLD: 07/11/2020 [facility] Triamcinolone Acetonide 5 MG/ML Topical Cream Triamcinolone Acetonide 07/04/2020 12:00:00 AM EDT active MEDENT ([facility]) 0.5 % 07/04/2020 12:00:00 AM EDT cream 15 APPLY TO AFFECTED AREA(S) OF ABDOMEN TWO TIMES A DAY APPLY TO AFFECTED AREA(S) OF ABDOMEN TWO TIMES A DAY SOLD: 07/11/2020 [facility] 24 HR venlafaxine 150 MG Extended Release Oral Capsule [Effe xor] Effexor XR 03/03/2020 12:00:00 AM EDT ORAL completed MEDENT ([facility]) Sulfamethoxazole 800 MG / Trimethoprim 160 MG Oral Tablet [B actrim] Bactrim DS 02/22/2020 12:00:00 AM EDT ORAL completed [facility]ENT ([facility]) 0.3 mg/0.3 mL 02/16/2020 12:00:00 AM EDT auto-injector 2 INJECT IN THIGH FOR ALLERGIC REACTION AND IMMEDIATELY CALL 911 INJECT IN THIGH FOR ALLERGIC REACTION AND IMMEDIATELY CALL 911 SOLD: 02/07/2021 [facility] Insurance Providers Payer name Policy type / Coverage type Policy ID Covered constitution party ID Covered constitution party's relationship to flores Policy Flores Plan Information [facility] Community Plan Medigap Part B [id number] Self [id number] Medicaid S [id number] S [id number] Managed Care - Community Plan [facility] P [id number] S [id number] [facility] I [id number] Self [id number] Medicaid S [id number] Managed Care - Community Plan [facility] P [id number] S [id number] Medicaid S [id number] Managed Care - Community Plan [facility] P [id number] S [id number] [facility] H[employer] Commercial [id number] Self [id number] [facility] [employer] Commercial [id number] Self [id number] Managed Care - Community Plan [facility] P [id number] S [id number] Managed Care - [facility] Community Plan P [id number] S [id number] [facility] Community Plan Commercial [id number] Self [id number] [facility] Commercial Insurance Co. [id number] Self [id number] RPR- Needs Payer Match [id number] Self [id number] [facility] Commercial [id number] Self [id number] ANSI-Medicaid [id number] ANSI-Medicaid [id number] ANSI-Medicaid [id number] ANSI-Medicaid [id number] [facility] ([facility]) [id number] Self [id number] ANSI-Medicaid [id number] ANSI-Medicaid [id number] ANSI-Medicaid [id number] [facility] Part B [id number] Self [id number] [facility] Health Maintenance Organization (HMO) [id number] Self [id number] [facility] COMM[employer]ITY [facility] MCDHMO [id number] SP [id number] MEDICAID [id number] SP [id number] [facility] [id number] SP [id number] [employer] COMMUNITY PLAN MCDHMO [id number] SP [id number] [facility] MEDICAID [id number] Rosa Maria [id number] MEDICAID PROF FEES [id number] S [id number] MEDICAID [id number] S [id number] MEDICAID PROF FEES [id number] S [id number] MEDICAID [id number] S [id number] MEDICAID [id number] SP [id number] [facility] COMMUNITY PLAN MCDHMO [id number] SP [id number] [facility] [id number] SP [id number] [facility] [id number] SP [id number] [facility] [id number] SP [id number] [facility] [id number] SP [id number] [facility] B[facility] [id number] SP [id number] [employer] COMMUNITY PLAN MCDHMO [id number] SP [id number] [facility] [place] [id number] S [id number] [facility] MEDICAID [id number] S [id number] [facility] COMMUNITY PLAN [id number] 18 [id number] [facility] COMMUNTY PLAN [id number] [facility](MCAID) O [id number] S [id number] [facility] COMMUNITY PLAN XIX [id number] 18 [id number] [facility] [id number] SP [id number] UNAVAILABLE UNAVAILA BLE [facility] COMMUNITY PLAN MCDHMO [id number] SP [id number] [facility] [id number] SP [id number] ANSI-Medicaid [id number] ANSI-Medicaid [id number] ANSI-Medicaid [id number] ANSI-Medicaid [id number] Problems, Conditions, and Diagnoses Code Display Name Description Problem Type Effective Dates Data Source(s) F43.12 Post-traumatic stress disorder, chronic POST-TRAUMATIC STRESS DISORDER, CHRONIC Diagnosis 08/16/2021 10:02:00 AM [facility] F31.9 Bipolar disorder, unspecified BIPOLAR DISORDER, UNSPEC IFIED Diagnosis 08/16/2021 10:02:00 AM [facility] N30.90 Cystitis, unspecified without hematuria CYSTITIS, UNSPECIFIED WITHOUT HEMATURIA Diagnosis 08/14/2021 07:25:00 AM [facility] F41.9 Anxiety disorder, unspecified ANXIETY DISORDER, UNSPEC IFIED Diagnosis 08/08/2021 08:38:00 AM [facility] F43.23 Adjustment disorder with mixed anxiety a nd depressed mood ADJUSTMENT DISORDER WITH MIXED ANXIETY AND DEPRESS Diagnosis 08/08/2021 08:38:00 AM [facility] F60.9 Personality disorder, unspecified PERSONALITY DI SORDER, UNSPECIFIED Diagnosis 08/08/2021 08:38:00 AM [facility] G47.00 Insomnia, unspecified INSOMNIA, UNSPECIFIED Diagnosis 07/20/2021 11:00:00 AM [facility] Z76.0 Encounter for issue of repeat prescripti on ENCOUNTER FOR ISSUE OF REPEAT PRESCRIPTION Diagnosis 07/05/2021 11:00:00 AM [facility] Z68.43 Body mass index (BMI) 50-59.9 , adult SAMAN DY MASS INDEX [BMI] 50.0-59.9, ADULT Diagnosis 07/05/2021 11:00:00 AM [facility] E66.01 Morbid (severe) obesity due to excess ca lories MORBID (SEVERE) OBESITY DUE TO EXCESS CALORIES Diagnosis 07/05/2021 11:00:00 AM [facility] R63.5 Abnormal weight gain ABNORMAL WEIGHT GAIN Diagnosis 07/05/2021 11:00:00 AM [facility] F99 Mental disorder, not otherwise specified MENTAL DISORDER, NOT OTHERWISE SPECIFIED Diagnosis 07/05/2021 11:00:00 AM [facility] M54.5 Low back pain LOW BACK PAIN Diagnosis 07/05/2021 11:00:00 AM [facility] R39.9 Unspecified symptoms and signs involving the genitourinary system UNSP SYMPTOMS AND SIGNS INVOLVING THE GENITOURINAR Diagnosis 07/05/20 21 11:00:00 AM [facility] N39.0 Urinary tract infection, site not specif ied URINARY TRACT INFECTION, SITE NOT SPECIFIED Diagnosis 07/05/2021 11:00:00 AM [facility] E55.9 Vitamin D deficiency, unspecified VITAMIN D DEFI CIENCY, UNSPECIFIED Diagnosis 04/27/2021 10:40:00 AM [facility] 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 Diagnosis 04/16/2021 10:00:00 AM [facility] Z86.39 Personal history of other endocrine, nut ritional and metabolic disease PERSONAL HISTORY OF ENDO, NUTRITIONAL AND METABOLI Diagnosis 05/2021 10:00:00 AM [facility] Z68.42 Body mass index (BMI) 45.0-49.9, adult B BRADY MASS INDEX [BMI] 45.0-49.9, ADULT Diagnosis 04/16/2021 10:00:00 AM [facility] F17.210 Nicotine dependence, cigarettes, uncompl icated NICOTINE DEPENDENCE, CIGARETTES, UNCOMPLICATED Diagnosis 04/16/2021 10:00:00 AM [facility] J45.909 Unspecified asthma, uncomplicated UNSPECIFIED THMA, UNCOMPLICATED Diagnosis 04/16/2021 10:00:00 AM [facility] K21.9 Gastro-esophageal reflux disease without esophagitis GASTRO-ESOPHAGEAL REFLUX DISEASE WITHOUT ESOPHAGIT Diagnosis 04/16/2021 10:00:00 AM [facility] R32 Unspecified urinary incontinence UNSPECIFIED URINARY I NCONTINENCE Diagnosis 04/16/2021 10:00:00 AM EDT [facility] F60.3 Borderline personality disorder BORDERLINE PERSONALITY DISORDER Diagnosis 02/27/2021 04:20:00 PM EDT [facility] E03.9 Hypothyroidism, unspecified HYPOTHYROIDISM, UNSPECIFIE D Diagnosis 01/09/2021 09:10:00 AM [facility] [id number] 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, subsequent encounter Diffuse traumatic brain injury with loss of consciousness of unspecified duration, subsequent encounter Diagnosis 10/16/2020 10:58:00 AM [facility] F4310 Post-traumatic stress disorder, unspecif ied Post-traumatic stress disorder, unspecified Diagnosis 10/16/2020 10:58:00 AM [facility] F419 Anxiety disorder, unspecified Anxiety disorder, unspec ified Diagnosis 10/16/2020 10:58:00 AM [facility] K219 Gastro-esophageal reflux disease without esophagitis Gastro-esophageal reflux disease without esophagitis Diagnosis 07/31/2020 02:46:00 PM ED T [facility] R0789 Other chest pain Other chest pain Diagnosis 07/31/2020 02 :46:00 PM EDT [facility] R1110 Vomiting, unspecified Vomiting, unspecified Diagnosis 07/31/2020 02:46:00 PM EDT [facility] R42 Dizziness and giddiness Dizziness and giddiness Diagno sis 07/31/2020 02:46:00 PM EDT [facility] [id number] Pain in left leg Pain in left leg Diagnosis 07/31/2020 02 :46:00 PM EDT [facility] R21 Rash and other nonspecific skin eruption Rash and other nonspecific skin eruption Diagnosis 07/04/2020 12:41:00 PM EDT [facility] F43.23 [id number] Adjustment disorder with mixed a nxiety and depressed mood Problem 07/20/2021 12:00:00 AM EDT eCW1 ([facility]) F99 [id number] Mental health disorder Problem 07/07/2021 12 :00:00 AM EDT eCW1 ([facility]) Z91.030 [id number] Allergy to bee sting Problem 07/05/2021 12:0 0:00 AM EDT eCW1 ([facility]) Z68.43 [id number] Body mass index [BMI] 50.0-59.9, adult Pr oblem 07/05/2021 12:00:00 AM EDT eCW1 ([facility]) Z68.42 [id number] Body mass index [BMI] 45.0-49.9, adult Pr oblem 04/16/2021 12:00:00 AM EDT eCW1 ([facility]) J45.909 [id number] Asthma, unspecified asthma severity, unspecified whether complicated, unspecified whether persistent Problem 04/16/2021 12:00 :00 AM EDT eCW1 ([facility]) Z86.39 History of endocrine disorder Personal h istory of other endocrine, nutritional and metabolic disease Problem 04/16/2021 12:00:00 AM EDT eCW1 ([facility]) K21.9 [id number] GERD without esophagitis Problem 04/16/2021 12:00:00 AM EDT eCW1 ([facility]) R32 [id number] Urinary incontinence in female Problem 04/16 12:00:00 AM EDT eCW1 ([facility]) F17.200 [id number] Smoking Problem 04/16/2021 12:00:00 AM ED T eCW1 ([facility]) E66.01 [id number] Morbid (severe) obesity due to excess c alories Problem 04/16/2021 12:00:00 AM EDT eCW1 ([facility]) Z90.710 [id number] Status post hysterectomy Problem 04/16/2021 12:00:00 AM EDT eCW1 ([facility]) F41.9 [id number] Anxiety Problem 04/16/2021 12:00:00 AM ED T eCW1 ([facility]) F60.9 [id number] Personality disorder Problem 02/15/2021 12:0 0:00 AM EDT eCW1 ([facility]) G47.00 [id number] Insomnia, unspecified type Problem 12:00:00 AM EDT eCW1 ([facility]) E55.9 Vitamin D deficiency Vitamin D deficiency Problem 01/09/2021 12:00:00 AM EST eCW1 ([facility]) F43.12 [id number] Chronic post-traumatic stress disorder (P TSD) Problem 12/26/2020 12:00:00 AM EST eCW1 ([facility]) F31.9 [id number] Bipolar 1 disorder Problem 12/26/2020 12:00: 00 AM EST eCW1 ([facility]) [id number] Ganglion of ankle and foot Ganglion of ankle and foot Problem 12/05/2020 12:00:00 AM EST [facility] ([facility] Surgeries/Procedures Procedure Description Date Indications Data Source(s) OFFICE OUTPATIENT VISIT 25 MINUTES 08/13/2021 12:00:00 AM EDT MED[facility] ([facility] ) OFFICE OUTPATIENT VISIT 15 MINUTES 07/09/2021 12:00:00 AM EDT MEDENT ([facility] ) OFFICE OUTPATIENT NEW 45 MINUTES 05/31/2021 12:00:00 A M EDT MEDENT ([facility]) ASPIRATION&/INJECTION GANGLION CYST ANY LOCATION 11/23 12:00:00 AM EST MEDENT ([facility] MRI Lower Extremity Other Than Joint 09/27/2020 12:00: 00 AM EST MEDENT ([facility]) Results ID Date Data Source [id number] 08/16/2021 09:54:00 [facility] Name Value Range Interpretation Code Description Data Julia rce(s) Supporting Document(s) ORGANISM [facility] COLONY COUNT N [facility] ID Date Data Source Urinalysis, Routine 08/14/2021 12:00:00 AM EDT eCW1 ([facility]) Name Value Range Interpretation Code Description Data Julia rce(s) Supporting Document(s) Microscopic Examination eCW1 ( [facility]) Color of Urine stewart Urine-Color eCW1 ([facility]) Specific gravity of Urine 1.025 Specific G ravity eCW1 ([facility]) Appearance of Urine cloudy Appearance eCW1 ([facility]) pH of Urine by Test strip 5 pH eCW1 ([facility]) Hemoglobin [Presence] in Urine by Test strip TRACE Occult Blood eCW1 ([facility]) Protein [Presence] in Urine by Test strip NEG Protein eCW1 ([facility]) Glucose [Presence] in Urine NEG Glucose eCW1 ([facility]) Bilirubin.total [Presence] in Urine by Test strip NEG Bilirubin eCW1 ([facility]) Ketones [Presence] in Urine by Test strip NEG Ketones eCW1 ([facility]) Leukocyte esterase [Presence] in Urine by Test strip TRACE WBC Esterase eCW1 ([facility]) Nitrite [Presence] in Urine by Test strip POS Nitrite, Urine eCW1 ([facility]) Urobilinogen [Mass/volume] in Urine by Test strip NEG Urobilinogen,Semi-Qn eCW1 ([facility]) Urinalysis Gross Exam eCW1 ([facility]) ID Date Data Source [id number] 07/07/2021 11:39:00 AM EDT [facility] Name Value Range Interpretation Code Description Data Julia rce(s) Supporting Document(s) ORGANISM [facility] COLONY COUNT N [facility] ID Date Data Source [id number] 04/18/2021 02:26:00 PM EDT [facility] Name Value Range Interpretation Code Description Data Julia rce(s) Supporting Document(s) ORGANISM [facility] COLONY COUNT N [facility] ID Date Data Source URINALYSIS 04/16/2021 12:00:00 AM EDT eCW1 ([facility]) Name Value Range Interpretation Code Description Data Julia rce(s) Supporting Document(s) stewart COLOR eCW1 ([facility]) URINALYSIS eCW1 ([facility]) neg GLUCOSE eCW1 ([facility]) neg BILIRUBIN eCW1 ([facility]) neg KETONE eCW1 ([facility] cloudy APPEARANCE eCW1 ([facility]) neg BLOOD eCW1 ([facility]) 5 PH eCW1 ([facility]) neg PROTEIN eCW1 ([facility]) 1.020 SPECIFIC GRAVITY eCW1 ([facility]) neg UROBILINOGEN eCW1 ([facility]) trace LEUKOCYTE ESTERASE eCW1 ([facility]) positive NITRATE eCW1 ([facility]) ID Date Data Source [id number] 11/23/2020 02:00:00 PM EST [facility] ([facility] Name Value Range Interpretation Code Description Data Julia rce(s) Supporting Document(s) Microscopic observation [Identifier] in Unspecified specimen by Non- gynecological cytology method Laboratory test result [facility] ([facility] SPECIMEN: Ganglion cyst right foot .5 ml red SPECIMEN ADEQUACY: Satisfactory for evaluation CATEGORIZATION: No Malignancy identified DESCRIPTIONS: Specimen consists of synovial cells, RBCs, and cysts contents. COMMENTS: 11/24/2020 - 954 Signed ANA LANZA (ASCP) 11/24/2020 0955 (Prelim) Signed PAMELA BENSON MD 11/24/2020 1307 ID Date Data Source [id number] 07/25/2020 01:35:00 PM EDT [facility] ([facility]) Name Value Range Interpretation Code Description Data Julia rce(s) Supporting Document(s) Thyrotropin [Units/volume] in Serum or Plasma 2.96 uIU/mL 0.47-5.01 [facility] ([facility]) FASTING 8 HOUR~.~.~<DG1.3.1>Z00.01</DG1.3.1><DG1.3.1>Z00.01</DG1.3.1><DG1.3.1>Z00.01</DG1. 3.1><DG ID Date Data Source [id number] 07/25/2020 01:35:00 PM EDT [facility] ([facility]) Name Value Range Interpretation Code Description Data Julia rce(s) Supporting Document(s) Comprehensive [employer] Laboratory test result [facility] ([facility]) FASTING 8 HOUR~.~.~<DG1.3.1>Z00.01</DG1.3.1><DG1.3.1>Z00.01</DG1.3.1><DG1.3.1>Z00.01</DG1. 3.1><DG Potassium 4.5 meq/L 3.6-5.0 [facility] ([facility]) FASTING 8 HOUR~.~.~<DG1.3.1>Z00.01</DG1.3.1><DG1.3.1>Z00.01</DG1.3.1><DG1.3.1>Z00.01</DG1. 3.1><DG Sodium 134 meq/L 134-153 [facility] ([facility]) FASTING 8 HOUR~.~.~<DG1.3.1>Z00.01</DG1.3.1><DG1.3.1>Z00.01</DG1.3.1><DG1.3.1>Z00.01</DG1. 3.1><DG Chloride 98 meq/L 98-107 [facility] FASTING 8 HOUR~.~.~<DG1.3.1>Z00.01</DG1.3.1><DG1.3.1>Z00.01</DG1.3.1><DG1.3.1>Z00.01</DG1. 3.1><DG Co2 25 meq/L 22-30 [facility] ([facility]) FASTING 8 HOUR~.~.~<DG1.3.1>Z00.01</DG1.3.1><DG1.3.1>Z00.01</DG1.3.1><DG1.3.1>Z00.01</DG1. 3.1><DG Glucose 98 mg/dL 65-110 [facility] ([facility]) FASTING 8 HOUR~.~.~<DG1.3.1>Z00.01</DG1.3.1><DG1.3.1>Z00.01</DG1.3.1><DG1.3.1>Z00.01</DG1. 3.1><DG BUN 6 mg/dL 7-21 Below low normal [facility] ([facility]) FASTING 8 HOUR~.~.~<DG1.3.1>Z00.01</DG1.3.1><DG1.3.1>Z00.01</DG1.3.1><DG1.3.1>Z00.01</DG1. 3.1><DG BUN/Creat 9 8-27 [facility] ([facility]) FASTING 8 HOUR~.~.~<DG1.3.1>Z00.01</DG1.3.1><DG1.3.1>Z00.01</DG1.3.1><DG1.3.1>Z00.01</DG1. 3.1><DG Creatinine 0.7 mg/dL 0.7-1.5 [facility] ([facility]) FASTING 8 HOUR~.~.~<DG1.3.1>Z00.01</DG1.3.1><DG1.3.1>Z00.01</DG1.3.1><DG1.3.1>Z00.01</DG1. 3.1><DG Albumin 4.4 g/dL 3.9-5.0 [facility] ([facility]) FASTING 8 HOUR~.~.~<DG1.3.1>Z00.01</DG1.3.1><DG1.3.1>Z00.01</DG1.3.1><DG1.3.1>Z00.01</DG1. 3.1><DG Total Protein 7.3 g/dL 6.3-8.2 [facility] ([facility]) FASTING 8 HOUR~.~.~<DG1.3.1>Z00.01</DG1.3.1><DG1.3.1>Z00.01</DG1.3.1><DG1.3.1>Z00.01</DG1. 3.1><DG Globulin 2.9 GM/DL 2.4-3.2 [facility] ([facility]) FASTING 8 HOUR~.~.~<DG1.3.1>Z00.01</DG1.3.1><DG1.3.1>Z00.01</DG1.3.1><DG1.3.1>Z00.01</DG1. 3.1><DG A/G Ratio 1.5 0.8-2.0 [facility] ([facility]) FASTING 8 HOUR~.~.~<DG1.3.1>Z00.01</DG1.3.1><DG1.3.1>Z00.01</DG1.3.1><DG1.3.1>Z00.01</DG1. 3.1><DG Calcium 9.5 mg/dL 8.4-10.2 [facility] ([facility]) FASTING 8 HOUR~.~.~<DG1.3.1>Z00.01</DG1.3.1><DG1.3.1>Z00.01</DG1.3.1><DG1.3.1>Z00.01</DG1. 3.1><DG Alkaline Phos 123 U/L 38-126 [facility] ([facility]) FASTING 8 HOUR~.~.~<DG1.3.1>Z00.01</DG1.3.1><DG1.3.1>Z00.01</DG1.3.1><DG1.3.1>Z00.01</DG1. 3.1><DG Total Bili Laboratory test result 0.2-1.3 [facility] ([facility]) FASTING 8 HOUR~.~.~<DG1.3.1>Z00.01</DG1.3.1><DG1.3.1>Z00.01</DG1.3.1><DG1.3.1>Z00.01</DG1. 3.1><DG Sgot/Ast 21 U/L 5-40 [facility] FASTING 8 HOUR~.~.~<DG1.3.1>Z00.01</DG1.3.1><DG1.3.1>Z00.01</DG1.3.1><DG1.3.1>Z00.01</DG1. 3.1><DG SGPT/Alt 29 U/L 7-56 [facility]) FASTING 8 HOUR~.~.~<DG1.3.1>Z00.01</DG1.3.1><DG1.3.1>Z00.01</DG1.3.1><DG1.3.1>Z00.01</DG1. 3.1><DG Anion Gap 11.0 mmol/L 8.0-16.0 [facility] ([facility]) FASTING 8 HOUR~.~.~<DG1.3.1>Z00.01</DG1.3.1><DG1.3.1>Z00.01</DG1.3.1><DG1.3.1>Z00.01</DG1. 3.1><DG Age 34 yrs [facility]) FASTING 8 HOUR~.~.~<DG1.3.1>Z00.01</DG1.3.1><DG1.3.1>Z00.01</DG1.3.1><DG1.3.1>Z00.01</DG1. 3.1><DG Non-Aa GFR Laboratory test result [facility] ([facility]) FASTING 8 HOUR~.~.~<DG1.3.1>Z00.01</DG1.3.1><DG1.3.1>Z00.01</DG1.3.1><DG1.3.1>Z00.01</DG1. 3.1><DG Afr Amer GFR Laboratory test result [facility] ([facility]) FASTING 8 HOUR~.~.~<DG1.3.1>Z00.01</DG1.3.1><DG1.3.1>Z00.01</DG1.3.1><DG1.3.1>Z00.01</DG1. 3.1><DG ID Date Data Source [id number] 07/25/2020 01:35:00 PM EDT [facility] ([facility]) Name Value Range Interpretation Code Description Data Julia rce(s) Supporting Document(s) CBC W/Automated Diff Laboratory test result [facility]) FASTING 8 HOUR~.~.~<DG1.3.1>Z00.01</DG1.3.1><DG1.3.1>Z00.01</DG1.3.1><DG1.3.1>Z00.01</DG1. 3.1><DG RBC 4.41 10^6/uL 4.20-5.40 [facility]) FASTING 8 HOUR~.~.~<DG1.3.1>Z00.01</DG1.3.1><DG1.3.1>Z00.01</DG1.3.1><DG1.3.1>Z00.01</DG1. 3.1><DG WBC 10.0 10^3/uL 4.2-11.0 [facility] FASTING 8 HOUR~.~.~<DG1.3.1>Z00.01</DG1.3.1><DG1.3.1>Z00.01</DG1.3.1><DG1.3.1>Z00.01</DG1. 3.1><DG Hematocrit 39.6 % 37.0-47.0 [facility] ([facility]) FASTING 8 HOUR~.~.~<DG1.3.1>Z00.01</DG1.3.1><DG1.3.1>Z00.01</DG1.3.1><DG1.3.1>Z00.01</DG1. 3.1><DG Hemoglobin 13.3 g/dL 12.0-16.0 [facility] ([facility]) FASTING 8 HOUR~.~.~<DG1.3.1>Z00.01</DG1.3.1><DG1.3.1>Z00.01</DG1.3.1><DG1.3.1>Z00.01</DG1. 3.1><DG MCV 89.8 fL 81.0-101 [facility] ([facility]) FASTING 8 HOUR~.~.~<DG1.3.1>Z00.01</DG1.3.1><DG1.3.1>Z00.01</DG1.3.1><DG1.3.1>Z00.01</DG1. 3.1><DG RDW 13.4 % 11.5-14.5 [facility] ([facility]) FASTING 8 HOUR~.~.~<DG1.3.1>Z00.01</DG1.3.1><DG1.3.1>Z00.01</DG1.3.1><DG1.3.1>Z00.01</DG1. 3.1><DG MCHC 33.6 g/dL 31.0-36.0 [facility] ([facility]) FASTING 8 HOUR~.~.~<DG1.3.1>Z00.01</DG1.3.1><DG1.3.1>Z00.01</DG1.3.1><DG1.3.1>Z00.01</DG1. 3.1><DG MCH 30.2 pg 27.0-34.0 [facility] ([facility]) FASTING 8 HOUR~.~.~<DG1.3.1>Z00.01</DG1.3.1><DG1.3.1>Z00.01</DG1.3.1><DG1.3.1>Z00.01</DG1. 3.1><DG Platelets 402 10^3/uL 150-450 [facility] ([facility]) FASTING 8 HOUR~.~.~<DG1.3.1>Z00.01</DG1.3.1><DG1.3.1>Z00.01</DG1.3.1><DG1.3.1>Z00.01</DG1. 3.1><DG MPV 9.4 fL 7.4-10.4 [facility] ([facility]) FASTING 8 HOUR~.~.~<DG1.3.1>Z00.01</DG1.3.1><DG1.3.1>Z00.01</DG1.3.1><DG1.3.1>Z00.01</DG1. 3.1><DG Lymph 41.0 % 25.0-40.0 Above high normal [facility] ([facility]) FASTING 8 HOUR~.~.~<DG1.3.1>Z00.01</DG1.3.1><DG1.3.1>Z00.01</DG1.3.1><DG1.3.1>Z00.01</DG1. 3.1><DG Neut 49.9 % 37.0-80.0 [facility] ([facility]) FASTING 8 HOUR~.~.~<DG1.3.1>Z00.01</DG1.3.1><DG1.3.1>Z00.01</DG1.3.1><DG1.3.1>Z00.01</DG1. 3.1><DG Eos 3.6 % 0.0-7.0 [facility] ([facility]) FASTING 8 HOUR~.~.~<DG1.3.1>Z00.01</DG1.3.1><DG1.3.1>Z00.01</DG1.3.1><DG1.3.1>Z00.01</DG1. 3.1><DG [place] 4.9 % 3.0-8.0 [facility] ([facility]) FASTING 8 HOUR~.~.~<DG1.3.1>Z00.01</DG1.3.1><DG1.3.1>Z00.01</DG1.3.1><DG1.3.1>Z00.01</DG1. 3.1><DG Baso 0.4 % 0.0-2.5 [facility] ([facility]) FASTING 8 HOUR~.~.~<DG1.3.1>Z00.01</DG1.3.1><DG1.3.1>Z00.01</DG1.3.1><DG1.3.1>Z00.01</DG1. 3.1><DG %Ig 0.2 % 0.0-0.0 Above high normal [facility] ([facility]) FASTING 8 HOUR~.~.~<DG1.3.1>Z00.01</DG1.3.1><DG1.3.1>Z00.01</DG1.3.1><DG1.3.1>Z00.01</DG1. 3.1><DG %NRBC 0.0 % 0.0-0.0 [facility] ([facility]) FASTING 8 HOUR~.~.~<DG1.3.1>Z00.01</DG1.3.1><DG1.3.1>Z00.01</DG1.3.1><DG1.3.1>Z00.01</DG1. 3.1><DG #Lymph 4.11 10^3/uL 0.60-3.40 Above high normal [facility] T ([facility]) FASTING 8 HOUR~.~.~<DG1.3.1>Z00.01</DG1.3.1><DG1.3.1>Z00.01</DG1.3.1><DG1.3.1>Z00.01</DG1. 3.1><DG #Neut 5.01 10^3/uL 2.00-6.90 [facility] ([facility]) FASTING 8 HOUR~.~.~<DG1.3.1>Z00.01</DG1.3.1><DG1.3.1>Z00.01</DG1.3.1><DG1.3.1>Z00.01</DG1. 3.1><DG #[place] 0.49 10^3/uL 0.00-0.90 [facility] ([facility]) FASTING 8 HOUR~.~.~<DG1.3.1>Z00.01</DG1.3.1><DG1.3.1>Z00.01</DG1.3.1><DG1.3.1>Z00.01</DG1. 3.1><DG #E[place] 0.36 10^3/uL 0.00-0.70 [facility] ([facility]) FASTING 8 HOUR~.~.~<DG1.3.1>Z00.01</DG1.3.1><DG1.3.1>Z00.01</DG1.3.1><DG1.3.1>Z00.01</DG1. 3.1><DG #Ig 0.02 10^3/uL 0.00-0.10 [facility] ([facility]) FASTING 8 HOUR~.~.~<DG1.3.1>Z00.01</DG1.3.1><DG1.3.1>Z00.01</DG1.3.1><DG1.3.1>Z00.01</DG1. 3.1><DG #[place] 0.04 10^3/uL 0.00-0.20 [facility] ([facility]) FASTING 8 HOUR~.~.~<DG1.3.1>Z00.01</DG1.3.1><DG1.3.1>Z00.01</DG1.3.1><DG1.3.1>Z00.01</DG1. 3.1><DG Manual Diff Laboratory [facility] FAST[facility] 8 HOUR~.~.~<DG1.3.1>Z00.01</DG1.3.1><DG1.3.1>Z00.01</DG1.3.1><DG1.3.1>Z00.01</DG1. 3.1><DG RBC Morph Laboratory test result [facility] FASTING 8 HOUR~.~.~<DG1.3.1>Z00.01</DG1.3.1><DG1.3.1>Z00.01</DG1.3.1><DG1.3.1>Z00.01</DG1. 3.1><DG #NRBC 0.00 10^3/uL 0.00-0.00 [facility] ([facility]) FASTING 8 HOUR~.~.~<DG1.3.1>Z00.01</DG1.3.1><DG1.3.1>Z00.01</DG1.3.1><DG1.3.1>Z00.01</DG1. 3.1><DG ID Date Data Source [id number] 07/25/2020 04:51:00 PM EDT [facility] Name Value Range Interpretation Code Description Data Julia rce(s) Supporting Document(s) Thyrotropin [Units/volume] in Serum or Plasma by Detec tion limit <= 0.05 mIU/L 2.96 uIU/mL 0.47 - 5.01 [facility] ID Date Data Source [id number] 07/25/2020 04:51:00 PM EDT [facility] Name Value Range Interpretation Code Description Data Julia rce(s) Supporting Document(s) COMPREHENSIVE METABOLIC PANEL [facility] COMPREHENSIVE METABOLIC PANEL Sodium [Moles/volume] in Serum or Plasma 134 mEq/L 134 - 153 [facility] Potassium [Moles/volume] in Serum or Plasma 4.5 mEq/L 3.6 - 5.0 [facility] Chloride [Moles/volume] in Serum or Plasma 98 mEq/L 98 - 107 [facility] Carbon dioxide, total [Moles/volume] in Serum or Plasma 25 MEQ/L 22 - 30 [facility] Glucose [Mass/volume] in Serum or Plasma 98 MG/DL 65 - 110 [facility] BUN 6 MG/DL 7 - 21 L [facility] Creatinine [Mass/volume] in Serum or Plasma 0.7 MG/DL 0.7 - 1.5 [facility] BUN/CREAT 9 8 - 27 [facility] Protein [Mass/volume] in Serum or Plasma 7.3 G/DL 6.3 - 8.2 [facility] Albumin [Mass/volume] in Serum or Plasma 4.4 G/DL 3.9 - 5.0 [facility] Globulin [Mass/volume] in Serum by calculation 2.9 GM/DL 2.4 - 3.2 [facility] A/G RATIO 1.5 0.8 - 2.0 [facility] Calcium [Mass/volume] in Serum or Plasma 9.5 MG/DL 8.4 - 10.2 [facility] Bilirubin.total [Mass/volume] in Serum or Plasma <0.7 MG/DL 0.2 - 1.3 [facility] Alkaline phosphatase [Enzymatic activity/volume] in Serum or Plasma 123 U/L 38 - 126 [facility] Aspartate aminotransferase [Enzymatic activity/volume] in Serum or Plasma 21 U/L 5 - 40 [facility] Alanine aminotransferase [Enzymatic activity/volume] in Seru m or Plasma 29 U/L 7 - 56 [facility] Anion gap 3 in Serum or Plasma 11.0 mmol/L 8.0 - 16.0 [facility] AGE 34 yrs [facility] al NON-AA GFR >60 mL/min [facility] ital AFR AMER GFR >60 mL/min [facility] Male GFR In terprentation 20-49 yrs >60 mL/min Normal 50-59 yrs >56 mL/min Normal 60-69 yrs >49 mL/min Normal 70-79yrs >42 mL/min Normal 80 and above >35 mL/min Normal Female GFR Interpretation 20-39 yrs >60 mL/min Normal 40-49 yrs >58 mL/min Normal 50-59 yrs >51 mL/min Normal 60-69 yrs >45 mL/min Normal 70-79 yrs >39 mL/min Normal 80 and above >32 mL/min Normal ID Date Data Source [id number] 07/25/2020 03:27:00 PM EDT [facility] Name Value Range Interpretation Code Description Data Julia rce(s) Supporting Document(s) CBC W/AUTOMATED DIFF [facility] COMPLETE BLOOD COUNT Leukocytes [#/volume] in Blood by Automated count 10.0 10^3/uL 4.2 - 11.0 [facility] Erythrocytes [#/volume] in Blood by Automated count 4.41 10^6/uL 4. 20 - 5.40 [facility] Hemoglobin [Mass/volume] in Blood 13.3 g/dL 12.0 - 16.0 [facility] Hematocrit [Volume Fraction] of Blood by Automated count 39.6 % 3 7.0 - 47.0 [facility] Erythrocyte mean corpuscular volume [Entitic volume] by Auto mated count 89.8 fL 81.0 - 101 [facility] Erythrocyte mean corpuscular hemoglobin [Entitic mass] by Automated count 30.2 pg 27.0 - 34.0 [facility] Erythrocyte mean corpuscular hemoglobin concentration [Mass/volume] by Automated count 33.6 g/dL 31.0 - 36.0 [facility] Erythrocyte distribution width [Ratio] by Automated count 13.4 % 11.5 - 14.5 [facility] Platelets [#/volume] in Blood by Automated count 402 10^3/uL 150 - 45 0 [facility] Platelet mean volume [Entitic volume] in Blood by Automated count 9.4 fL 7.4 - 10.4 [facility] Neutrophils/100 leukocytes in Blood by Automated count 49.9 % 37. 0 - 80.0 [facility] Lymphocytes/100 leukocytes in Blood by Manual count 41.0 % 25.0 - 40.0 H [facility] Monocytes/100 leukocytes in Blood by Automated count 4.9 % 3.0 - 8.0 [facility] Eosinophils/100 leukocytes in Blood by Automated count 3.6 % 0.0 - 7.0 [facility] Basophils/100 leukocytes in Blood by Automated count 0.4 % 0.0 - 2.5 [facility] %IG 0.2 % 0.0 - 0.0 [facility] 0.0 % 0.0 - 0.0 [facility] Neutrophils [#/volume] in Blood by Automated count 5.01 10^3/uL 2.00 - 6.90 [facility] Lymphocytes [#/volume] in Blood by Automated count 4.11 10^3/uL 0.60 - 3.40 H [facility] Monocytes [#/volume] in Blood by Automated count 0.49 10^3/uL 0.00 - 0.90 [facility] Eosinophils [#/volume] in Blood by Automated count 0.36 10^3/uL 0.00 - 0.70 [facility] Basophils [#/volume] in Blood by Automated count 0.04 10^3/uL 0.00 - 0.20 [facility] #IG 0.02 10^3/uL 0.00 - 0.10 [facility] #NRBC 0.00 10^3/uL 0.00 - 0.00 [facility] MANUAL DIFF NOT INDICATED [facility] RBC MORPH NOT INDICATED [facility] spital ID Date Data Source [id number] 07/10/2020 09:30:00 AM EDT [facility] ([facility]) Name Value Range Interpretation Code Description Data Julia rce(s) Supporting Document(s) Femur Min 2 Views LT Laboratory test result [facility] ([facility]) Procedure Social History Code Duration Value Status Description Data Source(s ) Smoking 08/14/2021 12:00:00 AM EDT Current Smoker completed Curre nt Smoker eCW1 ([facility]) Smoking 08/14/2021 12:00:00 AM EDT Current Smoker completed Curre nt Smoker eCW1 ([facility]) Smoking 07/07/2021 12:00:00 AM EDT Current Smoker completed Curre nt Smoker eCW1 ([facility]) Smoking 07/07/2021 12:00:00 AM EDT Current Smoker completed Curre nt Smoker eCW1 ([facility]) Smoking 07/05/2021 12:00:00 AM EDT Current Smoker completed Curre nt Smoker eCW1 ([facility]) Smoking 04/16/2021 12:00:00 AM EDT Current Smoker completed Curre nt Smoker eCW1 ([facility]) Smoking 04/16/2021 12:00:00 AM EDT Current Smoker completed Curre nt Smoker eCW1 ([facility]) Smoking 04/16/2021 12:00:00 AM EDT Current Smoker completed Curre nt Smoker eCW1 ([facility]) Smoking 04/16/2021 12:00:00 AM EDT Current Smoker completed Curre nt Smoker eCW1 ([facility]) Vital Signs ID Date Data Source UNK Name Value Range Interpretation Code Description Data Source(s) Body mass index (BMI) [Ratio] 51.51 kg/m2 51.51 kg/m2 eCW1 ([facility]) Body temperature 97.8 [degF] 97.8 [degF] eCW1 ( [facility]) Respiratory rate 18 /min 18 /min eCW1 ([facility]) Heart rate 93 /min 93 /min eCW1 ([facility]) Oxygen saturation in Arterial blood by Pulse oximetry 97 % 97 % eCW1 ([facility]) Body height 63 [in_i] 63 [in_i] eCW1 ([facility]) Body weight 290.8 [lb_av] 290.8 [lb_av] eCW1 ([facility]) Body height 63 [in_i] 63 [in_i] eCW1 ([facility]) Body weight 290.2 [lb_av] 290.2 [lb_av] eCW1 ([facility]) Body mass index (BMI) [Ratio] 51.40 kg/m2 51.40 kg/m2 eCW1 ([facility]) Body temperature 98.0 [degF] 98.0 [degF] eCW1 ( [facility]) Heart rate 81 /min 81 /min eCW1 ([facility]) Respiratory rate 18 /min 18 /min eCW1 ([facility]) Oxygen saturation in Arterial blood by Pulse oximetry 98 % 98 % eCW1 ([facility]) Body mass index (BMI) [Ratio] 45.3 kg/m2 45.3 k g/m2 [facility] ) Body temperature 97.2 [degF] 97.2 [degF] [facility] ([facility] ) Body height 66 [in_i] 66 [in_i] [facility] ([facility] ) 5'6" Body weight 281.00 [lb_av] 281.00 [lb_av] MEDEN T ([facility] ) Body height 63 [in_i] 63 [in_i] eCW1 ([facility]) Body weight 271.6 [lb_av] 271.6 [lb_av] eCW1 ([facility]) Body mass index (BMI) [Ratio] 48.11 kg/m2 48.11 kg/m2 eCW1 ([facility]) Body temperature 97.6 [degF] 97.6 [degF] eCW1 ( [facility]) Heart rate 79 /min 79 /min eCW1 ([facility]) Respiratory rate 18 /min 18 /min eCW1 ([facility]) Oxygen saturation in Arterial blood by Pulse oximetry 98 % 98 % eCW1 ([facility]) Body height 64 [in_i] 64 [in_i] [facility] ([facility] 5'4" Body weight 195.00 [lb_av] 195.00 [lb_av] MEDEN T ([facility] Systolic blood pressure 132 mm[Hg] 132 mm[Hg] M [facility] ([facility] Diastolic blood pressure 78 mm[Hg] 78 mm[Hg] [facility] ([facility] Heart rate 93 /min 93 /min [facility] ([facility] Body mass index (BMI) [Ratio] 33.5 kg/m2 33.5 k g/m2 [facility] ([facility] Body height 64 [in_i] 64 [in_i] [facility] ([facility] 5'4" Body weight 190.00 [lb_av] 190.00 [lb_av] MEDEN T ([facility] Body mass index (BMI) [Ratio] 32.6 kg/m2 32.6 k g/m2 [facility] ([facility] Body temperature 96.9 [degF] 96.9 [degF] MED[facility] ([facility]) Body height 64 [in_i] 64 [in_i] MED[facility] ([facility]) 5'4" Body weight 190.00 [lb_av] 190.00 [lb_av] MEDEN T ([facility]) Body mass index (BMI) [Ratio] 32.6 kg/m2 32.6 k g/m2 [facility] ([facility] Body weight 242.25 [lb_av] 242.25 [lb_av] MEDEN T ([facility]) Systolic blood pressure 124 mm[Hg] 124 mm[Hg] M EDENT ([facility]) Diastolic blood pressure 82 mm[Hg] 82 mm[Hg] [facility] ([facility]) Heart rate 109 /min 109 /min MED[facility] ([facility]) Body temperature 97.9 [degF] 97.9 [degF] [facility] ([facility]) Respiratory rate 16 /min 16 /min [facility] ( [facility]) Oxygen saturation in Arterial blood by Pulse oximetry 97 % 97 % [facility] ([facility]) Body weight 109.885 kg 109.885 kg MED[facility] ([facility]) Body height 63 [in_i] 63 [in_i] [facility] ([facility]) 5'3" Body mass index (BMI) [Ratio] 42.9 kg/m2 42.9 k g/m2 [facility] ([facility]) Body surface area Derived from formula 2.10 m2 2.10 m2 [facility] ([facility]) Respiratory rate 17 /min 17 /min [facility] ( [facility]) Body weight 111.812 kg 111.812 [facility] Body surface area 2.11 m2 2.11 m2 [facility] Systolic blood pressure 114 mm[Hg] 114 mm[Hg] M EDENT ([facility]) Diastolic blood pressure 70 mm[Hg] 70 mm[Hg] [facility] ([facility]) Heart rate 90 /min 90 /min [facility] ([facility]) Body temperature 98.2 [degF] 98.2 [degF] [facility] ([facility]) Oxygen saturation in Arterial blood by Pulse oximetry 95 % 95 % [facility] ([facility]) Body weight 246.50 [lb_av] 246.50 [lb_av] MED[facility] T ([facility]) Body height 63 [in_i] 63 [in_i] [facility] ([facility]) 5'3" Body mass index (BMI) [Ratio] 43.7 kg/m2 43.7 k g/m2 [facility] ([facility]) Body surface area Derived from formula 2.11 m2 2.11 m2 [facility] ([facility]) Body surface area Derived from formula 2.08 m2 2.08 m2 [facility] ([facility]) Body surface area 2.08 m2 2.08 m2 [facility] ([facility]) Systolic blood pressure 128 mm[Hg] 128 mm[Hg] M EDENT ([facility]) Diastolic blood pressure 88 mm[Hg] 88 mm[Hg] [facility] ([facility]) Heart rate 98 /min 98 /min [facility] Body temperature 99.0 [degF] 99.0 [degF] [facility] Respiratory rate 16 /min 16 /min [facility] ( [facility]) Oxygen saturation in Arterial blood by Pulse oximetry 97 % 97 % [facility] ([facility]) Body weight 238.12 [lb_av] 238.12 [lb_av] MEDEN T ([facility]) Body weight 108.014 kg 108.014 kg [facility] ([facility]) Body height 63 [in_i] 63 [in_i] [facility] ([facility]) 5'3" Body mass index (BMI) [Ratio] 42.2 kg/m2 42.2 k g/m2 [facility] ([facility]) Patient Treatment Plan of Care Planned Activity Planned Date Details Description Data Source (s) Clonazepam 1 MG Oral Tablet [Klonopin] 08/22/2021 12:00:00 AM EDT eCW1 ([facility]) Ciprofloxacin 500 MG Oral Tablet [Cipro] 08/14/2021 12:00:00 AM EDT eCW1 ([facility]) Clonazepam 1 MG Oral Tablet 07/26/2021 12:00:00 AM EDT eCW1 ([facility]) Sulfamethoxazole 800 MG / Trimethoprim 160 MG Oral Tab let [Bactrim] 07/05/2021 12:00:00 AM EDT eCW1 ([facility]) Sulfamethoxazole 800 MG / Trimethoprim 160 MG Oral Tab let [Bactrim] 07/05/2021 12:00:00 AM EDT eCW1 ([facility]) NITROFURANTOIN, MACROCRYSTALS 25 MG / Ni trofurantoin, Monohydrate 75 MG Oral Capsule [Macrobid] 04/16/2021 12:00:00 AM EDT eC W1 ([facility]) NITROFURANTOIN, MACROCRYSTALS 25 MG / Ni trofurantoin, Monohydrate 75 MG Oral Capsule [Macrobid] 04/16/2021 12:00:00 AM EDT eC W1 ([facility]) gabapentin 600 MG Oral Tablet 02/27/2021 12:00:00 AM EDT eCW1 ([facility]) gabapentin 600 MG Oral Tablet 02/27/2021 12:00:00 AM EDT eCW1 ([facility]) gabapentin 600 MG Oral Tablet 02/27/2021 12:00:00 AM EDT eCW1 ([facility]) gabapentin 400 MG Oral Capsule 02/27/2021 12:00:00 AM EDT eCW1 ([facility]) gabapentin 400 MG Oral Capsule 02/27/2021 12:00:00 AM EDT eCW1 ([facility]) Propranolol Hydrochloride 20 MG Oral Tablet 01/30/2021 12:00:00 AM EDT eCW1 ([facility]) aripiprazole 20 MG Oral Tablet [Abilify] 01/30/2021 12:00:00 AM EDT eCW1 ([facility]) aripiprazole 20 MG Oral Tablet [Abilify] 01/30/2021 12:00:00 AM EDT eCW1 ([facility]) Propranolol Hydrochloride 20 MG Oral Tablet 01/30/2021 12:00:00 AM EDT eCW1 ([facility]) aripiprazole 20 MG Oral Tablet [Abilify] 01/30/2021 12:00:00 AM EDT eCW1 ([facility]) Propranolol Hydrochloride 20 MG Oral Tablet 01/30/2021 12:00:00 AM EDT eCW1 ([facility])
--- OUTSIDE RECORDS SUMMARY | 2021-08-30 21:05 | CCD ---
Author Author [facility] Organization [facility] Address Unknown Phone Unavailable Support Name Relationship Address Phone NO EMERGENCY, CONTACT Next Of Kin [address] [place] [address] Douglas Collado Next Of Kin Unknown Unavailable David Polo MD Next Of Kin [address] [place] [address] DEEPALI AZUL Next Of Kin [address] [place] [address] Adebayo Sellers MD Next Of Kin [address] [place] [address] PT, NONE Next Of Kin Unknown Unavailable NONE, PT PER Next Of Kin - -, - - - JONATHAN PARKER Next Of Kin [address] [place] [address] UN Next Of Kin Unknown Unavailable CONTACT, OTHER NO Next Of Kin - -, [place] - [phone] IMANI WOLF Next Of Kin [address] [place] [address] Abdias ANP-BC, Fara Next Of Kin [address] [place] [id number] "" Next Of Kin [address] [place] [address] Ken RPA-C, Jacquelyn Next Of Kin [address] [facility] [place] [address] Jose Maria BIOMASS POWER PLANT SUPERINTENDENT, Terri Next Of Kin [address] [place] [address] DISABLED Next Of Kin Unknown Unavailable UNEMPLOYED Next Of Kin Unknown UE Next Of Kin Unknown Unavailable DOUGLAS COLLADO Next Of Kin [address] [place] [address] douglas collado ECON [address] [place] [address] [phone] Care Team Providers Care Real Estate Transaction Coordinator Name Role Phone Ludin, L Oma SENIOR PHP WEB DEVELOPER Unavailable Unavailable [place], L Oma SENIOR PHP WEB DEVELOPER Unavailable Unavailable [place], L Oma SENIOR PHP WEB DEVELOPER Unavailable Unavailable [place], L Oma SENIOR PHP WEB DEVELOPER Unavailable Unavailable [place], L Oma SENIOR PHP WEB DEVELOPER Unavailable Unavailable Ludin, L Oma SENIOR PHP WEB DEVELOPER Unavailable Unavailable Ludin, L Oma SENIOR PHP WEB DEVELOPER Unavailable Unavailable Ludin, L Oma SENIOR PHP WEB DEVELOPER Unavailable Unavailable Ludin, L Oma SENIOR PHP WEB DEVELOPER Unavailable Unavailable [place], L Oma SENIOR PHP WEB DEVELOPER Unavailable Unavailable [place], L Oma SENIOR PHP WEB DEVELOPER Unavailable Unavailable [place], L Oma SENIOR PHP WEB DEVELOPER Unavailable Unavailable [place], L Oma SENIOR PHP WEB DEVELOPER Unavailable Unavailable [place], L Oma SENIOR PHP WEB DEVELOPER Unavailable Unavailable [place], L Oma SENIOR PHP WEB DEVELOPER Unavailable Unavailable [place], L Oma SENIOR PHP WEB DEVELOPER Unavailable Unavailable Ludin, L Oma SENIOR PHP WEB DEVELOPER Unavailable Unavailable Ludin, L Oma SENIOR PHP WEB DEVELOPER Unavailable Unavailable Ludin, L Oma SENIOR PHP WEB DEVELOPER Unavailable Unavailable Ludin, L Oma SENIOR PHP WEB DEVELOPER Unavailable Unavailable [place], L Oma SENIOR PHP WEB DEVELOPER Unavailable Unavailable [place], L Oma SENIOR PHP WEB DEVELOPER Unavailable Unavailable Ludin, L Oma SENIOR PHP WEB DEVELOPER Unavailable Unavailable [place], L Oma SENIOR PHP WEB DEVELOPER Unavailable Unavailable Ludin, L Oma SENIOR PHP WEB DEVELOPER Unavailable Unavailable [place], L Oma SENIOR PHP WEB DEVELOPER Unavailable Unavailable [place], L Oma SENIOR PHP WEB DEVELOPER Unavailable Unavailable [place], L Oma SENIOR PHP WEB DEVELOPER Unavailable Unavailable [place], L Oma SENIOR PHP WEB DEVELOPER Unavailable Unavailable Ludin, L Oma SENIOR PHP WEB DEVELOPER Unavailable Unavailable [place], L Oma SENIOR PHP WEB DEVELOPER Unavailable Unavailable [place], L Oma SENIOR PHP WEB DEVELOPER Unavailable Unavailable Ludin, L Oma SENIOR PHP WEB DEVELOPER Unavailable Unavailable Ludin, L Oma SENIOR PHP WEB DEVELOPER Unavailable Unavailable [place], L Oma SENIOR PHP WEB DEVELOPER Unavailable Unavailable Ludin, L Oma SENIOR PHP WEB DEVELOPER Unavailable Unavailable [place], L Oma SENIOR PHP WEB DEVELOPER Unavailable Unavailable [place], L Oma SENIOR PHP WEB DEVELOPER Unavailable Unavailable Ludin, L Oma SENIOR PHP WEB DEVELOPER Unavailable [facility]available [facility] Unavailable Unavailable [facility], PA-C Unavailable Unavailabl e Fish, [facility], PA-C Unavailable Unavailabl e Fish, [facility], PA-C Unavailable Unavailabl e Fish, [facility], PA-C Unavailable Unavailabl e Fish, [facility], PA-C Unavailable Unavailabl e Fish, [facility], PA-C Unavailable Unavailabl e Fish, [facility], PA-C Unavailable Unavailabl e Fish, [facility], PA-C Unavailable Unavailabl e Fish, [facility], PA-C Unavailable Unavailabl e Fish, [facility], PA-C Unavailable Unavailabl e Fish, [facility], PA-C Unavailable Unavailabl e Fish, [facility], PA-C Unavailable Unavailabl e [facility], [facility], PA-C Unavailable Unavailabl e [facility], [facility], PA-C Unavailable Unavailabl e [facility], [facility], PA-C Unavailable Unavailabl e [facility], [facility], PA-C Unavailable Unavailabl e Fish, [facility], PA-C Unavailable Unavailabl e Fish, [facility], PA-C Unavailable Unavailabl e Fish, [facility], PA-C Unavailable Unavailabl e Fish, [facility], PA-C Unavailable Unavailabl e Fish, [facility], PA-C Unavailable Unavailabl e Fish, [facility], PA-C Unavailable Unavailabl e Fish, [facility], PA-C Unavailable Unavailabl e Fish, [facility], PA-C Unavailable Unavailabl e Fish, [facility], PA-C Unavailable Unavailabl e Fish, [facility], PA-C Unavailable Unavailabl e Fish, [facility], PA-C Unavailable Unavailabl e Fish, [facility], PA-C Unavailable Unavailabl e Fish, [facility], PA-C Unavailable Unavailabl e Fish, [facility], PA-C Unavailable Unavailabl e Fish, [facility], PA-C Unavailable Unavailabl e Fish, [facility], PA-C Unavailable Unavailabl e Fish, [facility], PA-C Unavailable Unavailabl e Fish, [facility], PA-C Unavailable Unavailabl e Fish, [facility], PA-C Unavailable Unavailabl e Fish, [facility], PA-C Unavailable Unavailabl e PHYSICIAN, OTHER Unavailable Unavailable LAROCK, J ASA WATSON Unavailable Unavailable LAROCK, Kimberly BRAY NP Unavailable Unavailable LAROCK, Kimberly BRAY NP Unavailable Unavailable LAROCK, Kimberly BRAY NP Unavailable Unavailable LAROCK, Kimberly BRAY NP Unavailable Unavailable LAROCK, J ASA OPHTHALMIC DISPENSER Unavailable Unavailable LAROCK, J ASA OPHTHALMIC DISPENSER Unavailable Unavailable LAROCK, J ASA OPHTHALMIC DISPENSER Unavailable Unavailable LAROCK, J ASA OPHTHALMIC DISPENSER Unavailable Unavailable LAROCK, J ASA OPHTHALMIC DISPENSER Unavailable Unavailable LAROCK, J ASA OPHTHALMIC DISPENSER Unavailable Unavailable LAROCK, J ASA OPHTHALMIC DISPENSER Unavailable Unavailable LAROCK, J ASA OPHTHALMIC DISPENSER Unavailable Unavailable LAROCK, J ASA OPHTHALMIC DISPENSER Unavailable Unavailable LAROCK, J ASA OPHTHALMIC DISPENSER Unavailable Unavailable LAROCK, J ASA OPHTHALMIC DISPENSER Unavailable Unavailable LAROCK, J ASA OPHTHALMIC DISPENSER Unavailable Unavailable LAROCK, J ASA OPHTHALMIC DISPENSER Unavailable Unavailable LAROCK, J ASA OPHTHALMIC DISPENSER Unavailable Unavailable LAROCK, J ASA OPHTHALMIC DISPENSER Unavailable Unavailable LAROCK, J ASA OPHTHALMIC DISPENSER Unavailable Unavailable LAROCK, J ASA OPHTHALMIC DISPENSER Unavailable Unavailable Mccormick, M Alisha PA-C Unavailable [...] M Alisha PA-C Unavailable Unavailable DESJARLAIS, CRUZ OPHTHALMIC DISPENSER Unavailable Unavailable DESJARLAIS, CRUZ OPHTHALMIC DISPENSER Unavailable Unavailable DESJARLAIS, CRUZ OPHTHALMIC DISPENSER Unavailable Unavailable DESJARLAIS, CRUZ OPHTHALMIC DISPENSER Unavailable Unavailable DESJARLAIS, CRUZ OPHTHALMIC DISPENSER Unavailable Unavailable DESJARLAIS, CRUZ OPHTHALMIC DISPENSER Unavailable Unavailable DESJARLAIS, CRUZ OPHTHALMIC DISPENSER Unavailable Unavailable DESJARLAIS, CRUZ OPHTHALMIC DISPENSER Unavailable Unavailable DESJARLAIS, CRUZ OPHTHALMIC DISPENSER Unavailable Unavailable HICKEY, DARIANA Unavailable Unavailable Hickey, Dariana Unavailable Hickey, Dariana Unavailable [place], L Oma SENIOR PHP WEB DEVELOPER Unavailable Unavailable [place], L Oma SENIOR PHP WEB DEVELOPER Unavailable Unavailable Ludin, L Oma SENIOR PHP WEB DEVELOPER Unavailable Unavailable Ludin, L Oma SENIOR PHP WEB DEVELOPER Unavailable Unavailable [place], L Oma SENIOR PHP WEB DEVELOPER Unavailable Unavailable Ludin, L Oma SENIOR PHP WEB DEVELOPER Unavailable Unavailable [place], L Oma SENIOR PHP WEB DEVELOPER Unavailable Unavailable Ludin, L Oma SENIOR PHP WEB DEVELOPER Unavailable Unavailable [place], L Oma SENIOR PHP WEB DEVELOPER Unavailable Unavailable [place], L Oma SENIOR PHP WEB DEVELOPER Unavailable Unavailable Ludin, L Oma SENIOR PHP WEB DEVELOPER Unavailable Unavailable [place], L Oma SENIOR PHP WEB DEVELOPER Unavailable Unavailable [place], L Oma SENIOR PHP WEB DEVELOPER Unavailable Unavailable [place], L Oma SENIOR PHP WEB DEVELOPER Unavailable Unavailable [place], L Oma SENIOR PHP WEB DEVELOPER Unavailable Unavailable [place], L Oma SENIOR PHP WEB DEVELOPER Unavailable Unavailable Ludin, L Oma SENIOR PHP WEB DEVELOPER Unavailable Unavailable [place], L Oma SENIOR PHP WEB DEVELOPER Unavailable Unavailable [place], L Oma SENIOR PHP WEB DEVELOPER Unavailable Unavailable Ludin, L Oma SENIOR PHP WEB DEVELOPER Unavailable Unavailable Ludin, L Oma SENIOR PHP WEB DEVELOPER Unavailable Unavailable Ludin, L Oma SENIOR PHP WEB DEVELOPER Unavailable Unavailable Ludin, L Oma SENIOR PHP WEB DEVELOPER Unavailable Unavailable Ludin, L Oma SENIOR PHP WEB DEVELOPER Unavailable Unavailable Ludin, L Oma SENIOR PHP WEB DEVELOPER Unavailable Unavailable Ludin, L Oma SENIOR PHP WEB DEVELOPER Unavailable Unavailable [place], L Oma SENIOR PHP WEB DEVELOPER Unavailable Unavailable [place], L Oma SENIOR PHP WEB DEVELOPER Unavailable Unavailable [place], L Oma SENIOR PHP WEB DEVELOPER Unavailable Unavailable [place], L Oma SENIOR PHP WEB DEVELOPER Unavailable Unavailable [place], L Oma SENIOR PHP WEB DEVELOPER Unavailable Unavailable [place], L Oma SENIOR PHP WEB DEVELOPER Unavailable Unavailable [place], L Oma SENIOR PHP WEB DEVELOPER Unavailable Unavailable Ludin, L Oma SENIOR PHP WEB DEVELOPER Unavailable Unavailable [place], L Oma SENIOR PHP WEB DEVELOPER Unavailable Unavailable Ludin, L Oma SENIOR PHP WEB DEVELOPER Unavailable Unavailable Ludin, L Oma SENIOR PHP WEB DEVELOPER Unavailable Unavailable [place], L Oma SENIOR PHP WEB DEVELOPER Unavailable Unavailable Ludin, L Oma SENIOR PHP WEB DEVELOPER Unavailable Unavailable Corbine, Mery Unavailable Corbine, Mery [...] Unavailable Cosme Morgan MD Unavailable Unavailable Cosme Mrogan MD Unavailable Unavailable Cosme Morgan MD Unavailable [...] is protected by Article 27-F of the [facility] Public Health law. If you continue you may have access to information: Regarding HIV / AIDS; Provided by facilities licensed or operated by the [facility] Office of Mental Health; or Provided by the [facility] Office for People With Developmental Disabilities. If such information is present, then the following [facility] mandated warning applies: This information has been [...] law may result in a fine or shelter sentence or both. A general authorization for the release of medical or other information is NOT sufficient authorization for further disc losure. Allergies and Adverse Reactions Type Description Substance Reaction Status Data Source(s ) Propensity to adverse reactions ZOLOFT ZOLOFT UNKNOWN [facility] Propensity to adverse reactions TYLENOL W/CODEINE #3 TYLENOL W/C ODEINE #3 VOMITING [facility] Propensity to adverse reactions TORADOL TORADOL STOMACH HURT [facility] Propensity to adverse reactions LYRICA LYRICA UNKNOWN [facility] Drug allergy BEE VENOM BEE VENOM HIVES [facility] Propensity to adverse reactions [facility] LAT[facility] Drug allergy TRAMADOL TRAMADOL ULCERS [facility] Drug allergy LITHIUM LITHIUM THYROID PROBLEMS [facility] Drug allergy BACLOFEN BACLOFEN UNKNOWN [facility] Propensity to adverse reactions PENICILLINS (CLASS) PENICILLINS (CL ASS) [facility] Family History Family Member Name Family Member Gender Family Member Status Date o f Status Description Data Source(s) Unknown Unknown Problem [facility] ([facility]) Encounters Encounter Providers Location Date Indications Data Source(s ) Outpatient Attender: Grace Mcghee 08/30/2021 10:35:00 AM [facility] Outpatient [facility] 08/24/2021 12:00:00 AM EDT eCW1 ([facility]) Outpatient Attender: CRUZ TRIPLETT NP 08/22/2021 09: 13:00 AM [facility] Outpatient Attender: Grace Borjasley 08/16/2021 10:02:00 AM [facility] Outpatient Attender: [facility]14[facility]21 07:45:00 AM [facility] Outpatient Attender: Oma UW 08/14/2021 07:25:00 AM [facility] Outpatient [facility] 08/14/2021 12:00:00 AM EDT eCW1 ([facility]) Outpatient Attender: Sol KYLE PA-C Physical Therapy 08/13/2021 11:30:00 AM [facility] 10:51:00 AM [facility] Outpatient Attender: CRUZ TRIPLETT NP 08/08/2021 08: 38:00 AM [facility] Outpatient Attender: Grace Litzy 08/02/2021 10:39:00 AM [facility] Outpatient [facility] 07/27/2021 12:00:00 AM T eC ([facility]) Outpatient Attender: CRUZ TRIPLETT NP 07/25/2021 08: 25:00 AM [facility] Outpatient Attender: CRUZ TRIPLETT NP 07/20/2021 11: 00:00 AM [facility] Outpatient Attender: Grace Borjasley 07/19/2021 10:47:00 AM [facility] Outpatient Attender: Grace Litzy 07/12/2021 10:45:00 AM [facility] Outpatient [facility] 07/06/2021 12:00:00 AM EDT eC ([facility]) Outpatient Attender: Oma Noland RNPAttender: Grace smith 07/05/2021 11:00:00 AM [facility] Outpatient Attender: OTHER PHYSICIANRef errer: THOMPSON ANDINO PAConsultant: [facility] [id number] 07/05/2021 11:00:00 [facility]: Grace McgheeAttender: Oma WU 07/05/2021 10:38:00 AM [facility] Outpatient [facility] 07/05/2021 12:00:00 AM EDT eCW1 ([facility]) [facility] 11:00:00 AM [facility] Outpatient Attender: CRUZ TRIPLETT NP 06/22/2021 10: 40:00 AM [facility] Outpatient Attender: [facility] 06/21/2021 11:00:00 AM [facility] Outpatient Attender: [facility] 06/14/2021 11:00:00 AM [facility] 11:40:00 AM [facility] Outpatient [facility] 05/25/2021 12:00:00 AM EDT eC1 ([facility]) [facility] 11:00:00 AM [facility] Outpatient Attender: CRUZ TRIPLETT NP 05/23/2021 09: 50:00 AM [facility] Outpatient [facility] 05/23/2021 12:00:00 AM EDT eC ([facility]) [facility]17[facility]21 11:00:00 AM [facility]10[facility]21 11:00:00 AM [facility] 11:00:00 AM [facility] Outpatient Attender: CRUZ TRIPLETT NP 04/27/2021 10: 40:00 AM [facility] Outpatient Attender: [facility] 04/23/2021 11:00:00 AM [facility] Outpatient [facility] 04/19/2021 12:00:00 AM EDT eCW1 ([facility]) Outpatient Attender: Oma Noland RNPConsultant: [facility] p [id number] 04/16/2021 10:40:00 AM [facility] Outpatient Attender: Oma WU 04/16/2021 10:00:00 AM [facility] Outpatient [facility] 04/16/2021 12:00:00 AM EDT eCW1 ([facility]) Outpatient Attender: Grace Mcghee 04/12/2021 11:00:00 AM [facility] Outpatient Attender: CRUZ TRIPLETT NP 03/27/2021 04: 40:00 PM [facility] Outpatient Attender: Mery Bonds 03/26/2021 11:00:00 AM [facility] Outpatient Attender: ASA KIM NP 03/10 12:30:20 PM EDT - 03/21/2021 01:43:38 [facility] Outpatient Attender: CRUZ TRIPLETT NP 02/27/2021 04: 20:00 PM [facility] Outpatient Attender: Mery Leone: MERY BONDS 02/27/2021 11:00:00 AM [facility] Outpatient Attender: Mery Leone: MERY BONDS 02/20/2021 11:00:00 AM [facility] Outpatient Attender: Mery Leone: MERY BONDS 02/16/2021 08:00:00 AM [facility] Outpatient Attender: CRUZ TRIPLETT NP 02/13/2021 11: 40:00 AM [facility] Outpatient Attender: Geri Morgan MD 0 02/01/2021 04:46:32 PM EDT - 02/01/2021 05:46:25 PM EDT [facility] ([facility]) Outpatient Attender: Mery Leone: MERY BONDS 02/01/2021 10:00:00 AM [facility] Outpatient Attender: CRUZ TRIPLETT NP 01/30/2021 09: 14:00 AM [facility] Outpatient Attender: Mery Leone: MERY BONDS 01/26/2021 09:30:00 AM [facility] Outpatient Attender: Mery Ashrafttender: MERY BONDS 01/18/2021 10:00:00 AM [facility] Outpatient Attender: CRUZ TRIPLETT NP 01/16/2021 09: 31:00 AM [facility] Outpatient Attender: Mery Ashrafttender: MERY BONDS 01/11/2021 08:03:00 AM [facility] Outpatient Attender: CRUZ TRIPLETT NP 01/09/2021 09: 10:00 AM [facility] Outpatient Attender: Mery Ashrafttender: MERY BONDS 01/05/2021 09:00:00 AM [facility] Outpatient Attender: Dariana VermaAttender: DARIANA VERMA 12/26/2020 10:36:00 AM [facility] Outpatient Attender: GUILLE SINGH [facility] 11/10 12:30:00 PM EST [facility] ([facility] Outpatient Attender: Tg PEREZ Physical Therapy 12:45:00 PM EST [facility] ([facility] ) Outpatient Attender: Alisha CARRILLOCConsultant: Maicol Quintero ot, MD 10/16/2020 10:58:00 AM EST - 10/16/2020 10:58:00 AM [facility] Outpatient Attender: Alisha LEIVAonsultant: Maicol Quintero ot, MD 07/31/2020 02:46:00 PM EDT - 07/31/2020 02:46:00 PM EDT [facility] Outpatient Attender: Alisha Mccormick PA-C Family Practice 07/11 01:00:00 PM EDT [facility] ([facility] Outpatient Attender: Alisha LEIVAonsultant: Maicol Quintero ot, MD 07/25/2020 12:50:00 PM EDT - 07/25/2020 12:50:00 PM EDT [facility] Outpatient Attender: Alisha LEIVAonsultant: Maicol Quintero ot, MD 07/04/2020 12:41:00 PM EDT - 07/04/2020 12:41:00 PM EDT [facility] Outpatient Attender: Alisha CARRILLOCConsultant: Maicol Quintero ot, MD 05/22/2020 04:19:00 PM EDT - 05/22/2020 04:19:00 PM EDT [facility] Medications Medication Brand Name Start Date Product Form Dose Route Admi nistrative Instructions Pharmacy Instructions Status Indications Reaction Description Data Source(s) Clonazepam 1 MG Oral Tablet [Klonopin] KlonoPIN 1 MG KlonoPI N 1 MG 08/22/2021 12:00:00 AM EDT 1.0 {tablet} active Kl onoPIN 1 MG eCW1 ([facility]) 1 mg 08/22/2021 12:00:00 AM EDT tablet 10 TAKE ONE TABLET BY MOUTH EVERY 12 HOURS NEEDED MAXIMUM DAILY DOSE = TWO TABLETS FOR 5 DAYS TAKE ONE TABLET BY MOUTH EVERY 12 HOURS NEEDED MAXIMUM DAILY DOSE = TWO TABLETS FOR 5 DAYS SOLD: 08/22/2021 [facility] 500 mg 08/14/2021 12:00:00 AM EDT tablet 14 TAKE ONE TABLET BY MOUTH EVERY 12 HOURS FOR 7 DAYS TAKE ONE TABLET BY MOUTH EVERY 12 HOURS FOR 7 DAYS ALY [facility] Ciprofloxacin 500 MG Oral Tablet [Cipro] Cipro 500 MG Cipro 500 MG 08/14/2021 12:00:00 AM EDT 1.0 {tablet} active Ci pro 500 MG eCW1 ([facility]) Ciprofloxacin 500 MG Oral Tablet [Cipro] Cipro 500 MG Cipro 500 MG 08/14/2021 12:00:00 AM EDT 1.0 {tablet} active Ci pro 500 MG eCW1 ([facility]) Acetaminophen 300 MG / Codeine Phosphate 30 [...] 1.0 {tablet} active clonazePAM 1 MG eCW1 ([facility]) Clonazepam 1 MG Oral Tablet clonazePAM 1 MG clonazePAM 1 MG 08/08/2021 12:00:00 AM EDT 1.0 {tablet} active clonazePAM 1 MG eCW1 ([facility]) Clonazepam 1 MG Oral Tablet clonazePAM 1 MG clonazePAM 1 MG 07/26/2021 12:00:00 AM EDT 1.0 {tablet} active clonazePAM 1 MG eCW1 ([facility]) 1 mg 07/26/2021 12:00:00 AM EDT tablet [...] DAILY DOSE = ONE TABLET SOLD: 07/20/2021 [facility] 20 mg 07/20/2021 12:00:00 AM [...] ONCE DIRECTED FOR ALLERGIC REACTION SOLD: 07/06/2021 [facility] Sulfamethoxazole 800 MG / Trimethoprim 1 60 MG Oral Tablet [Bactrim] Bactrim DS 800-160 MG Bactrim DS 800-160 MG 07/05/2021 12:00:00 AM EDT 1.0 {table t} active Bactrim DS 800-160 MG eCW1 ( [facility]) 600 mg 07/05/2021 12:00:00 [...] active Bactrim DS 800-160 MG eCW1 ( [facility]) Sulfamethoxazole 800 MG / Trimethoprim 1 60 MG Oral Tablet [Bactrim] Bactrim DS 800-160 MG Bactrim DS 800-160 MG 07/05/2021 12:00:00 AM EDT 1.0 {table t} active Bactrim DS 800-160 MG eCW1 ( [facility]) 800-160 mg 07/05/2021 12:00:00 AM EDT tablet [...] MOUTH THREE TIMES A DAY SOLD: 06/07/2021 [facility] Lidocaine Hydrochloride 0.05 MG/MG Transdermal Patch [Lidode rm] Lidoderm 05/31/2021 12:00:00 AM EDT [facility] tizanidine 4 MG Oral Tablet Tizanidine HCL [...] AM EDT active Macrobid 100 MG eCW1 ([facility]) NITROFURANTOIN, MACROCRYSTALS 25 MG / Ni trofurantoin, Monohydrate 75 MG Oral Capsule [Macrobid] Macrobid 100 MG Macrobid 100 MG 04/16/2021 12:00:00 AM EDT active Macrobid 100 MG eCW1 ([facility]) NITROFURANTOIN, MACROCRYSTALS 25 MG / Ni trofurantoin, Monohydrate 75 MG Oral Capsule [Macrobid] Macrobid 100 MG Macrobid 100 MG 04/16/2021 12:00:00 AM EDT active Macrobid 100 MG eCW1 ([facility]) 20 mg 04/16/2021 12:00:00 AM EDT capsule,delayed [...] AM EDT active Macrobid 100 MG eCW1 ([facility]) 20 mg 04/16/2021 12:00:00 AM EDT capsule,delayed [...] {capsule} active G abapentin 600 MG eCW1 ([facility]) gabapentin 600 MG Oral Tablet Gabapentin 600 MG Gabapentin 6 00 MG 02/27/2021 12:00:00 AM EDT 1.0 {capsule} active G abapentin 600 MG eCW1 ([facility]) gabapentin 400 MG Oral Capsule Gabapentin 400 MG Gabapentin 400 MG 02/27/2021 12:00:00 AM EDT 1.0 {capsule} active G abapentin 400 MG eCW1 ([facility]) gabapentin 600 MG Oral Tablet Gabapentin 600 MG Gabapentin 6 00 MG 02/27/2021 12:00:00 AM EDT 1.0 {capsule} active G abapentin 600 MG eCW1 ([facility]) gabapentin 600 MG Oral Tablet Gabapentin 600 MG Gabapentin 6 00 MG 02/27/2021 12:00:00 AM EDT 1.0 {capsule} active G abapentin 600 MG eCW1 ([facility]) gabapentin 600 MG Oral Tablet Gabapentin 600 MG Gabapentin 6 00 MG 02/27/2021 12:00:00 AM EDT 1.0 {capsule} active G abapentin 600 MG eCW1 ([facility]) gabapentin 400 MG Oral Capsule Gabapentin 400 MG Gabapentin 400 MG 02/27/2021 12:00:00 AM EDT 1.0 {capsule} active G abapentin 400 MG eCW1 ([facility]) gabapentin 400 MG Oral Capsule Gabapentin 400 MG Gabapentin 400 MG 02/27/2021 12:00:00 AM EDT 1.0 {capsule} active G abapentin 400 MG eCW1 ([facility]) gabapentin 400 MG Oral Capsule Gabapentin 400 MG Gabapentin 400 MG 02/27/2021 12:00:00 AM EDT 1.0 {capsule} active G abapentin 400 MG eCW1 ([facility]) 3 mg 02/20/2021 12:00:00 AM EDT tablet [...] {tablet} active Ab ilify 20 MG eCW1 ([facility]) aripiprazole 20 MG Oral Tablet [Abilify] Abilify 20 MG Abili fy 20 MG 01/30/2021 12:00:00 AM EDT 1.0 {tablet} active Ab ilify 20 MG eCW1 ([facility]) Propranolol Hydrochloride 20 MG Oral Tablet Propranolo l HCl 20 MG Propranolol HCl 20 MG 01/30/2021 12:00:00 AM EDT 1.0 {tablet} ac tive Propranolol HCl 20 MG eCW1 ([facility]) 10 mg 01/30/2021 12:00:00 AM EDT tablet 30 TAKE ONE TABLET BY MOUTH ONCE DAILY TAKE ONE TABLET BY MOUTH ONCE DAILY SOLD: 01/31/2021 [facility] aripiprazole 20 MG Oral Tablet [Abilify] Abilify 20 MG Abili fy 20 MG 01/30/2021 12:00:00 AM EDT 1.0 {tablet} active Ab ilify 20 MG eCW1 ([facility]) aripiprazole 20 MG Oral Tablet [Abilify] Abilify 20 MG Abili fy 20 MG 01/30/2021 12:00:00 AM EDT 1.0 {tablet} active Ab ilify 20 MG eCW1 ([facility]) aripiprazole 20 MG Oral Tablet [Abilify] Abilify 20 MG Abili fy 20 MG 01/30/2021 12:00:00 AM EDT 1.0 {tablet} active Ab ilify 20 MG eCW1 ([facility]) Propranolol Hydrochloride 20 MG Oral Tablet Propranolo l HCl 20 MG Propranolol HCl 20 MG 01/30/2021 12:00:00 AM EDT 1.0 {tablet} ac tive Propranolol HCl 20 MG eCW1 ([facility]) Propranolol Hydrochloride 20 MG Oral Tablet Propranolo l HCl 20 MG Propranolol HCl 20 MG 01/30/2021 12:00:00 AM EDT 1.0 {tablet} ac tive Propranolol HCl 20 MG eCW1 ([facility]) Propranolol Hydrochloride 20 MG Oral Tablet Propranolo l HCl 20 MG Propranolol HCl 20 MG 01/30/2021 12:00:00 AM EDT 1.0 {tablet} ac tive Propranolol HCl 20 MG eCW1 ([facility]) Propranolol Hydrochloride 20 MG Oral Tablet Propranolo l HCl 20 MG Propranolol HCl 20 MG 01/30/2021 12:00:00 AM EDT 1.0 {tablet} ac tive Propranolol HCl 20 MG eCW1 ([facility]) aripiprazole 20 MG Oral Tablet [Abilify] Abilify 20 MG Abili fy 20 MG 01/30/2021 12:00:00 AM EDT 1.0 {tablet} active Ab ilify 20 MG eCW1 ([facility]) aripiprazole 20 MG Oral Tablet [Abilify] Abilify 20 MG Abili fy 20 MG 01/30/2021 12:00:00 AM EDT 1.0 {tablet} active Ab ilify 20 MG eCW1 ([facility]) Propranolol Hydrochloride 20 MG Oral Tablet Propranolo l HCl 20 MG Propranolol HCl 20 MG 01/30/2021 12:00:00 AM EDT 1.0 {tablet} ac tive Propranolol HCl 20 MG eCW1 ([facility]) aripiprazole 15 MG Oral Tablet [Abilify] Abilify 15 MG Abili fy 15 MG 01/30/2021 12:00:00 AM EDT 1.0 {tablet} active Ab ilify 15 MG eCW1 ([facility]) Propranolol Hydrochloride 20 MG Oral Tablet Propranolo l HCl 20 MG Propranolol HCl 20 MG 01/30/2021 12:00:00 AM EDT 1.0 {tablet} ac tive Propranolol HCl 20 MG eCW1 ([facility]) 10 mg 01/30/2021 12:00:00 AM EDT tablet 45 TAKE ONE TABLET BY MOUTH EVERY 8 HOURS NEEDED FOR ANXIETY TAKE ONE TABLET BY MOUTH EVERY 8 HOURS A S NEEDED FOR ANXIETY SOLD: 01/31/2021 [facility] aripiprazole 15 MG Oral Tablet [Abilify] Abilify 15 MG Abili fy 15 MG 01/30/2021 12:00:00 AM EDT 1.0 {tablet} active Ab ilify 15 MG eCW1 ([facility]) Propranolol Hydrochloride 20 MG Oral Tablet Propranolo l HCl 20 MG Propranolol HCl 20 MG 01/30/2021 12:00:00 AM EDT 1.0 {tablet} ac tive Propranolol HCl 20 MG eCW1 ([facility]) Propranolol Hydrochloride 20 MG Oral Tablet Propranolo l HCl 20 MG Propranolol HCl 20 MG 01/30/2021 12:00:00 AM EDT 1.0 {tablet} ac tive Propranolol HCl 20 MG eCW1 ([facility]) Amitriptyline Hydrochloride 25 MG Oral [...] TABLET BY MOUTH EVERY DAY SOLD: 01/17/2021 [facility] Clonidine Hydrochloride 0.2 MG Oral Tablet CLONIDINE HCL 01/16/2021 12:00:00 AM EST tablet 90 TAKE ONE TABLET BY MOUTH THREE TIMES A DAY NEEDED FOR ANXIETY TAKE ONE TABLET BY MOUTH THREE TIMES A DAY NEEDED F OR ANXIETY SOLD: 01/17/2021 [facility] Clonidine Hydrochloride 0.1 MG Oral Tablet CLONIDINE HCL 01/09/2021 12:00:00 AM EST tablet 14 TAKE ONE TABLET BY MOUTH TWI CE A DAY NEEDED FOR ANXIETY TAKE ONE TABLET BY MOUTH TWICE A DAY NEEDED FOR ANXIETY SOLD: 01/10/2021 [facility] 5 mg 01/09/2021 12:00:00 AM EST tablet 7 TAKE ONE TABLET BY MOUTH EVERY DAY TAKE ONE TABLET BY MOUTH EVERY DAY SOLD: 01/10/2021 [facility] 90 mcg/actuation 01/02/2021 12:00:00 AM EST HFA aerosol inha ler 36 INHALE TWO PUFFS BY MOUTH EVERY 4 TO 6 HOURS NEEDED FOR COUGH, WHEEZING, OR FOR SHORTNESS OF BREATH INHALE TWO PUFFS BY MOUTH EVERY 4 TO 6 H OURS NEEDED FOR COUGH, WHEEZING, OR FOR SHORTNESS OF BREATH SOLD: 01/05/2021 [facility] 25 mg 10/17/2020 12:00:00 AM EST [...] BY MOUTH TWICE A DAY SOLD: 10/19/2020 [facility] 50 mg 10/16/2020 12:00:00 AM EST tablet 30 TAKE ONE TABLET BY MOUTH EVERY DAY AT BEDTIME TAKE ONE TABLET BY MOUTH EVERY DAY AT BEDTIME SOLD: 10/19/2020 [facility] quetiapine 25 MG Oral Tablet [Seroquel] Seroquel 10/16/2020 12:00:0 0 AM EST ORAL active [facility] ([facility]) Trazodone Hydrochloride 50 MG Oral Tablet Trazodone HCL 10/16/2020 12:00:00 AM EST ORAL active [facility] ([facility]) 24 HR venlafaxine 75 MG Extended Release Oral Capsule [Effex or] Effexor XR 10/16/2020 12:00:00 AM EST ORAL active [facility] ([facility]) 75 mg 10/16/2020 12:00:00 AM EST [...] CAPSULE BY MOUTH EVERY DAY SOLD: 12/01/2020 [facility] Omeprazole 20 MG Delayed Release Oral Capsule Omeprazole 07/31/2020 12:00:00 AM EDT ORAL active [facility] ([facility]) 50 mg 07/10/2020 12:00:00 AM EDT tablet 60 TAKE ONE TABLET BY MOUTH TWICE A DAY TAKE ONE TABLET BY MOUTH TWICE A DAY SOLD: 07/11/2020 [facility] Triamcinolone Acetonide 5 MG/ML Topical Cream Triamcinolone Acetonide 07/04/2020 12:00:00 AM EDT active [facility] ([facility]) 0.5 % 07/04/2020 12:00:00 AM EDT cream 15 APPLY TO AFFECTED AREA(S) OF ABDOMEN TWO TIMES A DAY APPLY TO AFFECTED AREA(S) OF ABDOMEN TWO TIMES A DAY SOLD: 07/11/2020 [id number] 24 HR venlafaxine 150 MG Extended Release Oral Capsule [Effe xor] Effexor XR 03/03/2020 12:00:00 AM EDT ORAL completed [facility] ([facility]) Sulfamethoxazole 800 MG / Trimethoprim 160 MG Oral Tablet [B actrim] Bactrim DS 02/22/2020 12:00:00 AM EDT ORAL completed [facility] ([facility]) 0.3 mg/0.3 mL 02/16/2020 12:00:00 AM EDT auto-injector 2 INJECT IN THIGH FOR ALLERGIC REACTION AND IMMEDIATELY CALL 911 INJECT IN THIGH FOR ALLERGIC REACTION AND IMMEDIATELY CALL 911 SOLD: 02/07/2021 [id number] Insurance Providers Payer name Policy type / Coverage type Policy ID Covered green party ID Covered green party's relationship to flores Policy Flores Plan Information [facility] Community Plan [facility] Part B [id number] Self [id number] Medicaid S [id number] S [id number] Managed Care - Community Plan [facility] P [id number] S [id number] [facility] I [id number] Self [id number] Medicaid S [id number] S [id number] Managed Care - Community Plan [facility] P [id number] S [id number] Medicaid S [id number] S [id number] Managed Care - Community Plan [facility] P [id number] S [id number] [facility] Hmo Commercial [id number] Self [id number] [facility] Hmo Commercial [id number] Self 1 [id number] Managed Care - Community Plan [employer] P [id number] S [id number] Managed Care - [facility] Community Plan P [id number] S [id number] [facility] Community Plan Commercial [id number] Self [id number] [facility] Commercial Insurance Co. [id number] Self [id number] RPR- Needs Payer Match [id number] Self [id number] [facility] Commercial [id number] Self [id number] ANSI-Medicaid [id number] ANSI-Medicaid [id number] ANSI-Medicaid [id number] ANSI-Medicaid [id number] [facility] Health Maintenance Organization [place] [place] [id number] Self [id number] ANSI-Medicaid [id number] ANSI-Medicaid [id number] ANSI-Medicaid [id number] [facility] Part B [id number] Self [id number] [facility] Health Maintenance Organization (HMO) [id number] Self [id number] [employer] COMMUNITY PLAN MCDHMO [id number] SP [id number] MEDICAID [id number] SP [id number] [facility] [id number] SP [id number] [employer] COMMUNITY PLAN MCDHMO [id number] SP [id number] [facility] MEDICAID [id number] Rosa Maria [id number] MEDICAID PROF FEES [id number] S [id number] MEDICAID [id number] S [id number] MEDICAID PROF FEES [id number] MEDICAID [id number] S [id number] MEDICAID [id number] SP [id number] [employer] COMMUNITY PLAN MCDHMO [id number] SP [id number] [facility] [id number] SP [id number] [facility] [id number] SP [id number] [facility] [id number] SP [id number] [facility] [id number] SP [id number] [facility] B[facility] [id number] SP [id number] [employer] COMMUNITY PLAN MCDHMO [id number] SP [id number] [facility] [place] [facility] [place] [id number] S [id number] [facility] MEDICAID [id number] S [id number] [facility] COMMUNITY PLAN [id number] 18 [id number] [facility] COMMUNTY PLAN [id number] 18 [id number] [facility](MCAID) O [id number] S [id number] [employer] COMMUNITY PLAN XIX MC [id number] 18 [id number] [facility] [id number] SP [id number] UNAVAILABLE UNAVAILA BLE [employer] COMMUNITY PLAN MCDHMO [id number] SP [id number] [facility] [id number] SP [id number] ANSI-Medicaid [id number] ANSI-Medicaid [id number] ANSI-Medicaid [id number] ANSI-Medicaid [id number] Problems, Conditions, and Diagnoses Code Display Name Description Problem Type Effective Dates Data Source(s) F43.12 Post-traumatic stress disorder, chronic POST-TRAUMATIC STRESS DISORDER, CHRONIC Diagnosis 08/16/2021 10:02:00 AM [facility] F31.9 Bipolar disorder, unspecified BIPOLAR DISORDER, UNSPEC IFIED Diagnosis 08/16/2021 10:02:00 AM [facility] N30.90 Cystitis, unspecified without hematuria CYSTITIS, UNSPECIFIED WITHOUT HEMATURIA Diagnosis 08/14/2021 07:25:00 AM [facility] F41.9 Anxiety disorder, unspecified ANXIETY DISORDER, UNSPEC IFIED Diagnosis 08/08/2021 08:38:00 AM [facility] F43.23 Adjustment disorder with mixed anxiety a nd depressed mood ADJUSTMENT DISORDER WITH MIXED ANXIETY AND DEPRESS Diagnosis 08/08/2021 08:38:00 AM [facility] F60.9 Personality disorder, unspecified PERSONALITY DI SORDER, UNSPECIFIED Diagnosis 08/08/2021 08:38:00 AM [facility] G47.00 Insomnia, unspecified INSOMNIA, UNSPECIFIED Diagnosis 07/20/2021 11:00:00 AM [facility] Z76.0 Encounter for issue of repeat prescripti on ENCOUNTER FOR ISSUE OF REPEAT PRESCRIPTION Diagnosis 07/05/2021 11:00:00 AM [facility] Z68.43 Body mass index (BMI) 50-59.9 , adult SAMAN DY MASS INDEX [BMI] 50.0-59.9, ADULT Diagnosis 07/05/2021 11:00:00 AM [facility] E66.01 Morbid (severe) obesity due to excess ca lories MORBID (SEVERE) OBESITY DUE TO EXCESS CALORIES Diagnosis 07/05/2021 11:00:00 AM [facility] R63.5 Abnormal weight gain ABNORMAL WEIGHT GAIN Diagnosis 07/05/2021 11:00:00 AM [facility] F99 Mental disorder, not otherwise specified MENTAL DISORDER, NOT OTHERWISE SPECIFIED Diagnosis 07/05/2021 11:00:00 AM [facility] M54.5 Low back pain LOW BACK PAIN Diagnosis 07/05/2021 11:00:00 AM [facility] R39.9 Unspecified symptoms and signs involving the genitourinary system UNSP SYMPTOMS AND SIGNS INVOLVING THE GENITOURINAR Diagnosis 07/05/20 21 11:00:00 AM [facility] N39.0 Urinary tract infection, site not specif ied URINARY TRACT INFECTION, SITE NOT SPECIFIED Diagnosis 07/05/2021 11:00:00 AM [facility] E55.9 Vitamin D deficiency, unspecified VITAMIN D DEFI CIENCY, UNSPECIFIED Diagnosis 04/27/2021 10:40:00 AM [facility] 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 Diagnosis 04/16/2021 10:00:00 AM [facility] Z86.39 Personal history of other endocrine, nut ritional and metabolic disease PERSONAL HISTORY OF ENDO, NUTRITIONAL AND METABOLI Diagnosis 05/2021 10:00:00 AM [facility] Z68.42 Body mass index (BMI) 45.0-49.9, adult B BRADY MASS INDEX [BMI] 45.0-49.9, ADULT Diagnosis 04/16/2021 10:00:00 AM [facility] F17.210 Nicotine dependence, cigarettes, uncompl icated NICOTINE DEPENDENCE, CIGARETTES, UNCOMPLICATED Diagnosis 04/16/2021 10:00:00 AM [facility] J45.909 Unspecified asthma, uncomplicated UNSPECIFIED THMA, UNCOMPLICATED Diagnosis 04/16/2021 10:00:00 AM [facility] K21.9 Gastro-esophageal reflux disease without esophagitis GASTRO-ESOPHAGEAL REFLUX DISEASE WITHOUT ESOPHAGIT Diagnosis 04/16/2021 10:00:00 AM [facility] R32 Unspecified urinary incontinence UNSPECIFIED URINARY I NCONTINENCE Diagnosis 04/16/2021 10:00:00 AM EDT [facility] F60.3 Borderline personality disorder BORDERLINE PERSONALITY DISORDER Diagnosis 02/27/2021 04:20:00 PM EDT [facility] E03.9 Hypothyroidism, unspecified HYPOTHYROIDISM, UNSPECIFIE D Diagnosis 01/09/2021 09:10:00 AM [facility] Z862P9O 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, subsequent encounter Diffuse traumatic brain injury with loss of consciousness of unspecified duration, subsequent encounter Diagnosis 10/16/2020 10:58:00 AM [facility] F4310 Post-traumatic stress disorder, unspecif ied Post-traumatic stress disorder, unspecified Diagnosis 10/16/2020 10:58:00 AM [facility] F419 Anxiety disorder, unspecified Anxiety disorder, unspec ified Diagnosis 10/16/2020 10:58:00 AM [facility] K219 Gastro-esophageal reflux disease without esophagitis Gastro-esophageal reflux disease without esophagitis Diagnosis 07/31/2020 02:46:00 PM ED T [facility] R0789 Other chest pain Other chest pain Diagnosis 07/31/2020 02 :46:00 PM EDT [facility] R1110 Vomiting, unspecified Vomiting, unspecified Diagnosis 07/31/2020 02:46:00 PM EDT [facility] R42 Dizziness and giddiness Dizziness and giddiness Diagno sis 07/31/2020 02:46:00 PM EDT [facility] X55524 Pain in left leg Pain in left leg Diagnosis 07/31/2020 02 :46:00 PM EDT [facility] R21 Rash and other nonspecific skin eruption Rash and other nonspecific skin eruption Diagnosis 07/04/2020 12:41:00 PM EDT [facility] F43.23 [id number] Adjustment disorder with mixed a nxiety and depressed mood Problem 07/20/2021 12:00:00 AM EDT eCW1 ([facility]) F99 [id number] Mental health disorder Problem 07/07/2021 12 :00:00 AM EDT eCW1 ([facility]) Z91.030 [id number] Allergy to bee sting Problem 07/05/2021 12:0 0:00 AM EDT eCW1 ([facility]) Z68.43 [id number] Body mass index [BMI] 50.0-59.9, adult Pr oblem 07/05/2021 12:00:00 AM EDT eCW1 ([facility]) Z68.42 [id number] Body mass index [BMI] 45.0-49.9, adult Pr oblem 04/16/2021 12:00:00 AM EDT eCW1 ([facility]) J45.909 354997746 Asthma, unspecified asthma severity, unspecified whether complicated, unspecified whether persistent Problem 04/16/2021 12:00 :00 AM EDT eCW1 ([facility]) Z86.39 History of endocrine disorder Personal h istory of other endocrine, nutritional and metabolic disease Problem 04/16/2021 12:00:00 AM EDT eCW1 ([facility]) K21.9 [id number] GERD without esophagitis Problem 04/16/2021 12:00:00 AM EDT eCW1 ([facility]) R32 226172510 Urinary incontinence in female Problem 04/16 12:00:00 AM EDT eCW1 ([facility]) F17.200 46586915 Smoking Problem 04/16/2021 12:00:00 AM ED T eCW1 ([facility]) E66.01 [id number] Morbid (severe) obesity due to excess c alories Problem 04/16/2021 12:00:00 AM EDT eCW1 ([facility]) Z90.710 [id number] Status post hysterectomy Problem 04/16/2021 12:00:00 AM EDT eCW1 ([facility]) F41.9 26134439 Anxiety Problem 04/16/2021 12:00:00 AM ED T eCW1 ([facility]) F60.9 [id number] Personality disorder Problem 02/15/2021 12:0 0:00 AM EDT eCW1 ([facility]) G47.00 [id number] Insomnia, unspecified type Problem 12:00:00 AM EDT eCW1 ([facility]) E55.9 Vitamin D deficiency Vitamin D deficiency Problem 01/09/2021 12:00:00 AM EST eCW1 ([facility]) F43.12 [id number] Chronic post-traumatic stress disorder (P TSD) Problem 12/26/2020 12:00:00 AM EST eCW1 ([facility]) F31.9 971007170 Bipolar 1 disorder Problem 12/26/2020 12:00: 00 AM EST eCW1 ([facility]) [id number] Ganglion of ankle and foot Ganglion of ankle and foot Problem 12/05/2020 12:00:00 AM EST [facility] ([facility] Surgeries/Procedures Procedure Description Date Indications Data Source(s) OFFICE OUTPATIENT VISIT 25 MINUTES 08/13/2021 12:00:00 AM EDT [facility] ([facility]) OFFICE OUTPATIENT VISIT 15 MINUTES 07/09/2021 12:00:00 AM EDT [facility] ([facility]) OFFICE OUTPATIENT NEW 45 MINUTES 05/31/2021 12:00:00 A M EDT [facility] ([facility]) ASPIRATION&/INJECTION GANGLION CYST ANY LOCATION 11/23 12:00:00 AM EST [facility] ([facility] MRI Lower Extremity Other Than Joint 09/27/2020 12:00: 00 AM EST [facility] ([facility]) Results ID Date Data Source [id number] 08/16/2021 09:54:00 AM EDT [facility] Name Value Range Interpretation Code Description Data Julia rce(s) Supporting Document(s) ORGANISM [facility] COLONY COUNT N [facility] ID Date Data Source Urinalysis, Routine 08/14/2021 12:00:00 AM EDT eCW1 ([facility]) Name Value Range Interpretation Code Description Data Julia rce(s) Supporting Document(s) Microscopic Examination eCW1 ( [facility]) Color of Urine stewart Urine-Color eCW1 ([facility]) Specific gravity of Urine 1.025 Specific G ravity eCW1 ([facility]) Appearance of Urine cloudy Appearance eCW1 ([facility]) pH of Urine by Test strip 5 pH eCW1 ([facility]) Hemoglobin [Presence] in Urine by Test strip TRACE Occult Blood eCW1 ([facility]) Protein [Presence] in Urine by Test strip NEG Protein eCW1 ([facility]) Glucose [Presence] in Urine NEG Glucose eCW1 ([facility]) Bilirubin.total [Presence] in Urine by Test strip NEG Bilirubin eCW1 ([facility]) Ketones [Presence] in Urine by Test strip NEG Ketones eCW1 ([facility]) Leukocyte esterase [Presence] in Urine by Test strip TRACE WBC Esterase eCW1 ([facility]) Nitrite [Presence] in Urine by Test strip POS Nitrite, Urine eCW1 ([facility]) Urobilinogen [Mass/volume] in Urine by Test strip NEG Urobilinogen,Semi-Qn eCW1 ([facility]) Urinalysis Gross Exam eCW1 ([facility]) ID Date Data Source [id number] 07/07/2021 11:39:00 AM EDT [facility] Name Value Range Interpretation Code Description Data Julia rce(s) Supporting Document(s) ORGANISM [facility] COLONY COUNT N [facility] ID Date Data Source [id number] 04/18/2021 02:26:00 PM EDT [facility] Name Value Range Interpretation Code Description Data Julia rce(s) Supporting Document(s) ORGANISM [facility] COLONY COUNT N [facility] ID Date Data Source URINALYSIS 04/16/2021 12:00:00 AM EDT eCW1 ([facility]) Name Value Range Interpretation Code Description Data Julia rce(s) Supporting Document(s) stewart COLOR eCW1 ([facility]) URINALYSIS eCW1 ([facility] neg GLUCOSE eCW1 ([facility]) neg BILIRUBIN eCW1 ([facility]) neg KETONE eCW1 ([facility]) cloudy APPEARANCE eCW1 ([facility] neg BLOOD eCW1 ([facility]) 5 PH eCW1 ([facility]) neg PROTEIN eCW1 ([facility]) 1.020 SPECIFIC GRAVITY eCW1 ([facility]) neg UROBILINOGEN eCW1 ([facility]) trace LEUKOCYTE ESTERASE eCW1 ([facility]) positive NITRATE eCW1 ([facility]) ID Date Data Source [id number] 11/23/2020 02:00:00 PM EST [facility] ([facility] Name Value Range Interpretation Code Description [...] COMMENTS: 11/24/2020 - [address] (ASCP) 11/24/2020 0955 (Prelim) Signed PAMELA BENSON MD 11/24/2020 1307 ID Date Data Source [id number] 07/25/2020 01:35:00 PM EDT [facility] ([facility]) Name Value Range Interpretation Code Description Data Julia rce(s) Supporting Document(s) Thyrotropin [Units/volume] in Serum or Plasma 2.96 uIU/mL 0.47-5.01 [facility] ([facility]) FASTING 8 HOUR~.~.~<DG1.3.1>Z00.01</DG1.3.1><DG1.3.1>Z00.01</DG1.3.1><DG1.3.1>Z00.01</DG1. 3.1><DG ID Date Data Source [id number] 07/25/2020 01:35:00 PM EDT [facility] ([facility]) Name Value Range Interpretation Code Description Data Julia rce(s) Supporting Document(s) Comprehensive [employer] Laboratory test result [facility] ([facility]) FASTING 8 HOUR~.~.~<DG1.3.1>Z00.01</DG1.3.1><DG1.3.1>Z00.01</DG1.3.1><DG1.3.1>Z00.01</DG1. 3.1><DG Potassium 4.5 meq/L 3.6-5.0 [facility] ([facility]) FASTING 8 HOUR~.~.~<DG1.3.1>Z00.01</DG1.3.1><DG1.3.1>Z00.01</DG1.3.1><DG1.3.1>Z00.01</DG1. 3.1><DG Sodium 134 meq/L 134-153 [facility] ([facility]) FASTING 8 HOUR~.~.~<DG1.3.1>Z00.01</DG1.3.1><DG1.3.1>Z00.01</DG1.3.1><DG1.3.1>Z00.01</DG1. 3.1><DG Chloride 98 meq/L 98-107 [facility] ([facility]) FASTING 8 HOUR~.~.~<DG1.3.1>Z00.01</DG1.3.1><DG1.3.1>Z00.01</DG1.3.1><DG1.3.1>Z00.01</DG1. 3.1><DG Co2 25 meq/L 22-30 [facility] ([facility]) FASTING 8 HOUR~.~.~<DG1.3.1>Z00.01</DG1.3.1><DG1.3.1>Z00.01</DG1.3.1><DG1.3.1>Z00.01</DG1. 3.1><DG Glucose 98 mg/dL 65-110 [facility] ([facility]) FASTING 8 HOUR~.~.~<DG1.3.1>Z00.01</DG1.3.1><DG1.3.1>Z00.01</DG1.3.1><DG1.3.1>Z00.01</DG1. 3.1><DG BUN 6 mg/dL 7-21 Below low normal [facility] ([facility]) FASTING 8 HOUR~.~.~<DG1.3.1>Z00.01</DG1.3.1><DG1.3.1>Z00.01</DG1.3.1><DG1.3.1>Z00.01</DG1. 3.1><DG BUN/Creat 9 8-27 [facility] ([facility]) FASTING 8 HOUR~.~.~<DG1.3.1>Z00.01</DG1.3.1><DG1.3.1>Z00.01</DG1.3.1><DG1.3.1>Z00.01</DG1. 3.1><DG Creatinine 0.7 mg/dL 0.7-1.5 [facility] ([facility]) FASTING 8 HOUR~.~.~<DG1.3.1>Z00.01</DG1.3.1><DG1.3.1>Z00.01</DG1.3.1><DG1.3.1>Z00.01</DG1. 3.1><DG Albumin 4.4 g/dL 3.9-5.0 [facility] ([facility]) FASTING 8 HOUR~.~.~<DG1.3.1>Z00.01</DG1.3.1><DG1.3.1>Z00.01</DG1.3.1><DG1.3.1>Z00.01</DG1. 3.1><DG Total Protein 7.3 g/dL 6.3-8.2 [facility] ([facility]) FASTING 8 HOUR~.~.~<DG1.3.1>Z00.01</DG1.3.1><DG1.3.1>Z00.01</DG1.3.1><DG1.3.1>Z00.01</DG1. 3.1><DG Globulin 2.9 GM/DL 2.4-3.2 [facility] ([facility]) FASTING 8 HOUR~.~.~<DG1.3.1>Z00.01</DG1.3.1><DG1.3.1>Z00.01</DG1.3.1><DG1.3.1>Z00.01</DG1. 3.1><DG A/G Ratio 1.5 0.8-2.0 [facility] ([facility]) FASTING 8 HOUR~.~.~<DG1.3.1>Z00.01</DG1.3.1><DG1.3.1>Z00.01</DG1.3.1><DG1.3.1>Z00.01</DG1. 3.1><DG Calcium 9.5 mg/dL 8.4-10.2 [facility] ([facility]) FASTING 8 HOUR~.~.~<DG1.3.1>Z00.01</DG1.3.1><DG1.3.1>Z00.01</DG1.3.1><DG1.3.1>Z00.01</DG1. 3.1><DG Alkaline Phos 123 U/L 38-126 [facility] ([facility]) FASTING 8 HOUR~.~.~<DG1.3.1>Z00.01</DG1.3.1><DG1.3.1>Z00.01</DG1.3.1><DG1.3.1>Z00.01</DG1. 3.1><DG Total Bili Laboratory test result 0.2-1.3 ME D[facility] ([facility]) FASTING 8 HOUR~.~.~<DG1.3.1>Z00.01</DG1.3.1><DG1.3.1>Z00.01</DG1.3.1><DG1.3.1>Z00.01</DG1. 3.1><DG Sgot/Ast 21 U/L 5-40 [facility] ([facility]) FASTING 8 HOUR~.~.~<DG1.3.1>Z00.01</DG1.3.1><DG1.3.1>Z00.01</DG1.3.1><DG1.3.1>Z00.01</DG1. 3.1><DG SGPT/Alt 29 U/L 7-56 [facility] ([facility]) FASTING 8 HOUR~.~.~<DG1.3.1>Z00.01</DG1.3.1><DG1.3.1>Z00.01</DG1.3.1><DG1.3.1>Z00.01</DG1. 3.1><DG Anion Gap 11.0 mmol/L 8.0-16.0 [facility] ([facility]) FASTING 8 HOUR~.~.~<DG1.3.1>Z00.01</DG1.3.1><DG1.3.1>Z00.01</DG1.3.1><DG1.3.1>Z00.01</DG1. 3.1><DG Age 34 yrs [facility] ([facility]) FASTING 8 HOUR~.~.~<DG1.3.1>Z00.01</DG1.3.1><DG1.3.1>Z00.01</DG1.3.1><DG1.3.1>Z00.01</DG1. 3.1><DG Non-Aa GFR Laboratory test result [facility] ([facility]) FASTING 8 HOUR~.~.~<DG1.3.1>Z00.01</DG1.3.1><DG1.3.1>Z00.01</DG1.3.1><DG1.3.1>Z00.01</DG1. 3.1><DG Afr Amer GFR Laboratory test result [facility] ([facility]) FASTING 8 HOUR~.~.~<DG1.3.1>Z00.01</DG1.3.1><DG1.3.1>Z00.01</DG1.3.1><DG1.3.1>Z00.01</DG1. 3.1><DG ID Date Data Source [id number] 07/25/2020 01:35:00 PM EDT [facility] Name Value Range Interpretation Code Description Data Julia rce(s) Supporting Document(s) CBC W/Automated Diff Laboratory test result [facility] ([facility]) FASTING 8 HOUR~.~.~<DG1.3.1>Z00.01</DG1.3.1><DG1.3.1>Z00.01</DG1.3.1><DG1.3.1>Z00.01</DG1. 3.1><DG RBC 4.41 10^6/uL 4.20-5.40 [facility] ([facility]) FASTING 8 HOUR~.~.~<DG1.3.1>Z00.01</DG1.3.1><DG1.3.1>Z00.01</DG1.3.1><DG1.3.1>Z00.01</DG1. 3.1><DG WBC 10.0 10^3/uL 4.2-11.0 [facility] FASTING 8 HOUR~.~.~<DG1.3.1>Z00.01</DG1.3.1><DG1.3.1>Z00.01</DG1.3.1><DG1.3.1>Z00.01</DG1. 3.1><DG Hematocrit 39.6 % 37.0-47.0 [facility] FASTING 8 HOUR~.~.~<DG1.3.1>Z00.01</DG1.3.1><DG1.3.1>Z00.01</DG1.3.1><DG1.3.1>Z00.01</DG1. 3.1><DG Hemoglobin 13.3 g/dL 12.0-16.0 [facility] ([facility]) FASTING 8 HOUR~.~.~<DG1.3.1>Z00.01</DG1.3.1><DG1.3.1>Z00.01</DG1.3.1><DG1.3.1>Z00.01</DG1. 3.1><DG MCV 89.8 fL 81.0-101 [facility] ([facility]) FASTING 8 HOUR~.~.~<DG1.3.1>Z00.01</DG1.3.1><DG1.3.1>Z00.01</DG1.3.1><DG1.3.1>Z00.01</DG1. 3.1><DG RDW 13.4 % 11.5-14.5 [facility] ([facility]) FASTING 8 HOUR~.~.~<DG1.3.1>Z00.01</DG1.3.1><DG1.3.1>Z00.01</DG1.3.1><DG1.3.1>Z00.01</DG1. 3.1><DG MCHC 33.6 g/dL 31.0-36.0 [facility] ([facility]) FASTING 8 HOUR~.~.~<DG1.3.1>Z00.01</DG1.3.1><DG1.3.1>Z00.01</DG1.3.1><DG1.3.1>Z00.01</DG1. 3.1><DG MCH 30.2 pg 27.0-34.0 [facility] ([facility]) FASTING 8 HOUR~.~.~<DG1.3.1>Z00.01</DG1.3.1><DG1.3.1>Z00.01</DG1.3.1><DG1.3.1>Z00.01</DG1. 3.1><DG Platelets 402 10^3/uL 150-450 [facility] ([facility]) FASTING 8 HOUR~.~.~<DG1.3.1>Z00.01</DG1.3.1><DG1.3.1>Z00.01</DG1.3.1><DG1.3.1>Z00.01</DG1. 3.1><DG MPV 9.4 fL 7.4-10.4 [facility] ([facility]) FASTING 8 HOUR~.~.~<DG1.3.1>Z00.01</DG1.3.1><DG1.3.1>Z00.01</DG1.3.1><DG1.3.1>Z00.01</DG1. 3.1><DG Lymph 41.0 % 25.0-40.0 Above high normal [facility] ([facility]) FASTING 8 HOUR~.~.~<DG1.3.1>Z00.01</DG1.3.1><DG1.3.1>Z00.01</DG1.3.1><DG1.3.1>Z00.01</DG1. 3.1><DG Neut 49.9 % 37.0-80.0 [facility] ([facility]) FASTING 8 HOUR~.~.~<DG1.3.1>Z00.01</DG1.3.1><DG1.3.1>Z00.01</DG1.3.1><DG1.3.1>Z00.01</DG1. 3.1><DG Eos 3.6 % 0.0-7.0 [facility] ([facility]) FASTING 8 HOUR~.~.~<DG1.3.1>Z00.01</DG1.3.1><DG1.3.1>Z00.01</DG1.3.1><DG1.3.1>Z00.01</DG1. 3.1><DG Trego 4.9 % 3.0-8.0 [facility] ([facility]) FASTING 8 HOUR~.~.~<DG1.3.1>Z00.01</DG1.3.1><DG1.3.1>Z00.01</DG1.3.1><DG1.3.1>Z00.01</DG1. 3.1><DG Baso 0.4 % 0.0-2.5 [facility] ([facility]) FASTING 8 HOUR~.~.~<DG1.3.1>Z00.01</DG1.3.1><DG1.3.1>Z00.01</DG1.3.1><DG1.3.1>Z00.01</DG1. 3.1><DG %Ig 0.2 % 0.0-0.0 Above high normal [facility] ([facility]) FASTING 8 HOUR~.~.~<DG1.3.1>Z00.01</DG1.3.1><DG1.3.1>Z00.01</DG1.3.1><DG1.3.1>Z00.01</DG1. 3.1><DG %NRBC 0.0 % 0.0-0.0 [facility] ([facility]) FASTING 8 HOUR~.~.~<DG1.3.1>Z00.01</DG1.3.1><DG1.3.1>Z00.01</DG1.3.1><DG1.3.1>Z00.01</DG1. 3.1><DG #Lymph 4.11 10^3/uL 0.60-3.40 Above high normal [facility] T ([facility]) FASTING 8 HOUR~.~.~<DG1.3.1>Z00.01</DG1.3.1><DG1.3.1>Z00.01</DG1.3.1><DG1.3.1>Z00.01</DG1. 3.1><DG #Neut 5.01 10^3/uL 2.00-6.90 [facility] ([facility]) FASTING 8 HOUR~.~.~<DG1.3.1>Z00.01</DG1.3.1><DG1.3.1>Z00.01</DG1.3.1><DG1.3.1>Z00.01</DG1. 3.1><DG #Trego 0.49 10^3/uL 0.00-0.90 [facility] ([facility]) FASTING 8 HOUR~.~.~<DG1.3.1>Z00.01</DG1.3.1><DG1.3.1>Z00.01</DG1.3.1><DG1.3.1>Z00.01</DG1. 3.1><DG #Eos 0.36 10^3/uL 0.00-0.70 [facility] ([facility]) FASTING 8 HOUR~.~.~<DG1.3.1>Z00.01</DG1.3.1><DG1.3.1>Z00.01</DG1.3.1><DG1.3.1>Z00.01</DG1. 3.1><DG #Ig 0.02 10^3/uL 0.00-0.10 [facility] ([facility]) FASTING 8 HOUR~.~.~<DG1.3.1>Z00.01</DG1.3.1><DG1.3.1>Z00.01</DG1.3.1><DG1.3.1>Z00.01</DG1. 3.1><DG #Baso 0.04 10^3/uL 0.00-0.20 [facility] ([facility]) FASTING 8 HOUR~.~.~<DG1.3.1>Z00.01</DG1.3.1><DG1.3.1>Z00.01</DG1.3.1><DG1.3.1>Z00.01</DG1. 3.1><DG Manual Diff Laboratory test result [facility] ([facility]) FASTING 8 HOUR~.~.~<DG1.3.1>Z00.01</DG1.3.1><DG1.3.1>Z00.01</DG1.3.1><DG1.3.1>Z00.01</DG1. 3.1><DG RBC Morph Laboratory test result [facility] ([facility]) FASTING 8 HOUR~.~.~<DG1.3.1>Z00.01</DG1.3.1><DG1.3.1>Z00.01</DG1.3.1><DG1.3.1>Z00.01</DG1. 3.1><DG #NRBC 0.00 10^3/uL 0.00-0.00 [facility] ([facility]) FASTING 8 HOUR~.~.~<DG1.3.1>Z00.01</DG1.3.1><DG1.3.1>Z00.01</DG1.3.1><DG1.3.1>Z00.01</DG1. 3.1><DG ID Date Data Source [id number] 07/25/2020 04:51:00 PM EDT [facility] Name Value Range Interpretation Code Description Data Julia rce(s) Supporting Document(s) Thyrotropin [Units/volume] in Serum or Plasma by Detec tion limit <= 0.05 mIU/L 2.96 uIU/mL 0.47 - 5.01 [facility] ID Date Data Source [id number] 07/25/2020 04:51:00 PM EDT [facility] Name Value Range Interpretation Code Description Data Julai rce(s) Supporting Document(s) COMPREHENSIVE METABOLIC PANEL [facility] COMPREHENSIVE METABOLIC PANEL Sodium [Moles/volume] in Serum or Plasma 134 mEq/L 134 - 153 [facility] Potassium [Moles/volume] in Serum or Plasma 4.5 mEq/L 3.6 - 5.0 [facility] Chloride [Moles/volume] in Serum or Plasma 98 mEq/L 98 - 107 [facility] Carbon dioxide, total [Moles/volume] in Serum or Plasma 25 MEQ/L 22 - 30 [facility] Glucose [Mass/volume] in Serum or Plasma 98 MG/DL 65 - 110 [facility] BUN 6 MG/DL 7 - 21 L [facility] Creatinine [Mass/volume] in Serum or Plasma 0.7 MG/DL 0.7 - 1.5 [facility] BUN/CREAT 9 8 - 27 [facility] Protein [Mass/volume] in Serum or Plasma 7.3 G/DL 6.3 - 8.2 [facility] Albumin [Mass/volume] in Serum or Plasma 4.4 G/DL 3.9 - 5.0 [facility] Globulin [Mass/volume] in Serum by calculation 2.9 GM/DL 2.4 - 3.2 [facility] A/G RATIO 1.5 0.8 - 2.0 [facility] Calcium [Mass/volume] in Serum or Plasma 9.5 MG/DL 8.4 - 10.2 [facility] Bilirubin.total [Mass/volume] in Serum or Plasma <0.7 MG/DL 0.2 - 1.3 [facility] Alkaline phosphatase [Enzymatic activity/volume] in Serum or Plasma 123 U/L 38 - 126 [facility] Aspartate aminotransferase [Enzymatic activity/volume] in Serum or Plasma 21 U/L 5 - 40 [facility] Alanine aminotransferase [Enzymatic activity/volume] in Seru m or Plasma 29 U/L 7 - 56 [facility] Anion gap 3 in Serum or Plasma 11.0 mmol/L 8.0 - 16.0 [facility] AGE 34 yrs [facility] NON-AA GFR >60 mL/min [facility] ital AFR AMER GFR >60 mL/min [facility] Ho spital Male GFR In terprentation 20-49 [...] >32 mL/min Normal ID Date Data Source [id number] 07/25/2020 03:27:00 PM EDT [facility] Name Value Range Interpretation Code Description Data Julia rce(s) Supporting Document(s) CBC W/AUTOMATED DIFF [facility] COMPLETE BLOOD COUNT Leukocytes [#/volume] in Blood by Automated count 10.0 10^3/uL 4.2 - 11.0 [facility] Erythrocytes [#/volume] in Blood by Automated count 4.41 10^6/uL 4. 20 - 5.40 [facility] Hemoglobin [Mass/volume] in Blood 13.3 g/dL 12.0 - 16.0 [facility] Hematocrit [Volume Fraction] of Blood by Automated count 39.6 % 3 7.0 - 47.0 [facility] Erythrocyte mean corpuscular volume [Entitic volume] by Auto mated count 89.8 fL 81.0 - 101 [facility] Erythrocyte mean corpuscular hemoglobin [Entitic mass] by Automated count 30.2 pg 27.0 - 34.0 [facility] Erythrocyte mean corpuscular hemoglobin concentration [Mass/volume] by Automated count 33.6 g/dL 31.0 - 36.0 [facility] Erythrocyte distribution width [Ratio] by Automated count 13.4 % 11.5 - 14.5 [facility] Platelets [#/volume] in Blood by Automated count 402 10^3/uL 150 - 45 0 [facility] Platelet mean volume [Entitic volume] in Blood by Automated count 9.4 fL 7.4 - 10.4 [facility] Neutrophils/100 leukocytes in Blood by Automated count 49.9 % 37. 0 - 80.0 [facility] Lymphocytes/100 leukocytes in Blood by Manual count 41.0 % 25.0 - 40.0 H [facility] Monocytes/100 leukocytes in Blood by Automated count 4.9 % 3.0 - 8.0 [facility] Eosinophils/100 leukocytes in Blood by Automated count 3.6 % 0.0 - 7.0 [facility] Basophils/100 leukocytes in Blood by Automated count 0.4 % 0.0 - 2.5 [facility] %IG 0.2 % 0.0 - 0.0 [facility] % 0.0 - 0.[facility] Neutrophils [#/volume] in Blood by Automated count 5.01 10^3/uL 2.00 - 6.90 [facility] Lymphocytes [#/volume] in Blood by Automated count 4.11 10^3/uL 0.60 - 3.40 H [facility] Monocytes [#/volume] in Blood by Automated count 0.49 10^3/uL 0.00 - 0.90 [facility] Eosinophils [#/volume] in Blood by Automated count 0.36 10^3/uL 0.00 - 0.70 [facility] Basophils [#/volume] in Blood by Automated count 0.04 10^3/uL 0.00 - 0.20 [facility] #IG 0.02 10^3/uL 0.00 - 0.10 [facility] ospital #NRBC 0.00 10^3/uL 0.00 - 0.00 [facility] H ospital MANUAL DIFF NOT INDICATED [facility] RBC MORPH NOT INDICATED [facility] Ho spital ID Date Data Source [id number] 07/10/2020 09:30:00 AM EDT [facility] ([facility]) Name Value Range Interpretation Code Description Data Julia rce(s) Supporting Document(s) Femur Min 2 Views LT Laboratory test result [facility] ([facility]) Procedure Social History Code Duration Value Status Description Data Source(s ) Smoking 08/14/2021 12:00:00 AM EDT Current Smoker completed Curre nt Smoker eCW1 ([facility]) Smoking 08/14/2021 12:00:00 AM EDT Current Smoker completed Curre nt Smoker eCW1 ([facility]) Smoking 07/07/2021 12:00:00 AM EDT Current Smoker completed Curre nt Smoker eCW1 ([facility]) Smoking 07/07/2021 12:00:00 AM EDT Current Smoker completed Curre nt Smoker eCW1 ([facility]) Smoking 07/05/2021 12:00:00 AM EDT Current Smoker completed Curre nt Smoker eCW1 ([facility]) Smoking 04/16/2021 12:00:00 AM EDT Current Smoker completed Curre nt Smoker eCW1 ([facility]) Smoking 04/16/2021 12:00:00 AM EDT Current Smoker completed Curre nt Smoker eCW1 ([facility]) Smoking 04/16/2021 12:00:00 AM EDT Current Smoker completed Curre nt Smoker eCW1 ([facility]) Smoking 04/16/2021 12:00:00 AM EDT Current Smoker completed Curre nt Smoker eCW1 ([facility]) Vital Signs ID Date Data Source UNK Name Value Range Interpretation Code Description Data Source(s) Body height 63 [in_i] 63 [in_i] eCW1 ([facility]) Body weight 290.8 [lb_av] 290.8 [lb_av] eCW1 ([facility]) Respiratory rate 18 /min 18 /min eCW1 ([facility]) Oxygen saturation in Arterial blood by Pulse oximetry 97 % 97 % eCW1 ([facility]) Body mass index (BMI) [Ratio] 51.51 kg/m2 51.51 kg/m2 eCW1 ([facility]) Body temperature 97.8 [degF] 97.8 [degF] eCW1 ( [facility]) Heart rate 93 /min 93 /min eCW1 ([facility]) Body height 63 [in_i] 63 [in_i] eCW1 ([facility]) Body weight 290.2 [lb_av] 290.2 [lb_av] eCW1 ([facility]) Body mass index (BMI) [Ratio] 51.40 kg/m2 51.40 kg/m2 eCW1 ([facility]) Body temperature 98.0 [degF] 98.0 [degF] eCW1 ( [facility]) Heart rate 81 /min 81 /min eCW1 ([facility]) Respiratory rate 18 /min 18 /min eCW1 ([facility]) Oxygen saturation in Arterial blood by Pulse oximetry 98 % 98 % eCW1 ([facility]) Body mass index (BMI) [Ratio] 45.3 kg/m2 45.3 k g/m2 [facility] ([facility] ) Body temperature 97.2 [degF] 97.2 [degF] [facility] ([facility] ) Body height 66 [in_i] 66 [in_i] [facility] ([facility] ) 5'6" Body weight 281.00 [lb_av] 281.00 [lb_av] MEDEN T ([facility] ) Body height 63 [in_i] 63 [in_i] eCW1 ([facility]) Body weight 271.6 [lb_av] 271.6 [lb_av] eCW1 ([facility]) Body mass index (BMI) [Ratio] 48.11 kg/m2 48.11 kg/m2 eCW1 ([facility]) Body temperature 97.6 [degF] 97.6 [degF] eCW1 ( [facility]) Heart rate 79 /min 79 /min eCW1 ([facility]) Respiratory rate 18 /min 18 /min eCW1 ([facility]) Oxygen saturation in Arterial blood by Pulse oximetry 98 % 98 % eCW1 ([facility]) Body height 64 [in_i] 64 [in_i] [facility] ([facility] 5'4" Body weight 195.00 [lb_av] 195.00 [lb_av] MEDEN T ([facility] Systolic blood pressure 132 mm[Hg] 132 mm[Hg] EDENT ([facility] Diastolic blood pressure 78 mm[Hg] 78 mm[Hg] [facility] ([facility] Heart rate 93 /min 93 /min [facility] ([facility] Body mass index (BMI) [Ratio] 33.5 kg/m2 33.5 k g/m2 [facility] ([facility] Body height 64 [in_i] 64 [in_i] [facility] ([facility] 5'4" Body weight 190.00 [lb_av] 190.00 [lb_av] MEDEN T ([facility] Body mass index (BMI) [Ratio] 32.6 kg/m2 32.6 k g/m2 [facility] ([facility] Body temperature 96.9 [degF] 96.9 [degF] [facility] ([facility]) Body height 64 [in_i] 64 [in_i] [facility] ([facility]) 5'4" Body weight 190.00 [lb_av] 190.00 [lb_av] MEDEN T ([facility]) Body mass index (BMI) [Ratio] 32.6 kg/m2 32.6 k g/m2 [facility] ([facility] ) Body weight 242.25 [lb_av] 242.25 [lb_av] MEDEN T ([facility]) Systolic blood pressure 124 mm[Hg] 124 mm[Hg] M EDENT ([facility]) Diastolic blood pressure 82 mm[Hg] 82 mm[Hg] [facility] ([facility]) Heart rate 109 /min 109 /min [facility] ([facility]) Body temperature 97.9 [degF] 97.9 [degF] [facility] ([facility]) [facility] 16 /min 16 [facility] Oxygen saturation in Arterial blood by Pulse oximetry 97 % 97 % [facility] ([facility]) Body weight 109.885 kg 109.885 kg [facility] ([facility]) Body height 63 [in_i] 63 [in_i] [facility] ([facility]) 5'3" Body mass index (BMI) [Ratio] 42.9 kg/m2 42.9 k g/m2 [facility] ([facility]) Body surface area Derived from formula 2.10 m2 2.10 m2 [facility] ([facility]) Respiratory rate 17 /min 17 /min [facility] ( [facility]) Body weight 111.812 kg 111.812 kg [facility] ([facility]) Body surface area 2.11 m2 2.11 m2 [facility] ([facility]) Systolic blood pressure 114 mm[Hg] 114 mm[Hg] M [facility] ([facility]) Diastolic blood pressure 70 mm[Hg] 70 mm[Hg] [facility] ([facility]) Heart rate 90 /min 90 /min [facility] Body temperature 98.2 [degF] 98.2 [degF] [facility] ([facility]) Oxygen saturation in Arterial blood by Pulse oximetry 95 % 95 % [facility] ([facility]) Body weight 246.50 [lb_av] 246.50 [lb_av] [facility] T ([facility]) Body height 63 [in_i] 63 [in_i] [facility] ([facility]) 5'3" Body mass index (BMI) [Ratio] 43.7 kg/m2 43.7 k g/m2 [facility] ([facility]) Body surface area Derived from formula 2.11 m2 2.11 m2 [facility] ([facility]) Body surface area 2.08 m2 2.08 m2 [facility] ([facility]) Body surface area Derived from formula 2.08 m2 2.08 m2 [facility] ([facility]) Systolic blood pressure 128 mm[Hg] 128 mm[Hg] M [facility] ([facility]) Diastolic blood pressure 88 mm[Hg] 88 mm[Hg] [facility] ([facility]) Heart rate 98 /min 98 /min [facility] ([facility]) Body temperature 99.0 [degF] 99.0 [degF] [facility] Respiratory rate 16 /min 16 /min [facility] ( [facility]) Oxygen saturation in Arterial blood by Pulse oximetry 97 % 97 % [facility] ([facility]) Body weight 238.12 [lb_av] 238.12 [lb_av] [facility] T ([facility]) Body weight 108.014 kg 108.014 kg [facility] ([facility]) Body height 63 [in_i] 63 [in_i] [facility] ([facility]) 5'3" Body mass index (BMI) [Ratio] 42.2 kg/m2 42.2 k g/m2 [facility] ([facility]) Patient Treatment Plan of Care Planned Activity Planned Date Details Description Data Source (s) Clonazepam 1 MG Oral Tablet [Klonopin] 08/22/2021 12:00:00 AM EDT eCW1 ([facility]) Ciprofloxacin 500 MG Oral Tablet [Cipro] 08/14/2021 12:00:00 AM EDT eCW1 ([facility]) Clonazepam 1 MG Oral Tablet 07/26/2021 12:00:00 AM EDT eCW1 ([facility]) Sulfamethoxazole 800 MG / Trimethoprim 160 MG Oral Tab let [Bactrim] 07/05/2021 12:00:00 AM EDT eCW1 ([facility]) Sulfamethoxazole 800 MG / Trimethoprim 160 MG Oral Tab let [Bactrim] 07/05/2021 12:00:00 AM EDT eCW1 ([facility]) NITROFURANTOIN, MACROCRYSTALS 25 MG / Ni trofurantoin, Monohydrate 75 MG Oral Capsule [Macrobid] 04/16/2021 12:00:00 AM EDT eC W1 ([facility]) NITROFURANTOIN, MACROCRYSTALS 25 MG / Ni trofurantoin, Monohydrate 75 MG Oral Capsule [Macrobid] 04/16/2021 12:00:00 AM EDT eC W1 ([facility]) gabapentin 600 MG Oral Tablet 02/27/2021 12:00:00 AM EDT eCW1 ([facility]) gabapentin 600 MG Oral Tablet 02/27/2021 12:00:00 AM EDT eCW1 ([facility]) gabapentin 600 MG Oral Tablet 02/27/2021 12:00:00 AM EDT eCW1 ([facility]) gabapentin 400 MG Oral Capsule 02/27/2021 12:00:00 AM EDT eCW1 ([facility]) gabapentin 400 MG Oral Capsule 02/27/2021 12:00:00 AM EDT eCW1 ([facility]) Propranolol Hydrochloride 20 MG Oral Tablet 01/30/2021 12:00:00 AM EDT eCW1 ([facility]) aripiprazole 20 MG Oral Tablet [Abilify] 01/30/2021 12:00:00 AM EDT eCW1 ([facility]) aripiprazole 20 MG Oral Tablet [Abilify] 01/30/2021 12:00:00 AM EDT eCW1 ([facility]) Propranolol Hydrochloride 20 MG Oral Tablet 01/30/2021 12:00:00 AM EDT eCW1 ([facility]) aripiprazole 20 MG Oral Tablet [Abilify] 01/30/2021 12:00:00 AM EDT eCW1 ([facility]) Propranolol Hydrochloride 20 MG Oral Tablet 01/30/2021 12:00:00 AM EDT eCW1 ([facility])
== END 2021-08-30 21:08 | disposition left against medical advice (07) ==
LOC: M ED 18:54
DX: Z53.21 Procedure and treatment not carried out due to patient leaving prior to being seen by health care provider (principal)

== ENCOUNTER → 2021-10-29 | Outpatient (CLI) | payer OTHER ==
[~2021-10-29] MED LIST changes: +ARIP1TAB43 PO; +CLON1TAB8 PO; -DICY20TA11 PO; +DICY20TA20 PO; +EPIN0.3I11; +GABA600T4 PO; +HYDR-3713 PO; +OMEP-173 PO; -OMEP-218; +PROP20TA72 PO; +RAME8TAB2 PO; +TIZA10TA PO; -TIZA4TAB4 PO; +[UNRECOGNIZED DRUG - CODE] TOP
== END ==
LOC: M PLARAD 11:45
PROVIDERS: ATTEND Orthopaedic Surgery
DX: M51.27 Other intervertebral disc displacement, lumbosacral region (principal)
CPT/HCPCS: 78815; A9552

== ENCOUNTER → 2022-01-11 | Outpatient (CLI) | payer OTHER | LOC: M RAD 12:03 | PROVIDERS: ATTEND Internal Medicine Medical Oncology | DX: M51.26 Other intervertebral disc displacement, lumbar region (principal); M51.27 Other intervertebral disc displacement, lumbosacral region; S34.114A Complete lesion of L4 level of lumbar spinal cord, initial encounter ==

== ENCOUNTER → 2022-01-30 | Outpatient (CLI) | payer OTHER ==
[~2022-01-30] MED LIST changes: +GASTROGRAFIN SOLUTION 30ML (Q9963) As Ordered ONE; +ISOVUE-370 76% 100ML VIAL As Ordered ONE
== END ==
LOC: M RAD 12:53
PROVIDERS: ATTEND Internal Medicine Medical Oncology
DX: D72.829 Elevated white blood cell count, unspecified (principal); R91.8 Other nonspecific abnormal finding of lung field
CPT/HCPCS: 71260; 74177; Q9963; Q9967

== ENCOUNTER 2022-02-06 00:15 | Emergency (ER) | payer OTHER ==
[~2022-02-06] VITALS: Ht 160 cm; Wt 145.0 kg
[~2022-02-06 00:15] MED LIST changes: -GASTROGRAFIN SOLUTION 30ML (Q9963) As Ordered ONE; -ISOVUE-370 76% 100ML VIAL As Ordered ONE
[2022-02-06 01:32] LABS: BASO # 0.1 10^3/uL (0.0-0.2); BASO % 0.4 % (0.0-1.0); EOS # 0.4 10^3/uL (0.0-0.5); EOS % 2.8 % (0.0-3.0); HEMOGLOBIN 14.2 g/dl (12.0-15.5); LYMPH # 4.4 10^3/uL (1.5-5.0); LYMPH % 31.9 % (24.0-44.0); MEAN CORPUSCULAR HEMOGLOBIN 29.3 pg (27.0-33.0); MEAN CORPUSCULAR VOLUME 88.8 fl (80.0-96.0); MONO # 0.7 10^3/uL (0.0-0.8); MONO % 5.1 % (2.0-8.0); NEUTROPHILS # 8.2 10^3/uL (1.5-8.5); NEUTROPHILS % 59.4 % (36.0-66.0); PLATELET COUNT, AUTOMATED 371 10^3/uL (150-450); RED BLOOD COUNT 4.84 10^6/uL (4.00-5.40); WHITE BLOOD COUNT 13.7 10^3/uL (4.0-10.0)
[2022-02-06 01:49] LABS: HCG, SERUM QUALITATIVE NEGATIVE (NEGATIVE)
[2022-02-06 02:15] LABS: ALBUMIN 3.8 GM/DL (3.2-5.2); ALT/SGPT 35 U/L (12-78); BILIRUBIN,TOTAL 0.4 MG/DL (0.2-1.0); BLOOD UREA NITROGEN 13 MG/DL (7-18); CALCIUM LEVEL 9.4 MG/DL (8.5-10.1); CARBON DIOXIDE LEVEL 31 MEQ/L (21-32); CHLORIDE LEVEL 104 MEQ/L (98-107); CREATININE FOR GFR 0.79 MG/DL (0.55-1.30); GLOMERULAR FILTRATION RATE > 60.0 (>60); GLUCOSE, FASTING 97 MG/DL (70-100); SODIUM LEVEL 138 MEQ/L (136-145); TOTAL PROTEIN 7.7 GM/DL (6.4-8.2)
[2022-02-06 03:35] VITALS: BP 122/76
== END 2022-02-06 03:59 | disposition left against medical advice (07) ==
LOC: M ED 00:15
DX: Z53.21 Procedure and treatment not carried out due to patient leaving prior to being seen by health care provider (principal)

== ENCOUNTER 2022-03-13 12:52 | Emergency (ER) | payer OTHER ==
[~2022-03-13] VITALS: Ht 160 cm; Wt 142.2 kg
[2022-03-13 12:53] VITALS: BP 140/89
== END 2022-03-13 15:37 | disposition left against medical advice (07) ==
LOC: M ED 12:52
DX: Z53.21 Procedure and treatment not carried out due to patient leaving prior to being seen by health care provider (principal)

== ENCOUNTER → 2022-04-02 | Outpatient (CLI) | payer OTHER ==
[~2022-04-02] MED LIST changes: -ZONI100C17 PO; +ZONI100C67 PO
== END ==
LOC: M RAD 08:58
PROVIDERS: ATTEND Nurse Practitioner Family
DX: M16.12 Unilateral primary osteoarthritis, left hip (principal); M25.552 Pain in left hip; M25.562 Pain in left knee

== ENCOUNTER 2022-04-13 19:55 | Emergency (ER) | payer OTHER ==
[~2022-04-13] VITALS: Ht 162.6 cm; Wt 143.2 kg
[~2022-04-13 19:55] MED LIST changes: +ALBU2.5V10 INH; -ALBU83IN INH
[2022-04-13] MEDS ORDERED: TIZA10TA PO (20:29)
[2022-04-13] MEDS ORDERED: DULO1CAP5 PO (20:29)
[2022-04-13 20:45] LABS: HEMATOCRIT 41.3 % (36.0-47.0); HEMOGLOBIN 13.9 g/dl (12.0-15.5); MEAN CORPUSCULAR HEMOGLOBIN 29.9 pg (27.0-33.0); MEAN CORPUSCULAR HGB CONC 33.7 g/dl (32.0-36.5); MEAN CORPUSCULAR VOLUME 88.8 fl (80.0-96.0); PLATELET COUNT, AUTOMATED 407 10^3/uL (150-450); RED BLOOD COUNT 4.65 10^6/uL (4.00-5.40); WHITE BLOOD COUNT 13.3 10^3/uL (4.0-10.0)
[2022-04-13 21:09] LABS: ALBUMIN 3.4 GM/DL (3.2-5.2); ALT/SGPT 23 U/L (12-78); BILIRUBIN,DIRECT < 0.1 MG/DL (0.0-0.2); BILIRUBIN,TOTAL 0.2 MG/DL (0.2-1.0); LIPASE 150 U/L (73-393); TOTAL PROTEIN 7.5 GM/DL (6.4-8.2)
[2022-04-13 21:23] LABS: ATYPICAL LYMPH 9 % (0-5); BASOPHILS 1 % (0-1); EOSINOPHILS 5 % (0-3); LYMPHOCYTES 13 % (16-44); MONOCYTES 3 % (0-5); NEUTROPHILS 68 % (28-66); PLATELET ESTIMATE NORMAL (NORMAL)
[2022-04-13] MEDS ORDERED: MORPHINE 2 MG/ML 1ML VIAL IV ONE (22:20)
[2022-04-13] MEDS ORDERED: NS 1,000 ML IV ONE (22:20)
[2022-04-13] MEDS ORDERED: ISOVUE-370 76% 100ML VIAL As Ordered ONE (22:23)
[2022-04-13] MEDS ORDERED: ONDA4TAB6 PO (23:26)
[2022-04-13 23:33] VITALS: BP 136/82
== END 2022-04-13 23:34 | disposition home or self-care (01) ==
LOC: M ED 19:55
DX: R10.32 Left lower quadrant pain (principal); F43.10 Post-traumatic stress disorder, unspecified; F31.9 Bipolar disorder, unspecified; Z87.442 Personal history of urinary calculi; G43.909 Migraine, unspecified, not intractable, without status migrainosus; J45.909 Unspecified asthma, uncomplicated; K50.90 Crohn's disease, unspecified, without complications; M54.50 Low back pain, unspecified; F12.10 Cannabis abuse, uncomplicated; F17.200 Nicotine dependence, unspecified, uncomplicated; Z88.0 Allergy status to penicillin; Z88.5 Allergy status to narcotic agent; Z88.8 Allergy status to other drugs, medicaments and biological substances; Z91.030 Bee allergy status; Z91.040 Latex allergy status; Z91.048 Other nonmedicinal substance allergy status; Z79.51 Long term (current) use of inhaled steroids; Z79.899 Other long term (current) drug therapy
CPT/HCPCS: 74177; 80047; 80076; 81001; 83690; 85025; 96361; 96374; 99284; J2270; Q9967

== ENCOUNTER → 2022-08-23 | Outpatient (CLI) | payer OTHER ==
[~2022-08-23] MED LIST changes: +DULO1CAP5 PO
[2022-08-23 11:17] LABS: BASO % 0.3 % (0.0-1.0); EOS # 0.3 10^3/uL (0.0-0.5); HEMOGLOBIN 14.1 g/dl (12.0-15.5); LYMPH # 3.8 10^3/uL (1.5-5.0); LYMPH % 29.5 % (24.0-44.0); MEAN CORPUSCULAR HEMOGLOBIN 29.4 pg (27.0-33.0); MEAN CORPUSCULAR HGB CONC 32.8 g/dl (32.0-36.5); MEAN CORPUSCULAR VOLUME 89.8 fl (80.0-96.0); MONO # 0.6 10^3/uL (0.0-0.8); MONO % 4.8 % (2.0-8.0); NEUTROPHILS # 8.1 10^3/uL (1.5-8.5); PLATELET COUNT, AUTOMATED 394 10^3/uL (150-450); RED BLOOD COUNT 4.79 10^6/uL (4.00-5.40); WHITE BLOOD COUNT 12.8 10^3/uL (4.0-10.0)
[2022-08-23 11:54] LABS: C REACTIVE PROTEIN QUANTITATIV 3.64 MG/DL (0.00-0.30); RHEUMATOID FACTOR QUANT < 10.0 IU/ML (<15.0); TOTAL PROTEIN 7.4 GM/DL (6.4-8.2)
[2022-08-23 12:04] LABS: ERYTHROCYTE SEDIMENTATION RATE 48 mm/hr (0-20)
[2022-08-26 14:12] LABS: ANGIOTENSIN 1 CONVERTING ENZYM 46 U/L (14-82); ANTI DOUBLE STRAND-DNA AB 1 IU/mL (0-9); ANTINUCLEAR ANTIBODIES DIRECT Positive (Negative); COPPER PLASMA 132 ug/dL (80-158); RNP ANTIBODIES 1.2 AI (0.0-0.9); SJOGREN'S ANTI SS-A <0.2 AI (0.0-0.9); SJOGREN'S ANTI SS-B 2.4 AI (0.0-0.9); SMITH ANTIBODIES <0.2 AI (0.0-0.9); ZINC PLASMA 75 ug/dL (44-115)
[2022-08-27 11:39] LABS: ALBUMIN 3.97 GM/DL (3.29-5.55); ALBUMIN % 53.6 % (55.8-66.1); ALPHA-1-GLOBULIN % 4.3 % (2.9-4.9); ALPHA-1-GLOBULINS 0.32 GM/DL (0.17-0.41); ALPHA-2-GLOBULINS % 12.2 % (7.1-11.8); BETA-1-GLOBULINS 0.52 GM/DL (0.28-0.60); BETA-2-GLOBULINS 0.44 GM/DL (0.19-0.55); BETA-2-GLOBULINS % 5.9 % (3.2-6.5); GAMMA GLOBULINS 1.26 GM/DL (0.65-1.58)
== END ==
LOC: M LAB 09:56
PROVIDERS: ATTEND Internal Medicine Hematology & Oncology
DX: G95.89 Other specified diseases of spinal cord (principal)

== ENCOUNTER → 2022-08-26 | Outpatient (CLI) | payer OTHER ==
[2022-08-27 15:50] LABS: CYTOGENETICS FISH FOR PATH SO See Pathology Report; JAK2 MUTATIONS FOR PATH SENDOU See Pathology Report
== END ==
LOC: M LAB 08:18
PROVIDERS: ATTEND Internal Medicine Hematology & Oncology
DX: G95.89 Other specified diseases of spinal cord (principal)

== ENCOUNTER → 2023-01-27 | Outpatient (CLI) | payer OTHER | LOC: M PLARAD 12:38 | PROVIDERS: ATTEND Internal Medicine Hematology & Oncology | DX: R94.8 Abnormal results of function studies of other organs and systems (principal); R91.1 Solitary pulmonary nodule | CPT/HCPCS: 78815; A9552 ==

== ENCOUNTER → 2023-05-06 | Outpatient (REF) | payer OTHER | LOC: M SFHCDERM 09:54 | PROVIDERS: ATTEND Nurse Practitioner Family | DX: Z53.9 Procedure and treatment not carried out, unspecified reason (principal) ==

== ENCOUNTER 2023-07-07 23:16 | Inpatient (IN) | payer MEDICAID, OTHER ==
[~2023-07-07] VITALS: Ht 160 cm; Wt 113.6 kg
[2023-07-08 00:36] LABS: AMPHETAMINES LEVEL URINE NEGATIVE (NEGATIVE); BARBITURATES URINE NEGATIVE (NEGATIVE); BENZODIAZEPINES URINE NEGATIVE (NEGATIVE); COCAINE METABOLITE URINE NEGATIVE (NEGATIVE); METHADONE URINE NEGATIVE (NEGATIVE); OPIATES URINE NEGATIVE (NEGATIVE); PHENCYCLIDINE URINE NEGATIVE (NEGATIVE)
[2023-07-08 00:39] LABS: ETHYL ALCOHOL (ETHANOL) < 0.003 % (0.000-0.010); HEMATOCRIT 43.8 % (36.0-47.0); HEMOGLOBIN 14.5 g/dl (12.0-15.5); MEAN CORPUSCULAR HEMOGLOBIN 29.6 pg (27.0-33.0); MEAN CORPUSCULAR HGB CONC 33.1 g/dl (32.0-36.5); MEAN CORPUSCULAR VOLUME 89.4 fl (80.0-96.0); PLATELET COUNT, AUTOMATED 427 10^3/uL (150-450); WHITE BLOOD COUNT 14.8 10^3/uL (4.0-10.0)
[2023-07-08 00:40] LABS: CANNABINOIDS URINE POSITIVE (NEGATIVE); SALICYLATE LEVEL < 3.0 MG/DL (<30)
[2023-07-08 00:41] LABS: ACETAMINOPHEN LEVEL < 2.0 UG/ML (10.0-20.0); ALBUMIN 3.8 G/DL (3.2-5.2); ALKALINE PHOSPHATASE 110 U/L (46-116); ALT/SGPT 20 U/L (7.0-40); AST/SGOT < 8 U/L (<34); BILIRUBIN,DIRECT < 0.1 MG/DL (<0.4); BILIRUBIN,TOTAL 0.2 MG/DL (0.3-1.2); BLOOD UREA NITROGEN 9 MG/DL (9-23); CALCIUM LEVEL 9.4 MG/DL (8.5-10.1); CARBON DIOXIDE LEVEL 26 MMOL/L (20-31); CHLORIDE LEVEL 105 MMOL/L (98-107); CREATININE FOR GFR 0.72 MG/DL (0.55-1.30); GLOMERULAR FILTRATION RATE > 60.0 (>60); GLUCOSE, FASTING 117 MG/DL (60-100); SODIUM LEVEL 137 MMOL/L (136-145); TOTAL PROTEIN 7.7 G/DL (5.7-8.2)
[2023-07-08 00:43] LABS: THYROID STIMULATING HORMONE 3.373 uIU/ML (0.55-4.78)
[2023-07-08] MEDS ORDERED: MAALOX 30 ML SUSP *UDC PO PRN (01:10)
[2023-07-08] MEDS ORDERED: ACETAMINOPHEN TAB 650MG DOSE (2X325MG) PO PRN (01:10)
[2023-07-08] MEDS ORDERED: MOM 30ML SUSPENSION UDC PO PRN (01:10)
[2023-07-08] MEDS: traZODone 50 MG TAB PO PRN (02:30)
[2023-07-08] MEDS: diphenhydrAMINE 25MG CAP PO PRN ×2 (02:30→09:51)
[2023-07-08] MEDS ORDERED: ARIP1TAB44 PO (02:48)
[2023-07-08] MEDS ORDERED: CLON1TAB8 PO (02:48)
[2023-07-08] MEDS ORDERED: DESV100T PO (02:48)
[2023-07-08] MEDS ORDERED: ALBU8.5H INH (02:48)
[2023-07-08] MEDS ORDERED: EPIP0.3I2 IM (02:48)
[2023-07-08] MEDS ORDERED: ARIP1TAB10 PO (02:48)
[2023-07-08] MEDS ORDERED: GABA600T4 PO (02:48)
[2023-07-08] MEDS ORDERED: ASPI-161 PO (03:00)
[2023-07-08] MEDS ORDERED: CYCL5TAB PO (03:00)
[2023-07-08] MEDS ORDERED: OMEP1CAP73 PO (03:00)
[2023-07-08] MEDS ORDERED: HYDR-4571 PO (03:00)
[2023-07-08] MEDS ORDERED: SPIR100T3 PO (03:00)
[2023-07-08] MEDS ORDERED: BELS1TAB4 PO (03:00)
[2023-07-08] MEDS ORDERED: CLIN1SOL TOP (03:00)
[2023-07-08] MEDS ORDERED: PRED10TA2 PO (03:00)
[2023-07-08] MEDS ORDERED: MYCO500T PO (03:00)
[2023-07-08] MEDS ORDERED: PRAZ2CAP PO (03:00)
[2023-07-08] MEDS ORDERED: HYDR200T46 PO (03:00)
[2023-07-08] MEDS ORDERED: HOME MED LIST COMPLETE! XX SCH (03:05)
[2023-07-08 05:59] VITALS: BP 125/78; TEMP 98.4; O2SAT 94
[2023-07-08] MEDS ORDERED: ALBUTEROL 90 MCG/ACT 8GM HFA INHALER INH PRN (14:40)
[2023-07-08] MEDS ORDERED: predniSONE 10MG TAB PO PRN (14:40)
[2023-07-08] MEDS ORDERED: CYCLOBENZAPRINE 5MG TABLET PO PRN (14:40)
[2023-07-08] MEDS ORDERED: **SFRHE** EPINEPHrine (EPIPEN) 0.3MG/0.3ML SYRINGE INJ PRN (14:40)
[2023-07-08 16:02] VITALS: BP 122/71; TEMP 96.6; O2SAT 99
[2023-07-08] MEDS: GABAPENTIN 300 MG CAP PO SCH ×2 (16:34→21:23)
[2023-07-08] MEDS: ASPIRIN 81MG ENTERIC TABLET PO SCH (16:59)
[2023-07-08] MEDS: DESVENLAFAXINE ER 50MG TABLET (PRISTIQ) PO SCH (17:00)
[2023-07-08] MEDS: ARIPiprazole 15 MG TAB (AbiLIFY) PO SCH (17:00)
[2023-07-08] MEDS: OMEPRAZOLE 20MG CAP PO SCH (17:00)
[2023-07-08] MEDS: SPIRONOLACTONE 50 MG TAB PO SCH (17:00)
[2023-07-08] MEDS: LIDOCAINE 5% (LIDODERM) PATCH TD SCH (17:01)
[2023-07-08] MEDS: clonazePAM 1 MG TAB PO PRN (19:22)
[2023-07-08] MEDS: CLINDAMYCIN TOP 1% SOLN 60ML BTL TOP SCH (21:00)
[2023-07-08 21:19] VITALS: BP 125/78
[2023-07-08] MEDS: PRAZOSIN 1 MG CAP PO SCH (21:23)
[2023-07-08] MEDS: MYCOPHENOLATE MOFETIL 250 MG CAP (J7517) PO SCH (21:23)
[2023-07-08] MEDS: HYDROXYCHLOROQUINE 200 MG TAB PO SCH (21:23)
[2023-07-09] MEDS: IBUPROFEN 400MG TAB PO PRN ×2 (02:44→13:09)
[2023-07-09] MEDS: diphenhydrAMINE 25MG CAP PO PRN (03:29)
[2023-07-09 06:16] VITALS: BP 92/56; TEMP 97.8; O2SAT 99
[2023-07-09 06:36] LABS: BASO # 0.1 10^3/uL (0.0-0.2); BASO % 0.4 % (0.0-1.0); EOS # 0.2 10^3/uL (0.0-0.5); EOS % 1.7 % (0.0-3.0); HEMOGLOBIN 13.6 g/dl (12.0-15.5); LYMPH # 4.4 10^3/uL (1.5-5.0); LYMPH % 35.5 % (24.0-44.0); MEAN CORPUSCULAR HEMOGLOBIN 29.5 pg (27.0-33.0); MEAN CORPUSCULAR HGB CONC 33.2 g/dl (32.0-36.5); MEAN CORPUSCULAR VOLUME 88.9 fl (80.0-96.0); MONO # 0.9 10^3/uL (0.0-0.8); MONO % 7.2 % (2.0-8.0); NEUTROPHILS # 6.7 10^3/uL (1.5-8.5); NEUTROPHILS % 54.8 % (36.0-66.0); PLATELET COUNT, AUTOMATED 355 10^3/uL (150-450); RED BLOOD COUNT 4.61 10^6/uL (4.00-5.40); WHITE BLOOD COUNT 12.3 10^3/uL (4.0-10.0)
[2023-07-09] MEDS: DESVENLAFAXINE ER 50MG TABLET (PRISTIQ) PO SCH (07:48)
[2023-07-09] MEDS: OMEPRAZOLE 20MG CAP PO SCH (07:48)
[2023-07-09] MEDS: GABAPENTIN 300 MG CAP PO SCH ×3 (07:48→20:12)
[2023-07-09] MEDS: ASPIRIN 81MG ENTERIC TABLET PO SCH (07:48)
[2023-07-09] MEDS: SPIRONOLACTONE 50 MG TAB PO SCH (07:48)
[2023-07-09] MEDS: ARIPiprazole 15 MG TAB (AbiLIFY) PO SCH (07:48)
[2023-07-09] MEDS: CLINDAMYCIN TOP 1% SOLN 60ML BTL TOP SCH ×2 (07:49→20:12)
[2023-07-09] MEDS: MYCOPHENOLATE MOFETIL 250 MG CAP (J7517) PO SCH ×2 (07:49→20:11)
[2023-07-09] MEDS: HYDROXYCHLOROQUINE 200 MG TAB PO SCH ×2 (07:49→20:12)
[2023-07-09] MEDS: LIDOCAINE 5% (LIDODERM) PATCH TD SCH (07:50)
[2023-07-09] MEDS ORDERED: VENLAFAXINE **XR** 75MG CAPSULE PO SCH (09:00)
[2023-07-09] MEDS: clonazePAM 1 MG TAB PO PRN (10:01)
[2023-07-09 16:27] VITALS: BP 140/73; TEMP 98.6; O2SAT 100
[2023-07-09] MEDS: NORCO, ANEXSIA 5/325MG TABLET (HYDROcodone/ACETAMINOPHEN) PO PRN (19:22)
[2023-07-09] MEDS ORDERED: DESVENLAFAXINE ER 50MG TABLET (PRISTIQ) PO ONE (19:45)
[2023-07-09] MEDS: traZODone 50 MG TAB PO PRN (20:11)
[2023-07-09 20:12] VITALS: BP 115/72
[2023-07-09] MEDS: PRAZOSIN 1 MG CAP PO SCH (20:12)
[2023-07-10] MEDS: NORCO, ANEXSIA 5/325MG TABLET (HYDROcodone/ACETAMINOPHEN) PO PRN (05:11)
[2023-07-10 06:03] VITALS: BP 129/69; TEMP 96.7; O2SAT 95
[2023-07-10] MEDS: GABAPENTIN 300 MG CAP PO SCH (08:13)
[2023-07-10] MEDS: SPIRONOLACTONE 50 MG TAB PO SCH (08:13)
[2023-07-10] MEDS: MYCOPHENOLATE MOFETIL 250 MG CAP (J7517) PO SCH (08:13)
[2023-07-10] MEDS: HYDROXYCHLOROQUINE 200 MG TAB PO SCH (08:13)
[2023-07-10] MEDS: ASPIRIN 81MG ENTERIC TABLET PO SCH (08:13)
[2023-07-10] MEDS: OMEPRAZOLE 20MG CAP PO SCH (08:13)
[2023-07-10] MEDS: LIDOCAINE 5% (LIDODERM) PATCH TD SCH (08:14)
[2023-07-10] MEDS: ARIPiprazole 15 MG TAB (AbiLIFY) PO SCH (08:14)
[2023-07-10] MEDS: CLINDAMYCIN TOP 1% SOLN 60ML BTL TOP SCH (08:14)
[2023-07-10] MEDS ORDERED: DESVENLAFAXINE ER 50MG TABLET (PRISTIQ) PO ONE (09:00)
== END 2023-07-10 11:30 | disposition home or self-care (01) | DRG 753 ==
LOC: M ED 23:16 → M ED INP 07-08 01:08 → M PSY 07-08 04:38
PROVIDERS: ADMIT Student in an Organized Health Care Education/Training Program; ATTEND Student in an Organized Health Care Education/Training Program
DX: F31.9 Bipolar disorder, unspecified (principal); R45.851 Suicidal ideations; S60.221A Contusion of right hand, initial encounter; M32.9 Systemic lupus erythematosus, unspecified; Z79.82 Long term (current) use of aspirin; Z79.899 Other long term (current) drug therapy; Z88.0 Allergy status to penicillin; Z88.8 Allergy status to other drugs, medicaments and biological substances; Z91.048 Other nonmedicinal substance allergy status; Z91.030 Bee allergy status; W22.09XA Striking against other stationary object, initial encounter; Y92.9 Unspecified place or not applicable; Z62.810 Personal history of physical and sexual abuse in childhood; Z20.822 Contact with and (suspected) exposure to COVID-19; Z91.51 Personal history of suicidal behavior

== ENCOUNTER 2023-12-04 20:26 | Emergency (ER) | payer MEDICAID, OTHER ==
[~2023-12-04] VITALS: Ht 162.6 cm; Wt 137.0 kg
[2023-12-04 20:26] VITALS: BP 131/81; TEMP 96; O2SAT 98
[~2023-12-04 20:26] MED LIST changes: +ALBU8.5H INH; +ARIP1TAB10 PO; +ARIP1TAB44 PO; +ASPI-161 PO; +BELS1TAB4 PO; +CLIN1SOL TOP; +CYCL5TAB PO; +DESV100T PO; -EFFE37.5 PO; +EFFE37.52 PO; +HYDR-4571 PO; +HYDR200T46 PO; +MYCO500T PO; +RISP-105 PO; -RISP-8 PO; +SPIR100T3 PO
[2023-12-04 21:54] LABS: BASO # 0.1 10^3/uL (0.0-0.2); BASO % 0.4 % (0.0-1.0); EOS # 0.4 10^3/uL (0.0-0.5); EOS % 2.9 % (0.0-3.0); HEMATOCRIT 42.4 % (36.0-47.0); HEMOGLOBIN 14.4 g/dl (12.0-15.5); LYMPH # 5.4 10^3/uL (1.5-5.0); LYMPH % 37.5 % (24.0-44.0); MEAN CORPUSCULAR HEMOGLOBIN 29.8 pg (27.0-33.0); MEAN CORPUSCULAR VOLUME 87.6 fl (80.0-96.0); MONO # 0.8 10^3/uL (0.0-0.8); MONO % 5.2 % (2.0-8.0); NEUTROPHILS # 7.7 10^3/uL (1.5-8.5); NEUTROPHILS % 53.7 % (36.0-66.0); PLATELET COUNT, AUTOMATED 388 10^3/uL (150-450); RED BLOOD COUNT 4.84 10^6/uL (4.00-5.40); WHITE BLOOD COUNT 14.3 10^3/uL (4.0-10.0)
[2023-12-04 22:20] LABS: CPK CREATINE PHOSPHOKINASE 106 U/L (34-145)
[2023-12-04 22:44] LABS: BLOOD UREA NITROGEN 8 MG/DL (9-23); CALCIUM LEVEL 9.1 MG/DL (8.5-10.1); CARBON DIOXIDE LEVEL 27 MMOL/L (20-31); CHLORIDE LEVEL 104 MMOL/L (98-107); CK-MB VALUE MASS < 1.0 NG/ML (<3.6); CREATININE FOR GFR 0.76 MG/DL (0.55-1.30); GLOMERULAR FILTRATION RATE > 60.0 (>60); GLUCOSE, FASTING 97 MG/DL (60-100); MAGNESIUM LEVEL 1.8 MG/DL (1.8-2.4); MB/CK RELATIVE INDEX 0.94 (< OR =4); SODIUM LEVEL 135 MMOL/L (136-145); THYROID STIMULATING HORMONE 6.017 uIU/ML (0.55-4.78)
[2023-12-05] MEDS ORDERED: DOXY-443 PO (15:51)
[2023-12-05] MEDS ORDERED: CEFD1CAP9 PO (15:51)
== END 2023-12-05 00:51 | disposition left against medical advice (07) ==
LOC: M ED 20:26
DX: Z53.21 Procedure and treatment not carried out due to patient leaving prior to being seen by health care provider (principal)

== ENCOUNTER 2023-12-05 10:35 | Emergency (ER) | payer OTHER ==
[~2023-12-05] VITALS: Ht 162.6 cm; Wt 104.5 kg
[2023-12-05 12:34] LABS: BASO # 0.1 10^3/uL (0.0-0.2); BASO % 0.6 % (0.0-1.0); EOS # 0.2 10^3/uL (0.0-0.5); EOS % 1.7 % (0.0-3.0); HEMATOCRIT 43.6 % (36.0-47.0); HEMOGLOBIN 14.5 g/dl (12.0-15.5); LYMPH # 2.7 10^3/uL (1.5-5.0); LYMPH % 25.7 % (24.0-44.0); MEAN CORPUSCULAR HEMOGLOBIN 29.7 pg (27.0-33.0); MEAN CORPUSCULAR HGB CONC 33.3 g/dl (32.0-36.5); MEAN CORPUSCULAR VOLUME 89.2 fl (80.0-96.0); MONO # 0.5 10^3/uL (0.0-0.8); MONO % 4.8 % (2.0-8.0); NEUTROPHILS # 7.2 10^3/uL (1.5-8.5); NEUTROPHILS % 66.9 % (36.0-66.0); PLATELET COUNT, AUTOMATED 384 10^3/uL (150-450); RED BLOOD COUNT 4.89 10^6/uL (4.00-5.40); WHITE BLOOD COUNT 10.7 10^3/uL (4.0-10.0)
[2023-12-05 12:46] LABS: INR 1.06; PROTHROMBIN TIME 13.5 SECONDS (12.5-14.5)
[2023-12-05 12:47] LABS: PARTIAL THROMBOPLASTIN TIME 31.6 SECONDS (24.8-34.2)
[2023-12-05 12:57] LABS: CK-MB VALUE MASS < 1.0 NG/ML (<3.6)
[2023-12-05 12:58] LABS: CPK CREATINE PHOSPHOKINASE 87 U/L (34-145); MB/CK RELATIVE INDEX 1.14 (< OR =4)
[2023-12-05 12:59] LABS: BLOOD UREA NITROGEN 8 MG/DL (9-23); CALCIUM LEVEL 8.7 MG/DL (8.5-10.1); CARBON DIOXIDE LEVEL 29 MMOL/L (20-31); CHLORIDE LEVEL 107 MMOL/L (98-107); GLOMERULAR FILTRATION RATE > 60.0 (>60); GLUCOSE, FASTING 102 MG/DL (60-100); POTASSIUM SERUM 4.1 MMOL/L (3.5-5.1); SODIUM LEVEL 140 MMOL/L (136-145)
[2023-12-05 13:01] LABS: HCG, SERUM QUALITATIVE NEGATIVE (NEGATIVE); THYROID STIMULATING HORMONE 3.933 uIU/ML (0.55-4.78)
[2023-12-05] MEDS ORDERED: ALBUTEROL SULFATE 2.5MG/0.5ML INH NEB SOLN NEB ONE (13:10)
[2023-12-05 13:36] LABS: MAGNESIUM LEVEL 1.8 MG/DL (1.8-2.4)
[2023-12-05] MEDS ORDERED: cefTRIAXone SOD 1 GM in D5W MINI-BAG PLUS 50 ML IV ONE (15:45)
[2023-12-05] MEDS ORDERED: DOXYCYCLINE HYCLATE 100MG TABLET PO ONE (15:45)
[2023-12-05] MEDS ORDERED: DOXY-443 PO (15:51)
[2023-12-05] MEDS ORDERED: CEFD1CAP9 PO (15:51)
[2023-12-05 16:26] VITALS: BP 117/65; TEMP 97.6; O2SAT 99
== END 2023-12-05 16:35 | disposition home or self-care (01) ==
LOC: M ED 10:35 → EDBD 10:35 → M ED 16:35
DX: J18.9 Pneumonia, unspecified organism (principal); J45.909 Unspecified asthma, uncomplicated; K58.9 Irritable bowel syndrome, unspecified; F17.200 Nicotine dependence, unspecified, uncomplicated; F90.9 Attention-deficit hyperactivity disorder, unspecified type; Z79.52 Long term (current) use of systemic steroids; Z79.82 Long term (current) use of aspirin; Z79.2 Long term (current) use of antibiotics; Z79.899 Other long term (current) drug therapy; Z88.0 Allergy status to penicillin; Z88.5 Allergy status to narcotic agent; Z91.030 Bee allergy status; Z91.040 Latex allergy status
CPT/HCPCS: 71046; 80048; 82550; 82553; 83735; 84443; 84703; 85025; 85610; 85730; 93005; 94640; 96365; 99284; J0696

== ENCOUNTER 2024-01-06 16:07 | Emergency (ER) | payer OTHER ==
[~2024-01-06] VITALS: Ht 162.6 cm; Wt 138.4 kg
[~2024-01-06 16:07] MED LIST changes: -ASPI-161 PO; +ASPI-615 PO; +CEFD1CAP9 PO; +DOXY-443 PO; -KLON0.5T; +KLON0.5T8; +KLON0.5T8 PO
[2024-01-06 16:08] VITALS: BP 144/77; TEMP 98.6; O2SAT 95
== END 2024-01-06 18:47 | disposition left against medical advice (07) ==
LOC: M ED 16:07
DX: Z53.21 Procedure and treatment not carried out due to patient leaving prior to being seen by health care provider (principal)

== ENCOUNTER 2024-01-17 22:12 | Emergency (ER) | payer OTHER ==
[~2024-01-17] VITALS: Ht 162.6 cm; Wt 148.2 kg
[2024-01-17 22:12] VITALS: BP 126/77; TEMP 98.7; O2SAT 96
[~2024-01-17 22:12] MED LIST changes: -KLON1TAB PO; +KLON1TAB13 PO; +RISP-106; -RISP-9
[2024-01-17] MEDS ORDERED: ADV100INH INH (22:34)
[2024-01-17] MEDS ORDERED: CELE1CAP4 PO (22:34)
[2024-01-17] MEDS ORDERED: CLON1TAB17 PO (22:34)
== END 2024-01-18 01:00 | disposition left against medical advice (07) ==
LOC: M ED 22:12
DX: Z53.21 Procedure and treatment not carried out due to patient leaving prior to being seen by health care provider (principal)

== ENCOUNTER 2024-01-19 08:34 | Emergency (ER) | payer OTHER ==
[~2024-01-19] VITALS: Ht 162.6 cm; Wt 134.0 kg
[~2024-01-19 08:34] MED LIST changes: +ADV100INH INH; +CELE1CAP4 PO; +CLON1TAB17 PO
[2024-01-19 10:58] VITALS: BP 112/58; TEMP 98.1; O2SAT 95
== END 2024-01-19 11:00 | disposition home or self-care (01) ==
LOC: M ED 08:34 → EDBD 08:34 → M ED 11:00
DX: M79.662 Pain in left lower leg (principal); M79.652 Pain in left thigh; F17.200 Nicotine dependence, unspecified, uncomplicated; G43.909 Migraine, unspecified, not intractable, without status migrainosus; J45.909 Unspecified asthma, uncomplicated; Z79.82 Long term (current) use of aspirin; Z79.52 Long term (current) use of systemic steroids; Z79.891 Long term (current) use of opiate analgesic; Z79.83 Long term (current) use of bisphosphonates; Z79.899 Other long term (current) drug therapy; Z88.0 Allergy status to penicillin; Z88.5 Allergy status to narcotic agent; Z88.8 Allergy status to other drugs, medicaments and biological substances; Z91.048 Other nonmedicinal substance allergy status; Z91.030 Bee allergy status

== ENCOUNTER 2024-01-27 23:10 | Emergency (ER) | payer OTHER ==
[2024-01-28 00:04] LABS: ETHYL ALCOHOL (ETHANOL) < 0.003 % (0.000-0.010)
[2024-01-28 00:06] LABS: ALBUMIN 3.5 G/DL (3.2-5.2); ALKALINE PHOSPHATASE 110 U/L (46-116); ALT/SGPT 21 U/L (7.0-40); AST/SGOT 14 U/L (<34); BASO # 0.1 10^3/uL (0.0-0.2); BASO % 0.5 % (0.0-1.0); BILIRUBIN,TOTAL 0.2 MG/DL (0.3-1.2); BLOOD UREA NITROGEN 12 MG/DL (9-23); CALCIUM LEVEL 8.7 MG/DL (8.5-10.1); CARBON DIOXIDE LEVEL 29 MMOL/L (20-31); CHLORIDE LEVEL 107 MMOL/L (98-107); CREATININE FOR GFR 0.69 MG/DL (0.55-1.30); EOS # 0.3 10^3/uL (0.0-0.5); EOS % 2.3 % (0.0-3.0); GLOMERULAR FILTRATION RATE > 60.0 (>60); GLUCOSE, FASTING 128 MG/DL (60-100); HEMATOCRIT 38.7 % (36.0-47.0); HEMOGLOBIN 12.8 g/dl (12.0-15.5); LYMPH # 3.5 10^3/uL (1.5-5.0); LYMPH % 26.4 % (24.0-44.0); MEAN CORPUSCULAR HEMOGLOBIN 29.6 pg (27.0-33.0); MEAN CORPUSCULAR HGB CONC 33.1 g/dl (32.0-36.5); MEAN CORPUSCULAR VOLUME 89.4 fl (80.0-96.0); MONO # 0.7 10^3/uL (0.0-0.8); MONO % 5.2 % (2.0-8.0); NEUTROPHILS # 8.6 10^3/uL (1.5-8.5); NEUTROPHILS % 64.7 % (36.0-66.0); PLATELET COUNT, AUTOMATED 376 10^3/uL (150-450); POTASSIUM SERUM 4.2 MMOL/L (3.5-5.1); RED BLOOD COUNT 4.33 10^6/uL (4.00-5.40); SALICYLATE LEVEL < 3.0 MG/DL (<30); SODIUM LEVEL 139 MMOL/L (136-145); TOTAL PROTEIN 6.8 G/DL (5.7-8.2); WHITE BLOOD COUNT 13.2 10^3/uL (4.0-10.0)
[2024-01-28 01:49] LABS: BARBITURATES URINE NEGATIVE (NEGATIVE); COCAINE METABOLITE URINE NEGATIVE (NEGATIVE); METHADONE URINE NEGATIVE (NEGATIVE)
[2024-01-28 01:50] LABS: AMPHETAMINES LEVEL URINE NEGATIVE (NEGATIVE); BENZODIAZEPINES URINE NEGATIVE (NEGATIVE); CANNABINOIDS URINE POSITIVE (NEGATIVE); OPIATES URINE NEGATIVE (NEGATIVE); PHENCYCLIDINE URINE NEGATIVE (NEGATIVE)
[2024-01-28 03:58] VITALS: BP 118/84; TEMP 98.8; O2SAT 98
== END 2024-01-28 03:59 | disposition home or self-care (01) ==
LOC: M ED 23:10
DX: F44.4 Conversion disorder with motor symptom or deficit (principal); F41.9 Anxiety disorder, unspecified; F31.9 Bipolar disorder, unspecified; M32.9 Systemic lupus erythematosus, unspecified; F17.200 Nicotine dependence, unspecified, uncomplicated; F12.10 Cannabis abuse, uncomplicated; Z88.0 Allergy status to penicillin; Z88.5 Allergy status to narcotic agent; Z88.8 Allergy status to other drugs, medicaments and biological substances; Z91.030 Bee allergy status; Z91.048 Other nonmedicinal substance allergy status; Z91.040 Latex allergy status; Z79.52 Long term (current) use of systemic steroids; Z79.82 Long term (current) use of aspirin; Z79.891 Long term (current) use of opiate analgesic; Z79.83 Long term (current) use of bisphosphonates; Z79.899 Other long term (current) drug therapy

== ENCOUNTER 2024-04-06 02:28 | Emergency (ER) | payer OTHER ==
[~2024-04-06] VITALS: Ht 162.6 cm; Wt 136.4 kg
[~2024-04-06 02:28] MED LIST changes: +DOXY-323 PO; -DOXY-443 PO; -IMIP10TA2 PO; +IMIP10TA4 PO
[2024-04-06 02:37] VITALS: TEMP 97.9
[2024-04-06 02:50] LABS: BASO # 0.1 10^3/uL (0.0-0.2); BASO % 0.6 % (0.0-1.0); EOS # 0.2 10^3/uL (0.0-0.5); EOS % 2.1 % (0.0-3.0); HEMATOCRIT 43.1 % (36.0-47.0); HEMOGLOBIN 14.6 g/dl (12.0-15.5); LYMPH # 3.7 10^3/uL (1.5-5.0); LYMPH % 38.7 % (24.0-44.0); MEAN CORPUSCULAR HEMOGLOBIN 29.9 pg (27.0-33.0); MEAN CORPUSCULAR HGB CONC 33.9 g/dl (32.0-36.5); MEAN CORPUSCULAR VOLUME 88.3 fl (80.0-96.0); MONO # 0.8 10^3/uL (0.0-0.8); MONO % 8.4 % (2.0-8.0); NEUTROPHILS # 4.7 10^3/uL (1.5-8.5); NEUTROPHILS % 49.9 % (36.0-66.0); PLATELET COUNT, AUTOMATED 346 10^3/uL (150-450); RED BLOOD COUNT 4.88 10^6/uL (4.00-5.40); WHITE BLOOD COUNT 9.4 10^3/uL (4.0-10.0)
[2024-04-06 03:14] LABS: BLOOD UREA NITROGEN 12 MG/DL (9-23); CALCIUM LEVEL 8.8 MG/DL (8.5-10.1); CARBON DIOXIDE LEVEL 26 MMOL/L (20-31); CHLORIDE LEVEL 106 MMOL/L (98-107); CREATININE FOR GFR 0.73 MG/DL (0.55-1.30); GLOMERULAR FILTRATION RATE > 60.0 (>60); GLUCOSE, FASTING 151 MG/DL (60-100); POTASSIUM SERUM 3.7 MMOL/L (3.5-5.1); SODIUM LEVEL 137 MMOL/L (136-145)
[2024-04-06] MEDS: predniSONE 20 MG TAB PO ONE (03:31)
[2024-04-06] MEDS ORDERED: PRED20TA PO (04:36)
[2024-04-06 04:45] VITALS: BP 127/69; O2SAT 95
== END 2024-04-06 04:46 | disposition home or self-care (01) ==
LOC: EDBD 02:28 → M ED 02:28
DX: J20.9 Acute bronchitis, unspecified (principal); B34.2 Coronavirus infection, unspecified; M32.9 Systemic lupus erythematosus, unspecified; J45.909 Unspecified asthma, uncomplicated; F17.200 Nicotine dependence, unspecified, uncomplicated; F12.10 Cannabis abuse, uncomplicated; Z90.49 Acquired absence of other specified parts of digestive tract; Z88.0 Allergy status to penicillin; Z88.5 Allergy status to narcotic agent; Z91.040 Latex allergy status; Z91.030 Bee allergy status; Z91.048 Other nonmedicinal substance allergy status; Z79.02 Long term (current) use of antithrombotics/antiplatelets; Z79.52 Long term (current) use of systemic steroids; Z79.82 Long term (current) use of aspirin; Z79.899 Other long term (current) drug therapy
CPT/HCPCS: 36415; 71046; 80048; 85025; 87486; 87581; 87633; 87798; 99284; J7512

== ENCOUNTER → 2024-04-27 | Outpatient (REF) | payer OTHER ==
[~2024-04-27] MED LIST changes: +CYMB1CAP5 PO; +ONDA-282 PO; -ONDA4TAB6 PO
== END ==
LOC: M SFHCDERM 10:25
PROVIDERS: ATTEND Nurse Practitioner Family
DX: L73.2 Hidradenitis suppurativa (principal)

== ENCOUNTER 2024-05-01 20:01 | Emergency (ER) | payer OTHER ==
[~2024-05-01] VITALS: Ht 162.6 cm; Wt 144.2 kg
[~2024-05-01 20:01] MED LIST changes: -CYMB1CAP5 PO
[2024-05-01 20:02] VITALS: BP 139/86; TEMP 98
[2024-05-01 20:56] VITALS: O2SAT 99
[2024-05-01] MEDS: NORCO, ANEXSIA 5/325MG TABLET (HYDROcodone/ACETAMINOPHEN) PO ONE (20:56)
[2024-05-01] MEDS ORDERED: CYMB1CAP5 PO (20:56)
== END 2024-05-01 21:09 | disposition home or self-care (01) ==
LOC: M ED 20:01
DX: L73.2 Hidradenitis suppurativa (principal); J45.909 Unspecified asthma, uncomplicated; F17.200 Nicotine dependence, unspecified, uncomplicated; F12.10 Cannabis abuse, uncomplicated; Z88.0 Allergy status to penicillin; Z88.5 Allergy status to narcotic agent; Z91.040 Latex allergy status; Z91.030 Bee allergy status; Z79.82 Long term (current) use of aspirin; Z79.52 Long term (current) use of systemic steroids; Z79.83 Long term (current) use of bisphosphonates; Z79.899 Other long term (current) drug therapy

== ENCOUNTER 2024-05-04 15:52 | Emergency (ER) | payer OTHER ==
[~2024-05-04] VITALS: Ht 162.6 cm; Wt 143.0 kg
[2024-05-04 15:52] VITALS: BP 132/98; TEMP 98.7; O2SAT 95
[~2024-05-04 15:52] MED LIST changes: +CYMB1CAP5 PO
== END 2024-05-04 16:38 | disposition left against medical advice (07) ==
LOC: M ED 15:52
DX: Z53.21 Procedure and treatment not carried out due to patient leaving prior to being seen by health care provider (principal)

== ENCOUNTER 2024-05-21 21:14 | Emergency (ER) | payer OTHER ==
[~2024-05-21] VITALS: Ht 162.6 cm; Wt 141.8 kg
[2024-05-21 21:22] VITALS: BP 148/70; TEMP 97.6; O2SAT 98
== END 2024-05-22 00:12 | disposition left against medical advice (07) ==
LOC: M ED 21:14 → EDBD 21:14 → M ED 05-22 00:12
DX: Z53.21 Procedure and treatment not carried out due to patient leaving prior to being seen by health care provider (principal)

== ENCOUNTER → 2024-05-27 | Outpatient (CLI) | payer OTHER | LOC: M RAD 09:52 | PROVIDERS: ATTEND Physician Assistant Medical | DX: M25.552 Pain in left hip (principal); M54.6 Pain in thoracic spine; M54.50 Low back pain, unspecified ==

== ENCOUNTER → 2024-06-10 | Outpatient (CLI) | payer OTHER ==
[2024-06-10 08:55] LABS: HEMATOCRIT 43.4 % (36.0-47.0); HEMOGLOBIN 14.5 g/dl (12.0-15.5); MEAN CORPUSCULAR HEMOGLOBIN 29.4 pg (27.0-33.0); MEAN CORPUSCULAR HGB CONC 33.4 g/dl (32.0-36.5); MEAN CORPUSCULAR VOLUME 87.9 fl (80.0-96.0); PLATELET COUNT, AUTOMATED 394 10^3/uL (150-450); RED BLOOD COUNT 4.94 10^6/uL (4.00-5.40); WHITE BLOOD COUNT 9.3 10^3/uL (4.0-10.0)
[2024-06-10 09:27] LABS: ALBUMIN 3.8 G/DL (3.2-5.2); ALKALINE PHOSPHATASE 106 U/L (46-116); ALT/SGPT 19 U/L (7.0-40); AST/SGOT 10 U/L (<34); BILIRUBIN,TOTAL 0.3 MG/DL (0.3-1.2); BLOOD UREA NITROGEN 7 MG/DL (9-23); CALCIUM LEVEL 9.1 MG/DL (8.5-10.1); CARBON DIOXIDE LEVEL 25 MMOL/L (20-31); CHLORIDE LEVEL 106 MMOL/L (98-107); CREATININE FOR GFR 0.64 MG/DL (0.55-1.30); GLOMERULAR FILTRATION RATE > 60.0 (>60); GLUCOSE, FASTING 108 MG/DL (60-100); POTASSIUM SERUM 3.9 MMOL/L (3.5-5.1); SODIUM LEVEL 135 MMOL/L (136-145); TOTAL PROTEIN 7.3 G/DL (5.7-8.2)
== END ==
LOC: M LAB 08:19
PROVIDERS: ATTEND Nurse Practitioner Family
DX: L73.2 Hidradenitis suppurativa (principal)

== ENCOUNTER 2024-09-20 13:08 | Emergency (ER) | payer OTHER ==
[~2024-09-20] VITALS: Ht 162.6 cm; Wt 139.8 kg
[~2024-09-20 13:08] MED LIST changes: -ARIP1TAB43 PO; -ARIP1TAB44 PO; +ARIP20TA51 PO; +ARIP30TA38 PO; -CYCL5TAB PO; +CYCL5TAB4 PO; -DOXY-323 PO; +DOXY-441 PO; +GABA-1490 PO; -GABA600T4 PO
[2024-09-20 15:44] VITALS: BP 107/56; TEMP 97.7; O2SAT 95
== END 2024-09-20 15:45 | disposition home or self-care (01) ==
LOC: M ED 13:08
DX: S93.502A Unspecified sprain of left great toe, initial encounter (principal); S91.202A Unspecified open wound of left great toe with damage to nail, initial encounter; W01.190A Fall on same level from slipping, tripping and stumbling with subsequent striking against furniture, initial encounter; F17.200 Nicotine dependence, unspecified, uncomplicated; Y92.009 Unspecified place in unspecified non-institutional (private) residence as the place of occurrence of the external cause; Y93.89 Activity, other specified; Y99.9 Unspecified external cause status; Z88.0 Allergy status to penicillin; Z88.5 Allergy status to narcotic agent; Z88.8 Allergy status to other drugs, medicaments and biological substances; Z91.030 Bee allergy status; Z91.048 Other nonmedicinal substance allergy status; Z79.52 Long term (current) use of systemic steroids; Z79.82 Long term (current) use of aspirin; Z79.899 Other long term (current) drug therapy

== ENCOUNTER → 2024-11-17 | Outpatient (CLI) | payer OTHER ==
[~2024-11-17] MED LIST changes: -ADV100INH INH; +ADVA1AER8 INH; -LORA2TA PO; +LORA2TAB15 PO
== END ==
LOC: M WUC 10:33
PROVIDERS: ATTEND Nurse Practitioner Family
DX: M25.562 Pain in left knee (principal)

== ENCOUNTER → 2025-06-29 | Outpatient (CLI) | payer OTHER ==
[~2025-06-29] MED LIST changes: -ACE65ERTAB PO; +ACET-1593 PO; -AMBI10TA PO; +OLAN20TA74 PO; -PROZ20CA11 PO; +PROZ20CA12 PO; +ZOLP-533 PO; -ZYPR20TA PO
== END ==
LOC: M SOG 06:50
PROVIDERS: ATTEND Orthopaedic Surgery
DX: M25.562 Pain in left knee (principal)

== ENCOUNTER → 2025-08-04 | Outpatient (CLI) | payer OTHER ==
[~2025-08-04] MED LIST changes: +CARB-19 PO; -CARB1TAB20 PO
== END ==
LOC: M RAD 12:23
PROVIDERS: ATTEND Orthopaedic Surgery
DX: M25.562 Pain in left knee (principal)